=== PATIENT | male | born 1945 | race Caucasian/White ===

== ENCOUNTER → 2016-12-27 | Outpatient (CLI) | payer OTHER ==
[~2016-12-27] MED LIST: ADVIN25/60 INH; ADVIN25050 INH; ALBUAER2 INH; ASPI81TA28 PO; CALC1CAP36 PO; CHOL100010 PO; CLC100 PO; DOCU-94 PO; DOXY100C PO; FINA5TAB PO; FRS/40 PO; ISOS-11 PO; ISOS30TA51 PO; LOSA1TAB PO; LPR25 PO; LSX/40 PO; POTA-335 PO; PRAV40TA2 PO; PRED20TA PO; PRT/40 PO; REPA1TAB42 PO; REPA1TAB8 PO; SITA50TA PO; SITA50TA3 PO; TIMO0.05 OPB; TIMO0.2528 OPB; TRAM-10 PO; TRAZ50TA35 PO; VNTHFA/IN INH
--- NOTE | 2016-12-28 06:34 | PAP/PSG TECHNICIAN REPORT ---
[facility] Vocational Trainer Polysomnogram Report Study name: None Report date: 12/28/2016 Study date: 12/27/2016 Referring Physician: Cassandra Whiteside M.D. Name: PINEDA RAGLAND Interpreting Physician: Leonel Whiteside M.D. Date of : 1945 Vocational Trainer: Tanika Mayberry, PSGT. Sex: Male Age: 71 StudyType: PSG Weight: 242 lbs Height: 71 years, Height 5' 5" Neck Circum: BMI: 40.27 Medications: PROSCAR 5 MG, PROTONIX 40 MG, POTASSIUM ER 20 MEQ, TRAZADONE 50 MG, PRAVACHOL 40 MG, VENTOLIN HFA, ADVAIR, PRANDIN 1 MG, LASIX 40 MG, IMDUR 30 MG, ROCALTROL 0.25 MG, COZAAR 25 MG, LOPRESSOR 25 MG, JANUVIA 50 MG, ULTRAM 50 MG, DOCUSATE 100 MG, TIMOLOL 0.25%, ASPRIN 81 MG. Patient History 71 yr. old male here for a titration sleep study. his ahi was 21.8 on his sleep study here on 07/2016. PT. REQUESTED NASAL PILLOWS, REFUSED ANY OTHER MASK TONIGHT.PT. WASN'T ABLE TO KEEP HIS MOUTH CLOSEDSO A FULL FACE MASKED WAS SUGGESTED AND HE AGREED. Parameters Monitored NPSG: E1-M2, E2-M1, Fp1-M2, Fp2-M1, F3-M2, F4-M2, F4-M1, C3-M2, C4-M2, C4-M1, O1-M2, O2-M2, O2-M1, T3-M2, T4-M1, P3-M2, P4-M1, CHIN1, CHIN2, HR, EKG, Legs, PFLOW, SNOR, FLOW, CFLOW, Tidal Volume, THOR, ABDO, SpO2, PLTH, CPRESS, ETCO2 Wave, ETCO2, pH Sleep Architecture Sleep Stages Time at Lights Off 9:30:53 PM STAGES Time (min.) TST (%) Time at Lights On 5:35:53 AM Wake 86.0 -- Total Recording Time (TRT) 486.00 min. N1 34.0 9 Total Sleep Period (TSP) 459.0 min. N2 312.0 78 Total Sleep Time (TST) 399.0min. N3 0.0 0 Awake Time 86.0 min. REM 53.0 13 Wake after Sleep Onset 60.0 min. Sleep Efficiency (SE) 82 % Sleep Onset Latency (MISAEL) 26.0 min. Number of Stage 1 Shifts None Awakenings 7 Stage Changes 30 Number of REM periods 4 REM 53.0 13 REM Latency 41.0 min. NREM 346.0 87 Body Position Analysis Supine Right Left Side Prone Vertical Total Sleep Time (min.) 261.5 111.0 82.5 193.44 0.0 3.7 Total Sleep Time (%) 52% 28% 21% 48 0% N/A% Total Sleep Time REM (min.) 34.0 11.5 7.5 None 0.0 0.0 Total Sleep Time NREM (min.) 171.6 99.5 75.0 None 0.0 0.0 Intermittent Wake (min.) 55.9 8.8 17.6 None 0.0 3.7 Total Sleep Period (%) 54% None None None None None Arousals Myoclonus (PLM) * Events Count Index Events Count Index Spontaneous 60 9 Events Awake (PLMW) 1 0.7 Respiratory 5 0.8 Events Asleep w/ Arousal (PLMA) 8 1.2 PLM 7 1 Events Asleep w/o Arousal (PLMS) 192 28.9 Snoring 20 3 Total Asleep 200 30.1 Total 92 14 Total 201 25 Respiratory Analysis * CA OA MA CH H RERA Total Count 25 11 5 0 89 2 130 Index 3.8 1.7 0.8 0 13.4 0 19.8 Mean Duration 17.7 16.0 14.4 0.00 17.0 20.7 17.0 Longest Duration 27.7 20.7 24.9 0.00 24.9 25.6 44.2 Respiratory Event Summary Total Supine ~Supine Right Left Prone REM NREM Apneas Count 41 26 15 1 14 N/A 0 41 Index 6.2 8 5 0.5 10.2 N/A 0 7 Hypopneas (4% Desat) Count 89 74 15 5 10 N/A 17 72 Index 13.4 21.6 5 2.7 7.3 N/A 19.2 12.5 Apneas & All Hypopneas Count 130 100 30 6 24 N/A 17 113 Index 19.5 29 9 3 17 N/A 19.2 19.6 Respiratory Events (Fishing Instructor+All Hyp+RERA) Count 130 100 32 8 24 N/A 17 113 Index 19.8 29 10 4.3 17.5 N/A 19.2 19.9 Respiratory Related Arousal Count 5 100 2 0 2 N/A 2 3 Index 0.8 1 1 0 1 N/A 2 1 Snoring Analysis Supine Right Left Prone REM NREM Total Snore duration 18.3 min Snores count 634 140 19 N/A 107 686 793 Snore mean duration 1.4 Sec Snores index 185 76 14 N/A 121.1 119.0 119.2 TST with snoring (%) 4.6% Desaturation Event Summary: Minimum %SpO2 Event Count Mean/Min/Max Duration(sec.) Desaturation Index % Time In Bed > 90 170 29.3 / 10.5 / 57.8 39.6 53.3 86 - 90 27 30.2 / 17.5 / 56.5 7.2 46.5 81 - 85 0 N/A 0.0 0.2 76 - 80 0 N/A 0.0 0.0 71 - 75 0 N/A 0.0 0.0 66 - 70 0 N/A 0.0 0.0 61 - 65 0 N/A 0.0 0.0 56 - 60 0 N/A 0.0 0.0 51 - 55 0 N/A 0.0 0.0 < 50 0 N/A 0.0 0.0 Total REM NREM Awake <50% 0.0 min. 0.0 min. 0.0 min. 0.0 min. 51 - 60% 0.0 min. 0.0 min. 0.0 min. 0.0 min. 61 - 70% 0.0 min. 0.0 min. 0.0 min. 0.0 min. 71 - 80% 0.0 min. 0.0 min. 0.0 min. 0.0 min. 81 - 90% 226.2 min. 29.5 min. 174.1 min. 22.7 min. 91 - 100% 257.8 min. 23.4 min. 171.9 min. 62.5 min. Average 91 90 91 92 Minimum SpO2 82 84 82 85 Desaturation Event Index 21.6 22.6 26.9 0.0 # Desat. Events below 89% 117 15 102 0 Time(%) with Saturation below 89% 10.1 1.4 7.9 0.8 Time(min.) with Saturation below 89% 48.7 6.7 38.1 3.8 Time (mins) REM (mins) NREM (mins) % of TST SpO2 Below 90% 169 19 N150 26.5 SpO2 Below 88% 59 0 0 5 Heart Rate Analysis Min (bpm) Max (bpm) Average (bpm) Awake 50 127 59 NREM 48 68 57 REM 53 67 58 Overall 48 68 57 Supplemental O2 Values Minimum O2 level: None Value Start Time End Time Vocational Trainer Comments Bi-Level Study: Mr. Ragland slept in the right, left, and supine positions. No cardiac arrhythmia or PLM's noted. No bruxism noted. C-pap was started at 5cm and up titrated to 9 cm h20, centrals continued and bi-pap was started at that time. PAP initiated at an IPAP of +8 CMH2O and an EPAP of +4CMH2O up-titrated to an optimal level of: IPAP +16 CMH2O, EPAP + 8 CMH20, which nearly eliminated all respiratory events and snoring. A medium Res [employer] Mirage Quattro, was used during titration Mr. Ragland awoke to use the restroom zero times during the night. Mr. Ragland stated, I did sleep better last night. The final report will be interpreted and signed by a sleep physician. The completed physician report will then be placed in the patient medical record. Pt. slept pretty well he tolerated treatment well. He started out wanting to try nasal pillows but wasn't able to keep his mouth closed, so a full-face mask was introduced and he did well with it.C-pap was started and up titrated to 9 cm h20, but he was having one central after another so Bi-pap was started and worked well for the centrals. He should do well with the Bi-pap he responded well to treatment and slept well with it. Therapy Event: Therapy (cm H20) 5 7 9 8/4 10/6 12/6 Total Time at Pressure (min.) 52.1 35.4 11.9 44.8 42.8 73.7 TST at Pressure (min.) 26.1 25.9 11.9 44.8 37.3 68.2 # Periods 1 1 1 1 1 1 Sleep Onset (min.) 26.0 0.0 0.0 0.0 0.0 0.0 REM Onset (min.) N/A 14.9 N/A N/A N/A 25.4 Sleep Efficiency % 50 73 100 100 87 92 Wakefulness (%) 49.9 26.8 0.0 0.0 12.8 7.5 Wakefulness (min.) 26.0 9.5 0.0 0.0 5.5 5.5 NREM 1 (%) 45.1 8.5 16.8 0.0 2.5 2.0 NREM 1 (min.) 23.5 3.0 2.0 0.0 1.1 1.4 NREM 2 (%) 5.0 43.5 83.2 100.0 84.7 75.0 NREM 2 (min.) 2.6 15.4 9.9 44.8 36.3 55.3 NREM 3 (%) 0.0 0.0 0.0 0.0 0.0 0.0 NREM 3 (min.) 0.0 0.0 0.0 0.0 0.0 0.0 REM (%) 0.0 21.2 0.0 0.0 0.0 15.6 REM (min.) 0.0 7.5 0.0 0.0 0.0 11.5 # Arousals 12 6 3 6 18 9 Arousal Index 27.6 13.9 15.1 8.0 28.9 7.9 # Snore 8 11 3 186 46 32 Snore Index 18.4 25.5 15.1 249.4 73.9 28.1 AHI 20.7 39.3 90.6 46.9 14.5 3.5 AHI Supine N/A 77.4 90.6 46.9 14.9 N/A AHI Non-Supine 20.7 34.2 N/A N/A 0.0 3.5 NREM AHI 20.7 55.3 90.6 46.9 14.5 4.2 REM AHI N/A 0.0 N/A N/A N/A 0.0 RDI 20.7 39.3 90.6 46.9 14.5 3.5 # Obstructive 4 5 1 1 0 0 # Central Ap 1 6 13 4 0 1 # Mixed 0 2 3 0 0 0 # Hypopneas 4 4 1 30 9 3 RERAS 0 0 0 0 0 0 Total Respiratory Events 9 17 18 35 9 4 Time Below SpO2 89.00% (min.) 1.5 5.8 1.3 13.5 2.4 4.0 Mean NREM SpO2 (%) 91 90 92 90 91 90 Mean REM SpO2 (%) N/A 89 N/A N/A N/A 90 Mean Sleep SpO2 (%) 91 90 92 90 91 90 Min NREM SpO2 (%) 87 86 86 82 86 82 Min REM SpO2 (%) N/A 87 N/A N/A N/A 88 Position Supine (min.) 0.0 3.1 11.9 44.8 36.3 0.0 Position Non-supine (min.) 26.1 22.8 0.0 0.0 1.1 68.2 LM Index Sleep 39.0 32.4 55.3 59.0 56.3 21.1 LM Index NREM 39.0 29.3 55.3 59.0 56.3 10.6 LM Index REM N/A 40.0 N/A N/A N/A 73.0 Mean Heart Rate (bpm) 57 57 57 58 58 57 Min Heart Rate (bpm) 52 52 54 53 54 54 Therapy (cm H20) 17/05 147 157 167 16/8 Total Time at Pressure (min.) 41.1 31.7 66.9 7.1 77.3 TST at Pressure (min.) 41.1 28.2 66.9 7.1 41.3 # Periods 1 1 1 1 1 Sleep Onset (min.) 0.0 0.0 0.0 0.0 0.0 REM Onset (min.) N/A 16.6 52.9 0.0 0.0 Sleep Efficiency % 100 89 100 100 53 Wakefulness (%) 0.0 11.0 0.0 0.0 46.6 Wakefulness (min.) 0.0 3.5 0.0 0.0 36.0 NREM 1 (%) 0.0 3.2 0.0 0.0 2.6 NREM 1 (min.) 0.0 1.0 0.0 0.0 2.0 NREM 2 (%) 100.0 70.1 79.0 0.0 40.7 NREM 2 (min.) 41.1 22.2 52.9 0.0 31.5 NREM 3 (%) 0.0 0.0 0.0 0.0 0.0 NREM 3 (min.) 0.0 0.0 0.0 0.0 0.0 REM (%) 0.0 15.8 21.0 100.0 10.1 REM (min.) 0.0 5.0 14.1 7.1 7.8 # Arousals 7 10 15 0 6 Arousal Index 10.2 21.2 13.4 0.0 8.7 # Snore 108 78 275 30 16 Snore Index 157.7 165.7 246.6 252.4 23.2 AHI 2.9 14.9 14.3 50.5 10.2 AHI Supine N/A 15.2 14.3 50.5 38.4 AHI Non-Supine 2.9 0.0 N/A N/A 3.6 NREM AHI 2.9 18.1 11.4 N/A 3.6 REM AHI N/A 0.0 25.6 50.5 38.4 RDI 5.8 14.9 14.3 50.5 10.2 # Obstructive 0 0 0 0 0 # Central Ap 0 0 0 0 0 # Mixed 0 0 0 0 0 # Hypopneas 2 7 16 6 7 RERAS 2 0 0 0 0 Total Respiratory Events 4 7 16 6 7 Time Below SpO2 89.00% (min.) 4.1 3.9 6.2 0.9 1.3 Mean NREM SpO2 (%) 90 90 91 N/A 91 Mean REM SpO2 (%) N/A 90 91 91 91 Mean Sleep SpO2 (%) 90 90 91 91 91 Min NREM SpO2 (%) 86 85 87 N/A 86 Min REM SpO2 (%) N/A 86 84 87 86 Position Supine (min.) 0.0 27.7 66.9 7.1 7.8 Position Non-supine (min.) 41.1 0.6 0.0 0.0 33.5 LM Index Sleep 17.5 19.1 21.5 8.4 13.1 LM Index NREM 17.5 12.9 17.0 N/A 1.8 LM Index REM N/A 48.0 38.4 8.4 61.5 Mean Heart Rate (bpm) 58 57 57 59 53 Min Heart Rate (bpm) 54 54 52 54 48
--- NOTE | 2017-01-01 16:43 | POLYSOMNOGRAPH REPORT ---
REFERRING PERSON: Dr. Ashwini Whiteside. MASTIC WORKER: Promise Mayberry. Mr. Ragland is a 71-year-old male, sent for a CPAP titration study. He had a home sleep study in July of 2016 which gestured an AHI of 21.8. Per the technologist's notes, this patient requested a nasal pillow mask and initially refused to use any other type of mask on this test. However, this patient was noted to be a mouth breather and ultimately did agree to switch to a medium [employer] Mirage Quattro full facemask. Following the technical and digital specifications of the [place] [employer] (AASM) a standard diagnostic polysomnogram was performed monitoring EEG, EOG, EMG (chin and leg deviations), oxygen saturation, body position, digital video, respiratory effort and airflow. The sleep Stage and event scoring was based on the AASM Manual for the Scoring of Sleep and Associated Events 2007 edition. Apneas are defined as a drop in the peak thermal sensor excursion by >90% of baseline for at least 10 seconds. Hypopneas were scored using the 4% oxygen desaturation rule (4A-Medicare) and a decrease in the nasal pressure excursions by >30% of baseline for at least 10 seconds. Respiratory effort-related arousal (RERA's) is defined as a sequence of breaths lasting at least 10 seconds characterized by increasing respiratory effort or flattening of the nasal pressure waveform leading to an arousal from sleep when the sequence of breaths does not meet criteria for an apnea or hypopnea. Apnea Hypopnea index (AHI) is defined as the number of apneas and hypopneas occurring in an hour of sleep. Respiratory disturbance index (RDI) is defined as the number of apneas, hypopneas, and RERA's occurring in an hour of sleep. This patient's total sleep period time was 459 minutes. Total sleep time was 399 minutes. Sleep efficiency was 82%. Latency to sleep onset was 26 minutes with wake after sleep onset of 60 minutes. Total non-REM sleep time was 346 minutes. He spent 9% of that time in N1 sleep, 78% in N2 sleep, and no time in N3 sleep. REM latency was short at 41 minutes. Total REM sleep time was 53 minutes or 13% of total sleep time. There were 92 cortical arousals from sleep. Five of these arousals were due to respiratory events, 7 due to periodic limb movements of sleep, 20 were due to snoring and 60 were spontaneous. There were 200 periodic limb movements noted on this test. Limb movement index was 30.1 and limb movement with arousal index was 1.2. During this titration, there were 11 obstructive apneas, 25 central apneas and 5 mixed apneas. Additionally, there were 89 hypopneas and 2 RERA. Apnea-hypopnea index for the duration of this titration was 19.5. There were 793 snoring events recorded. Total sleep time with snoring was 4.6%. Mean saturation was 91% with desaturations to 82%. Saturations were less than 89% for 48.7 minutes of recorded time. There was no cardiac ectopy noted on this test. Heart rates during sleep ranged from a low of 48 beats per minute to a high of 68 beats per minute. As stated above, this was a CPAP titration study. This study was begun on a CPAP pressure of 5. Over the early part of the night, pressures were increased to a CPAP pressure of 9. This patient had what appeared to be fairly consistent treatment emergent central sleep apneic events. He was then switched to bilevel therapy and over the remainder of the night was titrated from a BIPAP pressure of 8/4 to 16/8. As BiPAP pressures were increased, central events were eliminated. However, by the end of this study, the patient continued to have some obstructive events. He was observed on a pressure of 16/18 for 41.3 minutes of sleep. There were 7.8 minutes of supine REM sleep on this pressure. AHI and RDI on this pressure were both 10.2. Saturations were less than 89% for only 1.3 minutes of testing time on this pressure. IMPRESSION AND PLAN: Improved sleep-disordered breathing on and Pap therapy. The patient appeared to have treatment emergent central apneas that resolved with bilevel therapy. I would recommend that this patient be started on auto-titrating BIPAP with an EPAP min of 10 and a max pressure of 20. Pressure support of 4-8 can also be ordered. A download from his machine should be reviewed in 1 month, both to check compliance as well as apnea-hypopnea index and further pressure adjustments can occur at that time. Using these settings on auto BIPAP will allow optimal pressure to be found in the outpatient setting. He did have some residual mild sleep apnea on 16/8 on this titration.
== END | disposition home or self-care (01) ==
LOC: C.NEUR 20:00
PROVIDERS: ATTEND Family Medicine
DX: G47.33 Obstructive sleep apnea (adult) (pediatric) (principal); G47.34 Idiopathic sleep related nonobstructive alveolar hypoventilation

== ENCOUNTER 2017-05-13 13:56 | Emergency (ER) | payer OTHER ==
[~2017-05-13] VITALS: Ht 165.1 cm; Wt 108.0 kg
[~2017-05-13 13:56] MED LIST changes: -ADVIN25/60 INH; -ALBUAER2 INH; -CHOL100010 PO; -DOCU-94 PO; -DOXY100C PO; -ISOS-11 PO; -LSX/40 PO; -POTA-335 PO; -PRED20TA PO; -REPA1TAB8 PO; -SITA50TA PO; -TIMO0.05 OPB; -TRAM-10 PO
[2017-05-13 14:02] VITALS: TEMP 36.7; Ht 165.1 cm; Wt 108.0 kg
[2017-05-13 14:52] LABS: BASO % 0.4 %; BASO ABS # 0.05 K/uL (0-0.2); COMPLETE YES; HEMATOCRIT 39.5 % (42-52); IG% 0.5 %; LYMPH % 25.3 %; MEAN CELL VOLUME 86.2 fL (80-100); MEAN CORPUSCULAR HEMOGLOBIN 31.4 pg (25-34); MEAN CORPUSCULAR HGB CONC 36.5 g/dl (32-36); MEAN PLATELET VOLUME 9.5 fL (7.4-10.4); MONO % 5.1 %; NEUT % 67.7 %; PLATELET COUNT 104 K/uL (130-400); RED BLOOD COUNT 4.58 M/uL (4.7-6.1); WHITE BLOOD COUNT 12.64 K/uL (4.8-10.8)
--- NOTE | 2017-05-13 15:03 | DIAGNOSTIC IMAGING REPORT ---
CT SCAN OF THE BRAIN WITHOUT IV CONTRAST CLINICAL HISTORY: Facial nerve palsy. COMPARISON STUDY: CT of the brain dated 07/25/2016. TECHNIQUE: Unenhanced axial CT scan of the brain is performed from the vertex to the skull base. CT DOSE: 537.48 mGy.cm FINDINGS: Brain parenchyma: There are age-related involutional changes noting mild subcortical and periventricular microangiopathic change. There is no hemorrhage, mass effect, or evidence of acute territorial ischemia by CT criteria. Salgado-white matter is preserved. No extra-axial fluid collection is seen. Ventricles, sulci, cisterns: Prominent secondary to involutional change. Intracranial vasculature: There is atherosclerotic calcification of the cavernous carotid and vertebral arteries. Calvarium: Unremarkable. Sinuses and mastoids: The visualized paranasal sinuses are clear. The mastoid air cells are well pneumatized. Orbits: The bony orbits are grossly intact. There are bilateral ocular lens implants. IMPRESSION: There is no hemorrhage, mass effect, or evidence of acute territorial ischemia by CT criteria. Electronically signed by: Frank Flynn M.D. 05/13/2017 3:01 PM Dictated Date/Time: 05/13/2017 2:59 PM
[2017-05-13] MEDS ORDERED: FRS/40 PO (15:08)
[2017-05-13] MEDS ORDERED: DOCU-94 PO (15:08)
[2017-05-13 15:09] LABS: BUN/CREATININE RATIO 10.5 (10-20); CALCIUM 8.7 mg/dl (8.5-10.1); CREATININE 1.9 mg/dl (0.60-1.40)
[2017-05-13] MEDS ORDERED: ADVIN25/60 INH (15:09)
[2017-05-13] MEDS ORDERED: TIMO0.05 OPB (15:09)
[2017-05-13 15:11] LABS: ALB/GLOB RATIO 0.8 (0.9-2)
[2017-05-13 15:19] LABS: BETA-HYDROXYBUTYRATE 1.19 mg/dL (0.2-2.81)
--- NOTE | 2017-05-13 15:20 | EMERGENCY ROOM VISIT NOTE ---
History First contact with patient: 14:13 Chief Complaint: EYE ASSESSMENT Stated Complaint: RIGHT EYE WON'T BLINK History of Present Illness The patient is a 71 year old male who presents to the Emergency Room with complaints of trouble closing his right eye. The patient's noticed 3 days ago that he was not closing his right eye when he blinks. She states that he has also had some drooping to the right side of his face. The patient denies any injury. He states his eye feels dry and rates his discomfort a 1/10. He denies any fevers, chills, earache, sore throat and cough. He denies any headache, lightheadedness or dizziness. He denies any pain in his chest or trouble breathing. He denies any abdominal pain, nausea vomiting. He denies any numbness, tingling or weakness of the extremities. He does not recall any tick bite. He denies any rash. Review of Systems A 10 system review of systems was completed with positives and pertinent negatives listed in the HPI. Past Medical/Surgical History Medical Problems: (1) Aortic Valve Disorder (2) Aortocoronary Bypass (3) Atrial Fibrillation (4) Chronic Kidney Disease, Stage Iii (Moderate) (5) Coronary Atherosclerosis Of [place] Coronary Vessel (6) Diab Kalee Wo Compl, Type Ii Or Unspec Type, Not Uncntrld (7) Diverticulosis Colon (W/O Ment Of Hemorrhage) (8) Hx Of Kidney Malignancy (9) Hypertension Nos (10) Myocardial infarction (11) Strain of right gastrocnemius muscle Surgical Problems: (1) History of cholecystectomy (2) History of four vessel coronary artery bypass graft Social History Problems: (1) Cholelithiasis Nos (2) Tobacco Use Disorder Family History FH: diabetes mellitus FH: heart disease Social History Smoking Status: Never Smoker Alcohol Use: none Drug Use: none Marital Status: Housing Status: lives with family Occupation Status: employed Current/Historical Medications Scheduled Aspirin (Aspirin Ec), 81 MG PO QAM Calcitriol (Calcitriol), 0.25 MG PO MWF Docusate Sodium (Colace), 1 CAP PO BID Doxycycline Hyclate (Vibramycin), 100 MG PO BID Finasteride (Proscar), 5 MG PO QAM Fluticasone Prop/Salmeterol (Advair Diskus 250/50 60 Dose), 1 PUFF INH BID Furosemide (Lasix), 40 MG PO 5XWK Furosemide (Lasix), 80 MG PO MWF Isosorbide Dinitrate (Isordil), 30 MG PO QAM Losartan Potassium (Cozaar), 1 TAB PO QAM Metoprolol Tartrate (Lopressor), 25 MG PO BID Pantoprazole (Pantoprazole Sodium), 40 MG PO QAM Pravastatin Sodium (Pravastatin Sodium), 40 MG PO HS Prednisone (Prednisone), 0 PO DAILY Repaglinide (Prandin), 1 MG PO BID Sitagliptin (Januvia), 50 MG PO QAM Timolol Maleate (Ophth) (Timoptic 0.25% Oph), 1 DROP OPB HS Scheduled PRN Albuterol Hfa (Ventolin Hfa), 2-4 PUFFS INH Q6H PRN for Shortness of Breath Allergies Coded Allergies: Clavulanic Acid (Verified Allergy, Intermediate, RASH AND ELEVATED PULSE, 03/08/17) Amoxicillin (Verified Allergy, Unknown, RASH, ELEVATED PULSE, 03/08/17) Lisinopril (Verified Allergy, Unknown, COUGH, 03/08/17) Physical Exam Vital Signs Date Time Temp Pulse Resp B/P (MAP) Pulse Ox O2 Delivery O2 Flow Rate FiO2 05/13/17 16:49 62 16 114/65 93 05/13/17 16:43 62 16 114/65 93 Room Air 05/13/17 15:13 68 18 135/62 95 Room Air 05/13/17 14:02 36.7 70 17 140/74 94 Room Air Right Eye Acuity: 20/50 Left Eye Acuity: 20/40 Physical Exam VITALS: Vitals are noted on the nurse's note and reviewed by myself. Vital signs stable. The patient is afebrile. GENERAL: This is a 71-year-old male, in no acute distress, nondiaphoretic, well- developed well-nourished. SKIN: The skin was without rashes, erythema, edema, or bruising. There is no tenting of the skin. Capillary reflex less than 2 seconds. HEAD: Normocephalic atraumatic. EARS: External auditory canals clear, tympanic membranes pearly salgado without erythema or effusion bilaterally. EYES: Pupils equal round and reactive to light and accommodation. Conjunctivae without injection, sclerae without icterus. Extraocular movements intact. The patient has difficulty with closing the right eye. NOSE: Patent, turbinates without inflammation or discharge. MOUTH: Mucous membranes moist. Tonsils are not enlarged. Pharynx without erythema or exudate. Uvula midline. Airway patent. Tongue does not deviate. NECK: Supple without nuchal rigidity. No lymphadenopathy. No thyromegaly. Cervical spine is nontender. No JVD. HEART: Regular rate and rhythm without murmurs gallops or rubs. LUNGS: Clear to auscultation bilaterally without wheezes, rales or rhonchi. No retractions or accessory muscle use. MUSCULOSKELETAL: No muscle atrophy, erythema, or edema noted. Full range of motion without joint tenderness in all extremities. No tenderness to palpation. Normal gait. Strength 5/5 throughout. NEURO: Patient was alert and oriented to person place and time. Normal sensation to light and sharp touch. The patient cannot move the right side of the forehead without significant effort. The patient is able to close the right eye only with significant effort. The patient does have a very minimal right facial droop with smile. The patient has negative pronator drift. Finger to nose is intact. Heel wayne testing is intact. Medical Decision & Procedures ER Provider Diagnostic Interpretation: CT SCAN OF THE BRAIN WITHOUT IV CONTRAST CLINICAL HISTORY: Facial nerve palsy. COMPARISON STUDY: CT of the brain dated 07/25/2016. TECHNIQUE: Unenhanced axial CT scan of the brain is performed from the vertex to the skull base. CT DOSE: 537.48 mGy.cm FINDINGS: Brain parenchyma: There are age-related involutional changes noting mild subcortical and periventricular microangiopathic change. There is no hemorrhage, mass effect, or evidence of acute territorial ischemia by CT criteria. Salgado-white matter is preserved. No extra-axial fluid collection is seen. Ventricles, sulci, cisterns: Prominent secondary to involutional change. Intracranial vasculature: There is atherosclerotic calcification of the cavernous carotid and vertebral arteries. Calvarium: Unremarkable. Sinuses and mastoids: The visualized paranasal sinuses are clear. The mastoid air cells are well pneumatized. Orbits: The bony orbits are grossly intact. There are bilateral ocular lens implants. IMPRESSION: There is no hemorrhage, mass effect, or evidence of acute territorial ischemia by CT criteria. Laboratory Results 05/13/17 14:30 Red Blood Count 4.58, Mean Corpuscular Volume 86.2, Mean Corpuscular Hemoglobin 31.4, Mean Corpuscular Hemoglobin Concent 36.5, Mean Platelet Volume 9.5, Neutrophils (%) (Auto) 67.7, Lymphocytes (%) (Auto) 25.3, Monocytes (%) (Auto) 5.1, Eosinophils (%) (Auto) 1.0, Basophils (%) (Auto) 0.4, Neutrophils # (Auto) 8.55, Lymphocytes # (Auto) 3.20, Monocytes # (Auto) 0.65, Eosinophils # (Auto) 0.13, Basophils # (Auto) 0.05 05/13/17 14:30 Test 05/13/17 14:30 White Blood Count 12.64 K/uL (4.8-10.8) Red Blood Count 4.58 M/uL (4.7-6.1) Hemoglobin 14.4 g/dL (14.0-18.0) Hematocrit 39.5 % (42-52) Mean Corpuscular Volume 86.2 fL (80-100) Mean Corpuscular Hemoglobin 31.4 pg (25-34) Mean Corpuscular Hemoglobin Concent 36.5 g/dl (32-36) Platelet Count 104 K/uL (130-400) Mean Platelet Volume 9.5 fL (7.4-10.4) Neutrophils (%) (Auto) 67.7 % Lymphocytes (%) (Auto) 25.3 % Monocytes (%) (Auto) 5.1 % Eosinophils (%) (Auto) 1.0 % Basophils (%) (Auto) 0.4 % Neutrophils # (Auto) 8.55 K/uL (1.4-6.5) Lymphocytes # (Auto) 3.20 K/uL (1.2-3.4) Monocytes # (Auto) 0.65 K/uL (0.11-0.59) Eosinophils # (Auto) 0.13 K/uL (0-0.5) Basophils # (Auto) 0.05 K/uL (0-0.2) RDW Standard Deviation 40.5 fL (36.4-46.3) RDW Coefficient of Variation 12.8 % (11.5-14.5) Immature Granulocyte % (Auto) 0.5 % Immature Granulocyte # (Auto) 0.06 K/uL (0.00-0.02) Anion Gap 10.0 mmol/L (3-11) Est Creatinine Clear Calc Drug Dose 41.6 ml/min Estimated GFR () 40.8 Estimated GFR (Non- 35.2 BUN/Creatinine Ratio 10.5 (10-20) Calcium Level 8.7 mg/dl (8.5-10.1) Total Bilirubin 1.2 mg/dl (0.2-1) Aspartate Amino Transf (AST/SGOT) 33 U/L (15-37) Alanine Aminotransferase (ALT/SGPT) 45 U/L (12-78) Alkaline Phosphatase 150 U/L (45-117) Total Protein 7.3 gm/dl (6.4-8.2) Albumin 3.2 gm/dl (3.4-5.0) Globulin 4.1 gm/dl (2.5-4.0) Albumin/Globulin Ratio 0.8 (0.9-2) Beta-Hydroxybutyric Acid 1.19 mg/dL (0.2-2.81) Lyme Disease IgG Antibody NEG (NEG) Medications Administered Medications (Trade) Dose Ordered Sig/Fernando Route Start Time Stop Time Status Last Admin Dose Admin Prednisone (PredniSONE TAB) 60 mg NOW STAT PO 05/13/17 15:49 05/13/17 15:50 DC 05/13/17 16:44 60 MG Doxycycline Hyclate (Vibramycin Cap) 100 mg NOW STAT PO 05/13/17 16:34 05/13/17 16:37 DC 05/13/17 16:44 100 MG Doxycycline Hyclate (Vibramycin Cap) 100 mg NOW STAT PO 05/13/17 16:34 05/13/17 16:37 DC 05/13/17 16:44 100 MG ED Course The patient was seen and examined. Previous visits were reviewed. The patient does not have a fever or leukocytosis. He does have renal insufficiency which seems similar to baseline. He is hyperglycemic and does have a history of diabetes. CT scan of the brain was negative for intracranial bleeding or skull fracture. There was no obvious stroke. 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 The patient is able to close his eye with effort and is able to smile and raise his eyebrow with effort. The patient was advised to try Lacri-Lube artificial tears to help keep the right eye lubricated. He was given 60 mg oral prednisone here and will be given a prescription for 6 more days. The patient was advised to monitor his glucose closely with the prednisone. He states that he has been on prednisone many times in the past and has never had any trouble. The patient's Lyme titer is positive, I GM, he will be started on doxycycline twice daily for 21 days. He was given his first dose here and a dose to take in the morning. He has an appointment with his family doctor on Sunday and is encouraged to keep this appointment. He should return to the ER with any worsening symptoms. The patient was also seen and examined by who agrees with the assessment and treatment plan. Medical Decision The differential diagnosis includes CVA, TIA, intracranial bleeding, Cabrales's palsy, Lyme disease, among others Impression Primary Impression: Cabrales's palsy Additional Impression: Lyme disease Departure Information Dispostion Home / Self-Care Condition GOOD Prescriptions Prednisone (Prednisone) 20 Mg Tab 0 PO DAILY for 6 Days, #18 TAB 3 TABS DAILY FOR DAYS, THEN 2 TABS DAILY FOR DAYS, THEN 1 TAB DAILY FOR DAYS. Prov: Kaylynn Ray PA-C 05/13/17 Doxycycline Hyclate (VIBRAMYCIN) 100 Mg Cap 100 MG PO BID for 21 Days, #42 CAP Prov: Kaylynn Ray PA-C 05/13/17 Referrals Buzz Rainey M.D. (PCP) Patient Instructions ED [place] Palsy, ED Lyme Disease, [facility] Additional Instructions Doxycycline every 12 hours for 21 days Prednisone as prescribed, for the Cabrales's palsy The prednisone may make your sugars go up. Monitor them closely Follow up with your family doctor on Sunday Return with any worsening symptoms Problem Qualifiers
--- NOTE | 2017-05-13 15:50 | EMERGENCY ROOM VISIT NOTE ---
ED Visit Note First contact with patient: 14:13 I have personally seen and evaluated the patient with the physician medicine assistant. I agree with the diagnostic/management decisions and have personally been involved in these decisions and agree with the diagnosis. Clinically the patient's symptoms are suggestive of Cabrales's palsy.
[2017-05-13 16:14] LABS: LYME DISEASE AB IGG NEG (NEG)
[2017-05-13 16:23] LABS: LYME DISEASE AB IGM POS (NEG)
[2017-05-13] MEDS ORDERED: DOXYCYCLINE HYCLATE 100 MG CAP PO STA ×2 (16:34)
[2017-05-13] MEDS ORDERED: DOXY100C PO (16:42)
[2017-05-13] MEDS ORDERED: PRED20TA PO (16:42)
[2017-05-13 16:49] VITALS: BP 114/65; PULSE 62; O2SAT 93
[2017-05-17 15:39] LABS: 18KDIGG BAND REACTIVE (NONREACTIVE); 23KDIGG BAND REACTIVE (NONREACTIVE); 23KDIGM BAND REACTIVE (NONREACTIVE); 28KDIGG BAND NONREACTIVE (NONREACTIVE); 30KDIGG BAND NONREACTIVE (NONREACTIVE); 39KDIGG BAND REACTIVE (NONREACTIVE); 39KDIGM BAND NONREACTIVE (NONREACTIVE); 41KDIGG BAND REACTIVE (NONREACTIVE); 41KDIGM BAND NONREACTIVE (NONREACTIVE); 45KDIGG BAND REACTIVE (NONREACTIVE); 58KDIGG BAND REACTIVE (NONREACTIVE); 66KDIGG BAND NONREACTIVE (NONREACTIVE); 93KDIGG BAND NONREACTIVE (NONREACTIVE)
== END 2017-05-13 16:50 | disposition home or self-care (01) ==
LOC: C.EDB 13:57 → C.EDD 16:50
DX: G51.0 Bell's palsy (principal); A69.20 Lyme disease, unspecified; I35.8 Other nonrheumatic aortic valve disorders; I48.91 Unspecified atrial fibrillation; N18.3 Chronic kidney disease, stage 3 (moderate); I25.10 Atherosclerotic heart disease of native coronary artery without angina pectoris; E11.9 Type 2 diabetes mellitus without complications; K57.90 Diverticulosis of intestine, part unspecified, without perforation or abscess without bleeding; I10 Essential (primary) hypertension; I25.2 Old myocardial infarction; Z83.3 Family history of diabetes mellitus; Z82.49 Family history of ischemic heart disease and other diseases of the circulatory system; Z79.82 Long term (current) use of aspirin

== ENCOUNTER → 2018-02-05 | Outpatient (CLI) | payer OTHER ==
[~2018-02-05] MED LIST changes: +ADVIN25/60 INH; -ADVIN25050 INH; -CLC100 PO; +DOCU-94 PO; -ISOS30TA51 PO; +ISR/30 PO; +PANT40TA2 PO; -PRT/40 PO; +REPA1TAB26 PO; -REPA1TAB42 PO; +TIMO0.05 OPB; -TIMO0.2528 OPB; -TRAZ50TA35 PO
--- NOTE | 2018-02-06 05:24 | PAP/PSG TECHNICIAN REPORT ---
[facility] Saturator Tender Polysomnogram Report Study name: None Report date: 02/06/2018 Study date: 02/05/2018 Referring Physician: Marianela Gutierrez Name: PINEDA GERARD Interpreting Physician: Bradley Melton M.D. Date of : 1945 Saturator Tender: ZACARIAS Villa. Sex: Male Age: 72 StudyType: PSG PAP Weight: 234 lbs Height: 72 years, Height 5' 5" Neck Circum:18.75inches BMI: 38.94 Medications: Pravastatin 40 mg, Jardiance 25 mg, Repaglinide 2 mg, Calitrol 0.26 mcg, Imdur 30 mg, losartan 25 mg, Januvia 100 mg, metoprolol 25 mg, Pantoprazole 40 mg, Finasteride 5 mg, Potassium Chloride 20 meq, Furosemide 40 mg, Timolol 0.25% soln, Ventolin HFA, Advair Diskus 250-50 mcg/dose, Docusate 100 mg, Aspirin 81 mg Patient History Study started on room air with BIPAP +12/8 cwp(per order) in room #6. 72 yr old male here tonight for a bipap titration study for pressure settings. He had a titration study done here on 12/2016 noting pressure emergent central sleep apnea. The study was inconclusive, final BIPAP 20/06.He continues to have pressure emergent central and periodic breathing on home BIPAP. ESS=3/24. Neck circ=18.75inches. Parameters Monitored NPSG: E1-M2, E2-M1, Fp1-M2, Fp2-M1, F3-M2, F4-M2, F4-M1, C3-M2, C4-M2, C4-M1, O1-M2, O2-M2, O2-M1, T3-M2, T4-M1, P3-M2, P4-M1, CHIN1, CHIN2, HR, EKG, Legs, PFLOW, SNOR, FLOW, CFLOW, Tidal Volume, THOR, ABDO, SpO2, PLTH, CPRESS, ETCO2 Wave, ETCO2, pH Sleep Architecture Sleep Stages Time at Lights Off 9:46:59 PM STAGES Time (min.) TST (%) Time at Lights On 5:15:59 AM Wake 127.0 -- Total Recording Time (TRT) 449.00 min. N1 18.5 6 Total Sleep Period (TSP) 421.0 min. N2 222.0 69 Total Sleep Time (TST) 322.0min. N3 38.0 12 Awake Time 127.0 min. REM 43.5 14 Wake after Sleep Onset 99.0 min. Sleep Efficiency (SE) 72 % Sleep Onset Latency (MISAEL) 28.0 min. Number of Stage 1 Shifts None Awakenings 24 Stage Changes 104 Number of REM periods 8 REM 43.5 14 REM Latency 205.5 min. NREM 278.5 86 Body Position Analysis Supine Right Left Side Prone Vertical Total Sleep Time (min.) 295.3 0.0 132.6 132.59 0.0 0.0 Total Sleep Time (%) 59% 0% 41% 41 0% N/A% Total Sleep Time REM (min.) 30.5 0.0 13.0 None 0.0 0.0 Total Sleep Time NREM (min.) 158.9 0.0 119.6 None 0.0 0.0 Intermittent Wake (min.) 105.9 0.0 21.1 None 0.0 0.0 Total Sleep Period (%) 63% None None None None None Arousals Myoclonus (PLM) * Events Count Index Events Count Index Spontaneous 19 4 Events Awake (PLMW) 137 64.7 Respiratory 12 2.8 Events Asleep w/ Arousal (PLMA) 12 2.2 PLM 12 2 Events Asleep w/o Arousal (PLMS) 74 13.8 Snoring 4 1 Total Asleep 86 16.0 Total 47 9 Total 223 30 Respiratory Analysis * CA OA MA CH H RERA Total Count 4 22 1 0 24 0 51 Index 0.7 4.1 0.2 0 4.5 0 9.5 Mean Duration 20.0 20.1 22.4 0.00 26.8 0.0 23.3 Longest Duration 27.5 27.6 22.4 0.00 22.4 0.0 42.6 Respiratory Event Summary Total Supine ~Supine Right Left Prone REM NREM Apneas Count 27 27 0 N/A 0 N/A 0 27 Index 5.0 9 0 N/A 0.0 N/A 0 6 Hypopneas (4% Desat) Count 24 14 10 N/A 10 N/A 1 23 Index 4.5 4.4 5 N/A 4.5 N/A 1.4 5.0 Apneas & All Hypopneas Count 51 41 10 N/A 10 N/A 1 50 Index 9.5 13 5 N/A 5 N/A 1.4 10.8 Respiratory Events (Employee Relations Assistant+All Hyp+RERA) Count 51 41 10 N/A 10 N/A 1 50 Index 9.5 13 5 N/A 4.5 N/A 1.4 10.8 Respiratory Related Arousal Count 12 41 4 N/A 4 N/A 1 14 Index 2.8 3 2 N/A 2 N/A 1 3 Snoring Analysis Supine Right Left Prone REM NREM Total Snore duration 1.3 min Snores count 38 N/A 5 N/A 9 34 43 Snore mean duration 1.9 Sec Snores index 12 N/A 2 N/A 12.4 7.3 8.0 TST with snoring (%) 0.4% Desaturation Event Summary: Minimum %SpO2 Event Count Mean/Min/Max Duration(sec.) Desaturation Index % Time In Bed > 90 80 28.4 / 8.3 / 57.8 18.3 59.9 86 - 90 25 24.0 / 9.8 / 53.8 8.8 38.8 81 - 85 0 N/A 0.0 1.2 76 - 80 0 N/A 0.0 0.1 71 - 75 0 N/A 0.0 0.0 66 - 70 0 N/A 0.0 0.0 61 - 65 0 N/A 0.0 0.0 56 - 60 0 N/A 0.0 0.0 51 - 55 0 N/A 0.0 0.0 < 50 0 N/A 0.0 0.0 Total REM NREM Awake <50% 0.0 min. 0.0 min. 0.0 min. 0.0 min. 51 - 60% 0.0 min. 0.0 min. 0.0 min. 0.0 min. 61 - 70% 0.0 min. 0.0 min. 0.0 min. 0.0 min. 71 - 80% 0.3 min. 0.0 min. 0.1 min. 0.2 min. 81 - 90% 175.4 min. 17.9 min. 147.8 min. 9.7 min. 91 - 100% 262.9 min. 24.7 min. 129.7 min. 108.6 min. Average 91 91 90 93 Minimum SpO2 66 87 79 66 Desaturation Event Index 11.6 2.8 15.7 6.1 # Desat. Events below 89% 64 1 58 5 Time(%) with Saturation below 89% 9.6 0.1 8.8 0.6 Time(min.) with Saturation below 89% 42.0 0.5 38.6 2.8 Time (mins) REM (mins) NREM (mins) % of TST SpO2 Below 90% 71 1 N70 28.5 SpO2 Below 88% 28 0 0 6 Heart Rate Analysis Min (bpm) Max (bpm) Average (bpm) Awake 30 145 57 NREM 31 127 55 REM 30 225 58 Overall 30 225 55 Supplemental O2 Values Minimum O2 level: None Value Start Time End Time Saturator Tender Comments Mr. Gerard slept in the right, left and supine positions. No cardiac arrhythmia noted. Some leg movements were noted. No bruxism noted. PAP initiated at an IPAP of +12 CMH2O and an EPAP of +8 CMH2O and up-titrated to a level of: IPAP +18 CMH2O, EPAP + 14 CMH20. A large Simplus full face mask by Luisito was used during titration. He awoke to use the restroom 1 time during the night. He stated that he slept better than usual. The final report will be interpreted and signed by a sleep physician. The completed physician report will then be placed in the patient medical record. Therapy Event: Therapy (cm H20) 10/12 18/07 19/07 20/07 20/08 20/09 Total Time at Pressure (min.) 35.8 75.6 5.0 45.3 36.6 7.9 40.1 202.6 TST at Pressure (min.) 2.3 6.2 4.4 44.8 36.3 7.7 38.3 182.0 # Periods 1 1 1 1 1 1 1 1 Sleep Onset (min.) 28.0 0.0 0.1 0.0 0.0 0.2 0.0 0.6 REM Onset (min.) N/A N/A N/A N/A N/A N/A 27.3 0.6 Sleep Efficiency % 6 8 87 98 99 97 95 89 Wakefulness (%) 93.5 91.8 12.1 1.1 0.9 2.4 4.7 10.2 Wakefulness (min.) 33.5 69.4 0.6 0.5 0.3 0.2 1.9 20.6 NREM 1 (%) 3.7 3.5 10.1 2.2 5.5 0.0 5.0 4.4 NREM 1 (min.) 1.3 2.7 0.5 1.0 2.0 0.0 2.0 9.0 NREM 2 (%) 2.8 4.6 77.8 63.6 78.7 97.6 24.3 68.4 NREM 2 (min.) 1.0 3.5 3.9 28.8 28.8 7.7 9.8 138.5 NREM 3 (%) 0.0 0.0 0.0 33.1 15.0 0.0 43.6 0.0 NREM 3 (min.) 0.0 0.0 0.0 15.0 5.5 0.0 17.5 0.0 REM (%) 0.0 0.0 0.0 0.0 0.0 0.0 22.4 17.0 REM (min.) 0.0 0.0 0.0 0.0 0.0 0.0 9.0 34.5 # Arousals 2 3 1 7 6 3 6 19 Arousal Index 51.3 29.2 13.8 9.4 9.9 23.3 9.4 6.3 # Snore 0 1 0 0 8 10 9 15 Snore Index 0.0 9.7 0.0 0.0 13.2 77.6 14.1 4.9 AHI 76.9 77.9 55.1 12.1 13.2 69.8 4.7 2.3 AHI Supine 76.9 65.6 N/A 78.0 13.2 69.8 4.7 4.4 AHI Non-Supine N/A 96.0 55.1 3.0 N/A N/A N/A 0.0 NREM AHI 76.9 77.9 55.1 12.1 13.2 69.8 6.2 2.4 REM AHI N/A N/A N/A N/A N/A N/A 0.0 1.7 RDI 76.9 77.9 55.1 12.1 13.2 69.8 4.7 2.3 # Obstructive 1 0 0 3 7 8 3 0 # Central Ap 1 2 0 1 0 0 0 0 # Mixed 1 0 0 0 0 0 0 0 # Hypopneas 0 6 4 5 1 1 0 7 RERAS 0 0 0 0 0 0 0 0 Total Respiratory Events 3 8 4 9 8 9 3 7 Time Below SpO2 89.00% (min.) 0.0 0.9 1.7 17.8 5.9 3.6 5.2 4.1 Mean NREM SpO2 (%) 93 92 90 89 90 88 89 91 Mean REM SpO2 (%) N/A N/A N/A N/A N/A N/A 90 91 Mean Sleep SpO2 (%) 93 92 90 89 90 88 89 91 Min NREM SpO2 (%) 91 82 83 81 83 79 83 83 Min REM SpO2 (%) N/A N/A N/A N/A N/A N/A 87 87 Position Supine (min.) 2.3 3.7 0.0 5.4 36.3 7.7 38.3 95.7 Position Non-supine (min.) 0.0 2.5 4.4 39.4 0.0 0.0 0.0 86.3 LM Index Sleep 51.3 58.5 13.8 17.4 6.6 23.3 12.5 16.2 LM Index NREM 51.3 58.5 13.8 17.4 6.6 23.3 6.2 12.6 LM Index REM N/A N/A N/A N/A N/A N/A 33.3 31.3 Mean Heart Rate (bpm) 56 56 55 55 55 56 56 55 Min Heart Rate (bpm) 54 54 54 31 52 53 30 51
--- NOTE | 2018-02-08 07:57 | POLYSOMNOGRAPH REPORT ---
CLINICAL DATA: A 72-year-old male with BMI of 38.9, referred by MARY Izaguirre, for a BiPAP titration study. He had a titration study in 12/2016 which showed treatment onset central sleep apnea. Study was inconclusive with a final BiPAP setting of 16/8. He continues to have central apneas and periodic breathing recorded on his home BiPAP machine. SLEEP ARCHITECTURE: Total sleep period was 421 minutes. Total sleep time was 322 minutes divided between 278.5 minutes of non-REM sleep and 43.5 minutes of REM sleep. Sleep onset latency was 28 minutes. REM latency was 205.5 minutes. Sleep efficiency was 72%. Wake after sleep onset was 99 minutes. Sleep consisted of stage N1 6%, stage N2 69%, stage N3 12% and REM 14%. AROUSAL DATA: 47 arousals recorded for an index of 9 per hour. PERIODIC LIMB MOVEMENT DATA: 86 limb movements during sleep were noted for an index of 16 per hour with arousal index of 2.2 per hour. RESPIRATORY DATA: AHI was 9.5. There were 4 central, 22 obstructive and 1 mixed apneic episodes. The longest apneic episode was 27.6 seconds. There were 24 hypopneic episodes. The mean duration of hypopnea was 26.8 seconds. OXIMETRY DATA: Nocturnal hypoxemia was seen. Oxygen vania was 79% during non-REM sleep. Mean saturation was 91%. Time below 88% was 28 minutes. EKG: Heart rates ranged from 31-127 beats per minute. No arrhythmias were noted. ELECTRONIC SCALE TESTER'S COMMENTS AND TREATMENT SUMMARY: The patient slept in the right, left and supine position. CPAP was started at 12/8 and was titrated up to a final pressure setting of 18/14. He used the large Simplus full face mask by Amanda. At his final pressure setting of BIPAP 18/14, he slept for 182 minutes with an AHI of 2.3 and with adequate oxygenation. IMPRESSION: Complex sleep apnea corrected with BiPAP 18/14 large Simplus full face mask by [employer]. RECOMMENDATIONS: The patient's BiPAP should be increased to 18/14 with followup in 90 days to document efficacy and compliance. [facility]
== END | disposition home or self-care (01) ==
LOC: C.NEUR 20:00
PROVIDERS: ATTEND Nurse Practitioner Family
DX: G47.33 Obstructive sleep apnea (adult) (pediatric) (principal)

== ENCOUNTER 2021-06-24 16:51 | Observation (INO) ==
--- NOTE | 2021-06-24 17:04 | Emergency Department Note ---
Impression & Plan Chest pain on exertion ED Provider Note NAME: PINEDA GERARD AGE: 76 SEX: M : 1945 ARRIVES VIA: Ambulance INFORMANT: Patient, EMS ED PROVIDER(S): Qunicy Richard DO CHIEF COMPLAINT: Chest pain HPI: The patient is a 76-year-old male who presented to the emergency department for an evaluation of chest pain. The patient noticed chest pain which was anterior while he was exerting himself by mowing the grass. The patient states he was almost done mowing the grass when he started noticing anterior chest pain. The pain did not radiate. The patient called 911 because he has a history of coronary artery bypass grafting and thought he was having a coronary event. He was given aspirin as well as multiple sprays of nitroglycerin prior to arrival. Upon arrival the patient's symptoms are significantly improved. He denies having any nausea or vomiting. He denies having any shortness of breath. He denies having any lower extremity swelling or pain. He states otherwise he has been compliant with his outpatient medications. He states he had his bypass he thinks about 12 years ago and has never had a cardiac catheterization since. He has had stress test in the past. The patient's prehospital tracings were re viewed by myself. ROS: See above HPI for pertinent positives & negatives. A total of 10 systems reviewed and were otherwise negative. PAST MEDICAL HISTORY: See Below PAST SURGICAL HISTORY: See Below FAMILY HISTORY: See Below SOCIAL HISTORY: See Below HOME MEDICATIONS: See Below ALLERGIES: See Below VITALS: See Below PHYSICAL EXAMINATION: GENERAL: Patient is awake alert in no acute distress patient is resting comfortably and showing no signs of anxiety EYES: The conjunctivae are clear. The pupils are round and reactive. EARS, NOSE, MOUTH AND THROAT: The nose is without any evidence of any deformity. NECK: The neck is nontender and supple. RESPIRATORY: Normal respiratory effort is noted there is no evidence of wheezing rhonchi or rales CARDIOVASCULAR: Regular rate and rhythm noted there no murmurs rubs or gallops normal S1 normal S2. GASTROINTESTINAL: The abdomen is soft. Abdomen is nontender. MUSCULOSKELETAL/EXTREMITIES: There is no evidence of gross deformity full range of motion is noted in the hips and shoulders. SKIN: Skin was warm and dry. Trace pedal edema was noted bilaterally. NEUROLOGIC: Patient is awake alert and oriented x3. MEDICAL DECISION MAKING: The patient is a 76-year-old male who presented to the emergency department for an evaluation of chest pain. The patient has a history of coronary artery disease as well as coronary artery bypass grafting. He was having exertional chest pain. He called 911 because of pain he was having and was given nitroglycerin and aspirin prior to arrival. Upon arrival the patient's pain significantly improved. I discussed the patient's laboratory and radiographic studies with him. I also discussed the limitations of the emergency department work-up for chest pain with him. Ultimately the patient was felt to be a good candidate for inpatient management. [facility] have agreed to evaluate the patient in the emergency department for further management and disposition. Triage Nursing notes reviewed. Prior medical records reviewed Vital Signs: reviewed and remarkable for elevated blood pressure. Differential diagnosis: Cardiac ischemia, aortic dissection, pulmonary embolism, pneumothorax, pneumonia, pericarditis, myocarditis, esophageal rupture, GERD, cholecystitis, pancreatitis, musculoskeletal, as well as other pathologies. ER treatment provided: See below Diagnostics interpreted by me: ECG: EKG was obtained in the emergency department. My interpretation is normal sinus rhythm at 69 bpm. There was no ectopy. There was no acute ST segment abnormalities noted. This was compared to a tracing from July 28, 2016. On the previous tracing there was anterior T wave inversions which is since resolved. Otherwise no significant changes were noted. Cardiac Monitoring: An order was placed for continuous cardiac monitoring. The monitor shows a rate of 70 bpm with sinus rhythm. Laboratory studies: As stated above and show below. Imaging studies: See below Consultation(s): I discussed this case with Riddhi who [facility] They have agreed to evaluate the patient in the emergency department for further management and disposition. Past Med/Surg History Medical History Acquired hallux valgus of right foot Aortic valve disorder Atrial fibrillation Cancer of left kidney 2009--sx Cholelithiasis NOS Chronic kidney disease, stage III (moderate) Chronic obstructive pulmonary disease inhaler daily/prn Coronary atherosclerosis of bois forte coronary vessel Diabetes mellitus, type 2 GERD (gastroesophageal reflux disease) Glaucoma bilt eyes Hallux valgus (acquired), left foot Hyperlipidemia Hypertension Myocardial Infarction 2009 Sleep apnea CPAP Tobacco use disorder Surgical History Abnormal biopsy of kidney malignant cancer L kidney History of bilateral cataract extraction History of cardiac cath 2009 @ [facility], no stent---follows with Dr. 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 Required: No Beliefs That Will Affect Care: None Current Living Situation: Spouse Current Living Situation Comment: home with Other Information That Helps Us Care for You: No Feels Safe at Home: Yes Safety Concerns: Feels Safe At This Time Assistive Devices: CPAP, Glasses and Hearing Aid - Bilateral Allergies Allergies Allergy/AdvReac Type Severity Reaction Status Date / Time clavulanic acid Allergy Intermediate RASH AND Verified 06/24/21 17:18 ELEVATED PULSE amoxicillin Allergy Unknown RASH, Verified 06/24/21 17:18 ELEVATED PULSE lisinopril Allergy Unknown COUGH Verified 06/24/21 17:18 Home Meds Home Medications Medication Instructions Recorded Confirmed albuterol sulfate 90 mcg/actuation 2 puff INHALATION QID PRN 09/02/18 06/24/21 aerosol inhaler (Ventolin HFA) aspirin 81 mg tablet,delayed 81 mg PO QAM 09/02/18 06/24/21 release (Aspirin Low Dose) docusate sodium 100 mg tablet 100 mg PO BID 09/02/18 06/24/21 finasteride 5 mg tablet 5 mg PO QAM 09/02/18 06/24/21 pantoprazole 40 mg tablet,delayed 40 mg PO DAILYBB 09/02/18 06/24/21 release timolol maleate 0.25 % eye drops 1 drp OPB HS 09/02/18 06/24/21 atorvastatin 40 mg tablet 40 mg PO DAILY 06/24/21 06/24/21 famotidine 20 mg tablet (Pepcid) 20 mg PO BID 06/24/21 06/24/21 fluticasone 250 mcg-salmeterol 50 1 inh INHALATION BID 06/24/21 06/24/21 mcg/dose blistr powdr for inhalation (Wixela Inhub) gabapentin 300 mg capsule 300 mg PO TID 06/24/21 06/24/21 insulin glargine 100 unit/mL (3 16 unit SUBCUT DAILY 06/24/21 06/24/21 mL) subcutaneous pen (Lantus Solostar U-100 Insulin) melatonin 5 mg tablet 10 mg PO HS 06/24/21 06/24/21 metoprolol tartrate 25 mg tablet 25 mg PO UD 06/24/21 06/24/21 nitroglycerin 0.4 mg sublingual 0.4 mg SUBLINGUAL UD PRN 06/24/21 06/24/21 tablet semaglutide 1 mg/dose (2 mg/1.5 1 mg SUBCUT WK 06/24/21 06/24/21 mL) subcutaneous pen injector (Ozempic) torsemide 20 mg tablet 30 mg PO DAILY 06/24/21 06/24/21 Previous Rx's Medication Instructions Recorded isosorbide mononitrate 60 mg 60 mg PO DAILY #0 tab 06/25/21 tablet,extended release 24 hr isosorbide mononitrate 60 mg 60 mg PO DAILY #30 tab 06/25/21 tablet,extended release 24 hr Results & Data (ED) Vital Signs Vital Signs - 24 hr 06/24/21 17:23 06/24/21 17:30 06/24/21 18:00 Pulse Rate 73 74 59 L Respiratory Rate Blood Pressure 135/85 124/76 94/60 L Blood Pressure Mean 101 92 71 Pulse Oximetry 96 99 96 06/24/21 18:42 Pulse Rate 68 Respiratory Rate 27 H Blood Pressure 118/63 Blood Pressure Mean 81 Pulse Oximetry Home Medications Current Medication List: was personally reviewed by me Laboratory Data Attestation: I reviewed the patient's lab results. Result diagrams: 06/25/21 08:38 06/25/21 08:38 Lab Results 06/24/21 06/24/21 06/24/21 Range/Units 17:02 17:02 17:02 WBC 11.43 H (4.8-10.8) K/uL RBC 4.08 L (4.7-6.1) M/uL Hgb 12.8 L (14.0-18.0) g/dL Hct 34.8 L (42-52) % MCV 85.3 (80-100) fL MCH 31.4 (25-34) pg MCHC 36.8 H (32-36) g/dL RDW Std Deviation 40.9 (36.4-46.3) fL RDW Coeff of Jewels 13.2 (11.5-14.5) % Plt Count 99 L (130-400) K/uL MPV 9.3 (7.4-10.4) fL Immature Gran % (Auto) 0.6 % Neut % (Auto) 62.4 % Lymph % (Auto) 29.4 % [place] % (Auto) 6.4 % Eos % (Auto) 0.9 % Baso % (Auto) 0.3 % Neut # (Auto) 7.14 H (1.4-6.5) K/uL Lymph # (Auto) 3.36 (1.2-3.4) K/uL [place] # (Auto) 0.73 H (0.11-0.59) K/uL Eos # (Auto) 0.10 (0-0.5) K/uL Baso # (Auto) 0.03 (0-0.2) K/uL Immature Gran # (Auto) 0.07 H (0.00-0.02) K/uL Platelet Estimate Decreased L (Normal) PT 11.2 (9.0-12.0) Seconds INR 1.1 (0.9-1.1) APTT 26.5 (21.0-31.0) Seconds PTT Ratio 1.0 Sodium 138 (136-145) mmol/L Potassium 3.5 (3.5-5.1) mmol/L Chloride 104 (98-107) mmol/L Carbon Dioxide 27 (21-32) mmol/L Anion Gap 7.0 (3-11) BUN 25 H (7-18) mg/dl Creatinine 1.75 H (0.6-1.4) mg/dl Est Cr Clr Drug Dosing 39.4 ml/min Est GFR ( Amer) 43.5 ml/min Est GFR (Non-Af Amer) 37.5 ml/min BUN/Creatinine Ratio 14.2 (10-20) Glucose 230 H (70-99) mg/dl Calcium 8.3 L (8.5-10.1) mg/dl Total Bilirubin 1.0 (0.2-1) mg/dl AST 16 (15-37) U/L ALT 23 (12-78) U/L Alkaline Phosphatase 134 H (45-117) U/L Troponin I < 0.015 (0-0.045) ng/ml Total Protein 6.9 (6.4-8.2) gm/dl Albumin 3.2 L (3.4-5.0) gm/dl Globulin 3.7 (2.5-4.0) gm/dl Albumin/Globulin Ratio 0.9 (0.9-2) Lipase 230 (73-393) U/L COVID-19 Eval Order SARS-CoV-2 (PCR) (Negative) 06/24/21 06/24/21 Range/Units 17:18 17:18 WBC (4.8-10.8) K/uL RBC (4.7-6.1) M/uL Hgb (14.0-18.0) g/dL Hct (42-52) % MCV (80-100) fL MCH (25-34) pg MCHC (32-36) g/dL RDW Std Deviation (36.4-46.3) fL RDW Coeff of Jewels (11.5-14.5) % Plt Count (130-400) K/uL MPV (7.4-10.4) fL Immature Gran % (Auto) % Neut % (Auto) % Lymph % (Auto) % [place] % (Auto) % Eos % (Auto) % Baso % (Auto) % Neut # (Auto) (1.4-6.5) K/uL Lymph # (Auto) (1.2-3.4) K/uL [place] # (Auto) (0.11-0.59) K/uL Eos # (Auto) (0-0.5) K/uL Baso # (Auto) (0-0.2) K/uL Immature Gran # (Auto) (0.00-0.02) K/uL Platelet Estimate (Normal) PT (9.0-12.0) Seconds INR (0.9-1.1) APTT (21.0-31.0) Seconds PTT Ratio Sodium (136-145) mmol/L Potassium (3.5-5.1) mmol/L Chloride (98-107) mmol/L Carbon Dioxide (21-32) mmol/L Anion Gap (3-11) BUN (7-18) mg/dl Creatinine (0.6-1.4) mg/dl Est Cr Clr Drug Dosing ml/min Est GFR ( Amer) ml/min Est GFR (Non-Af Amer) ml/min BUN/Creatinine Ratio (10-20) Glucose (70-99) mg/dl Calcium (8.5-10.1) mg/dl Total Bilirubin (0.2-1) mg/dl AST (15-37) U/L ALT (12-78) U/L Alkaline Phosphatase (45-117) U/L Troponin I (0-0.045) ng/ml Total Protein (6.4-8.2) gm/dl Albumin (3.4-5.0) gm/dl Globulin (2.5-4.0) gm/dl Albumin/Globulin Ratio (0.9-2) Lipase (73-393) U/L COVID-19 Eval Order Covid19 at [facility] SARS-CoV-2 (PCR) NEGATIVE (Negative) Administered Medications Discontinued Medications Aspirin (Aspirin 81 Mg Ectab) 81 mg PO QA RICKI Stop: 07/25/21 08:59 Last Admin: 06/25/21 08:27 Dose: 81 mg Documented by: [id number] Atorvastatin Calcium (Atorvastatin 40 Mg Tab) 40 mg PO DAILY RICKI Stop: 07/25/21 08:59 Last Admin: 06/25/21 08:27 Dose: 40 mg Documented by: [id number] Docusate Sodium (Docusate Sodium 100 Mg Cap) 100 mg PO BID RICKI Stop: 07/25/21 08:59 Last Admin: 06/25/21 08:27 Dose: 100 mg Documented by: [id number] Famotidine (Famotidine 20 Mg Tab) 20 mg PO BID RICKI Stop: 07/24/21 21:29 Last Admin: 06/25/21 08:26 Dose: 20 mg Documented by: [id number] Admin: 06/24/21 22:06 Dose: 20 mg Documented by: [id number] Finasteride (Finasteride 5 Mg Tab) 5 mg PO QAM [facility] Stop: 07/25/21 08:59 Last Admin: 06/25/21 08:27 Dose: 5 mg Documented by: [id number] Fluticasone/Vilanterol (Fluticasone/Vilanterol 100/25mcg 14 Puffs/Inhaler) 1 puffs INH DAILY RICKI Stop: 07/25/21 08:59 Last Admin: 06/25/21 08:32 Dose: 1 puffs Documented by: [id number] Gabapentin (Gabapentin 300 Mg Cap) 300 mg PO TID RICKI Stop: 07/24/21 21:29 Last Admin: 06/25/21 14:22 Dose: 300 mg Documented by: [id number] Admin: 06/25/21 08:27 Dose: 300 mg Documented by: [id number] Admin: 06/24/21 22:05 Dose: 300 mg Documented by: [id number] Heparin Sodium (Porcine) (Heparin Sod 5,000 Unit/0.5 Ml Vial) 5,000 units SQ Q8 RICKI Stop: 07/24/21 21:59 Last Admin: 06/25/21 14:21 Dose: 5,000 units Documented by: [id number] Admin: 06/25/21 06:17 Dose: 5,000 units Documented by: [id number] Admin: 06/24/21 22:06 Dose: 5,000 units Documented by: [id number] Sodium Chloride (Nss 1000ml) 500 mls @ 999 mls/hr IV .[id number] ONE Stop: 06/24/21 19:09 Last Infusion: 06/24/21 19:24 Dose: 0 mls/hr Documented by: [id number] Admin: 06/24/21 18:44 Dose: 999 mls/hr Documented by: [id number] Sodium Chloride (Nss 1000ml) 1,000 mls @ 60 mls/hr IV .[id number] ONE Stop: 06/25/21 13:45 Last Infusion: 06/25/21 10:49 Dose: 0 mls/hr Documented by: [id number] Admin: 06/24/21 22:05 Dose: 60 mls/hr Documented by: [id number] Insulin Aspart (Insulin Aspart 100 Units/Ml 3 Ml Pen) 0 units SC ACHS [facility] Stop: 07/24/21 21:05 Last Admin: 06/25/21 12:15 Dose: 3 units Documented by: [id number] Cosigned by: [id number] Admin: 06/25/21 08:29 Dose: 2 units Documented by: [id number] Cosigned by: [id number] Admin: 06/24/21 22:07 Dose: Not Given Documented by: [id number] Insulin Glargine (Insulin Glargine Solostar 100 Units/Ml 3 Ml Pen) 10 units SQ DAILY RICKI Stop: 07/25/21 08:59 Last Admin: 06/25/21 08:56 Dose: 10 units Documented by: [id number] Cosigned by: [id number] Isosorbide Mononitrate (Isosorbide [place] Extended Rel 60 Mg Tabcr) 60 mg PO DAILY RICKI Stop: 07/25/21 08:59 Last Admin: 06/25/21 08:28 Dose: 60 mg Documented by: [id number] Losartan Potassium (Losartan Potassium 25 Mg Tab) 12.5 mg PO DAILY RICKI Stop: 07/25/21 10:44 Last Admin: 06/25/21 12:14 Dose: 12.5 mg Documented by: [id number] Metoprolol Tartrate (Metoprolol Tartrate 25 Mg Tab) 25 mg PO QAM RICKI Stop: 07/25/21 08:59 Last Admin: 06/25/21 08:27 Dose: 25 mg Documented by: [id number] Metoprolol Tartrate (Metoprolol Tartrate 25 Mg Tab) 12.5 mg PO QPM RICKI Stop: 07/24/21 21:34 Last Admin: 06/24/21 22:06 Dose: 12.5 mg Documented by: [id number] Pantoprazole Sodium (Pantoprazole 40 Mg Tab) 40 mg PO DAILYBB RICKI Stop: 07/25/21 06:29 Last Admin: 06/25/21 06:17 Dose: 40 mg Documented by: [id number] Potassium Chloride (Potassium Chloride Crtab 20 Meq Tabcr) 40 meq PO NOW STA Stop: 06/24/21 19:34 Last Admin: 06/24/21 20:20 Dose: 40 meq Documented by: [id number] Timolol Maleate (Timolol Gfs 0.5% Oph Soln 74 Drops/5 Ml Btl) 1 drops OPB HS RICKI Stop: 07/24/21 21:29 Last Admin: 06/24/21 22:07 Dose: 1 drops Documented by: [id number] Imaging Data Radiologist's Impression: Chest X-Ray 06/24/21 16:58 SINGLE VIEW CHEST CLINICAL HISTORY: Atypical chest pain. FINDINGS: 2 AP, portable, upright chest radiographs are compared to study dated 07/25/2016. The patient is status post midline sternotomy. The heart is enlarged noting atherosclerotic calcification of the thoracic aorta. The pulmonary vasculature is noncongested. Chronic interstitial thickening and mild elevation of the right hemidiaphragm is similar to previous. There is no airspace consolidation or large pleural effusion. Scarring/atelectasis is noted at the lung bases. No pneumothorax is seen. The skeletal structures are osteopenic. The bony thorax is grossly intact. Cholecystectomy clips are seen in the right upper quadrant. IMPRESSION: Cardiomegaly with no acute cardiopulmonary abnormality. ACT 112: Negative or not required by law. Electronically signed by: Frank Flynn M.D. 06/24/2021 5:50 PM Discharge Plan Visit Data Chief Complaint: Chest Pain Stated Complaint: Chest Pain on exertion ED Provider: Quincy Richard Discharge Problem: Chest pain on exertion Patient Disposition: Admitted As Inpatient Condition: Good Discharge Instructions Interventions: ED Discharge Assessment Last Done: 06/24/21 20:59
[2021-06-24 17:26] LABS: INR 1.1 (0.9-1.1); Partial Thromboplastin Time 26.5 Seconds (21.0-31.0); Prothrombin Time 11.2 Seconds (9.0-12.0)
[2021-06-24 17:32] LABS: Alanine Aminotransferase 23 U/L (12-78); Albumin Level 3.2 gm/dl (3.4-5.0); Aspartate Aminotransferase 16 U/L (15-37); BUN Creatinine Ratio 14.2 (10-20); Blood Urea Nitrogen 25 mg/dl (7-18); Calcium 8.3 mg/dl (8.5-10.1); Carbon Dioxide 27 mmol/L (21-32); Chloride 104 mmol/L (98-107); Creatinine Clr Calc Pharmacy 39.4 ml/min; Est GFR (African American) 43.5 ml/min; Est GFR (Non-African American) 37.5 ml/min; Glucose 230 mg/dl (70-99); Lipase 230 U/L (73-393); Potassium 3.5 mmol/L (3.5-5.1); Sodium 138 mmol/L (136-145)
[2021-06-24 17:36] LABS: Albumin Globulin Ratio 0.9 (0.9-2); Alkaline Phosphatase 134 U/L (45-117); Globulin 3.7 gm/dl (2.5-4.0); Total Protein 6.9 gm/dl (6.4-8.2); Troponin I < 0.015 ng/ml (0-0.045)
[2021-06-24 17:47] LABS: Hematocrit (blood only) 34.8 % (42-52); Hemoglobin 12.8 g/dL (14.0-18.0); Mean Corpuscular Hemoglobin 31.4 pg (25-34); Mean Corpuscular Hgb Conc 36.8 g/dL (32-36); Mean Corpuscular Volume 85.3 fL (80-100); Mean Platelet Volume 9.3 fL (7.4-10.4); Platelet Count 99 K/uL (130-400); RDW Coefficient of Variation 13.2 % (11.5-14.5); RDW Standard Deviation 40.9 fL (36.4-46.3); Red Blood Count 4.08 M/uL (4.7-6.1); White Blood Count 11.43 K/uL (4.8-10.8)
[2021-06-24 17:48] LABS: Basophils # (auto) 0.03 K/uL (0-0.2); Basophils % (auto) 0.3 %; Eosinophils % (auto) 0.9 %; Immature Granulocytes # (auto) 0.07 K/uL (0.00-0.02); Immature Granulocytes % (auto) 0.6 %; Lymphocytes # (auto) 3.36 K/uL (1.2-3.4); Lymphocytes % (auto) 29.4 %; Monocytes # (auto) 0.73 K/uL (0.11-0.59); Monocytes % (auto) 6.4 %; Neutrophils # (auto) 7.14 K/uL (1.4-6.5); Neutrophils % (auto) 62.4 %; Platelet Estimate Decreased (Normal)
--- NOTE | 2021-06-24 17:51 | XRay Report ---
SINGLE VIEW CHEST CLINICAL HISTORY: Atypical chest pain. FINDINGS: 2 AP, portable, upright chest radiographs are compared to study dated 07/25/2016. The patien t is status post midline sternotomy. The heart is enlarged noting atherosclerotic calcification of th e thoracic aorta. The pulmonary vasculature is noncongested. Chronic interstitial thickening and mild elevation of the right hemidiaphragm is similar to previous. There is no airspace consolidation or l arge pleural effusion. Scarring/atelectasis is noted at the lung bases. No pneumothorax is seen. The skeletal structures are osteopenic. The bony thorax is grossly intact. Cholecystectomy clips are seen in the right upper quadrant. IMPRESSION: Cardiomegaly with no acute cardiopulmonary abnormality. ACT 112: Negative or not required by law. Electronically signed by: Frank Flynn M.D. 06/24/2021 5:50 PM
[2021-06-24] MEDS ORDERED: SODIUM CHLORIDE 0.9% 1000ML 500 ML IV ONE (18:39)
--- NOTE | 2021-06-24 18:57 | History & Physical Report ---
Date of Service June 24, 2021 Assessment & Plan (1) Chest pain: Plan: - Admit to tele for observation for r/o - Trend cardiac biomarkers, initial set was negative, next set at 2100 - EKG reviewed-does not show any signs of ST wave inversion or ischemia, no QTC prolongation - Check 2 D echo- last is from April 2020 showing EF of 55-59%, LV wall thickness is mildly increased (concentric), no WMA, no pulmonary htn - Consider cardiology consultation pending next troponin. - PT/OT consulted (2) Atrial fibrillation: Plan: - Rate controlled on BB, not on formal anticoagulation (3) Coronary atherosclerosis of tejon coronary vessel: Plan: - Cont asa 81 mg daily, metoprolol 25 mg QAM and 12.5 mg QPM, Imdur 30 mg daily - hold losartan 12.5 mg daily, torsemide 30 mg daily with slightly elevated Cr compared to baseline. (4) S/P CABG x 4: Plan: -ASCVD with March 2009 NSTEMI. Diagnostic cardiac catheterization by Dr. Maty Grace on March 26, 2009 demonstrated multivessel CAD including a 90% mid LAD stenosis, 70% first diagonal branch stenosis, 70% proximal LCX stenosis, 60% distal RCA stenosis, and a 100% occlusion of the second OM felt to be the culprit vessel. - underwent CABG x 3 on 04/01/2009 with a BROWER to the LAD, SVG to the LCX, and a SVG to the PDA. (5) Hypertension: Plan: - Cont prn antihypertensives as above and holding toresemide and losartan (6) Hyperlipidemia: Plan: - Cont statin therapy, recheck lipid panel in am (7) Chronic obstructive pulmonary disease: Plan: - Cont Ventolin prn, wixela inh, noncompliant with cpap HS. Does not require supplemental o2 at baseline. (8) Diabetes mellitus, type 2: Plan: - ISS with accuchecks achs - Last a1C= 7.4 05/27/21 - Hold ozempic inj, ( takes Wednesdays) - continue Lantus 16 U daily - Allow HH/Dm diet (9) Chronic kidney disease, stage III (moderate): Plan: - Baseline around 1.4-1.6, 1.75 on admission - Follow with am labs DVT PPx: - teds, scds, heparin subcu CODE: DNR/DNI Dispo: From home, likely to remain in the hospital x 1-2 days History of Present Illness Chief Complaint: Chest Pain Primary Care Provider: Buzz Rainey MD This is a 76 yo M with PMhx ASCVD with March 2009 NSTEMI, multivessel stenosis and underwent CABG x 3 on 04/01/2009 with a BROWER to the LAD, SVG to the LCX, and a SVG to the PDA., HTN, HLD, chronic diastolic heart failure, DM II, CKD stage III s/p renal cell carcinoma with radical left nephrectomy in January 2011, chronic bronchitis with COPD, EMILE but noncompliant with CPAP, GERD, hx of alcoholism, osteoporosis who presents with chest pain. Patient notes that he was mowing the grass earlier today whenever he had a left- sided chest pain developed around noon. He went inside to sit down and the pain, sharp and stabbing in nature, rated a 9/10 lasted for approximately 1 hour. He felt that it improved whenever he was sitting, then however the pain returned while he was still at rest. He denies any radiation of the pain up into the jaw, back or arms. He was diaphoretic whenever the chest pain occurred, but denies any shortness of breath, lightheadedness or dizziness. He called the ambulance around 2 pm and EMS administered nitroglycerin sprays en route. Currently rates his chest pain as a 5/10 at rest. This pain is nearly exactly like his chest pain whenever he needed bypass surgery 12 years ago. Patient weighs himself on a daily basis, typically 209 pounds, and that his scale reports readings back to [facility]. He follows with Buzz Brock PA-C with cardiology, as an outpatient. Patient took all his scheduled medications today. He did not eat any dinner and is concerned with his diabetes that he should eat something. Patient also notes that he has been drinking diet soda, up to 3 cans daily, versus water. Patient notes that his [id number] about 1 year ago and since then he has been drinking be leftover soda which was previously his brothers. We recommended that he donates this so that he does not feel he needs to drink it. Patient notes that he has a bowel movement once weekly even with stool softeners, and states this has been like this his whole life. Last BM was yesterday morning. Allergies Allergy/AdvReac Type Severity Reaction Status Date / Time clavulanic acid Allergy Intermediate RASH AND Verified 06/24/21 17:18 ELEVATED PULSE amoxicillin Allergy Unknown RASH, Verified 06/24/21 17:18 ELEVATED PULSE lisinopril Allergy Unknown COUGH Verified 06/24/21 17:18 Home Medications Medication Instructions Recorded Confirmed Type albuterol sulfate 90 mcg/actuation 2 puff INHALATION QID PRN 09/02/18 06/24/21 History aerosol inhaler (Ventolin HFA) aspirin 81 mg tablet,delayed 81 mg PO QAM 09/02/18 06/24/21 History release (Aspirin Low Dose) docusate sodium 100 mg tablet 100 mg PO BID 09/02/18 06/24/21 History finasteride 5 mg tablet 5 mg PO QAM 09/02/18 06/24/21 History pantoprazole 40 mg tablet,delayed 40 mg PO DAILYBB 09/02/18 06/24/21 History release timolol maleate 0.25 % eye drops 1 drp OPB HS 09/02/18 06/24/21 History atorvastatin 40 mg tablet 40 mg PO DAILY 06/24/21 06/24/21 History famotidine 20 mg tablet (Pepcid) 20 mg PO BID 06/24/21 06/24/21 History fluticasone 250 mcg-salmeterol 50 1 inh INHALATION BID 06/24/21 06/24/21 History mcg/dose blistr powdr for inhalation (Wixela Inhub) gabapentin 300 mg capsule 300 mg PO TID 06/24/21 06/24/21 History insulin glargine 100 unit/mL (3 16 unit SUBCUT DAILY 06/24/21 06/24/21 History mL) subcutaneous pen (Lantus Solostar U-100 Insulin) isosorbide mononitrate 60 mg 30 mg PO DAILY 06/24/21 06/24/21 History tablet,extended release 24 hr losartan 25 mg tablet 12.5 mg PO DAILY 06/24/21 06/24/21 History melatonin 5 mg tablet 10 mg PO HS 06/24/21 06/24/21 History metoprolol tartrate 25 mg tablet 25 mg PO UD 06/24/21 06/24/21 History nitroglycerin 0.4 mg sublingual 0.4 mg SUBLINGUAL UD PRN 06/24/21 06/24/21 History tablet semaglutide 1 mg/dose (2 mg/1.5 1 mg SUBCUT WK 06/24/21 06/24/21 History mL) subcutaneous pen injector (Ozempic) torsemide 20 mg tablet 30 mg PO DAILY 06/24/21 06/24/21 History Past Med/Surg History Medical History (Updated 06/24/21 @ 18:46 by Sumaya Mueller PA-C) Acquired hallux valgus of right foot Aortic valve disorder Atrial fibrillation Cancer of left kidney 2009--sx Cholelithiasis NOS Chronic kidney disease, stage III (moderate) Chronic obstructive pulmonary disease inhaler daily/prn Coronary atherosclerosis of tejon coronary vessel Diabetes mellitus, type 2 GERD (gastroesophageal reflux disease) Glaucoma bilt eyes Hallux valgus (acquired), left foot Hyperlipidemia Hypertension Myocardial Infarction 2009 Sleep apnea CPAP Tobacco use disorder Surgical History Abnormal biopsy of kidney malignant cancer L kidney History of bilateral cataract extraction History of cardiac cath 2009 @ [facility], no stent---follows with Dr. 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: No Beliefs That Will Affect Care: None Current Living Situation: Spouse and Family Current Living Situation Comment: lives with and [id number] Feels Safe at Home: Yes Assistive Devices: CPAP Review of Systems Review of Systems: Constitutional: No fever, sweats or chills Eyes: No diplopia, no worsening or blurred vision ENT: normal hearing, no trouble swallowing Respiratory: No cough, sputum, dyspnea at rest or on exertion Cardiovascular: As per HPI, currently chest pain 5/10 at rest, tightness or palpitations Abdomen: No pain, nausea, vomiting, diarrhea or constipation Musculoskeletal: No joint pain, calf pain, swelling Neurologic: No weakness, numbness/tingling, or balance problems Psychiatric: No anxiety or depression Skin: No rash or itch Physical Exam Physical Exam: General: awake, alert, no apparent distress Head: Normocephalic, atraumatic ENT: PERRL, EOMI, no pharyngeal exudate, mucous membranes moist Chest: Clear to auscultation, on room air, no adventitious breath sounds Cardiac: Regular rate and rhythm, no murmur, no JVD, normal peripheral pulses, good capillary refill, + chest tenderness with palpation over the left chest wall. Abdominal: NABS x 4 quadrants, soft, nondistended, nontender to palpation, no rebound or guarding Extremities: Normal inspection, no peripheral edema or erythema, calfs nontender to palpation Back: +actinic keratosis over entire back Psych: Normal mood and affect Neuro: AAO x 3, strength intact bilaterally and rated 5/5, no motor deficits, speech is clear, no peripheral sensory deficits Results & Data Results & Data ([facility]) Vital Signs (Past 12 Hours) Vital Signs Temp Pulse Resp BP Pulse Ox 06/24/21 18:00 59 L 21 94/60 L 96 06/24/21 17:30 74 20 124/76 99 06/24/21 17:23 73 19 135/85 96 06/24/21 17:06 37.0 C 81 20 143/75 H 98 06/24/21 16:57 76 20 143/75 H 98 Diagnostic Findings Chest X-Ray 06/24/21 16:58 SINGLE VIEW CHEST CLINICAL HISTORY: Atypical chest pain. FINDINGS: 2 AP, portable, upright chest radiographs are compared to study dated 07/25/2016. The patient is status post midline sternotomy. The heart is enlarged noting atherosclerotic calcification of the thoracic aorta. The pulmonary vasculature is noncongested. Chronic interstitial thickening and mild elevation of the right hemidiaphragm is similar to previous. There is no airspace consolidation or large pleural effusion. Scarring/atelectasis is noted at the lung bases. No pneumothorax is seen. The skeletal structures are osteopenic. The bony thorax is grossly intact. Cholecystectomy clips are seen in the right upper quadrant. IMPRESSION: Cardiomegaly with no acute cardiopulmonary abnormality. ACT 112: Negative or not required by law. Electronically signed by: Frank Flynn M.D. 06/24/2021 5:50 PM Code Status & VTE Plan Code Status DNR/DNI-discussed with the patient at bedside Supervising Physician Co-Signing Physician Notes Patient is a 76-year-old male with multiple comorbidities including CAD S/P CABG, diastolic heart failure, hypertension, diabetes mellitus, CKD stage III and other medical problems presents with history of left-sided chest pain, sharp in quality, nonradiating, 9/10 intensity, lasting for about 1 hour without any associated symptoms. Chest pain started at rest and resolved spontaneously. Patient had recurrence of chest pain this afternoon which improved with nitroglycerin in route to the hospital. Please review HPI for complete details of presentation. Initial troponin negative. Relatively hypotensive while in ED. EKG showed no signs of acute ST changes. Blood work also suggestive of mild leukocytosis 11.43, thrombocytopenia 99K, creatinine 1.75 near baseline, hypoglycemia 230. Chest x-ray showed no acute findings. On exam patient is obese, no apparent distress, normocephalic atraumatic, normal breath sounds, clear to auscultation, S1-S2, trace pedal edema,+ murmur, reproducible left- sided chest pain, abdomen is soft, nontender, normal bowel sounds, alert, awake, oriented, grossly no focal deficits. Patient is admitted for management of chest pain rule out ACS. Will trend cardiac enzymes, check resting echo and repeat EKG in the morning. Low threshold to start IV heparin if recurrence of chest pain, elevation of troponins. Will consult cardiology and keep him n.p.o. after midnight. Agree with checking lipid panel, A1c. Continue home medications including aspirin, metoprolol, Lipitor, isosorbide. Will hold losartan and torsemide for now given relatively low blood pressure while in ED. We will give him gentle IV fluids and monitor volume status closely given diastolic heart failure. Agree with insulin sliding care, Lantus per diabetes management. Monitor platelets for thrombocytopenia. Will check magnesium levels. Patient prefers to be DNI DNR. I personally reviewed the record. Patient is interviewed and examined at bedside. Patient's care is coordinated with Sumaya Mueller PA-C. Please refer to the documentation above for details of patient's presentation and for discussion of other issues.
[2021-06-24] MEDS ORDERED: POTASSIUM CHLORIDE CRTAB 20 MEQ TABCR PO STA (19:33)
[2021-06-24] MEDS ORDERED: DEXTROSE 50% 50 ML SYRINGE IV PRN (21:06)
[2021-06-24] MEDS ORDERED: SODIUM CHLORIDE 0.9% 1000ML 1,000 ML IV ONE (21:06)
[2021-06-24] MEDS ORDERED: GLUCOSE 40% GEL 15 GM TUBE PO PRN (21:06)
[2021-06-24] MEDS ORDERED: ALBUTEROL HFA 8 GM INHALER INH PRN (21:06)
[2021-06-24] MEDS ORDERED: CARBOHYDRATES FOR HYPOGLYCEMIA PO PRN (21:06)
[2021-06-24] MEDS ORDERED: GLUCAGON FOR INJ 1 MG VIAL SQ PRN (21:06)
[2021-06-24] MEDS ORDERED: ONDANSETRON INJ 2 MG/ML 2 ML VIAL IV PRN (21:06)
[2021-06-24] MEDS ORDERED: ACETAMINOPHEN 325 MG TAB PO PRN (21:06)
[2021-06-24] MEDS ORDERED: NITROGLYCERIN SL 0.4 MG/TAB TAB SL PRN (21:06)
[2021-06-24] MEDS ORDERED: GLUCOSE 10 TABS/TUBE PO PRN (21:06)
[2021-06-24] MEDS ORDERED: MoRPHine SULFATE 2 MG/ML CARP IV PRN (21:06)
[2021-06-24] MEDS ORDERED: TIMOLOL GFS 0.5% OPH SOLN 74 DROPS/5 ML BTL OPB SCH (21:30)
[2021-06-24] MEDS ORDERED: METOPROLOL TARTRATE 25 MG TAB PO SCH (21:35)
[2021-06-24] MEDS: GABAPENTIN 300 MG CAP PO SCH (22:05)
[2021-06-24] MEDS: HEPARIN SOD 5,000 UNIT/0.5 ML VIAL SQ SCH (22:06)
[2021-06-24] MEDS: FAMOTIDINE 20 MG TAB PO SCH (22:06)
[2021-06-24] MEDS: INSULIN ASPART 100 UNITS/ML 3 ML PEN SC SCH (22:07)
[2021-06-25] MEDS: HEPARIN SOD 5,000 UNIT/0.5 ML VIAL SQ SCH ×2 (06:17→14:21)
[2021-06-25] MEDS ORDERED: PANTOprazole 40 MG TAB PO SCH (06:30)
--- NOTE | 2021-06-25 07:31 | Hospitalist Progress Note ---
Date of Service June 25, 2021 Assessment & Plan (1) Chest pain: Plan: - Admitted to tele for observation for r/o - Trended cardiac biomarkers, Troponin x3 - negative - EKG reviewed-does not show any signs of ST wave inversion or ischemia, no QTC prolongation - Check 2 D echo- last is from April 2020 showing EF of 55-59%, LV wall thickness is mildly increased (concentric), no WMA, no pulmonary htn Current echo -there is normal LV wall thickness. LV wall motion is normal. No regional wall motion abnormalities noted. LV systolic function is normal. EF 55 to 60%. Aortic valve sclerosis mild, without significant aortic valvular stenosis. Diastolic dysfunction, grade 2. 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 Diagnostic cardiac catheterization by Dr. Maty Grace on March 26, 2009 demonstrated multivessel CAD including a 90% mid LAD stenosis, 70% first diagonal branch stenosis, 70% proximal LCX stenosis, 60% distal RCA stenosis, and a 100% occlusion of the second OM felt to be the culprit vessel. - underwent CABG x 3 on 04/01/2009 with a BROWER to the LAD, SVG to the LCX, and a SVG to the PDA. (5) Hypertension: Plan: - Cont prn antihypertensives as above and holding toresemide and losartan (6) Hyperlipidemia: Plan: - Cont statin therapy, recheck lipid panel in am (7) Chronic obstructive pulmonary disease: Plan: - Cont Ventolin prn, wixela inh, noncompliant with cpap HS. Does not require supplemental O2 at baseline. (8) Diabetes mellitus, type 2: Plan: - ISS with accuchecks achs - Last a1C= 7.4 05/27/21 - Hold ozempic inj, (takes Wednesdays) - continue Lantus (at home uses 16 U daily) - Allow HH/Dm diet (9) Chronic kidney disease, stage III (moderate): Plan: - Baseline around 1.4-1.6, 1.75 on admission - Follow with am labs DVT PPx: - teds, scds, heparin subcu CODE: DNR/DNI Dispo: Plan to DC home Admission and Anticipated Discharge Date Admission Date: June 24, 2021 Subjective Patient seen in follow-up of chest pain Currently laying in bed, in no acute distress, denies any chest pain Says he has been feeling good since this morning Seen by cardiology this AM, and since then also been walking around in hallways, had lunch Reports he never had any shortness of breath or dizziness associated w/ CP however his chest pain was concerning yesterday and that is why he came to the hospital Now patient is comfortable, and inquiring about going home Review of Systems Review of Systems: All systems reviewed & are unremarkable except as noted in Subjective Physical Exam Physical Exam: General: awake, alert, no apparent distress Head: Normocephalic, atraumatic ENT: PERRL, EOMI, no pharyngeal exudate, mucous membranes moist Chest: Clear to auscultation, on room air, no adventitious breath sounds Cardiac: Regular rate and rhythm, no murmur, no JVD, normal peripheral pulses, good capillary refill Abdominal: NABS x 4 quadrants, soft, nondistended, nontender to palpation, no rebound or guarding Extremities: Normal inspection, no peripheral edema or erythema, calfs nontender to palpation Back: +actinic keratosis over entire back Psych: Normal mood and affect Neuro: AAO x 3, strength intact bilaterally and rated 5/5, no motor deficits, speech is clear, no peripheral sensory deficits Results & Data Results & Data ([facility]) Vital Signs (Past 12 Hours) Vital Signs Temp Pulse Pulse Resp BP BP Pulse Ox 06/25/21 03:32 36.8 C 75 20 150/81 H 98 06/24/21 23:33 36.6 C 72 16 150/72 H 96 06/24/21 23:07 78 06/24/21 21:38 70 06/24/21 20:41 36.4 C L 72 18 160/77 H 91 06/24/21 20:00 73 2 L 144/83 H 06/24/21 19:31 64 22 162/104 H Laboratory Results 06/25/21 06/25/21 06/25/21 Range/Units 11:25 08:38 08:38 WBC (4.8-10.8) K/uL RBC (4.7-6.1) M/uL Hgb (14.0-18.0) g/dL Hct (42-52) % MCV (80-100) fL MCH (25-34) pg MCHC (32-36) g/dL RDW Std Deviation (36.4-46.3) fL RDW Coeff of Jewels (11.5-14.5) % Plt Count (130-400) K/uL MPV (7.4-10.4) fL Immature Gran % (Auto) % Neut % (Auto) % Lymph % (Auto) % [place] % (Auto) % Eos % (Auto) % Baso % (Auto) % Neut # (Auto) (1.4-6.5) K/uL Lymph # (Auto) (1.2-3.4) K/uL [place] # (Auto) (0.11-0.59) K/uL Eos # (Auto) (0-0.5) K/uL Baso # (Auto) (0-0.2) K/uL Immature Gran # (Auto) (0.00-0.02) K/uL Platelet Estimate (Normal) PT (9.0-12.0) Seconds INR (0.9-1.1) APTT (21.0-31.0) Seconds PTT Ratio Sodium 140 (136-145) mmol/L Potassium 4.1 D (3.5-5.1) mmol/L Chloride 107 (98-107) mmol/L Carbon Dioxide 27 (21-32) mmol/L Anion Gap 5.0 (3-11) BUN 22 H (7-18) mg/dl Creatinine 1.58 H (0.6-1.4) mg/dl Est Cr Clr Drug Dosing 44.0 ml/min Est GFR ( Amer) 49.2 ml/min Est GFR (Non-Af Amer) 42.5 ml/min BUN/Creatinine Ratio 14.1 (10-20) Glucose 190 H (70-99) mg/dl POC Glucose 171 H (70-99) mg/dl Estimat Average Glucose 163 mg/dl Hemoglobin A1c 7.3 H (4.5-5.6) % Calcium 8.9 (8.5-10.1) mg/dl Phosphorus 2.8 (2.5-4.9) mg/dl Magnesium 1.7 L (1.8-2.4) mg/dl Total Bilirubin 1.2 H (0.2-1) mg/dl AST 19 (15-37) U/L ALT 23 (12-78) U/L Alkaline Phosphatase 134 H (45-117) U/L Troponin I < 0.015 (0-0.045) ng/ml Total Protein 7.3 (6.4-8.2) gm/dl Albumin 3.4 (3.4-5.0) gm/dl Globulin 3.9 (2.5-4.0) gm/dl Albumin/Globulin Ratio 0.9 (0.9-2) Triglycerides 174 H (0-150) mg/dl Cholesterol 110 (0-200) mg/dl LDL Cholesterol, Calc 37 mg/dl VLDL Cholesterol, Calc 35 mg/dl HDL Cholesterol 38 mg/dl Cholesterol/HDL Ratio 3 Lipase (73-393) U/L COVID-19 Eval Order SARS-CoV-2 (PCR) (Negative) 06/25/21 06/25/21 06/24/21 Range/Units 08:38 08:09 21:21 WBC 11.30 H (4.8-10.8) K/uL RBC 4.46 L (4.7-6.1) M/uL Hgb 13.9 L (14.0-18.0) g/dL Hct 38.0 L (42-52) % MCV 85.2 (80-100) fL MCH 31.2 (25-34) pg MCHC 36.6 H (32-36) g/dL RDW Std Deviation 41.0 (36.4-46.3) fL RDW Coeff of Jewels 13.2 (11.5-14.5) % Plt Count 94 L (130-400) K/uL MPV 9.2 (7.4-10.4) fL Immature Gran % (Auto) % Neut % (Auto) % Lymph % (Auto) % [place] % (Auto) % Eos % (Auto) % Baso % (Auto) % Neut # (Auto) (1.4-6.5) K/uL Lymph # (Auto) (1.2-3.4) K/uL [place] # (Auto) (0.11-0.59) K/uL Eos # (Auto) (0-0.5) K/uL Baso # (Auto) (0-0.2) K/uL Immature Gran # (Auto) (0.00-0.02) K/uL Platelet Estimate (Normal) PT (9.0-12.0) Seconds INR (0.9-1.1) APTT (21.0-31.0) Seconds PTT Ratio Sodium (136-145) mmol/L Potassium (3.5-5.1) mmol/L Chloride (98-107) mmol/L Carbon Dioxide (21-32) mmol/L Anion Gap (3-11) BUN (7-18) mg/dl Creatinine (0.6-1.4) mg/dl Est Cr Clr Drug Dosing ml/min Est GFR ( Amer) ml/min Est GFR (Non-Af Amer) ml/min BUN/Creatinine Ratio (10-20) Glucose (70-99) mg/dl POC Glucose 198 H (70-99) mg/dl Estimat Average Glucose mg/dl Hemoglobin A1c (4.5-5.6) % Calcium (8.5-10.1) mg/dl Phosphorus (2.5-4.9) mg/dl Magnesium (1.8-2.4) mg/dl Total Bilirubin (0.2-1) mg/dl AST (15-37) U/L ALT (12-78) U/L Alkaline Phosphatase (45-117) U/L Troponin I < 0.015 (0-0.045) ng/ml Total Protein (6.4-8.2) gm/dl Albumin (3.4-5.0) gm/dl Globulin (2.5-4.0) gm/dl Albumin/Globulin Ratio (0.9-2) Triglycerides (0-150) mg/dl Cholesterol (0-200) mg/dl LDL Cholesterol, Calc mg/dl VLDL Cholesterol, Calc mg/dl HDL Cholesterol mg/dl Cholesterol/HDL Ratio Lipase (73-393) U/L COVID-19 Eval Order SARS-CoV-2 (PCR) (Negative) 06/24/21 06/24/21 06/24/21 Range/Units 21:16 17:18 17:18 WBC (4.8-10.8) K/uL RBC (4.7-6.1) M/uL Hgb (14.0-18.0) g/dL Hct (42-52) % MCV (80-100) fL MCH (25-34) pg MCHC (32-36) g/dL RDW Std Deviation (36.4-46.3) fL RDW Coeff of Jewels (11.5-14.5) % Plt Count (130-400) K/uL MPV (7.4-10.4) fL Immature Gran % (Auto) % Neut % (Auto) % Lymph % (Auto) % [place] % (Auto) % Eos % (Auto) % Baso % (Auto) % Neut # (Auto) (1.4-6.5) K/uL Lymph # (Auto) (1.2-3.4) K/uL [place] # (Auto) (0.11-0.59) K/uL Eos # (Auto) (0-0.5) K/uL Baso # (Auto) (0-0.2) K/uL Immature Gran # (Auto) (0.00-0.02) K/uL Platelet Estimate (Normal) PT (9.0-12.0) Seconds INR (0.9-1.1) APTT (21.0-31.0) Seconds PTT Ratio Sodium (136-145) mmol/L Potassium (3.5-5.1) mmol/L Chloride (98-107) mmol/L Carbon Dioxide (21-32) mmol/L Anion Gap (3-11) BUN (7-18) mg/dl Creatinine (0.6-1.4) mg/dl Est Cr Clr Drug Dosing ml/min Est GFR ( Amer) ml/min Est GFR (Non-Af Amer) ml/min BUN/Creatinine Ratio (10-20) Glucose (70-99) mg/dl POC Glucose 133 H (70-99) mg/dl Estimat Average Glucose mg/dl Hemoglobin A1c (4.5-5.6) % Calcium (8.5-10.1) mg/dl Phosphorus (2.5-4.9) mg/dl Magnesium (1.8-2.4) mg/dl Total Bilirubin (0.2-1) mg/dl AST (15-37) U/L ALT (12-78) U/L Alkaline Phosphatase (45-117) U/L Troponin I (0-0.045) ng/ml Total Protein (6.4-8.2) gm/dl Albumin (3.4-5.0) gm/dl Globulin (2.5-4.0) gm/dl Albumin/Globulin Ratio (0.9-2) Triglycerides (0-150) mg/dl Cholesterol (0-200) mg/dl LDL Cholesterol, Calc mg/dl VLDL Cholesterol, Calc mg/dl HDL Cholesterol mg/dl Cholesterol/HDL Ratio Lipase (73-393) U/L COVID-19 Eval Order Covid19 at [facility] SARS-CoV-2 (PCR) NEGATIVE (Negative) 06/24/21 06/24/21 06/24/21 Range/Units 17:02 17:02 17:02 WBC 11.43 H (4.8-10.8) K/uL RBC 4.08 L (4.7-6.1) M/uL Hgb 12.8 L (14.0-18.0) g/dL Hct 34.8 L (42-52) % MCV 85.3 (80-100) fL MCH 31.4 (25-34) pg MCHC 36.8 H (32-36) g/dL RDW Std Deviation 40.9 (36.4-46.3) fL RDW Coeff of Jewels 13.2 (11.5-14.5) % Plt Count 99 L (130-400) K/uL MPV 9.3 (7.4-10.4) fL Immature Gran % (Auto) 0.6 % Neut % (Auto) 62.4 % Lymph % (Auto) 29.4 % [place] % (Auto) 6.4 % Eos % (Auto) 0.9 % Baso % (Auto) 0.3 % Neut # (Auto) 7.14 H (1.4-6.5) K/uL Lymph # (Auto) 3.36 (1.2-3.4) K/uL [place] # (Auto) 0.73 H (0.11-0.59) K/uL Eos # (Auto) 0.10 (0-0.5) K/uL Baso # (Auto) 0.03 (0-0.2) K/uL Immature Gran # (Auto) 0.07 H (0.00-0.02) K/uL Platelet Estimate Decreased L (Normal) PT 11.2 (9.0-12.0) Seconds INR 1.1 (0.9-1.1) APTT 26.5 (21.0-31.0) Seconds PTT Ratio 1.0 Sodium 138 (136-145) mmol/L Potassium 3.5 (3.5-5.1) mmol/L Chloride 104 (98-107) mmol/L Carbon Dioxide 27 (21-32) mmol/L Anion Gap 7.0 (3-11) BUN 25 H (7-18) mg/dl Creatinine 1.75 H (0.6-1.4) mg/dl Est Cr Clr Drug Dosing 39.4 ml/min Est GFR ( Amer) 43.5 ml/min Est GFR (Non-Af Amer) 37.5 ml/min BUN/Creatinine Ratio 14.2 (10-20) Glucose 230 H (70-99) mg/dl POC Glucose (70-99) mg/dl Estimat Average Glucose mg/dl Hemoglobin A1c (4.5-5.6) % Calcium 8.3 L (8.5-10.1) mg/dl Phosphorus (2.5-4.9) mg/dl Magnesium (1.8-2.4) mg/dl Total Bilirubin 1.0 (0.2-1) mg/dl AST 16 (15-37) U/L ALT 23 (12-78) U/L Alkaline Phosphatase 134 H (45-117) U/L Troponin I < 0.015 (0-0.045) ng/ml Total Protein 6.9 (6.4-8.2) gm/dl Albumin 3.2 L (3.4-5.0) gm/dl Globulin 3.7 (2.5-4.0) gm/dl Albumin/Globulin Ratio 0.9 (0.9-2) Triglycerides (0-150) mg/dl Cholesterol (0-200) mg/dl LDL Cholesterol, Calc mg/dl VLDL Cholesterol, Calc mg/dl HDL Cholesterol mg/dl Cholesterol/HDL Ratio Lipase 230 (73-393) U/L COVID-19 Eval Order SARS-CoV-2 (PCR) (Negative) Medications Administered Current Inpatient Medications Acetaminophen (Acetaminophen 325 Mg Tab) 650 mg PO Q4H PRN PRN Reason: Moderate Pain Stop: 07/24/21 21:05 Albuterol (Albuterol Hfa 8 Gm Inhaler) 2 puffs INH QID PRN PRN Reason: Shortness Of Breath Stop: 07/24/21 21:05 Aspirin (Aspirin 81 Mg Ectab) 81 mg PO QAM RICKI Stop: 07/25/21 08:59 Atorvastatin Calcium (Atorvastatin 40 Mg Tab) 40 mg PO DAILY RICKI Stop: 07/25/21 08:59 Dextrose (Dextrose 50% 50 Ml Syringe) 25 - 50 ml IV UD PRN; Protocol PRN Reason: Hypoglycemia Protocol Stop: 07/24/21 21:05 Docusate Sodium (Docusate Sodium 100 Mg Cap) 100 mg PO BID RICKI Stop: 07/25/21 08:59 Famotidine (Famotidine 20 Mg Tab) 20 mg PO BID RICKI Stop: 07/24/21 21:29 Last Admin: 06/24/21 22:06 Dose: 20 mg Documented by: Finasteride (Finasteride 5 Mg Tab) 5 mg PO QAM [facility] Stop: 07/25/21 08:59 Fluticasone/Vilanterol (Fluticasone/Vilanterol 100/25mcg 14 Puffs/Inhaler) 1 puffs INH DAILY RICKI Stop: 07/25/21 08:59 Gabapentin (Gabapentin 300 Mg Cap) 300 mg PO TID RICKI Stop: 07/24/21 21:29 Last Admin: 06/24/21 22:05 Dose: 300 mg Documented by: Glucagon (Glucagon For Inj 1 Mg Vial) 1 mg SQ UD PRN; Protocol PRN Reason: Hypoglycemia Protocol Stop: 07/24/21 21:05 Glucose (Glucose 10 Tabs/Tube) 4 - 8 tabs PO UD PRN; Protocol PRN Reason: Hypoglycemia Protocol Stop: 07/24/21 21:05 Glucose (Glucose 40% Gel 15 Gm Tube) 15 - 30 gm PO UD PRN; Protocol PRN Reason: Hypoglycemia Protocol Stop: 07/24/21 21:05 Heparin Sodium (Porcine) (Heparin Sod 5,000 Unit/0.5 Ml Vial) 5,000 units SQ Q8 RICKI Stop: 07/24/21 21:59 Last Admin: 06/25/21 06:17 Dose: 5,000 units Documented by: Sodium Chloride (Nss 1000ml) 1,000 mls @ 60 mls/hr IV .[id number] Stop: 06/25/21 13:45 Last Admin: 06/24/21 22:05 Dose: 60 mls/hr Documented by: Insulin Aspart (Insulin Aspart 100 Units/Ml 3 Ml Pen) 0 units SC ACHS RICKI Stop: 07/24/21 21:05 Last Admin: 06/24/21 22:07 Dose: Not Given Documented by: Insulin Glargine (Insulin Glargine Solostar 100 Units/Ml 3 Ml Pen) 16 units SQ DAILY [facility] Stop: 07/25/21 08:59 Isosorbide Mononitrate (Isosorbide [place] Extended Rel 60 Mg Tabcr) 60 mg PO DAILY RICKI Stop: 07/25/21 08:59 Melatonin (Melatonin 3 Mg Tab) 9 mg PO HS [facility] Stop: 07/25/21 20:59 Metoprolol Tartrate (Metoprolol Tartrate 25 Mg Tab) 25 mg PO QAM RICKI Stop: 07/25/21 08:59 Metoprolol Tartrate (Metoprolol Tartrate 25 Mg Tab) 12.5 mg PO QPM [facility] Stop: 07/24/21 21:34 Last Admin: 06/24/21 22:06 Dose: 12.5 mg Documented by: Miscellaneous (Carbohydrates For Hypoglycemia ) 15 - 30 gm PO UD PRN PRN Reason: Hypoglycemia Protocol Stop: 07/24/21 21:05 Morphine Sulfate (Morphine Sulfate 2 Mg/Ml Carp) 2 mg IV Q2H PRN PRN Reason: Pain Stop: 07/08/21 21:05 Nitroglycerin (Nitroglycerin Sl 0.4 Mg/Tab Tab) 0.4 mg SL UD PRN PRN Reason: Chest Pain Stop: 07/24/21 21:05 Ondansetron HCl (Ondansetron Inj 2 Mg/Ml 2 Ml Vial) 4 mg IV Q4H PRN PRN Reason: Nausea And Vomiting Stop: 07/24/21 21:05 Pantoprazole Sodium (Pantoprazole 40 Mg Tab) 40 mg PO DAILYBB [facility] Stop: 07/25/21 06:29 Last Admin: 06/25/21 06:17 Dose: 40 mg Documented by: Timolol Maleate (Timolol Gfs 0.5% Oph Soln 74 Drops/5 Ml Btl) 1 drops OPB HS [facility] Stop: 07/24/21 21:29 Last Admin: 06/24/21 22:07 Dose: 1 drops Documented by:
[2021-06-25] MEDS: FAMOTIDINE 20 MG TAB PO SCH (08:26)
[2021-06-25] MEDS: GABAPENTIN 300 MG CAP PO SCH ×2 (08:27→14:22)
[2021-06-25] MEDS: INSULIN ASPART 100 UNITS/ML 3 ML PEN SC SCH ×2 (08:29→12:15)
[2021-06-25 08:52] LABS: Hemoglobin 13.9 g/dL (14.0-18.0); Mean Corpuscular Hemoglobin 31.2 pg (25-34); Mean Corpuscular Hgb Conc 36.6 g/dL (32-36); Mean Corpuscular Volume 85.2 fL (80-100); RDW Coefficient of Variation 13.2 % (11.5-14.5); Red Blood Count 4.46 M/uL (4.7-6.1)
[2021-06-25] MEDS ORDERED: ATORVASTATIN 40 MG TAB PO SCH (09:00)
[2021-06-25] MEDS ORDERED: FINASTERIDE 5 MG TAB PO SCH (09:00)
[2021-06-25] MEDS ORDERED: DOCUSATE SODIUM 100 MG CAP PO SCH (09:00)
[2021-06-25] MEDS ORDERED: METOPROLOL TARTRATE 25 MG TAB PO SCH ×2 (09:00→21:30)
[2021-06-25] MEDS ORDERED: ISOSORBIDE MONO EXTENDED REL 60 MG TABCR PO SCH (09:00)
[2021-06-25] MEDS ORDERED: ASPIRIN 81 MG ECTAB PO SCH (09:00)
[2021-06-25] MEDS ORDERED: INSULIN GLARGINE SOLOSTAR 100 UNITS/ML 3 ML PEN SQ SCH ×2 (09:00)
[2021-06-25] MEDS ORDERED: FLUTICASONE/VILANTEROL 100/25MCG 14 PUFFS/INHALER INH SCH (09:00)
[2021-06-25 09:17] LABS: Alanine Aminotransferase 23 U/L (12-78); Albumin Globulin Ratio 0.9 (0.9-2); Albumin Level 3.4 gm/dl (3.4-5.0); Alkaline Phosphatase 134 U/L (45-117); Aspartate Aminotransferase 19 U/L (15-37); BUN Creatinine Ratio 14.1 (10-20); Bilirubin,Total 1.2 mg/dl (0.2-1); Blood Urea Nitrogen 22 mg/dl (7-18); Calcium 8.9 mg/dl (8.5-10.1); Carbon Dioxide 27 mmol/L (21-32); Chloride 107 mmol/L (98-107); Chol HDL Ratio 3; Cholesterol 110 mg/dl (0-200); Est GFR (African American) 49.2 ml/min; Est GFR (Non-African American) 42.5 ml/min; Globulin 3.9 gm/dl (2.5-4.0); Glucose 190 mg/dl (70-99); HDL Cholesterol 38 mg/dl; LDL Cholesterol Calculated 37 mg/dl; Magnesium 1.7 mg/dl (1.8-2.4); Phosphorus 2.8 mg/dl (2.5-4.9); Potassium 4.1 mmol/L (3.5-5.1); Sodium 140 mmol/L (136-145); Total Protein 7.3 gm/dl (6.4-8.2); Triglycerides 174 mg/dl (0-150); Troponin I < 0.015 ng/ml (0-0.045); VLDL Cholesterol 35 mg/dl
[2021-06-25 09:18] LABS: Mean Platelet Volume 9.2 fL (7.4-10.4); Platelet Count 94 K/uL (130-400)
--- NOTE | 2021-06-25 09:22 | Cardiology Consultation ---
Date of Consultation June 25, 2021 Assessment & Plan (1) Chest pain: 76-year-old male with a longstanding history of class II exertional angina presents with chest discomfort that he initially felt was reminiscent of his prior angina that prompted his bypass surgery. It however did occur at rest yesterday initially while watching television, not when he was performing lawnmower activity. EKG is negative for ischemia x2 and troponin I has been undetectable x3. Resting echocardiogram reassuring with normal LV wall motion. Of note, at his office visit in February, there was concern certain for relative hypotension and his longstanding dose of isosorbide mononitrate 60 mg was reduced to 30 mg. Thus far, his isosorbide mononitrate dose has been increased back to 60 mg. He did have an elevation in his blood pressure this morning up to 182/94, but after receiving his morning medications including losartan which was initially held, this is improved to 106/68. He has a history of stage III chronic kidney disease and is losartan was held this morning for a creatinine of 1.78, this is since improved to 1.58. Plan: Discontinue IV fluids, restart losartan as noted above, agree with recent increase in isosorbide dose as performed by the admitting team. I plan to advance the patient's diet, and if he is able to walk in the hallway without further symptoms, I believe discharge can be considered. He already has an outpatient appointment planned in August. History of Present Illness Attending Physician: Andres Coker MD History of Present Illness Tomás Ragland is a 76 year old male seen in cardiology consultation per the request of Sumaya Mueller PA-C of the [facility] service for the evaluation of chest discomfort. The patient had most recently been seen in outpatient cardiology follow up by Buzz Brock PA-C of our practice on 02/09/21.At that time recent COVID-19 illness that occurred in 10/2020 was noted as well as an interval 22 lb weight loss since August,. Patient states that yesterday he was in his normal state of health and utilized a push lawnmower to mow his grass in the morning. He took a break to watch [employer] and at rest, noted onset of chest discomfort for continued from 1:00 until 3:00 until he ultimately summoned EMS. He felt that the chest discomfort was very reminiscent of the symptoms that prompted his previous bypass surgery. He received 3 sprays of sublingual nitroglycerin administered by EMS and he believes that this partially palliated his discomfort, but he noted that the discomfort was still a 6/10 intensity when he was in the emergency room and up until his transfer to the telemetry floor. At the time my assessment, he had been walking to and from the restroom and his hospital room, and was feeling comfortable with no complaints. Troponin is negative x3 thus far, and EKG x2 reveals no ischemic changes. An echocardiogram was performed with normal wall motion, normal LVEF. Cardiac / Past Medical / Surgical History as obtained from outpatient chart: History includes ASCVD with March 2009 NSTEMI. Diagnostic cardiac catheterization by Dr. Maty Grace on March 26, 2009 demonstrated multivessel CAD including a 90% mid LAD stenosis, 70% first diagonal branch stenosis, 70% proximal LCX stenosis, 60% distal RCA stenosis, and a 100% occlusion of the second OM felt to be the culprit vessel. He was then referred to [facility] where he underwent CABG x 3 on 04/01/2009 with a BROWER to the LAD, SVG to the LCX, and a SVG to the PDA. Postoperative course complicated by anemia, paroxysmal atrial fibrillation, right arm phlebitis, and urinary retention. Patient with renal cell carcinoma status post January 2011 radical left nephrectomy, Stage III chronic kidney disease followed by [facility], sleep apnea treated with BiPAP therapy, diastolic dysfunction, hypertension, hyperlipidemia, type II diabetes mellitus with neuropathy, COPD, restrictive lung disease, smokeless tobacco abuse, alcohol use, glaucoma, obesity, and BPH. Allergies Allergy/AdvReac Type Severity Reaction Status Date / Time clavulanic acid Allergy Intermediate RASH AND Verified 06/24/21 17:18 ELEVATED PULSE amoxicillin Allergy Unknown RASH, Verified 06/24/21 17:18 ELEVATED PULSE lisinopril Allergy Unknown COUGH Verified 06/24/21 17:18 Home Medications Medication Instructions Recorded Confirmed Type albuterol sulfate 90 mcg/actuation 2 puff INHALATION QID PRN 09/02/18 06/24/21 History aerosol inhaler (Ventolin HFA) aspirin 81 mg tablet,delayed 81 mg PO QAM 09/02/18 06/24/21 History release (Aspirin Low Dose) docusate sodium 100 mg tablet 100 mg PO BID 09/02/18 06/24/21 History finasteride 5 mg tablet 5 mg PO QAM 09/02/18 06/24/21 History pantoprazole 40 mg tablet,delayed 40 mg PO DAILYBB 09/02/18 06/24/21 History release timolol maleate 0.25 % eye drops 1 drp OPB HS 09/02/18 06/24/21 History atorvastatin 40 mg tablet 40 mg PO DAILY 06/24/21 06/24/21 History famotidine 20 mg tablet (Pepcid) 20 mg PO BID 06/24/21 06/24/21 History fluticasone 250 mcg-salmeterol 50 1 inh INHALATION BID 06/24/21 06/24/21 History mcg/dose blistr powdr for inhalation (Wixela Inhub) gabapentin 300 mg capsule 300 mg PO TID 06/24/21 06/24/21 History insulin glargine 100 unit/mL (3 16 unit SUBCUT DAILY 06/24/21 06/24/21 History mL) subcutaneous pen (Lantus Solostar U-100 Insulin) isosorbide mononitrate 60 mg 30 mg PO DAILY 06/24/21 06/24/21 History tablet,extended release 24 hr losartan 25 mg tablet 12.5 mg PO DAILY 06/24/21 06/24/21 History melatonin 5 mg tablet 10 mg PO HS 06/24/21 06/24/21 History metoprolol tartrate 25 mg tablet 25 mg PO UD 06/24/21 06/24/21 History nitroglycerin 0.4 mg sublingual 0.4 mg SUBLINGUAL UD PRN 06/24/21 06/24/21 History tablet semaglutide 1 mg/dose (2 mg/1.5 1 mg SUBCUT WK 06/24/21 06/24/21 History mL) subcutaneous pen injector (Ozempic) torsemide 20 mg tablet 30 mg PO DAILY 06/24/21 06/24/21 History Patient History Medical History Acquired hallux valgus of right foot Aortic valve disorder Atrial fibrillation Cancer of left kidney 2009--sx Cholelithiasis NOS Chronic kidney disease, stage III (moderate) Chronic obstructive pulmonary disease inhaler daily/prn Coronary atherosclerosis of [place] coronary vessel Diabetes mellitus, type 2 GERD (gastroesophageal reflux disease) Glaucoma bilt eyes Hallux valgus (acquired), left foot Hyperlipidemia Hypertension Myocardial Infarction 2009 Sleep apnea CPAP Tobacco use disorder Surgical History Abnormal biopsy of kidney malignant cancer L kidney History of bilateral cataract extraction History of cardiac cath 2009 @ [facility], no stent---follows with Dr. Brock History of carpal tunnel release bilt History of cholecystectomy History of colonoscopy History of nephrectomy 2009--L kidney @ [facility] S/P CABG x 4 2008 @ [facility] Family History Mother Family history of diabetes mellitus Social History Smoking Status: Never smoker Tobacco Type: Smokeless Tobacco (Dip or Chew) Second Hand Exposure: No; Do You Dip or Chew Tobacco: No; Hx Alcohol Use: No Hx Substance Use: No Preferred Language: Malaysian Communication Ability: Effective Defence Intelligence Analyst Required: No Beliefs That Will Affect Care: None Current Living Situation: Spouse Current Living Situation Comment: home with Other Information That Helps Us Care for You: No Feels Safe at Home: Yes Safety Concerns: Feels Safe At This Time Assistive Devices: CPAP, Glasses and Hearing Aid - Bilateral Review of Systems 2 Review of Systems: All systems reviewed & are unremarkable except as noted in HPI & below Physical Exam Physical Exam: Temp Pulse Resp BP Pulse Ox 36.4 C L 84 18 106/68 96 06/25/21 07:58 06/25/21 11:55 06/25/21 11:55 06/25/21 11:55 06/25/21 11:55 Constitutional: WD/WN, vitals as above ENMT: Mouth: + poor dentition Respiratory: normal respiratory effort, lungs clear to auscultation Cardiovascular: RRR, no murmur, no edema Gastrointestinal (Abdomen): normal bowel sounds, soft, nontender, no hepatosplenomegaly Neurologic: PERRL, EOMI, accommodation nl, no face palsy, no dysarthria Results & Data ([facility]) Vital Signs (Past 12 Hours) Vital Signs Temp Pulse Pulse Resp BP BP Pulse Ox 06/25/21 07:58 36.4 C L 74 18 182/94 H 96 06/25/21 07:50 77 06/25/21 03:32 36.8 C 75 20 150/81 H 98 06/24/21 23:33 36.6 C 72 16 150/72 H 96 06/24/21 23:07 78 06/24/21 21:38 70
[2021-06-25 10:01] LABS: Estimated Average Glucose 163 mg/dl; Hemoglobin A1C 7.3 % (4.5-5.6)
[2021-06-25] MEDS ORDERED: LOSARTAN POTASSIUM 25 MG TAB PO SCH (10:45)
--- NOTE | 2021-06-25 15:02 | Discharge Summary ---
Date of Service June 25, 2021 Admission HPI Per Admitting Provider This is a 76 yo M with PMhx ASCVD with March 2009 NSTEMI, multivessel stenosis and underwent CABG x 3 on 04/01/2009 with a BROWER to the LAD, SVG to the LCX, and a SVG to the PDA., HTN, HLD, chronic diastolic heart failure, DM II, CKD stage III s/p renal cell carcinoma with radical left nephrectomy in January 2011, chronic bronchitis with COPD, EMILE but noncompliant with CPAP, GERD, hx of alcoholism, osteoporosis who presents with chest pain. Patient notes that he was mowing the grass earlier today whenever he had a left- sided chest pain developed around noon. He went inside to sit down and the pain, sharp and stabbing in nature, rated a 9/10 lasted for approximately 1 hour. He felt that it improved whenever he was sitting, then however the pain returned while he was still at rest. He denies any radiation of the pain up into the jaw, back or arms. He was diaphoretic whenever the chest pain occurred, but denies any shortness of breath, lightheadedness or dizziness. He called the ambulance around 2 pm and EMS administered nitroglycerin sprays en route. Currently rates his chest pain as a 5/10 at rest. This pain is nearly exactly like his chest pain whenever he needed bypass surgery 12 years ago. Ashok hardin weighs himself on a daily basis, typically 209 pounds, and that his scale reports readings back to [facility]. He follows with Buzz Brock PA-C with cardiology, as an outpatient. Patient took all his scheduled medications today. He did not eat any dinner and is concerned with his diabetes that he should eat something. Patient also notes that he has been drinking diet soda, up to 3 cans daily, versus water. Patient notes that his [id number] about 1 year ago and since then he has been drinking be leftover soda which was previously his brothers. We recommended that he donates this so that he does not feel he needs to drink it. Patient notes that he has a bowel movement once weekly even with stool softeners, and states this has been like this his whole life. Last BM was yesterday morning. Admission Exam Per Admitting Provider General: awake, alert, no apparent distress Head: Normocephalic, atraumatic ENT: PERRL, EOMI, no pharyngeal exudate, mucous membranes moist Chest: Clear to auscultation, on room air, no adventitious breath sounds Cardiac: Regular rate and rhythm, no murmur, no JVD, normal peripheral pulses, good capillary refill, + chest tenderness with palpation over the left chest wall. Abdominal: NABS x 4 quadrants, soft, nondistended, nontender to palpation, no rebound or guarding Extremities: Normal inspection, no peripheral edema or erythema, calfs nontender to palpation Back: +actinic keratosis over entire back Psych: Normal mood and affect Neuro: AAO x 3, strength intact bilaterally and rated 5/5, no motor deficits, speech is clear, no peripheral sensory deficits Principal Diagnosis Chest pain Discharge Exam General: awake, alert, no apparent distress Head: Normocephalic, atraumatic ENT: PERRL, EOMI, no pharyngeal exudate, mucous membranes moist Chest: Clear to auscultation, on room air, no adventitious breath sounds Cardiac: Regular rate and rhythm, no murmur, no JVD, normal peripheral pulses, good capillary refill Abdominal: NABS x 4 quadrants, soft, nondistended, nontender to palpation, no rebound or guarding Extremities: Normal inspection, no peripheral edema or erythema, calfs nontender to palpation Back: +actinic keratosis over entire back Psych: Normal mood and affect Neuro: AAO x 3, strength intact bilaterally and rated 5/5, no motor deficits, speech is clear, no peripheral sensory deficits Discharge Data Allergies Allergy/AdvReac Type Severity Reaction Status Date / Time clavulanic acid Allergy Intermediate RASH AND Verified 06/24/21 17:18 ELEVATED PULSE amoxicillin Allergy Unknown RASH, Verified 06/24/21 17:18 ELEVATED PULSE lisinopril Allergy Unknown COUGH Verified 06/24/21 17:18 Consultations 06/24/21 18:39 ED Decision to Admit Stat 06/25/21 08:00 Consult Cardiology Routine Hospital Course (1) Chest pain: - Admitted to tele for observation - Trended cardiac biomarkers, Troponin x3 - negative - EKG reviewed-does not show any signs of ST wave inversion or ischemia, no QTC prolongation - Check 2 D echo- last is from April 2020 showing EF of 55-59%, LV wall thickness is mildly increased (concentric), no WMA, no pulmonary htn Current echo -there is normal LV wall thickness. LV wall motion is normal. No regional wall motion abnormalities noted. LV systolic function is normal. EF 55 to 60%. Aortic valve sclerosis mild, without significant aortic valvular stenosis. Diastolic dysfunction, grade 2. - Cardiology consulted - plan to discharge on increased dose of isosorbide mononitrate back to 60 mg daily, seems that patient's losartan was discontinued as outpatient, and at this point will keep it that way Patient will follow up as outpatient with his PCP and contracts paralegal (2) Atrial fibrillation: - Rate controlled on BB, not on formal anticoagulation (3) Coronary atherosclerosis of [place] coronary vessel: - Cont ASA 81 mg daily, metoprolol 25 mg QAM and 12.5 mg QPM, Imdur 30 mg daily - losartan 12.5 mg daily (discontinued as outpt?) (4) S/P CABG x 4: -ASCVD with March 2009 NSTEMI. Diagnostic cardiac catheterization by Dr. Maty Grace on March 26, 2009 demonstrated multivessel CAD including a 90% mid LAD stenosis, 70% first diagonal branch stenosis, 70% proximal LCX stenosis, 60% distal RCA stenosis, and a 100% occlusion of the second OM felt to be the culprit vessel. - underwent CABG x 3 on 04/01/2009 with a BROWER to the LAD, SVG to the LCX, and a SVG to the PDA. (5) Hypertension: - Cont prn antihypertensives as above and holding toresemide and losartan (6) Hyperlipidemia: - Cont statin therapy, recheck lipid panel in am (7) Chronic obstructive pulmonary disease: - Cont Ventolin prn, wixela inh, noncompliant with cpap HS. Does not require supplemental O2 at baseline. (8) Diabetes mellitus, type 2: - ISS with accuchecks achs - Last a1C= 7.4 05/27/21 - Hold ozempic inj, (takes Wednesdays) - continue Lantus (at home uses 16 U daily) - Allow HH/Dm diet (9) Chronic kidney disease, stage III (moderate): - Baseline around 1.4-1.6, 1.75 on admission - Follow with am labs CODE: DNR/DNI Dispo: Plan to DC home Total Time Total Time Spent Total Time Spent (In Minutes): 35 Discharge Plan Discharge Items Patient Disposition: Home - Self-Care Reason For Visit: CHEST PAIN Discharge Diagnosis: Chest pain Condition on Discharge: Good Activity: Per Instructions section Non-emergency contact: Primary Care Provider and Spikem[employer] Supervisor Call non-emergency contact if: you have any medication questions and your symptoms worsen Follow-up/Referrals: Buzz Rainey MD [Primary Care Provider] - Diet: Carb Consistent or DM2 and Heart Healthy Addtl Attending Provider Instructions: Follow-up with your family physician in 1 week. Take isosorbide mononitrate 60 mg daily. Do not take losartan and discuss with your family physician if you should take this medication. Your blood pressure medications may be further adjusted. Follow-up with your contracts paralegal as already scheduled. Pending Studies at Discharge: No Stand-Alone Forms: [employer], Smoking Cessation Medications and DC Order Prescriptions: New isosorbide mononitrate 60 mg Tablet Extended Release 24 Hr 60 mg PO DAILY Qty: 30 RF: 0 Continued timolol maleate 0.25 % Drops 1 drp OPB HS RF: 0 aspirin [Aspirin Low Dose] 81 mg Tablet,Delayed Release (Dr/Ec) 81 mg PO QAM RF: 0 pantoprazole 40 mg Tablet,Delayed Release (Dr/Ec) 40 mg PO DAILYBB RF: 0 albuterol sulfate [Ventolin HFA] 90 mcg/actuation Hfa Aerosol Inhaler 2 puff INHALATION QID PRN (Reason: Shortness Of Breath) RF: 0 docusate sodium 100 mg Tablet 100 mg PO BID RF: 0 finasteride 5 mg Tablet 5 mg PO QAM RF: 0 famotidine [Pepcid] 20 mg Tablet 20 mg PO BID RF: 0 nitroglycerin 0.4 mg tablet, sublingual 0.4 mg sublingual UD PRN (Reason: Chest Pain) RF: 0 torsemide 20 mg Tablet 30 mg PO DAILY RF: 0 Ozempic 1 mg/dose (2 mg/1.5 mL) Pen Injector 1 mg SUBCUT WK RF: 0 melatonin 5 mg Tablet 10 mg PO HS RF: 0 atorvastatin 40 mg Tablet 40 mg PO DAILY RF: 0 gabapentin 300 mg Capsule 300 mg PO TID RF: 0 metoprolol tartrate 25 mg Tablet 25 mg PO UD RF: 0 Lantus Solostar U-100 Insulin 100 unit/mL (3 mL) Insulin Pen 16 unit SUBCUT DAILY RF: 0 fluticasone propion-salmeterol [Wixela Inhub] 250-50 mcg/dose Blister With Device 1 inh INHALATION BID RF: 0 Changed isosorbide mononitrate 60 mg Tablet Extended Release 24 Hr 60 mg PO DAILY Qty: 0 RF: 0 Discontinued losartan 25 mg tablet 12.5 mg PO DAILY RF: 0 Discharge Orders: Discharge Order (Routine); Ordered 06/25/21 Ordered By: Andres Mcpherson/Other Patient Handouts: Managing Type 2 Diabetes, Special [facility] for Diabetes Admission Data Admit Date/Time: 06/24/21 19:00 Attending Provider: Andres Coker Admit Provider: López Dickinson Primary Care Provider: Buzz Rainey Other Providers: Handy Richardson ; López Dickinson
[2021-06-25] MEDS ORDERED: MELATONIN 3 MG TAB PO SCH (21:00)
--- NOTE | 2021-06-27 08:58 | Electrocardiogram Report ---
Test Reason : Blood Pressure : / mmHG Vent. Rate : 077 BPM Atrial Rate : 077 BPM P-R Int : 280 ms QRS Dur : 092 ms QT Int : 396 ms P-R-T Axes : 034 -15 054 degrees QTc Int : 448 ms Sinus rhythm with 1st degree A-V block with Premature atrial complexes Abnormal ECG When compared with ECG of 24-JUN-2021 16:52, (unconfirmed) No significant change was found Confirmed by Tomás Del Rio ([id number]) on 06/27/2021 8:57:55 AM Referred By: REFERRED SELF Confirmed By:Tomás Del Rio
--- NOTE | 2021-06-27 10:14 | Electrocardiogram Report ---
Test Reason : Blood Pressure : / mmHG Vent. Rate : 069 BPM Atrial Rate : 069 BPM P-R Int : 262 ms QRS Dur : 094 ms QT Int : 406 ms P-R-T Axes : 051 -08 055 degrees QTc Int : 435 ms Sinus rhythm with 1st degree A-V block with Blocked Premature atrial complexes Otherwise normal ECG When compared with ECG of 25-JUL-2016 19:49, Premature atrial complexes are now Present T wave inversion no longer evident in Anterior leads Confirmed by Tomás Del Rio ([id number]) on 06/27/2021 10:14:15 AM Referred By: REFERRED SELF Confirmed By:Tomás Del Rio
== END 2021-06-25 16:07 | disposition home or self-care (01) ==
LOC: ED 16:51 → 2S 16:51 → SUATTDRO 19:00 → 2S 20:59

== ENCOUNTER 2021-09-06 12:07 | Inpatient (IN) ==
--- NOTE | 2021-09-06 12:20 | Emergency Department Note ---
Impression & Plan LAMBERT (acute kidney injury), Hypokalemia, Fall, Contusion of head ED Provider Note NAME: PINEDA GERARD AGE: 76 SEX: M : 1945 ARRIVES VIA: Ambulance INFORMANT: Patient ED PROVIDER(S): Alvaro Vela DO CHIEF COMPLAINT: Syncopal event HPI: Patient is a 76-year-old male with a past medical history of CAD, CKD, diabetes, hypertension, hyperlipidemia, A. fib with a CABG x4 who presents to the ER following waking up on the floor at 2 AM. He went to bed on the couch with his . He woke up at 2 AM with his screaming. He does not remember anything in between. He does note that he hit his head. He has a headache at 5 out of 10. No neck pain. Denies any chest pain or shortness of breath preceding or following the event. No belly pain nausea or vomiting but does admit to diarrhea since this past Sunday. He is going about 5-6 times a day. Denies any belly pain. No other exacerbating or remitting factors. Believes his tetanus is up-to-date. ROS: See above HPI for pertinent positives & negatives. A total of 10 systems reviewed and were otherwise negative. PAST MEDICAL HISTORY:See Below PAST SURGICAL HISTORY:See Below FAMILY HISTORY:See Below SOCIAL HISTORY:See Below HOME MEDICATIONS:See Below ALLERGIES:See Below VITALS:See Below PHYSICAL EXAMINATION: GENERAL: Sitting up in bed, alert, well appearing, well nourished, no distress, non-toxic HEAD: Abrasion over the forehead EYE EXAM: normal conjunctiva. PERRL and EOM's grossly intact. OROPHARYNX: no exudate, no erythema, lips, buccal mucosa, and tongue normal and mucous membranes are moist NECK: supple, no nuchal rigidity, no adenopathy, non-tender LUNGS: Clear to auscultation. Normal chest wall mechanics HEART: no murmurs, S1 normal and S2 normal ABDOMEN: abdomen soft, non-tender, normo-active bowel sounds, no masses, no rebound or guarding. BACK: Back is symmetrical on inspection and there is no deformity, no midline tenderness, no CVA tenderness. SKIN: Abrasion and bruising over bilateral upper extremities UPPER EXTREMITIES: upper extremities are grossly normal. LOWER EXTREMITIES: No pitting edema. NEURO EXAM: Normal sensorium, cranial nerves II-XII grossly intact, normal speech, no gross weakness of arms, no gross weakness of legs. MEDICAL DECISION MAKING: Patient is a 76-year-old male who presents the ER for fall likely syncopal episode. IV was established blood work was obtained. Labs show no significant leukocytosis or anemia. BMP with a hypokalemia 2.6 and a creatinine of 3.96 up from a baseline of 1.8. LFTs bilirubin was unremarkable. Troponin was negative. Lipase unremarkable. Covid negative. Patient did hit his head and CT head and neck were negative. He has absolutely no abdominal pain. He was given 2 L of IV fluids and updated bedside. Discussed with hospitalist admitted for further work-up. Do favor the LAMBERT and hyperkalemia secondary to his extensive diarrhea. Triage Nursing notes reviewed. Limited review of prior medical records performed Vital Signs: reviewed and were unremarkable Differential diagnosis: Differential diagnosis includes etiologies such as vasovagal event, infection, hypoglycemia, electrolyte abnormalities, cardiac sources, intracerebral event, toxicologic, neurologic, as well as others were entertained. ER treatment provided: See below Diagnostics interpreted by me: ECG: Sinus rhythm rate of 70 Left axis No PVCs QTC 315 Cardiac Monitoring: An order was placed for continuous cardiac monitoring. The monitor shows a rate of 72 with sinus rhythm. Laboratory studies: As stated above and show below. Imaging studies: CT head and cervical spine were negative Portable AP upright 1 view of the chest was unremarkable Consultation(s): Discussed with hospitalist for further evaluation Procedures: none Critical Care: None Past Med/Surg History Medical History (Updated 09/06/21 @ 17:52 by Alvaro Vela DO) Aortic valve disorder Atrial fibrillation Cancer of left kidney 2009--sx Cholelithiasis NOS Chronic kidney disease, stage III (moderate) Chronic obstructive pulmonary disease inhaler daily/prn Coronary atherosclerosis of [place] coronary vessel Diabetes mellitus, type 2 Diabetic peripheral neuropathy associated with type 2 diabetes mellitus GERD (gastroesophageal reflux disease) Glaucoma bilt eyes Hyperlipidemia Hypertension Loss of protective sensation of skin of foot Myocardial Infarction 2009 Sleep apnea CPAP Tobacco use disorder Surgical History Abnormal biopsy of kidney malignant cancer L kidney History of bilateral cataract extraction History of cardiac cath 2008 @ [facility], no stent---follows with Dr. Delmy History of carpal tunnel release bilt History of cholecystectomy History of colonoscopy History of nephrectomy 2010--L kidney @ [facility] [place] S/P CABG x 4 2009 @ [facility] [place] Family History Mother Family history of diabetes mellitus Social History Smoking Status: Never smoker Tobacco Type: Smokeless Tobacco (Dip or Chew) Second Hand Exposure: No; Hx Alcohol Use: No Hx Substance Use: No Preferred Language: [place] Communication Ability: Effective Conflict Resolution Professional Required: No Beliefs That Will Affect Care: None Current Living Situation: Spouse Current Living Situation Comment: home with Feels Safe at Home: Yes Assistive Devices: CPAP, Glasses and Hearing Aid - Bilateral Allergies Allergies Allergy/AdvReac Type Severity Reaction Status Date / Time amoxicillin Allergy Intermediate RASH, Verified 09/06/21 14:46 ELEVATED PULSE clavulanic acid Allergy Intermediate RASH AND Verified 09/06/21 14:46 ELEVATED PULSE lisinopril Allergy Intermediate COUGH Verified 09/06/21 14:46 Home Meds Home Medications Medication Instructions Recorded Confirmed aspirin 81 mg tablet,delayed 81 mg PO QAM 09/02/18 09/06/21 release (Aspirin Low Dose) docusate sodium 100 mg tablet 100 mg PO BID 09/02/18 09/06/21 finasteride 5 mg tablet 5 mg PO QAM 09/02/18 09/06/21 pantoprazole 40 mg tablet,delayed 40 mg PO DAILYBB 09/02/18 09/06/21 release timolol maleate 0.25 % eye drops 1 drp OPB HS 09/02/18 09/06/21 atorvastatin 40 mg tablet 40 mg PO QAM 06/24/21 09/06/21 famotidine 20 mg tablet (Pepcid) 20 mg PO BID PRN 06/24/21 09/06/21 fluticasone 250 mcg-salmeterol 50 1 inh INHALATION BID 06/24/21 09/06/21 mcg/dose blistr powdr for inhalation (Wixela Inhub) gabapentin 300 mg capsule 300 mg PO TID 06/24/21 09/06/21 insulin glargine 100 unit/mL (3 16 unit SUBCUT QAM 06/24/21 09/06/21 mL) subcutaneous pen (Lantus Solostar U-100 Insulin) melatonin 5 mg tablet 10 mg PO HS 06/24/21 09/06/21 metoprolol tartrate 25 mg tablet See Rx Instructions .ROUTE .COMPLEX 06/24/21 09/06/21 nitroglycerin 0.4 mg sublingual 0.4 mg SUBLINGUAL UD PRN 06/24/21 09/06/21 tablet semaglutide 1 mg/dose (2 mg/1.5 1 mg SUBCUT WK 06/24/21 09/06/21 mL) subcutaneous pen injector (Ozempic) torsemide 20 mg tablet 30 mg PO QAM 06/24/21 09/06/21 isosorbide mononitrate 60 mg 60 mg PO QAM 08/14/21 09/06/21 tablet,extended release 24 hr Results & Data (ED) Vital Signs Vital Signs - 24 hr 09/06/21 12:16 09/06/21 12:26 09/06/21 12:30 Pulse Rate 81 78 81 Pulse Rate from SpO2 Sensor 81 83 Pulse Rhythm Respiratory Rate 26 H 20 24 Respiratory Effort / Characteristics Non-Labored Respiratory Depth Normal Blood Pressure 154/71 H 136/68 Blood Pressure Mean 98 90 Pulse Oximetry 99 97 92 Oxygen Delivery Method Room Air Sepsis Recent Fever Within 48 Hours No Sepsis New/Unexplained Change in Mental Status N/A Sepsis Action Taken by Nursing No Action Required 09/06/21 12:36 09/06/21 13:08 09/06/21 13:30 Pulse Rate 79 81 77 Pulse Rate from SpO2 Sensor 80 Pulse Rhythm Regular Respiratory Rate 22 18 Respiratory Effort / Characteristics Respiratory Depth Blood Pressure 136/61 Blood Pressure Mean 86 Pulse Oximetry 96 100 Oxygen Delivery Method Room Air Sepsis Recent Fever Within 48 Hours Sepsis New/Unexplained Change in Mental Status Sepsis Action Taken by Nursing 09/06/21 14:00 09/06/21 14:30 Pulse Rate 80 83 Pulse Rate from SpO2 Sensor 81 82 Pulse Rhythm Respiratory Rate 18 15 Respiratory Effort / Characteristics Respiratory Depth Blood Pressure 136/71 Blood Pressure Mean 92 Pulse Oximetry 95 96 Oxygen Delivery Method Sepsis Recent Fever Within 48 Hours Sepsis New/Unexplained Change in Mental Status Sepsis Action Taken by Nursing Laboratory Data Result diagrams: 09/06/21 12:24 09/06/21 12:24 Lab Results 09/06/21 09/06/21 09/06/21 Range/Units 12:24 12:24 Unknown WBC 9.30 (4.8-10.8) K/uL RBC 3.58 L (4.7-6.1) M/uL Hgb 11.1 L (14.0-18.0) g/dL Hct 29.6 L (42-52) % MCV 82.7 (80-100) fL MCH 31.0 (25-34) pg MCHC 37.5 H (32-36) g/dL RDW Std Deviation 40.5 (36.4-46.3) fL RDW Coeff of Jewels 13.3 (11.5-14.5) % Plt Count 83 L (130-400) K/uL MPV 9.1 (7.4-10.4) fL Immature Gran % (Auto) 0.3 % Neut % (Auto) 68.5 % Lymph % (Auto) 19.2 % Mesa % (Auto) 11.1 % Eos % (Auto) 0.8 % Baso % (Auto) 0.1 % Neut # (Auto) 6.37 (1.4-6.5) K/uL Lymph # (Auto) 1.79 (1.2-3.4) K/uL Mesa # (Auto) 1.03 H (0.11-0.59) K/uL Eos # (Auto) 0.07 (0-0.5) K/uL Baso # (Auto) 0.01 (0-0.2) K/uL Immature Gran # (Auto) 0.03 H (0.00-0.02) K/uL Platelet Estimate Decreased L (Normal) Sodium 134 L (136-145) mmol/L Potassium 2.6 L (3.5-5.1) mmol/L Chloride 99 (98-107) mmol/L Carbon Dioxide 22 (21-32) mmol/L Anion Gap 13.0 H (3-11) BUN 48 H (7-18) mg/dl Creatinine 3.96 H (0.6-1.4) mg/dl Est Cr Clr Drug Dosing 17.7 ml/min Est GFR ( Amer) 16.2 ml/min Est GFR (Non-Af Amer) 14.0 ml/min BUN/Creatinine Ratio 12.0 (10-20) Glucose 177 H (70-99) mg/dl Calcium 8.2 L (8.5-10.1) mg/dl Magnesium 1.8 (1.8-2.4) mg/dl Total Bilirubin 1.1 H (0.2-1) mg/dl AST 27 (15-37) U/L ALT 20 (12-78) U/L Alkaline Phosphatase 92 (45-117) U/L Troponin I < 0.015 (0-0.045) ng/ml Total Protein 6.6 (6.4-8.2) gm/dl Albumin 2.6 L (3.4-5.0) gm/dl Globulin 4.0 (2.5-4.0) gm/dl Albumin/Globulin Ratio 0.7 L (0.9-2) Lipase 188 (73-393) U/L COVID-19 Eval Order SARS-CoV-2 (PCR) (Negative) 09/06/21 09/06/21 Range/Units Unknown Unknown WBC (4.8-10.8) K/uL RBC (4.7-6.1) M/uL Hgb (14.0-18.0) g/dL Hct (42-52) % MCV (80-100) fL MCH (25-34) pg MCHC (32-36) g/dL RDW Std Deviation (36.4-46.3) fL RDW Coeff of Jewels (11.5-14.5) % Plt Count (130-400) K/uL MPV (7.4-10.4) fL Immature Gran % (Auto) % Neut % (Auto) % Lymph % (Auto) % Mes[place] % (Auto) % Eos % (Auto) % Baso % (Auto) % Neut # (Auto) (1.4-6.5) K/uL Lymph # (Auto) (1.2-3.4) K/uL Mesa # (Auto) (0.11-0.59) K/uL Eos # (Auto) (0-0.5) K/uL Baso # (Auto) (0-0.2) K/uL Immature Gran # (Auto) (0.00-0.02) K/uL Platelet Estimate (Normal) Sodium (136-145) mmol/L Potassium (3.5-5.1) mmol/L Chloride (98-107) mmol/L Carbon Dioxide (21-32) mmol/L Anion Gap (3-11) BUN (7-18) mg/dl Creatinine (0.6-1.4) mg/dl Est Cr Clr Drug Dosing ml/min Est GFR ( Amer) ml/min Est GFR (Non-Af Amer) ml/min BUN/Creatinine Ratio (10-20) Glucose (70-99) mg/dl Calcium (8.5-10.1) mg/dl Magnesium (1.8-2.4) mg/dl Total Bilirubin (0.2-1) mg/dl AST (15-37) U/L ALT (12-78) U/L Alkaline Phosphatase (45-117) U/L Troponin I (0-0.045) ng/ml Total Protein (6.4-8.2) gm/dl Albumin (3.4-5.0) gm/dl Globulin (2.5-4.0) gm/dl Albumin/Globulin Ratio (0.9-2) Lipase (73-393) U/L COVID-19 Eval Order Covid19 at [facility] SARS-CoV-2 (PCR) NEGATIVE (Negative) Administered Medications Discontinued Medications Potassium Chloride (K Adam / Wtr) 10 meq in 100 mls @ 100 mls/hr IV Q1H RICKI Stop: 09/06/21 16:29 Last Admin: 09/06/21 16:12 Dose: 100 mls/hr Documented by: [id number] Infusion: 09/06/21 16:01 Dose: 100 mls/hr Documented by: [id number] Admin: 09/06/21 15:01 Dose: 100 mls/hr Documented by: [id number] Sodium Chloride (Nss 1000ml) 1,000 mls @ 999 mls/hr IV .Q1H1M ONE Stop: 09/06/21 15:26 Last Infusion: 09/06/21 16:50 Dose: 0 mls/hr Documented by: [id number] Admin: 09/06/21 15:01 Dose: 999 mls/hr Documented by: [id number] Potassium Chloride (Potassium Chloride Crtab 20 Meq Tabcr) 60 meq PO NOW STA Stop: 09/06/21 15:37 Last Admin: 09/06/21 16:35 Dose: Not Given Documented by: [id number] Imaging Data Radiologist's Impression: Cervical Spine CT 09/06/21 12:17 CT SCAN OF THE CERVICAL SPINE CLINICAL HISTORY: Syncope. Fall. COMPARISON STUDY: No priors. TECHNIQUE: CT scan of the cervical spine is performed from the skull base to the upper thoracic spine. Images are reviewed in the axial, sagittal, and coronal planes. IV contrast was not administered for this examination. A dose lowering technique was utilized adhering to the principles of ALARA. FINDINGS: Skeletal structures: The skeletal structures are osteopenic. There is no evidence of fracture or subluxation involving the cervical spine. Vertebral body height is maintained. There is minimal anterolisthesis at C4-C5. Alignment is otherwise preserved. There is straightening of the cervical lordosis. Anterior osteophytes are seen throughout. There is fusion of the facet joints seen bilate rally at C2-C3 and C3-C4. The odontoid process and lateral masses are intact. The atlantoaxial articulation is preserved noting productive degenerative change. The spinous processes appear intact. There is moderate to advanced multilevel cervical spondylosis. Uncovertebral and facet arthropathy contribute to neural foraminal narrowing at most levels. Intervertebral discs: Moderate disc space narrowing is seen at C6-C7. Mild disc space narrowing is seen at the remaining cervical levels. Central canal: Posterior disc osteophyte complexes at C4-C5, C5-C6, and C6-C7 may contribute to acquired compromise of the central canal. Soft tissues: The prevertebral and paraspinous soft tissues are within normal limits. Calvarium: The visualized calvarium at the skull base appears intact. Brain parenchyma: Partially visualized brain parenchyma at the skull base is within normal limits. Sinuses and mastoids: The visualized paranasal sinuses are clear. The mastoid air cells are well pneumatized. Cerumen fills the right external auditory canal. Lung apices: Clear as visualized. IMPRESSION: 1. There is no evidence of fracture or subluxation involving the cervical spine. 2. Osteopenia and spondylotic change as above. ACT 112: Negative or not required by law. Electronically signed by: Frank Flynn M.D. 09/06/2021 1:08 PM Chest X-Ray 09/06/21 12:17 XR chest 1V portable HISTORY: 76 years-old Male Chest Pain acute atypical chest pain COMPARISON: Chest radiograph 08/14/2021 TECHNIQUE: Portable AP view of the chest FINDINGS: Cardiac silhouette is enlarged. Prior median sternotomy with CABG. Atherosclerotic plaque of the thoracic aorta. No pneumothorax, pleural effusion, airspace consolidation or overt pulmonary edema. Mild chronic interstitial coarsening. Degenerative changes of the shoulders and spine. IMPRESSION: Cardiomegaly without acute process. ACT 112: Negative or not required by law. The above report was generated using voice recognition software. It may contain grammatical, syntax or spelling errors. Electronically signed by: Fredi Mai M.D. 09/06/2021 12:[address] 09/06/21 12:17 CT head/brain wo con CLINICAL HISTORY: 76 years-old Male with syncope. Acute head injury status post fall TECHNIQUE: Multiple axial CT images of the head were obtained without contrast. A dose lowering technique was utilized adhering to the principles of ALARA. CT DOSE: 1636.69 mGy.cm COMPARISON: Head CT 08/14/2021. FINDINGS: No acute intracranial hemorrhage, midline shift, intracranial mass, hydrocephalus, territorial ischemia or abnormal extra-axial collection. Age- related involutional changes. White matter hypodensities suggestive of chronic microvascular ischemic disease. The calvarium is intact. Prior bilateral lens repair. The paranasal sinuses, mastoid air cells, and middle ear cavities are clear. IMPRESSION: No acute intracranial abnormality or calvarial fracture. ACT 112: Negative or not required by law. The above report was generated using voice recognition software. It may contain grammatical, syntax or spelling errors. Electronically signed by: Fredi Mai M.D. 09/06/2021 1:03 PM Discharge Plan Visit Data Chief Complaint: Fall Stated Complaint: GLF, struck head, headache, blood thinners ED Provider: Alvaro Vela Discharge Problem: LAMBERT (acute kidney injury), Hypokalemia, Fall, Contusion of head Forms Stand Alone Forms: [facility] [employer] Prescriptions Prescriptions: No Action timolol maleate 0.25 % Drops 1 drp OPB HS RF: 0 aspirin [Aspirin Low Dose] 81 mg Tablet,Delayed Release (Dr/Ec) 81 mg PO QAM RF: 0 pantoprazole 40 mg Tablet,Delayed Release (Dr/Ec) 40 mg PO DAILYBB RF: 0 docusate sodium 100 mg Tablet 100 mg PO BID RF: 0 finasteride 5 mg Tablet 5 mg PO QAM RF: 0 famotidine [Pepcid] 20 mg Tablet 20 mg PO BID PRN (Reason: Indigestion) RF: 0 nitroglycerin 0.4 mg tablet, sublingual 0.4 mg sublingual UD PRN (Reason: Chest Pain) RF: 0 torsemide 20 mg Tablet 30 mg PO QAM RF: 0 Ozempic 1 mg/dose (2 mg/1.5 mL) Pen Injector 1 mg SUBCUT WK RF: 0 melatonin 5 mg Tablet 10 mg PO HS RF: 0 atorvastatin 40 mg Tablet 40 mg PO QAM RF: 0 gabapentin 300 mg Capsule 300 mg PO TID RF: 0 metoprolol tartrate 25 mg Tablet See Rx Instructions .ROUTE .COMPLEX RF: 0 Lantus Solostar U-100 Insulin 100 unit/mL (3 mL) Insulin Pen 16 unit SUBCUT QAM RF: 0 fluticasone propion-salmeterol [Wixela Inhub] 250-50 mcg/dose Blister With Device 1 inh INHALATION BID RF: 0 isosorbide mononitrate 60 mg tablet extended release 24 hr 60 mg PO QAM RF: 0 Referrals Referrals: Buzz Rainey MD [Primary Care Provider] - Discharge Problem: Fall Qualifiers: Encounter type: initial encounter Qualified Code(s): W19.XXXA - Unspecified fall, initial encounter Contusion of head Qualifiers: Encounter type: initial encounter Contusion of head detail: unspecified part of head Qualified Code(s): S00.93XA - Contusion of unspecified part of head, initial encounter
[2021-09-06 12:32] LABS: Hematocrit (blood only) 29.6 % (42-52); Hemoglobin 11.1 g/dL (14.0-18.0); Mean Corpuscular Hgb Conc 37.5 g/dL (32-36); Mean Corpuscular Volume 82.7 fL (80-100); RDW Coefficient of Variation 13.3 % (11.5-14.5); RDW Standard Deviation 40.5 fL (36.4-46.3); Red Blood Count 3.58 M/uL (4.7-6.1)
--- NOTE | 2021-09-06 12:39 | XRay Report ---
XR chest 1V portable HISTORY: 76 years-old Male Chest Pain acute atypical chest pain COMPARISON: Chest radiograph 08/14/2021 TECHNIQUE: Portable AP view of the chest FINDINGS: Cardiac silhouette is enlarged. Prior median sternotomy with CABG. Atherosclerotic plaque of the thor acic aorta. No pneumothorax, pleural effusion, airspace consolidation or overt pulmonary edema. Mild chronic interstitial coarsening. Degenerative changes of the shoulders and spine. IMPRESSION: Cardiomegaly without acute process. ACT 112: Negative or not required by law. The above report was generated using voice recognition software. It may contain grammatical, syntax o r spelling errors. Electronically signed by: Fredi Mai M.D. 09/06/2021 12:38 PM
--- NOTE | 2021-09-06 13:04 | CT Scan Report ---
CT head/brain wo con CLINICAL HISTORY: 76 years-old Male with syncope. Acute head injury status post fall TECHNIQUE: Multiple axial CT images of the head were obtained without contrast. A dose lowering tech nique was utilized adhering to the principles of ALARA. CT DOSE: 1636.69 mGy.cm COMPARISON: Head CT 08/14/2021. FINDINGS: No acute intracranial hemorrhage, midline shift, intracranial mass, hydrocephalus, territorial ischem ia or abnormal extra-axial collection. Age-related involutional changes. White matter hypodensities s uggestive of chronic microvascular ischemic disease. The calvarium is intact. Prior bilateral lens repair. The paranasal sinuses, mastoid air cells, and m iddle ear cavities are clear. IMPRESSION: No acute intracranial abnormality or calvarial fracture. ACT 112: Negative or not required by law. The above report was generated using voice recognition software. It may contain grammatical, syntax o r spelling errors. Electronically signed by: Fredi Mai M.D. 09/06/2021 1:03 PM
--- NOTE | 2021-09-06 13:09 | CT Scan Report ---
CT SCAN OF THE CERVICAL SPINE CLINICAL HISTORY: Syncope. Fall. COMPARISON STUDY: No priors. TECHNIQUE: CT scan of the cervical spine is performed from the skull base to the upper thoracic spine . Images are reviewed in the axial, sagittal, and coronal planes. IV contrast was not administered fo r this examination. A dose lowering technique was utilized adhering to the principles of ALARA. FINDINGS: Skeletal structures: The skeletal structures are osteopenic. There is no evidence of fracture or subl uxation involving the cervical spine. Vertebral body height is maintained. There is minimal anterolis thesis at C4-C5. Alignment is otherwise preserved. There is straightening of the cervical lordosis. A nterior osteophytes are seen throughout. There is fusion of the facet joints seen bilaterally at C2-C 3 and C3-C4. The odontoid process and lateral masses are intact. The atlantoaxial articulation is pre served noting productive degenerative change. The spinous processes appear intact. There is moderate to advanced multilevel cervical spondylosis. Uncovertebral and facet arthropathy contribute to neural foraminal narrowing at most levels. Intervertebral discs: Moderate disc space narrowing is seen at C6-C7. Mild disc space narrowing is se en at the remaining cervical levels. Central canal: Posterior disc osteophyte complexes at C4-C5, C5-C6, and C6-C7 may contribute to acqui red compromise of the central canal. Soft tissues: The prevertebral and paraspinous soft tissues are within normal limits. Calvarium: The visualized calvarium at the skull base appears intact. Brain parenchyma: Partially visualized brain parenchyma at the skull base is within normal limits. Sinuses and mastoids: The visualized paranasal sinuses are clear. The mastoid air cells are well pneu matized. Cerumen fills the right external auditory canal. Lung apices: Clear as visualized. IMPRESSION: 1. There is no evidence of fracture or subluxation involving the cervical spine. 2. Osteopenia and spondylotic change as above. ACT 112: Negative or not required by law. Electronically signed by: Frank Flynn M.D. 09/06/2021 1:08 PM
[2021-09-06 13:26] LABS: Basophils # (auto) 0.01 K/uL (0-0.2); Basophils % (auto) 0.1 %; Eosinophils # (auto) 0.07 K/uL (0-0.5); Eosinophils % (auto) 0.8 %; Immature Granulocytes # (auto) 0.03 K/uL (0.00-0.02); Immature Granulocytes % (auto) 0.3 %; Lymphocytes # (auto) 1.79 K/uL (1.2-3.4); Lymphocytes % (auto) 19.2 %; Mean Platelet Volume 9.1 fL (7.4-10.4); Monocytes # (auto) 1.03 K/uL (0.11-0.59); Monocytes % (auto) 11.1 %; Neutrophils # (auto) 6.37 K/uL (1.4-6.5); Neutrophils % (auto) 68.5 %; Platelet Count 83 K/uL (130-400); Platelet Estimate Decreased (Normal)
[2021-09-06 14:08] LABS: Alanine Aminotransferase 20 U/L (12-78); Albumin Level 2.6 gm/dl (3.4-5.0); Aspartate Aminotransferase 27 U/L (15-37); Blood Urea Nitrogen 48 mg/dl (7-18); Calcium 8.2 mg/dl (8.5-10.1); Carbon Dioxide 22 mmol/L (21-32); Chloride 99 mmol/L (98-107); Creatinine Clr Calc Pharmacy 17.7 ml/min; Est GFR (African American) 16.2 ml/min; Glucose 177 mg/dl (70-99); Lipase 188 U/L (73-393); Potassium 2.6 mmol/L (3.5-5.1); Sodium 134 mmol/L (136-145)
[2021-09-06 14:13] LABS: Albumin Globulin Ratio 0.7 (0.9-2); Alkaline Phosphatase 92 U/L (45-117); Bilirubin,Total 1.1 mg/dl (0.2-1); Total Protein 6.6 gm/dl (6.4-8.2); Troponin I < 0.015 ng/ml (0-0.045)
[2021-09-06] MEDS ORDERED: SODIUM CHLORIDE 0.9% 1000ML 1,000 ML IV ONE (14:26)
[2021-09-06] MEDS: POTASSIUM CHLORIDE / WTR 10 MEQ/100 ML PLCT IV SCH ×4 (15:01→19:10)
[2021-09-06] MEDS ORDERED: POTASSIUM CHLORIDE CRTAB 20 MEQ TABCR PO STA ×2 (15:36→18:01)
--- NOTE | 2021-09-06 15:37 | History & Physical Report ---
Date of Service September 06, 2021 Assessment & Plan (1) Diarrhea: Plan: This is a 76-year-old male with PMH of CKD stage III s/p renal cell carcinoma with radical left nephrectomy in January 2011, DM II, CAD (CABG x 3 in 2008), HTN, HLD, chronic diastolic heart failure, chronic bronchitis with COPD, EMILE but noncompliant with CPAP, history of alcohol use and other medical problems listed below who presents with lightheadedness and weakness in setting of ongoing diar vaibhav. Diarrhea x 5 days, poor appetite, nausea and chills Afebrile, no leukocytosis C diff and stool culture pending - plan to start renally dose cipro if c diff culture negative IV fluid resuscitation, correct potassium, consider imaging of abdomen if LLQ tenderness continues (2) Hypokalemia: Plan: Initial potassium 2.6 in setting of GI losses Replacing -repeat BMP at 2100 (3) Acute kidney injury superimposed on chronic kidney disease: Plan: Creatinine 3.96 (baseline ~ 1.5) Likely pre-renal in setting of ongoing diarrhea Receiving fluids, repeat BMP this evening Holding torsemide Consider nephro consult (4) Fall: (5) Contusion of head: Plan: Fall in setting of hypovolemia CT head, cervical spine CT without evidence of acute intracranial abnormality or calvarial fracture. Nofracture or subluxation involving the cervical spine Fall precautions, PT/OT evaluation (6) Diabetes mellitus, type 2: Plan: A1c 7.3 in Jun Hold home agents Basal/bolus insulin per protocol while in-patient BSG AC HS (7) Hypertension: Plan: Continue Lopressor Holding torsemide for now (8) Atrial fibrillation: Plan: Continue Lopressor. Not on anticoagulation (9) CAD (coronary artery disease): Plan: History of CABG in 2008, recent admission for chest pain Continue aspirin, statin, imdur (10) Chronic obstructive pulmonary disease: Plan: Continue home inhaler DVT Ppx: SCDs for now given thrombocytopenia (baseline plt ~ 100, currently 80), re-evaluate Code status: FULL PCP: [facility] Dispo: Admitted to PCU Patient seen in collaboration with Dr. Gresham. Please see addendum. History of Present Illness Chief Complaint: Diarrhea, generalized weakness, fall Primary Care Provider: Buzz Rainey MD This is a 76-year-old male with PMH of CKD stage III s/p renal cell carcinoma with radical left nephrectomy in January 2011, DM II, CAD (CABG x 3 in 2008), HTN, HLD, chronic diastolic heart failure, chronic bronchitis with COPD, EMILE but noncompliant with CPAP, history of alcohol use and other medical problems listed below who presents with lightheadedness and weakness in setting of ongoing diarrhea. Has had diarrhea for 5 days with associated chills, nausea, and dry heaves. Some discomfort in left lower abdomen. Denies any blood in diarrhea. Denies any history of C. difficile, no recent antibiotic use. Denies any unusual food consumption or others around him also having GI symptoms. Has been trying to drink water and stay hydrated but reduced appetite. Fell asleep on the couch last night and attempted to get up at 0200 and fell to the ground. encouraged patient to come in for further evaluation today. Denies any fever, chest pain, shortness of breath, dysuria or constipation. Allergies Allergy/AdvReac Type Severity Reaction Status Date / Time amoxicillin Allergy Intermediate RASH, Verified 09/06/21 14:46 ELEVATED PULSE clavulanic acid Allergy Intermediate RASH AND Verified 09/06/21 14:46 ELEVATED PULSE lisinopril Allergy Intermediate COUGH Verified 09/06/21 14:46 Home Medications Medication Instructions Recorded Confirmed Type aspirin 81 mg tablet,delayed 81 mg PO QAM 09/02/18 09/06/21 History release (Aspirin Low Dose) docusate sodium 100 mg tablet 100 mg PO BID 09/02/18 09/06/21 History finasteride 5 mg tablet 5 mg PO QAM 09/02/18 09/06/21 History pantoprazole 40 mg tablet,delayed 40 mg PO DAILYBB 09/02/18 09/06/21 History release timolol maleate 0.25 % eye drops 1 drp OPB HS 09/02/18 09/06/21 History atorvastatin 40 mg tablet 40 mg PO QAM 06/24/21 09/06/21 History famotidine 20 mg tablet (Pepcid) 20 mg PO BID PRN 06/24/21 09/06/21 History fluticasone 250 mcg-salmeterol 50 1 inh INHALATION BID 06/24/21 09/06/21 History mcg/dose blistr powdr for inhalation (Wixela Inhub) gabapentin 300 mg capsule 300 mg PO TID 06/24/21 09/06/21 History insulin glargine 100 unit/mL (3 16 unit SUBCUT QAM 06/24/21 09/06/21 History mL) subcutaneous pen (Lantus Solostar U-100 Insulin) melatonin 5 mg tablet 10 mg PO HS 06/24/21 09/06/21 History metoprolol tartrate 25 mg tablet See Rx Instructions .ROUTE .COMPLEX 06/24/21 09/06/21 History nitroglycerin 0.4 mg sublingual 0.4 mg SUBLINGUAL UD PRN 06/24/21 09/06/21 History tablet semaglutide 1 mg/dose (2 mg/1.5 1 mg SUBCUT WK 06/24/21 09/06/21 History mL) subcutaneous pen injector (Ozempic) torsemide 20 mg tablet 30 mg PO QAM 06/24/21 09/06/21 History isosorbide mononitrate 60 mg 60 mg PO QAM 08/14/21 09/06/21 History tablet,extended release 24 hr Past Med/Surg History Medical History (Updated 09/06/21 @ 19:51 by Nadia Degroot PA-C) Aortic valve disorder Atrial fibrillation CAD (coronary artery disease) Cancer of left kidney 2009--sx Cholelithiasis NOS Chronic kidney disease, stage III (moderate) Chronic obstructive pulmonary disease inhaler daily/prn Coronary atherosclerosis of [place] coronary vessel Diabetes mellitus, type 2 Diabetic peripheral neuropathy associated with type 2 diabetes mellitus GERD (gastroesophageal reflux disease) Glaucoma bilt eyes Hyperlipidemia Hypertension Loss of protective sensation of skin of foot Myocardial Infarction 2009 Sleep apnea CPAP Tobacco use disorder Surgical History Abnormal biopsy of kidney malignant cancer L kidney History of bilateral cataract extraction History of cardiac cath 2009 @ [facility], no stent---follows with Dr. Brock History of carpal tunnel release bilt History of cholecystectomy History of colonoscopy History of nephrectomy 2009--L kidney @ [facility] [place] S/P CABG x 4 2008 @ [facility] [place] Family History Mother Family history of diabetes mellitus Social History (Updated 09/06/21 @ 20:14 by Nadia Degroot PA-C) Smoking Status: Never smoker Tobacco Type: Smokeless Tobacco (Dip or Chew) Second Hand Exposure: No; Do You Dip or Chew Tobacco: No; Hx Alcohol Use: No (no alcohol in past 6 months) Hx Substance Use: No Preferred Language: Bolivian Communication Ability: Effective Charge Attendant Required: No Beliefs That Will Affect Care: None Current Living Situation: Spouse Current Living Situation Comment: home with Other Information That Helps Us Care for You: No Feels Safe at Home: Yes Safety Concerns: Feels Safe At This Time Assistive Devices: Glasses and Hearing Aid - Bilateral Review of Systems Review of Systems: At least ten systems reviewed and negative except as noted in the HPI. Physical Exam Physical Exam: General Appearance: WD/WN, vitals as above, NAD, sitting up in bed, pleasant, conversing easily Head: normocephalic, contusion on forehead Eyes: normal inspection, PERRL, conjunctivae normal, anicteric sclerae ENT: external ear and nose normal, oropharynx normal Neck: normal visual inspection, trachea midline, no thyromegaly Respiratory: normal respiratory effort, lungs clear to auscultation, no wheeze, rales, rhonchi. No accessory muscle use Cardiovascular: regular rate, rhythm, no murmur, normal peripheral pulses, no BLE edema. Vessels: no JVD Chest: normal inspection of chest Abdomen/GI: normal bowel sounds, soft, TTP in LLQ, no hepatosplenomegaly Extremities/Musculoskeletal: no cyanosis or clubbing, extremities motor strength 5/5 Neurologic: PERRL, EOMI, accommodation nl, no face palsy, no dysarthria, CN's II-XI intact bilaterally and moves all extremities Psychiatric: A+Ox3, euthymic affect Skin: no rashes, normal color, warm/dry Results & Data Results & Data ([facility]) Vital Signs (Past 12 Hours) Vital Signs Pulse Resp BP Pulse Ox 09/06/21 14:30 83 15 136/71 96 09/06/21 14:00 80 18 95 09/06/21 13:30 77 18 136/61 100 09/06/21 13:08 81 22 09/06/21 12:36 79 96 09/06/21 12:30 81 24 92 09/06/21 12:26 78 20 136/68 97 09/06/21 12:16 81 26 H 154/71 H 99 Laboratory Results Short CBC 09/06/21 Range/Units 12:24 WBC 9.30 (4.8-10.8) K/uL Hgb 11.1 L (14.0-18.0) g/dL Hct 29.6 L (42-52) % Plt Count 83 L (130-400) K/uL BMP 09/06/21 12:24 Sodium 134 L Potassium 2.6 L Chloride 99 Carbon Dioxide 22 BUN 48 H Creatinine 3.96 H Glucose 177 H Calcium 8.2 L Cardiac Enzymes 09/06/21 Range/Units 12:24 Troponin I < 0.015 (0-0.045) ng/ml Liver Function 09/06/21 Range/Units 12:24 Total Bilirubin 1.1 H (0.2-1) mg/dl AST 27 (15-37) U/L ALT 20 (12-78) U/L Alkaline Phosphatase 92 (45-117) U/L Albumin 2.6 L (3.4-5.0) gm/dl Diagnostic Findings Cervical Spine CT 09/06/21 12:17 CT SCAN OF THE CERVICAL SPINE CLINICAL HISTORY: Syncope. Fall. COMPARISON STUDY: No priors. TECHNIQUE: CT scan of the cervical spine is performed from the skull base to the upper thoracic spine. Images are reviewed in the axial, sagittal, and coronal planes. IV contrast was not administered for this examination. A dose lowering technique was utilized adhering to the principles of ALARA. FINDINGS: Skeletal structures: The skeletal structures are osteopenic. There is no evidence of fracture or subluxation involving the cervical spine. Vertebral body height is maintained. There is minimal anterolisthesis at C4-C5. Alignment is otherwise preserved. There is straightening of the cervical lordosis. Anterior osteophytes are seen throughout. There is fusion of the facet joints seen bilaterally at C2-C3 and C3-C4. The odontoid process and lateral masses are intact. The atlantoaxial articulation is preserved noting productive degenerative change. The spinous processes appear intact. There is moderate to advanced multilevel cervical spondylosis. Uncovertebral and facet arthropathy contribute to neural foraminal narrowing at most levels. Intervertebral discs: Moderate disc space narrowing is seen at C6-C7. Mild disc space narrowing is seen at the remaining cervical levels. Central canal: Posterior disc osteophyte complexes at C4-C5, C5-C6, and C6-C7 may contribute to acquired compromise of the central canal. Soft tissues: The prevertebral and paraspinous soft tissues are within normal limits. Calvarium: The visualized calvarium at the skull base appears intact. Brain parenchyma: Partially visualized brain parenchyma at the skull base is within normal limits. Sinuses and mastoids: The visualized paranasal sinuses are clear. The mastoid air cells are well pneumatized. Cerumen fills the right external auditory canal. Lung apices: Clear as visualized. IMPRESSION: 1. There is no evidence of fracture or subluxation involving the cervical spine. 2. Osteopenia and spondylotic change as above. ACT 112: Negative or not required by law. Electronically signed by: Frank Flynn M.D. 09/06/2021 1:08 PM Chest X-Ray 09/06/21 12:17 XR chest 1V portable HISTORY: 76 years-old Male Chest Pain acute atypical chest pain COMPARISON: Chest radiograph 08/14/2021 TECHNIQUE: Portable AP view of the chest FINDINGS: Cardiac silhouette is enlarged. Prior median sternotomy with CABG. Atherosclerotic plaque of the thoracic aorta. No pneumothorax, pleural effusion, airspace consolidation or overt pulmonary edema. Mild chronic interstitial coarsening. Degenerative changes of the shoulders and spine. IMPRESSION: Cardiomegaly without acute process. ACT 112: Negative or not required by law. The above report was generated using voice recognition software. It may contain grammatical, syntax or spelling errors. Electronically signed by: Fredi Mai M.D. 09/06/2021 12:[address] 09/06/21 12:17 CT head/brain wo con CLINICAL HISTORY: 76 years-old Male with syncope. Acute head injury status post fall TECHNIQUE: Multiple axial CT images of the head were obtained without contrast. A dose lowering technique was utilized adhering to the principles of ALARA. CT DOSE: 1636.69 mGy.cm COMPARISON: Head CT 08/14/2021. FINDINGS: No acute intracranial hemorrhage, midline shift, intracranial mass, hydrocephalus, territorial ischemia or abnormal extra-axial collection. Age- related involutional changes. White matter hypodensities suggestive of chronic microvascular ischemic disease. The calvarium is intact. Prior bilateral lens repair. The paranasal sinuses, mastoid air cells, and middle ear cavities are clear. IMPRESSION: No acute intracranial abnormality or calvarial fracture. ACT 112: Negative or not required by law. The above report was generated using voice recognition software. It may contain grammatical, syntax or spelling errors. Electronically signed by: Fredi Mai M.D. 09/06/2021 1:03 PM ECG Additional Comments: Sinus rhythm with first-degree block, incomplete right bundle branch block, nonspecific T wave abnormalities Supervising Physician Co-Signing Physician Notes Attending Addendum: care coordinated with HARJIT Degroot please refer to her notes for full details, I agree with her notes patient seen and examined, records reviewed by myself as well on exam, patient seen resting in bed, comfortable states he feels improved since admission no chest pain, dyspnea, palpitations, dizziness no headache, dizziness no other symptoms VS noted and reviewed oriented x3, not in distress, speaks in sentences with no effort nor accessory muscle use normal rate, regular rhythm, no murmurs clear breath sounds bilaterally non distended, soft, (+) mild tenderness on the LLQ no bipedal edema, erythema, warmth no neuro deficits WBC 9.3 Hg [address] head: IMPRESSION: No acute intracranial abnormality or calvarial fracture. ASSESSMENT AND PLAN ACUTE RENAL FAILURE LIKELY PRERENAL FROM DIARRHEA IV NSS DIARRHEA stool for c diff if negative, start Cipro IV CT abdomen for LLQ pain HYPO-K PO and IV K other diagnoses and plan of care as per HARJIT Degroot's notes Ryan Gresham MD (1) Fall Encounter type: initial encounter Qualified Code(s): W19.XXXA - Unspecified fall, initial encounter (2) Contusion of head Contusion of head detail: unspecified part of head Encounter type: initial encounter Qualified Code(s): S00.93XA - Contusion of unspecified part of head, initial encounter
[2021-09-06] MEDS ORDERED: NITROGLYCERIN SL 0.4 MG/TAB TAB SL PRN (18:11)
[2021-09-06] MEDS ORDERED: ACETAMINOPHEN 325 MG TAB PO PRN (18:11)
[2021-09-06] MEDS ORDERED: FAMOTIDINE 20 MG TAB PO PRN (18:11)
[2021-09-06] MEDS ORDERED: METOPROLOL TARTRATE 25 MG TAB PO SCH ×2 (18:15→21:00)
[2021-09-06] MEDS ORDERED: GLUCAGON FOR INJ 1 MG VIAL SQ PRN (20:06)
[2021-09-06] MEDS ORDERED: GLUCOSE 40% GEL 15 GM TUBE PO PRN (20:06)
[2021-09-06] MEDS ORDERED: CARBOHYDRATES FOR HYPOGLYCEMIA PO PRN (20:06)
[2021-09-06] MEDS ORDERED: DEXTROSE 50% 50 ML SYRINGE IV PRN (20:06)
[2021-09-06] MEDS ORDERED: GLUCOSE 10 TABS/TUBE PO PRN (20:06)
[2021-09-06] MEDS ORDERED: METOPROLOL TARTRATE 25 MG TAB PO STA (20:14)
[2021-09-06] MEDS ORDERED: SODIUM CHLORIDE 0.9% 500 ML IV SCH (20:30)
[2021-09-06] MEDS ORDERED: FLUTICASONE/SALMETEROL 250/50 (ADVAIR) 14 PUFF/1 INHALER INH SCH (21:00)
[2021-09-06 21:20] LABS: BUN Creatinine Ratio 12.8 (10-20); Calcium 8.3 mg/dl (8.5-10.1); Creatinine Clr Calc Pharmacy 19.7 ml/min; Est GFR (African American) 18.4 ml/min; Est GFR (Non-African American) 15.9 ml/min; Potassium 3.3 mmol/L (3.5-5.1)
[2021-09-06] MEDS: MELATONIN 3 MG TAB PO SCH (21:53)
[2021-09-06] MEDS: TIMOLOL GFS 0.5% OPH SOLN 74 DROPS/5 ML BTL OPB SCH (21:55)
[2021-09-06] MEDS: SODIUM CHLORIDE 0.9% 1000ML 1,000 ML IV SCH (21:55)
[2021-09-06] MEDS: INSULIN GLARGINE SOLOSTAR 100 UNITS/ML 3 ML PEN SC SCH (21:58)
[2021-09-06] MEDS: INSULIN ASPART 100 UNITS/ML 3 ML PEN SC SCH (21:59)
[2021-09-06] MEDS: GABAPENTIN 300 MG CAP PO SCH (22:10)
[2021-09-07 05:51] LABS: Hemoglobin 10.1 g/dL (14.0-18.0); Mean Corpuscular Hemoglobin 30.3 pg (25-34); Mean Corpuscular Hgb Conc 36.1 g/dL (32-36); Mean Corpuscular Volume 84.1 fL (80-100); RDW Coefficient of Variation 13.2 % (11.5-14.5); RDW Standard Deviation 40.7 fL (36.4-46.3); Red Blood Count 3.33 M/uL (4.7-6.1); White Blood Count 8.66 K/uL (4.8-10.8)
[2021-09-07 05:52] LABS: Mean Platelet Volume 8.8 fL (7.4-10.4); Platelet Count 91 K/uL (130-400)
[2021-09-07 06:21] LABS: Calcium 7.9 mg/dl (8.5-10.1); Creatinine Clr Calc Pharmacy 21.3 ml/min; Est GFR (African American) 20.3 ml/min; Est GFR (Non-African American) 17.5 ml/min; Magnesium 1.9 mg/dl (1.8-2.4); Potassium 3.2 mmol/L (3.5-5.1)
[2021-09-07] MEDS: PANTOprazole 40 MG TAB PO SCH (06:46)
[2021-09-07] MEDS ORDERED: POTASSIUM CHLORIDE CRTAB 20 MEQ TABCR PO STA (07:32)
[2021-09-07] MEDS: INSULIN ASPART 100 UNITS/ML 3 ML PEN SC SCH ×4 (07:45→22:11)
[2021-09-07] MEDS: FINASTERIDE 5 MG TAB PO SCH (08:16)
[2021-09-07] MEDS: ATORVASTATIN 40 MG TAB PO SCH (08:16)
[2021-09-07] MEDS: ASPIRIN 81 MG ECTAB PO SCH (08:16)
[2021-09-07] MEDS: SODIUM CHLORIDE 0.9% 1000ML 1,000 ML IV SCH ×2 (08:16→18:16)
[2021-09-07] MEDS: ISOSORBIDE MONO EXTENDED REL 60 MG TABCR PO SCH (08:17)
[2021-09-07] MEDS: METOPROLOL TARTRATE 25 MG TAB PO SCH ×2 (08:17→22:20)
[2021-09-07] MEDS: FLUTICASONE/VILANTEROL 200/25MCG 14 PUFFS/INHALER INH SCH (08:17)
[2021-09-07] MEDS: GABAPENTIN 300 MG CAP PO SCH ×2 (08:17→22:20)
[2021-09-07] MEDS: INSULIN GLARGINE SOLOSTAR 100 UNITS/ML 3 ML PEN SC SCH ×2 (08:17→22:11)
--- NOTE | 2021-09-07 10:31 | Electrocardiogram Report ---
Test Reason : Blood Pressure : / mmHG Vent. Rate : 070 BPM Atrial Rate : 070 BPM P-R Int : 224 ms QRS Dur : 102 ms QT Int : 292 ms P-R-T Axes : 048 -13 084 degrees QTc Int : 315 ms Poor data quality, interpretation may be adversely affected Sinus rhythm with 1st degree A-V block with Premature atrial complexes possible Inferior infarct , age undetermined Abnormal ECG When compared with ECG of 14-AUG-2021 11:40, Nonspecific T wave abnormality now evident in Inferior leads Nonspecific T wave abnormality, worse in Anterolateral leads QT has shortened Confirmed by Carlos Buck ([id number]) on 09/07/2021 10:31:23 AM Referred By: Confirmed By:Flo Buck
--- NOTE | 2021-09-07 11:06 | CT Scan Report ---
CT SCAN OF THE ABDOMEN AND PELVIS WITHOUT IV CONTRAST CLINICAL HISTORY: Left lower quadrant abdominal pain. Diarrhea. COMPARISON STUDY: Abdominal CT dated 03/10/2013. TECHNIQUE: CT scan of the abdomen and pelvis is performed from the lung bases to the proximal femora. Images are reviewed in the axial, sagittal, and coronal planes. IV contrast was not administered for this examination. Note that the examination is suboptimal without oral and IV contrast. A dose lower ing technique was utilized adhering to the principles of ALARA. CT DOSE: 906.76 mGy.cm FINDINGS: Lung bases: The patient is status post midline sternotomy. The heart is enlarged and without pericard ial effusion. The coronary arteries are densely calcified. There are scattered calcified granulomas. There is trace left pleural effusion. Scarring/atelectasis is seen at both lung bases. A small hiatal hernia is noted. Liver: The unenhanced liver is normal in size, contour, and attenuation. There is no intrahepatic irving iary ductal dilatation. Gallbladder: Surgically absent noting clips in the gallbladder fossa. Spleen: Normal in size and attenuation. Pancreas: Unremarkable. Adrenal glands: Unremarkable. Kidneys: The left kidney is surgically absent. The unenhanced right kidney is normal in size and with out hydronephrosis. No right renal calculi are identified. There is no evidence of contour deforming renal mass lesion. Abdominal vasculature: The abdominal aorta is normal in course and caliber noting moderate atheroscle rotic calcification. Bowel: There is no bowel obstruction. There is mild wall thickening throughout the left colon with fa int pericolonic infiltration. The appearance fever a nonspecific colitis. There are scattered colonic diverticula without CT evidence of acute diverticulitis. The appendix is well-visualized and normal . Peritoneum: There is no intraperitoneal free air or abdominal ascites. A fat-containing umbilical her jonathan is noted. Lymphadenopathy: None. Pelvic viscera: The prostate gland is diminutive and heterogeneous. The bladder is distended. Skeletal structures: The skeletal structures are heterogeneously osteopenic. There is moderate lumbos acral spondylosis. No destructive bony lesion is seen. A 1.9 cm sclerotic focus in the body of T12 se en on image #128 has been present dating back to 2012. IMPRESSION: 1. Findings suggest a mild nonspecific colitis of the left colon. Clinical correlation will be requir ed. 2. Status post left nephrectomy. 3. Trace left pleural effusion. 4. Additional findings as above. ACT 112: Negative or not required by law. Electronically signed by: Frank Flynn M.D. 09/07/2021 11:04 AM
[2021-09-07] MEDS ORDERED: LOPERAMIDE HCL 2 MG CAP PO PRN (19:05)
[2021-09-07] MEDS: CIPROFLOXACIN 500 MG TAB PO SCH (22:19)
[2021-09-07] MEDS: metroNIDAZOLE 500 MG TAB PO SCH (22:21)
[2021-09-07] MEDS: TIMOLOL GFS 0.5% OPH SOLN 74 DROPS/5 ML BTL OPB SCH (22:21)
[2021-09-07] MEDS: MELATONIN 3 MG TAB PO SCH (22:22)
--- NOTE | 2021-09-07 23:48 | Hospitalist Progress Note ---
Date of Service September 07, 2021 Assessment & Plan (1) Diarrhea: Plan: This is a 76-year-old male with PMH of CKD stage III s/p renal cell carcinoma with radical left nephrectomy in January 2011, DM II, CAD (CABG x 3 in 2008), HTN, HLD, chronic diastolic heart failure, chronic bronchitis with COPD, EMILE but noncompliant with CPAP, history of alcohol use and other medical problems listed below who presents with lightheadedness and weakness in setting of ongoing diar vaibhav. Diarrhea x 5 days, poor appetite, nausea and chills Afebrile, no leukocytosis stool for C-diff and culture negative CT abdomen/pelvis showed findings suggested a mild nonspecific colitis of the left colon. Will start on cipro and flagyl Will advance diet to full liquid Will add loperamide prn Continue IVF Continue monitor closely (2) Hypokalemia: Plan: Initial potassium 2.6 in setting of GI losses Potassium 3.2 today K replaced Continue monitor BMP (3) Acute kidney injury superimposed on chronic kidney disease: Plan: Creatinine 3.96 (baseline ~ 1.5) Likely pre-renal in setting of ongoing diarrhea Continue IVF Continue to hold torsemide for now Avoid nephrotoxic agents Continue monitor BMP (4) Fall: (5) Contusion of head: Plan: Fall in setting of hypovolemia CT head, cervical spine CT without evidence of acute intracranial abnormality or calvarial fracture. Nofracture or subluxation involving the cervical spine Fall precautions Continue PT/OT evaluation (6) Diabetes mellitus, type 2: Plan: Last HgA1c 7.3 in Jun Hold home agents Basal/bolus insulin per protocol while in-patient Will check A1c (7) Hypertension: Plan: Continue Lopressor Holding torsemide for now (8) Atrial fibrillation: Plan: Continue Lopressor. Not on anticoagulation (9) CAD (coronary artery disease): Plan: History of CABG in 2008, recent admission for chest pain Continue aspirin, statin, imdur (10) Chronic obstructive pulmonary disease: Plan: Continue home inhaler DVT Ppx: SCDs for now given thrombocytopenia (baseline plt ~ 100, currently 80), re-evaluate Code status: FULL PCP: [facility] Dispo: Will discharge once medically stable Admission and Anticipated Discharge Date Admission Date: September 06, 2021 Subjective Pt was seen and examined for follow up of diarrhea Lying in bed with no acute distress Pt said that he feels ok He said that he continues to have diarrhea about 7 times He said that he has a mild abdominal discomfort Denies any chest pain, palpitation, dizziness and SOB Review of Systems Review of Systems: All systems reviewed & are unremarkable except as noted in Subjective Physical Exam Physical Exam: General- No acute distress Head- atraumatic Eyes- PERRL, EOMI, ENT- oropharynx clear Neck- supple, no JVD Lungs- clear to auscultation Heart- regular rhythm; no murmur Abdomen- normal bowel sounds, soft, +mild abdominal tender Extremities- no calf tenderness Neuro- alert, oriented x 3; PERRL, EOMI; no facial palsy; no dysarthria Skin- warm & dry Results & Data Results & Data ([facility]) Vital Signs (Past 12 Hours) Vital Signs Pulse Resp BP Pulse Ox 09/07/21 17:24 95 09/07/21 12:42 80 23 121/60 97 (1) Fall Encounter type: initial encounter Qualified Code(s): W19.XXXA - Unspecified fall, initial encounter (2) Contusion of head Contusion of head detail: unspecified part of head Encounter type: initial encounter Qualified Code(s): S00.93XA - Contusion of unspecified part of head, initial encounter
[2021-09-08 04:50] LABS: Hematocrit (blood only) 27.2 % (42-52); Hemoglobin 9.8 g/dL (14.0-18.0); Mean Corpuscular Hemoglobin 30.8 pg (25-34); Mean Corpuscular Volume 85.5 fL (80-100); RDW Coefficient of Variation 13.1 % (11.5-14.5); RDW Standard Deviation 41.3 fL (36.4-46.3); Red Blood Count 3.18 M/uL (4.7-6.1); White Blood Count 8.15 K/uL (4.8-10.8)
[2021-09-08 05:05] LABS: Mean Platelet Volume 8.4 fL (7.4-10.4); Platelet Count 97 K/uL (130-400)
[2021-09-08 05:08] LABS: BUN Creatinine Ratio 11.5 (10-20); Calcium 7.6 mg/dl (8.5-10.1); Creatinine Clr Calc Pharmacy 26.1 ml/min; Est GFR (African American) 26.1 ml/min; Est GFR (Non-African American) 22.5 ml/min
[2021-09-08] MEDS: SODIUM CHLORIDE 0.9% 1000ML 1,000 ML IV SCH ×2 (05:33→12:34)
[2021-09-08] MEDS: PANTOprazole 40 MG TAB PO SCH (05:33)
[2021-09-08] MEDS: ATORVASTATIN 40 MG TAB PO SCH (08:05)
[2021-09-08] MEDS: ASPIRIN 81 MG ECTAB PO SCH (08:05)
[2021-09-08] MEDS: ISOSORBIDE MONO EXTENDED REL 60 MG TABCR PO SCH (08:06)
[2021-09-08] MEDS: GABAPENTIN 300 MG CAP PO SCH ×2 (08:06→20:39)
[2021-09-08] MEDS: metroNIDAZOLE 500 MG TAB PO SCH ×3 (08:06→20:40)
[2021-09-08] MEDS: FLUTICASONE/VILANTEROL 200/25MCG 14 PUFFS/INHALER INH SCH (08:06)
[2021-09-08] MEDS: FINASTERIDE 5 MG TAB PO SCH (08:06)
[2021-09-08] MEDS: METOPROLOL TARTRATE 25 MG TAB PO SCH ×2 (08:12→20:42)
[2021-09-08] MEDS ORDERED: POTASSIUM CHLORIDE CRTAB 20 MEQ TABCR PO STA (08:28)
[2021-09-08] MEDS: INSULIN ASPART 100 UNITS/ML 3 ML PEN SC SCH ×4 (09:01→21:26)
[2021-09-08] MEDS: INSULIN GLARGINE SOLOSTAR 100 UNITS/ML 3 ML PEN SC SCH ×2 (09:01→21:26)
[2021-09-08] MEDS: POTASSIUM CHLORIDE / WTR 10 MEQ/100 ML PLCT IV SCH ×2 (10:11→11:08)
--- NOTE | 2021-09-08 11:43 | Hospitalist Progress Note ---
Date of Service September 08, 2021 Assessment & Plan (1) Diarrhea: Plan: This is a 76-year-old male with PMH of CKD stage III s/p renal cell carcinoma with radical left nephrectomy in January 2011, DM II, CAD (CABG x 3 in 2008), HTN, HLD, chronic diastolic heart failure, chronic bronchitis with COPD, EMILE but noncompliant with CPAP, history of alcohol use and other medical problems listed below who presents with lightheadedness and weakness in setting of ongoing diar vaibhav. Diarrhea x 5 days, poor appetite, nausea and chills Afebrile, no leukocytosis Stool for C-diff and culture negative CT abdomen/pelvis showed findings suggested a mild nonspecific colitis of the left colon Started on cipro and flagyl Advanced to ull liquid PRN loperamide added Continue IVF Continue monitor closely (2) Hypokalemia: Plan: Initial potassium 2.6 in setting of GI losses Potassium 3.0 today K replaced Continue monitor BMP (3) Acute kidney injury superimposed on chronic kidney disease: Plan: Creatinine 3.96 (baseline ~ 1.5) -> 3.56 -->3.29 --> 2.67 Likely pre-renal in setting of ongoing diarrhea Continue IVF Continue to hold torsemide for now Avoid nephrotoxic agents Continue monitor BMP (4) Fall: (5) Contusion of head: Plan: Fall in setting of hypovolemia CT head, cervical spine CT without evidence of acute intracranial abnormality or calvarial fracture. Nofracture or subluxation involving the cervical spine Fall precautions Continue PT/OT evaluation (6) Diabetes mellitus, type 2: Plan: Last HgA1c 7.3 in Jun Hold home agents Basal/bolus insulin per protocol while in-patient Will check A1c (7) Hypertension: Plan: Continue Lopressor Holding torsemide for now (8) Atrial fibrillation: Plan: Continue Lopressor Not on anticoagulation (9) CAD (coronary artery disease): Plan: History of CABG in 2008. Continue aspirin, statin, imdur (10) Chronic obstructive pulmonary disease: Plan: Continue home inhaler DVT Ppx: SCDs for now given thrombocytopenia, encourage ambulation Code status: FULL PCP: Redd Dispo: Will discharge once medically stable Patient seen in collaboration with Dr. Dalton. Please see addendum. Admission and Anticipated Discharge Date Admission Date: September 06, 2021 Supervising Physician Co-Signing Physician Notes Pt was seen and examined. Agreed with Nadia SLOAN exam assessment and plan. Pt said that he continues to have multiple episodes of diarrhea. Creatinine slightly decreased today and K 3 today, being replaced. Continue IVF and diet advanced as tolerated. Continue abx with flagyl and cipro. Continue monitor electrolytes. Stool culture pending. Continue monitor closely. MD Sha Subjective Pt was seen and examined for follow up of diarrhea. Feeling better today. Continues to have diarrhea but no abdominal pain. Feeling stronger, ambulating to the restroom without issue. Denies any fever, chills, chest pain, shortness of breath, lightheadedness, nausea or vomiting. Advancing diet today. Review of Systems Review of Systems: At least ten systems reviewed and negative except as noted in the HPI. Physical Exam Physical Exam: Gen: WD/WN, NAD, lying in bed, A&Ox3 HEENT: Normocephalic, atraumatic, conjunctivae moist, sclerae anicteric, mucous membranes moist Lung: Clear to Auscultation bilaterally, no wheezes/rales/rhonchi Heart: Regular rate, regular rhythm, no murmurs, rubs, or gallops Abdomen: Soft, mild LLQ discomfort, ND +BS x 4 Extremities: no edema Skin: Warm, no rash Results & Data Results & Data ([facility]) Vital Signs (Past 12 Hours) Vital Signs Temp Pulse Resp BP Pulse Ox 09/08/21 11:20 36.9 C 82 18 102/61 99 Laboratory Results Short CBC 09/08/21 Range/Units 04:35 WBC 8.15 (4.8-10.8) K/uL Hgb 9.8 L (14.0-18.0) g/dL Hct 27.2 L (42-52) % Plt Count 97 L (130-400) K/uL BMP 09/08/21 04:35 Sodium 139 Potassium 3.0 L Chloride 111 H Carbon Dioxide 23 BUN 31 H Creatinine 2.67 H D Glucose 108 H Calcium 7.6 L Diagnostic Findings Cervical Spine CT 09/06/21 12:17 CT SCAN OF THE CERVICAL SPINE CLINICAL HISTORY: Syncope. Fall. COMPARISON STUDY: No priors. TECHNIQUE: CT scan of the cervical spine is performed from the skull base to the upper thoracic spine. Images are reviewed in the axial, sagittal, and coronal planes. IV contrast was not administered for this examination. A dose lowering technique was utilized adhering to the principles of ALARA. FINDINGS: Skeletal structures: The skeletal structures are osteopenic. There is no evidence of fracture or subluxation involving the cervical spine. Vertebral body height is maintained. There is minimal anterolisthesis at C4-C5. Alignment is otherwise preserved. There is straightening of the cervical lordosis. Anterior osteophytes are seen throughout. There is fusion of the facet joints seen bilaterally at C2-C3 and C3-C4. The odontoid process and lateral masses are intact. The atlantoaxial articulation is preserved noting productive degenerative change. The spinous processes appear intact. There is moderate to advanced multilevel cervical spondylosis. Uncovertebral and facet arthropathy contribute to neural foraminal narrowing at most levels. Intervertebral discs: Moderate disc space narrowing is seen at C6-C7. Mild disc space narrowing is seen at the remaining cervical levels. Central canal: Posterior disc osteophyte complexes at C4-C5, C5-C6, and C6-C7 may contribute to acquired compromise of the central canal. Soft tissues: The prevertebral and paraspinous soft tissues are within normal limits. Calvarium: The visualized calvarium at the skull base appears intact. Brain parenchyma: Partially visualized brain parenchyma at the skull base is within normal limits. Sinuses and mastoids: The visualized paranasal sinuses are clear. The mastoid air cells are well pneumatized. Cerumen fills the right external auditory canal. Lung apices: Clear as visualized. IMPRESSION: 1. There is no evidence of fracture or subluxation involving the cervical spine. 2. Osteopenia and spondylotic change as above. ACT 112: Negative or not required by law. Electronically signed by: Frank Flynn M.D. 09/06/2021 1:08 PM Chest X-Ray 09/06/21 12:17 XR chest 1V portable HISTORY: 76 years-old Male Chest Pain acute atypical chest pain COMPARISON: Chest radiograph 08/14/2021 TECHNIQUE: Portable AP view of the chest FINDINGS: Cardiac silhouette is enlarged. Prior median sternotomy with CABG. Atherosclerotic plaque of the thoracic aorta. No pneumothorax, pleural effusion, airspace consolidation or overt pulmonary edema. Mild chronic interstitial coarsening. Degenerative changes of the shoulders and spine. IMPRESSION: Cardiomegaly without acute process. ACT 112: Negative or not required by law. The above report was generated using voice recognition software. It may contain grammatical, syntax or spelling errors. Electronically signed by: Fredi Mai M.D. 09/06/2021 12:[address] 09/06/21 12:17 CT head/brain wo con CLINICAL HISTORY: 76 years-old Male with syncope. Acute head injury status post fall TECHNIQUE: Multiple axial CT images of the head were obtained without contrast. A dose lowering technique was utilized adhering to the principles of ALARA. CT DOSE: 1636.69 mGy.cm COMPARISON: Head CT 08/14/2021. FINDINGS: No acute intracranial hemorrhage, midline shift, intracranial mass, hydrocephalus, territorial ischemia or abnormal extra-axial collection. Age- related involutional changes. White matter hypodensities suggestive of chronic microvascular ischemic disease. The calvarium is intact. Prior bilateral lens repair. The paranasal sinuses, mastoid air cells, and middle ear cavities are clear. IMPRESSION: No acute intracranial abnormality or calvarial fracture. ACT 112: Negative or not required by law. The above report was generated using voice recognition software. It may contain grammatical, syntax or spelling errors. Electronically signed by: Fredi Mai M.D. 09/06/2021 1:03 PM Abdomen/Pelvis CT 09/06/21 21:37 CT SCAN OF THE ABDOMEN AND PELVIS WITHOUT IV CONTRAST CLINICAL HISTORY: Left lower quadrant abdominal pain. Diarrhea. COMPARISON STUDY: Abdominal CT dated 03/10/2013. TECHNIQUE: CT scan of the abdomen and pelvis is performed from the lung bases to the proximal femora. Images are reviewed in the axial, sagittal, and coronal planes. IV contrast was not administered for this examination. Note that the examination is suboptimal without oral and IV contrast. A dose lowering technique was utilized adhering to the principles of ALARA. CT DOSE: 906.76 mGy.cm FINDINGS: Lung bases: The patient is status post midline sternotomy. The heart is enlarged and without pericardial effusion. The coronary arteries are densely calcified. There are scattered calcified granulomas. There is trace left pleural effusion. Scarring/atelectasis is seen at both lung bases. A small hiatal hernia is noted. Liver: The unenhanced liver is normal in size, contour, and attenuation. There is no intrahepatic biliary ductal dilatation. Gallbladder: Surgically absent noting clips in the gallbladder fossa. Spleen: Normal in size and attenuation. Pancreas: Unremarkable. Adrenal glands: Unremarkable. Kidneys: The left kidney is surgically absent. The unenhanced right kidney is normal in size and without hydronephrosis. No right renal calculi are identified. There is no evidence of contour deforming renal mass lesion. Abdominal vasculature: The abdominal aorta is normal in course and caliber noting moderate atherosclerotic calcification. Bowel: There is no bowel obstruction. There is mild wall thickening throughout the left colon with faint pericolonic infiltration. The appearance fever a nonspecific colitis. There are scattered colonic diverticula without CT evidence of acute diverticulitis. The appendix is well-visualized and normal. Peritoneum: There is no intraperitoneal free air or abdominal ascites. A fat- containing umbilical hernia is noted. Lymphadenopathy: None. Pelvic viscera: The prostate gland is diminutive and heterogeneous. The bladder is distended. Skeletal structures: The skeletal structures are heterogeneously osteopenic. There is moderate lumbosacral spondylosis. No destructive bony lesion is seen. A 1.9 cm sclerotic focus in the body of T12 seen on image #128 has been present dating back to 2012. IMPRESSION: 1. Findings suggest a mild nonspecific colitis of the left colon. Clinical correlation will be required. 2. Status post left nephrectomy. 3. Trace left pleural effusion. 4. Additional findings as above. ACT 112: Negative or not required by law. Electronically signed by: Frank Flynn M.D. 09/07/2021 11:04 AM . (1) Fall Encounter type: initial encounter Qualified Code(s): W19.XXXA - Unspecified fall, initial encounter (2) Contusion of head Contusion of head detail: unspecified part of head Encounter type: initial encounter Qualified Code(s): S00.93XA - Contusion of unspecified part of head, initial encounter
[2021-09-08] MEDS: CIPROFLOXACIN 500 MG TAB PO SCH (20:38)
[2021-09-08] MEDS: TIMOLOL GFS 0.5% OPH SOLN 74 DROPS/5 ML BTL OPB SCH (21:55)
[2021-09-08] MEDS: MELATONIN 3 MG TAB PO SCH (21:55)
[2021-09-09] MEDS: SODIUM CHLORIDE 0.9% 1000ML 1,000 ML IV SCH ×3 (01:01→17:29)
[2021-09-09] MEDS: PANTOprazole 40 MG TAB PO SCH (05:50)
[2021-09-09 06:23] LABS: Hematocrit (blood only) 27.7 % (42-52); Hemoglobin 9.8 g/dL (14.0-18.0); Mean Corpuscular Hemoglobin 30.5 pg (25-34); Mean Corpuscular Hgb Conc 35.4 g/dL (32-36); Mean Corpuscular Volume 86.3 fL (80-100); Mean Platelet Volume 8.6 fL (7.4-10.4); Platelet Count 109 K/uL (130-400); RDW Standard Deviation 41.3 fL (36.4-46.3); Red Blood Count 3.21 M/uL (4.7-6.1); White Blood Count 7.92 K/uL (4.8-10.8)
[2021-09-09 06:55] LABS: BUN Creatinine Ratio 9.7 (10-20); Calcium 7.8 mg/dl (8.5-10.1); Creatinine Clr Calc Pharmacy 24.3 ml/min; Est GFR (African American) 23.9 ml/min; Est GFR (Non-African American) 20.6 ml/min; Potassium 3.3 mmol/L (3.5-5.1)
[2021-09-09] MEDS ORDERED: POTASSIUM CHLORIDE CRTAB 20 MEQ TABCR PO STA (07:50)
--- NOTE | 2021-09-09 08:30 | Hospitalist Progress Note ---
Date of Service September 09, 2021 Assessment & Plan (1) Salmonella enteritis: (2) Diarrhea: Plan: This is a 76-year-old male with PMH of CKD stage III s/p renal cell carcinoma with radical left nephrectomy in January 2011, DM II, CAD (CABG x 3 in 2008), HTN, HLD, chronic diastolic heart failure, chronic bronchitis with COPD, EMILE but noncompliant with CPAP, history of alcohol use and other medical problems listed below who presents with lightheadedness and weakness in setting of ongoing diarrhea. Diarrhea x 5 days, poor appetite, nausea and chills Afebrile, no leukocytosis C diff negative Stool culture grew salmonella species- group D CT abdomen/pelvis showed findings suggested a mild nonspecific colitis of the left colon Already receiving correct treatment of Cipro, will need a total of 7 day treatment Discontinued Flagyl Tolerating advanced diet PRN loperamide added Continue IVF (3) Hypokalemia: Plan: Initial potassium 2.6 in setting of GI losses Potassium 3.0 today K replaced Continue monitor BMP (4) Acute kidney injury superimposed on chronic kidney disease: Plan: Creatinine 3.96 (baseline ~ 1.5) -> 3.56 -->3.29 --> 2.67 --> 2.87 Likely pre-renal in setting of ongoing diarrhea Continue IVF Continue to hold torsemide for now Avoid nephrotoxic agents Continue monitor BMP (5) Fall: (6) Contusion of head: Plan: Fall in setting of hypovolemia CT head, cervical spine CT without evidence of acute intracranial abnormality or calvarial fracture. Nofracture or subluxation involving the cervical spine Fall precautions Evaluated by PT/OT, has since been ambulating independently without issue (7) Diabetes mellitus, type 2: Plan: Last HgA1c 7.3 in Jun Hold home agents Basal/bolus insulin per protocol while in-patient Will check A1c (8) Hypertension: Plan: Continue Lopressor Holding torsemide for now (9) Atrial fibrillation: Plan: Continue Lopressor Not on anticoagulation (10) CAD (coronary artery disease): Plan: History of CABG in 2008. Continue aspirin, statin, imdur (11) Chronic obstructive pulmonary disease: Plan: Continue home inhaler DVT Ppx: SCDs for now given thrombocytopenia, encourage ambulation Code status: FULL PCP: Redd Dispo: Will discharge once renal function improves Patient seen in collaboration with Dr. Dalton. Please see addendum. Admission and Anticipated Discharge Date Admission Date: September 06, 2021 Supervising Physician Co-Signing Physician Notes Pt was seen and examined. Agreed with Nadia SLOAN exam assessment and plan. Pt said that he continues to have multiple episodes of diarrhea. Continue IVF and diet advanced as tolerated. Continue abx with flagyl and cipro. Continue monitor electrolytes and creatinine. Stool culture positive for salmonella. Continue monitor closely. MD Sha Subjective Pt was seen and examined for follow up of diarrhea. Feeling better today. Continues to have diarrhea fewer episodes. No abdominal pain. Feeling stronger, ambulating to the restroom without issue. Denies any fever, chills, chest pain, shortness of breath, lightheadedness, nausea or vomiting. Tolerating regular diet without issue. Review of Systems Review of Systems: At least ten systems reviewed and negative except as noted in the HPI. Physical Exam Physical Exam: Gen: WD/WN, NAD, sitting in bedside chair, A&Ox3 HEENT: Normocephalic, atraumatic, conjunctivae moist, sclerae anicteric, mucous membranes moist Lung: Clear to Auscultation bilaterally, no wheezes/rales/rhonchi Heart: Regular rate, regular rhythm, no murmurs, rubs, or gallops Abdomen: Soft, mild LLQ discomfort, ND +BS x 4 Extremities: no edema Skin: Warm, no rash Results & Data Results & Data ([facility]) Vital Signs (Past 12 Hours) Vital Signs Temp Pulse Resp BP Pulse Ox 09/09/21 06:00 36.6 C 85 18 127/72 96 09/08/21 23:25 36.8 C 80 16 124/70 98 Laboratory Results Short CBC 09/09/21 Range/Units 05:46 WBC 7.92 (4.8-10.8) K/uL Hgb 9.8 L (14.0-18.0) g/dL Hct 27.7 L (42-52) % Plt Count 109 L (130-400) K/uL BMP 09/09/21 05:46 Sodium 141 Potassium 3.3 L Chloride 115 H Carbon Dioxide 19 L BUN 28 H Creatinine 2.87 H Glucose 177 H Calcium 7.8 L Diagnostic Findings Cervical Spine CT 09/06/21 12:17 CT SCAN OF THE CERVICAL SPINE CLINICAL HISTORY: Syncope. Fall. COMPARISON STUDY: No priors. TECHNIQUE: CT scan of the cervical spine is performed from the skull base to the upper thoracic spine. Images are reviewed in the axial, sagittal, and coronal planes. IV contrast was not administered for this examination. A dose lowering technique was utilized adhering to the principles of ALARA. FINDINGS: Skeletal structures: The skeletal structures are osteopenic. There is no evidence of fracture or subluxation involving the cervical spine. Vertebral body height is maintained. There is minimal anterolisthesis at C4-C5. Alignment is otherwise preserved. There is straightening of the cervical lordosis. Anterior osteophytes are seen throughout. There is fusion of the facet joints seen bilaterally at C2-C3 and C3-C4. The odontoid process and lateral masses are intact. The atlantoaxial articulation is preserved noting productive degenerative change. The spinous processes appear intact. There is moderate to advanced multilevel cervical spondylosis. Uncovertebral and facet arthropathy contribute to neural foraminal narrowing at most levels. Intervertebral discs: Moderate disc space narrowing is seen at C6-C7. Mild disc space narrowing is seen at the remaining cervical levels. Central canal: Posterior disc osteophyte complexes at C4-C5, C5-C6, and C6-C7 may contribute to acquired compromise of the central canal. Soft tissues: The prevertebral and paraspinous soft tissues are within normal limits. Calvarium: The visualized calvarium at the skull base appears intact. Brain parenchyma: Partially visualized brain parenchyma at the skull base is within normal limits. Sinuses and mastoids: The visualized paranasal sinuses are clear. The mastoid air cells are well pneumatized. Cerumen fills the right external auditory canal. Lung apices: Clear as visualized. IMPRESSION: 1. There is no evidence of fracture or subluxation involving the cervical spine. 2. Osteopenia and spondylotic change as above. ACT 112: Negative or not required by law. Electronically signed by: Frank Flynn M.D. 09/06/2021 1:08 PM Chest X-Ray 09/06/21 12:17 XR chest 1V portable HISTORY: 76 years-old Male Chest Pain acute atypical chest pain COMPARISON: Chest radiograph 08/14/2021 TECHNIQUE: Portable AP view of the chest FINDINGS: Cardiac silhouette is enlarged. Prior median sternotomy with CABG. Atherosclerotic plaque of the thoracic aorta. No pneumothorax, pleural effusion, airspace consolidation or overt pulmonary edema. Mild chronic interstitial coarsening. Degenerative changes of the shoulders and spine. IMPRESSION: Cardiomegaly without acute process. ACT 112: Negative or not required by law. The above report was generated using voice recognition software. It may contain grammatical, syntax or spelling errors. Electronically signed by: Fredi Mai M.D. 09/06/2021 12:[address] 09/06/21 12:17 CT head/brain wo con CLINICAL HISTORY: 76 years-old Male with syncope. Acute head injury status post fall TECHNIQUE: Multiple axial CT images of the head were obtained without contrast. A dose lowering technique was utilized adhering to the principles of ALARA. CT DOSE: 1636.69 mGy.cm COMPARISON: Head CT 08/14/2021. FINDINGS: No acute intracranial hemorrhage, midline shift, intracranial mass, hydrocephalus, territorial ischemia or abnormal extra-axial collection. Age- related involutional changes. White matter hypodensities suggestive of chronic microvascular ischemic disease. The calvarium is intact. Prior bilateral lens repair. The paranasal sinuses, mastoid air cells, and middle ear cavities are clear. IMPRESSION: No acute intracranial abnormality or calvarial fracture. ACT 112: Negative or not required by law. The above report was generated using voice recognition software. It may contain grammatical, syntax or spelling errors. Electronically signed by: Fredi Mai M.D. 09/06/2021 1:03 PM Abdomen/Pelvis CT 09/06/21 21:37 CT SCAN OF THE ABDOMEN AND PELVIS WITHOUT IV CONTRAST CLINICAL HISTORY: Left lower quadrant abdominal pain. Diarrhea. COMPARISON STUDY: Abdominal CT dated 03/10/2013. TECHNIQUE: CT scan of the abdomen and pelvis is performed from the lung bases to the proximal femora. Images are reviewed in the axial, sagittal, and coronal planes. IV contrast was not administered for this examination. Note that the examination is suboptimal without oral and IV contrast. A dose lowering technique was utilized adhering to the principles of ALARA. CT DOSE: 906.76 mGy.cm FINDINGS: Lung bases: The patient is status post midline sternotomy. The heart is enlarged and without pericardial effusion. The coronary arteries are densely calcified. There are scattered calcified granulomas. There is trace left pleural effusion. Scarring/atelectasis is seen at both lung bases. A small hiatal hernia is noted. Liver: The unenhanced liver is normal in size, contour, and attenuation. There is no intrahepatic biliary ductal dilatation. Gallbladder: Surgically absent noting clips in the gallbladder fossa. Spleen: Normal in size and attenuation. Pancreas: Unremarkable. Adrenal glands: Unremarkable. Kidneys: The left kidney is surgically absent. The unenhanced right kidney is normal in size and without hydronephrosis. No right renal calculi are identified. There is no evidence of contour deforming renal mass lesion. Abdominal vasculature: The abdominal aorta is normal in course and caliber noting moderate atherosclerotic calcification. Bowel: There is no bowel obstruction. There is mild wall thickening throughout the left colon with faint pericolonic infiltration. The appearance fever a nonspecific colitis. There are scattered colonic diverticula without CT evidence of acute diverticulitis. The appendix is well-visualized and normal. Peritoneum: There is no intraperitoneal free air or abdominal ascites. A fat- containing umbilical hernia is noted. Lymphadenopathy: None. Pelvic viscera: The prostate gland is diminutive and heterogeneous. The bladder is distended. Skeletal structures: The skeletal structures are heterogeneously osteopenic. There is moderate lumbosacral spondylosis. No destructive bony lesion is seen. A 1.9 cm sclerotic focus in the body of T12 seen on image #128 has been present dating back to 2013. IMPRESSION: 1. Findings suggest a mild nonspecific colitis of the left colon. Clinical correlation will be required. 2. Status post left nephrectomy. 3. Trace left pleural effusion. 4. Additional findings as above. ACT 112: Negative or not required by law. Electronically signed by: Frank Flynn M.D. 09/07/2021 11:04 AM (1) Fall Encounter type: initial encounter Qualified Code(s): W19.XXXA - Unspecified fall, initial encounter (2) Contusion of head Contusion of head detail: unspecified part of head Encounter type: initial encounter Qualified Code(s): S00.93XA - Contusion of unspecified part of head, initial encounter
[2021-09-09] MEDS: INSULIN ASPART 100 UNITS/ML 3 ML PEN SC SCH ×4 (09:33→20:41)
[2021-09-09] MEDS: INSULIN GLARGINE SOLOSTAR 100 UNITS/ML 3 ML PEN SC SCH ×2 (09:35→20:40)
[2021-09-09] MEDS: ISOSORBIDE MONO EXTENDED REL 60 MG TABCR PO SCH (09:36)
[2021-09-09] MEDS: FINASTERIDE 5 MG TAB PO SCH (09:36)
[2021-09-09] MEDS: ATORVASTATIN 40 MG TAB PO SCH (09:36)
[2021-09-09] MEDS: metroNIDAZOLE 500 MG TAB PO SCH ×2 (09:36→15:06)
[2021-09-09] MEDS: METOPROLOL TARTRATE 25 MG TAB PO SCH ×2 (09:36→20:37)
[2021-09-09] MEDS: ASPIRIN 81 MG ECTAB PO SCH (09:36)
[2021-09-09] MEDS: FLUTICASONE/VILANTEROL 200/25MCG 14 PUFFS/INHALER INH SCH (09:37)
[2021-09-09] MEDS: GABAPENTIN 300 MG CAP PO SCH (09:37)
[2021-09-09] MEDS: CIPROFLOXACIN 500 MG TAB PO SCH (20:38)
[2021-09-09] MEDS: TIMOLOL GFS 0.5% OPH SOLN 74 DROPS/5 ML BTL OPB SCH (22:08)
[2021-09-09] MEDS: MELATONIN 3 MG TAB PO SCH (22:08)
[2021-09-10] MEDS: SODIUM CHLORIDE 0.9% 1000ML 1,000 ML IV SCH ×2 (02:11→12:19)
[2021-09-10] MEDS: PANTOprazole 40 MG TAB PO SCH (05:59)
[2021-09-10 06:33] LABS: Hematocrit (blood only) 26.1 % (42-52); Hemoglobin 9.4 g/dL (14.0-18.0); Mean Corpuscular Hemoglobin 30.8 pg (25-34); Mean Corpuscular Volume 85.6 fL (80-100); Mean Platelet Volume 8.6 fL (7.4-10.4); Platelet Count 114 K/uL (130-400); RDW Coefficient of Variation 13.2 % (11.5-14.5); RDW Standard Deviation 41.2 fL (36.4-46.3); Red Blood Count 3.05 M/uL (4.7-6.1); White Blood Count 7.94 K/uL (4.8-10.8)
[2021-09-10 07:04] LABS: Creatinine Clr Calc Pharmacy 27.1 ml/min; Est GFR (African American) 27.3 ml/min; Est GFR (Non-African American) 23.6 ml/min; Potassium 3.4 mmol/L (3.5-5.1)
[2021-09-10] MEDS: ATORVASTATIN 40 MG TAB PO SCH (08:59)
[2021-09-10] MEDS: ISOSORBIDE MONO EXTENDED REL 60 MG TABCR PO SCH (08:59)
[2021-09-10] MEDS: METOPROLOL TARTRATE 25 MG TAB PO SCH (08:59)
[2021-09-10] MEDS: INSULIN GLARGINE SOLOSTAR 100 UNITS/ML 3 ML PEN SC SCH (09:00)
[2021-09-10] MEDS ORDERED: GABAPENTIN 300 MG CAP PO SCH (09:00)
[2021-09-10] MEDS: FINASTERIDE 5 MG TAB PO SCH (09:00)
[2021-09-10] MEDS: ASPIRIN 81 MG ECTAB PO SCH (09:00)
[2021-09-10] MEDS: INSULIN ASPART 100 UNITS/ML 3 ML PEN SC SCH ×2 (09:01→12:59)
[2021-09-10] MEDS: FLUTICASONE/VILANTEROL 200/25MCG 14 PUFFS/INHALER INH SCH (09:04)
[2021-09-10] MEDS ORDERED: POTASSIUM CHLORIDE CRTAB 20 MEQ TABCR PO STA (09:39)
--- NOTE | 2021-09-10 17:49 | Discharge Summary ---
Date of Service September 10, 2021 Admission HPI Per Admitting Provider This is a 76-year-old male with PMH of CKD stage III s/p renal cell carcinoma with radical left nephrectomy in January 2011, DM II, CAD (CABG x 3 in 2008), HTN, HLD, chronic diastolic heart failure, chronic bronchitis with COPD, EMILE but noncompliant with CPAP, history of alcohol use and other medical problems listed below who presents with lightheadedness and weakness in setting of ongoing diarrhea. Has had diarrhea for 5 days with associated chills, nausea, and dry heaves. Some discomfort in left lower abdomen. Denies any blood in diarrhea. Denies any history of C. difficile, no recent antibiotic use. Denies any unusual food consumption or others around him also having GI symptoms. Has been trying to drink water and stay hydrated but reduced appetite. Fell asleep on the couch last night and attempted to get up at 0200 and fell to the ground. encouraged patient to come in for further evaluation today. Denies any fever, chest pain, shortness of breath, dysuria or constipation. Admission Exam Per Admitting Provider General Appearance:WD/WN, vitals as above, NAD, sitting up in bed, pleasant, conversing easily Head: normocephalic, contusion on forehead Eyes:normal inspection, PERRL, conjunctivae normal, anicteric sclerae ENT: external ear and nose normal, oropharynx normal Neck: normal visual inspection, trachea midline, no thyromegaly Respiratory:normal respiratory effort, lungs clear to auscultation, no wheeze, rales, rhonchi. No accessory muscle use Cardiovascular: regular rate, rhythm, no murmur, normal peripheral pulses, no BLE edema. Vessels: no JVD Chest: normal inspection of chest Abdomen/GI: normal bowel sounds, soft, TTP in LLQ, no hepatosplenomegaly Extremities/Musculoskeletal: no cyanosis or clubbing, extremities motor strength 5/5 Neurologic: PERRL, EOMI, accommodation nl, no face palsy, no dysarthria, CN's II-XI intact bilaterally and moves all extremities Psychiatric:A+Ox3, euthymic affect Skin: no rashes, normal color, warm/dry Principal Diagnosis salmonella enteritis, hypokalemia Discharge Exam Gen: WD/WN, NAD, A&Ox3 HEENT: Normocephalic, atraumatic, conjunctivae moist, mucous membranes moist Lung: Clear to Auscultation bilaterally, no wheezes/rales/rhonchi Heart: Regular rate, regular rhythm, no murmurs, rubs, or gallops Abdomen: Soft, mild LLQ discomfort, ND +BS x 4 Extremities: no edema Skin: Warm, no rash Discharge Data Allergies Allergy/AdvReac Type Severity Reaction Status Date / Time amoxicillin Allergy Intermediate RASH, Verified 09/06/21 14:46 ELEVATED PULSE clavulanic acid Allergy Intermediate RASH AND Verified 09/06/21 14:46 ELEVATED PULSE lisinopril Allergy Intermediate COUGH Verified 09/06/21 14:46 Consultations 09/06/21 14:26 ED Decision to Admit Stat 09/06/21 15:05 ED Decision to Admit Stat Ordered Studies 09/06/21 12:17 CT cervical spine wo con Stat CT head/brain wo con Stat 09/06/21 21:37 CT abd pelvis wo con Routine Hospital Course (1) Salmonella enteritis: (2) Diarrhea: (3) Hypokalemia: (4) Acute kidney injury superimposed on chronic kidney disease: (5) Fall: (6) Contusion of head: (7) Diabetes mellitus, type 2: (8) Hypertension: (9) Atrial fibrillation: (10) CAD (coronary artery disease): (11) Chronic obstructive pulmonary disease: This is a 76-year-old male with PMH of CKD stage III s/p renal cell carcinoma with radical left nephrectomy in January 2011, DM II, CAD (CABG x 3 in 2008), HTN, HLD, chronic diastolic heart failure, chronic bronchitis with COPD who presented with lightheadedness and weakness in setting of ongoing diarrhea. CT abdomen/pelvis showed findings suggested a mild nonspecific colitis of the left colon. Stool culture grew salmonella species- group D. C diff negative. Continuing Cipro for complete treatment course on discharge. Had ongoing hypoka lemia during admission due to GI losses requiring replacement. Discharged with potassium supplement. Elevated kidney function during admission in setting of diarrhea. Renal function steadily improving. Instructed to have repeat BMP next week with home health as well as holding torsemide until follow up with PCP. Hemodynamically stable at time of discharge home. Care coordinated with Dr. Dalton Total Time Total Time Spent Total Time Spent (In Minutes): 35 Discharge Plan Discharge Items Patient Disposition: Home - Home Health Services Reason For Visit: HYPOKALEMIA,DIARRHEA,LAMBERT ON CKD Discharge Diagnosis: (1) Salmonella enteritis: (2) Diarrhea: (3) Hypokalemia: (4) Acute kidney injury superimposed on chronic kidney disease: (5) Fall: (6) Contusion of head: (7) Diabetes mellitus, type 2: (8) Hypertension: (9) Atrial fibrillation: (10) CAD (coronary artery disease): (11) Chronic obstructive pulmonary disease: Activity: Resume your previous activity Non-emergency contact: Primary Care Provider Call non-emergency contact if: you have any medication questions and your temperature is above 101 Follow-up/Referrals: Buzz Rainey MD [Primary Care Provider] - 09/15/21 12:00 pm (Date & Time 09/15/2021 12:00 PM Provider Tomás Sánchez MD [facility] ) Diet: Carb Consistent or DM2, Heart Healthy and Low Fiber Addtl Attending Provider Instructions: Follow up with your primary care provider 09/15/2021 @ 12:00 PM Tomás Sánchez MD [facility] Continue physical and occupational therapy Fall precaution Check BMP on Sunday (with home health ) to monitor your electrolytes and renal function Continue to hold Torsemide (Water pill) due to elevate creatinine ( your provider will instruct you when to resume it) Complete the course of the antibiotic with cipro Advance your diet slowly as tolerated Pending Studies at Discharge: No Stand-Alone Forms: [facility], Smoking Cessation Medications and DC Order Prescriptions: New potassium chloride 10 mEq capsule, extended release 10 meq PO DAILY Qty: 30 RF: 0 Continued timolol maleate 0.25 % Drops 1 drp OPB HS RF: 0 aspirin [Aspirin Low Dose] 81 mg Tablet,Delayed Release (Dr/Ec) 81 mg PO QAM RF: 0 pantoprazole 40 mg Tablet,Delayed Release (Dr/Ec) 40 mg PO DAILYBB RF: 0 docusate sodium 100 mg Tablet 100 mg PO BID RF: 0 finasteride 5 mg Tablet 5 mg PO QAM RF: 0 famotidine [Pepcid] 20 mg Tablet 20 mg PO BID PRN (Reason: Indigestion) RF: 0 nitroglycerin 0.4 mg tablet, sublingual 0.4 mg sublingual UD PRN (Reason: Chest Pain) RF: 0 torsemide 20 mg Tablet 30 mg PO QAM RF: 0 Ozempic 1 mg/dose (2 mg/1.5 mL) Pen Injector 1 mg SUBCUT WK RF: 0 melatonin 5 mg Tablet 10 mg PO HS RF: 0 atorvastatin 40 mg Tablet 40 mg PO QAM RF: 0 gabapentin 300 mg Capsule 300 mg PO TID RF: 0 metoprolol tartrate 25 mg Tablet See Rx Instructions .ROUTE .COMPLEX RF: 0 Lantus Solostar U-100 Insulin 100 unit/mL (3 mL) Insulin Pen 16 unit SUBCUT QAM RF: 0 fluticasone propion-salmeterol [Wixela Inhub] 250-50 mcg/dose Blister With Device 1 inh INHALATION BID RF: 0 isosorbide mononitrate 60 mg tablet extended release 24 hr 60 mg PO QAM RF: 0 Discharge Orders: Discharge Order (Routine); Ordered 09/10/21 Ordered By: Agusto Mcpherson/Other Patient Handouts: 5 Steps for Eating Healthier Admission Data Admit Date/Time: 09/06/21 15:40 Attending Provider: Agusto Dalton Admit Provider: Ryan Gresham Primary Care Provider: Buzz Rainey Other Providers: Ryan Gresham ; Nadia Degroot Other Interventions: Discharge Summary Assessment (RN) Last Done: 09/10/21 16:41
== END 2021-09-10 17:29 | disposition home health service (06) | DRG 372 ==
LOC: ED 12:07 → EDINP 15:40 → SUATTDRO 15:40 → EDINP 18:02 → 3E 09-08 10:57
DX: E87.6 Hypokalemia; E11.42 Type 2 diabetes mellitus with diabetic polyneuropathy; A02.0 Salmonella enteritis; Z85.528 Personal history of other malignant neoplasm of kidney; E78.5 Hyperlipidemia, unspecified; E86.1 Hypovolemia; Z79.82 Long term (current) use of aspirin; I50.32 Chronic diastolic (congestive) heart failure; F17.290 Nicotine dependence, other tobacco product, uncomplicated; Z90.5 Acquired absence of kidney; Y92.009 Unspecified place in unspecified non-institutional (private) residence as the place of occurrence of the external cause; Z95.1 Presence of aortocoronary bypass graft; J44.9 Chronic obstructive pulmonary disease, unspecified; N18.30 Chronic kidney disease, stage 3 unspecified; E11.22 Type 2 diabetes mellitus with diabetic chronic kidney disease; N17.9 Acute kidney failure, unspecified; I48.91 Unspecified atrial fibrillation; I25.10 Atherosclerotic heart disease of native coronary artery without angina pectoris; Z88.1 Allergy status to other antibiotic agents; W06.XXXA Fall from bed, initial encounter; Z79.4 Long term (current) use of insulin; R55 Syncope and collapse; I13.0 Hypertensive heart and chronic kidney disease with heart failure and stage 1 through stage 4 chronic kidney disease, or unspecified chronic kidney disease; I25.2 Old myocardial infarction; S00.93XA Contusion of unspecified part of head, initial encounter; Z88.8 Allergy status to other drugs, medicaments and biological substances; Z72.89 Other problems related to lifestyle

== ENCOUNTER 2023-06-19 22:28 | Observation (INO) ==
[2023-06-19] MEDS ORDERED: ONDANSETRON INJ 2 MG/ML 2 ML VIAL ONE (22:39)
[2023-06-19] MEDS ORDERED: FAMOTIDINE 20MG IV PUSH 20 MG/5 ML SYR IV STA (23:14)
[2023-06-19] MEDS ORDERED: ONDANSETRON INJ 2 MG/ML 2 ML VIAL IV STA (23:14)
[2023-06-19] MEDS ORDERED: ACETAMINOPHEN 1,000 MG/100 ML VIAL IV STA (23:14)
[2023-06-19] MEDS ORDERED: SODIUM CHLORIDE 0.9% 1000ML 1,000 ML IV SCH (23:15)
[2023-06-19 23:39] LABS: Albumin Globulin Ratio 0.9 (0.9-2); Albumin Level 3.6 gm/dl (3.4-5.0); BUN Creatinine Ratio 12.9 (10-20); Calcium 8.8 mg/dl (8.6-10.3); Creatinine Clr Calc Pharmacy 27.9 ml/min; Est GFR (African American) 29.3 ml/min; Est GFR (Non-African American) 25.3 ml/min; Globulin 4.2 gm/dl (2.5-4.0); Magnesium 1.5 mg/dl (1.7-2.4); Potassium 3.6 mmol/L (3.5-5.1); Total Protein 7.8 gm/dl (6.0-8.3)
[2023-06-19 23:45] LABS: Troponin I High Sensitivity 7.6 pg/ml (0-20)
--- NOTE | 2023-06-19 23:51 | Emergency Department Note ---
Impression & Plan Nausea & vomiting, Lesion of liver, Alkaline phosphatase elevation, Abdominal pain ED Provider Note ED Provider Note NAME: PINEDA GERARD AGE:78 SEX: Male : 1945 ARRIVES VIA: EMS INFORMANT: Patient ED PROVIDER(s): Camilla Bee DO CHIEF COMPLAINT: Nausea, vomiting, abdominal pain HPI: This is a 78-year-old male presents emergency department via EMS after 3 episodes of vomiting and accompanying abdominal pain at home that began approximately 30 minutes after he ate a peach. Patient states he felt well and in his usual state of health the day and at 9 PM decided to eat a peach. He states shortly after that he began feeling nauseated and vomiting began approximately 30 minutes later. He denies any blood in the emesis. He states the emesis appeared similar to what he had just ingested. He states he was initially rather bloated although that feels improved. He states pain initially was in the upper abdomen/lower chest but now feels more to the right upper/mid abdomen. No radiation into the back or lower abdomen. He denies fevers or chills. He denies any recent change in medications. Patient has had prior kidney surgery, cholecystectomy, and CABG. Patient states nephrectomy performed 14 years ago for renal cell carcinoma. PAST MEDICAL HISTORY:See Below PAST SURGICAL HISTORY:See Below FAMILY HISTORY:See Below SOCIAL HISTORY:See Below HOME MEDICATIONS:See Below ALLERGIES:See Below VITALS:See Below PHYSICAL EXAMINATION: GENERAL: alert, well appearing, well nourished, no distress, non-toxic EYE EXAM: normal conjunctiva, PERRL and EOM's grossly intact OROPHARYNX: no exudate, no erythema, lips, buccal mucosa, and tongue normal and mucous membranes are moist, poor dentition, missing teeth and dental caries noted NECK: supple, no nuchal rigidity, no adenopathy, non-tender LUNGS: Clear to auscultation. Normal chest wall mechanics, no w/r/r HEART: no murmurs, S1 normal and S2 normal, well-healed midline sternotomy scar ABDOMEN: abdomen soft, RUQ tenderness with palpation, normo-active bowel sounds, no masses, no rebound or guarding. Well-healed vertical midline incision. BACK: Back is symmetrical on inspection and there is no deformity, no midline te nderness, no CVA tenderness. SKIN: no rashes, petechiae, orbruising UPPER EXTREMITIES: upper extremities are grossly normal. FROM, nml pulses b/l. LOWER EXTREMITIES: No pitting edema. FROM, nml pulses b/l. NEURO EXAM: Normal sensorium, cranial nerves II-XII grossly intact, normal speech, no facial droop,nogross weakness of arms, no gross weakness of legs. Gross sensation intact. No ataxia. Vital Signs: reviewed and remarkable Differential Diagnosis: Colitis, bowel obstruction, foodborne illness, GI bleed, mesenteric ischemia, perforation, duodenitis, pancreatitis, choledocholithiasis, renal colic, as well as others were considered MEDICAL DECISION MAKING: This is a 78-year-old male presents emergency department after abrupt onset of nausea, vomiting, abdominal pain after eating a peach. Patient concern for foodborne illness. He was afebrile and vital signs stable and reported he was feeling improved by arrival here as the vomiting had subsided although he still had abdominal pain. Labs are drawn and sent, IV established, EKG performed at bedside and interpreted by me and patient monitored on telemetry. He was sent for CT imaging due to advanced age, past medical history, and concern for di fferential diagnoses. Patient found to have multiple liver lesions, likely recurrent metastatic renal cell carcinoma given prior RCC and nephrectomy. This likely also explains the elevated alk phos additionally with no other LFT abnormalities. Patient was given IV fluids, IV morphine, IV famotidine, with improvement in his symptoms. We discussed all results at bedside with both the patient as well as his . Given patient does have persistent pain and his concern for new findings, he is uncomfortable going home. Case discussed with the hospitalist for additional evaluation and management. Elevated creatinine noted additionally however patient does have a history of CKD and this appears stable compared to prior. Patient had no recurrent vomiting and no diarrhea while present in the emergency room. Consultation(s): 0232: Discussed with Dr. Hedrick for admission. ER Treatment Provided: See below 0225: Patient updated on results at bedside. Patient states he is still periodically checked by somebody at [facility] given his prior history of renal cell carcinoma. He states he is still having pain although it is improved after IV Tylenol and IV morphine. He states he no longer feels nauseated though did not feel well after trying ice chips. Diagnostics Interpreted By Me: -ECG: Normal sinus at 89, first-degree AV block, normal QRS, prolonged QTc, normal axis, nonspecific ST/T wave changes -Cardiac Monitoring: An order was placed for continuous cardiac monitoring. The monitor shows a rate of 88 with normal sinus rhythm. -Laboratory studies: As stated above and show below. -Imaging studies: [] Triage Nursing Note Reviewed Prior/Outside Records Reviewed -prior discharge summary reviewed. Past Med/Surg History Medical History Acute kidney injury superimposed on chronic kidney disease Aortic valve disorder Atrial fibrillation CAD (coronary artery disease) Cancer of left kidney 2009--sx Cholelithiasis NOS Chronic kidney disease, stage III (moderate) Chronic obstructive pulmonary disease inhaler daily/prn Contusion of head Coronary atherosclerosis of [place] coronary vessel Diabetes mellitus, type 2 Diabetic peripheral neuropathy associated with type 2 diabetes mellitus Diarrhea Fall GERD (gastroesophageal reflux disease) Glaucoma bilt eyes Hyperlipidemia Hypertension Hypokalemia Loss of protective sensation of skin of foot Myocardial Infarction 2008 Salmonella enteritis Sleep apnea CPAP Tobacco use disorder Surgical History Abnormal biopsy of kidney malignant cancer L kidney History of bilateral cataract extraction History of cardiac cath 2009 @ [facility], no stent---follows with Dr. Brock History of carpal tunnel release bilt History of cholecystectomy History of colonoscopy History of nephrectomy 2009--L kidney [place] [facility] [place] CABG x 4 2008 [place] [facility] [place] Family History Mother Family history of diabetes mellitus Social History Smoking Status: Never smoker Tobacco Type: Smokeless Tobacco (Dip or Chew) Second Hand Exposure: No; Do You Dip or Chew Tobacco: No; Hx Alcohol Use: No (no alcohol in past 6 months) Hx Substance Use: No Preferred Language: Icelandic Communication Ability: Effective [employer] Required: No Beliefs That Will Affect Care: None marital status: Current Living Situation: Spouse Current Living Situation Comment: home with Feels Safe at Home: Yes Assistive Devices: Glasses Allergies Allergies Allergy/AdvReac Type Severity Reaction Status Date / Time amoxicillin Allergy Intermediate RASH, Verified 06/20/23 02:26 ELEVATED PULSE clavulanic acid Allergy Intermediate RASH AND Verified 06/20/23 02:26 ELEVATED PULSE lisinopril Allergy Intermediate COUGH Verified 06/20/23 02:26 Home Meds Home Medications Medication Instructions Recorded Confirmed aspirin 81 mg tablet,delayed 81 mg PO QAM 09/02/18 06/20/23 release (Edwardo Low Dose Aspirin) docusate sodium 100 mg tablet 100 mg PO AMHS 09/02/18 06/20/23 finasteride 5 mg tablet 5 mg PO QAM 09/02/18 06/20/23 pantoprazole 40 mg tablet,delayed 40 mg PO DAILYBB 09/02/18 06/20/23 release timolol maleate 0.25 % eye drops 1 drp OPB HS 09/02/18 06/20/23 atorvastatin 40 mg tablet 40 mg PO QAM 06/24/21 06/20/23 fluticasone 250 mcg-salmeterol 50 1 inh inhalation BID 06/24/21 06/20/23 mcg/dose blistr powdr for inhalation (Sanjeevela Inhub) gabapentin 300 mg capsule 300 mg PO HS 06/24/21 06/20/23 insulin glargine 100 unit/mL (3 16 unit subcut QAM 06/24/21 06/20/23 mL) subcutaneous pen (Lantus Solostar U-100 Insulin) melatonin 5 mg tablet 10 mg PO HS 06/24/21 06/20/23 metoprolol tartrate 25 mg tablet See Rx Instructions .Route .COMPLEX 06/24/21 06/20/23 nitroglycerin 0.4 mg sublingual 0.4 mg sublingual UD PRN Chest Pain 06/24/21 06/20/23 tablet isosorbide mononitrate 60 mg 60 mg PO QAM 08/14/21 06/20/23 tablet,extended release 24 hr cetirizine 1 mg/mL oral solution 5 mg PO HS 06/20/23 06/20/23 semaglutide 1 mg/dose (4 mg/3 mL) 1 mg subcut WK 06/20/23 06/20/23 subcutaneous pen injector torsemide 100 mg tablet 100 mg PO QAM 06/20/23 06/20/23 Results & Data (ED) Vital Signs Vital Signs - 24 hr 06/19/23 22:38 06/19/23 22:44 06/19/23 22:44 Temperature 36.8 C 36.8 C Temperature Source Oral Oral Pulse Rate 89 91 H Pulse Rate [Right Finger] 91 H Pulse Rhythm Regular Pulse Rhythm [Right Finger] Regular Pulse Strength Normal Pulse Strength [Right Finger] Normal Respiratory Rate 20 20 Respiratory Effort / Characteristics Non-Labored Spontaneous Non-Labored Spontaneous Respiratory Depth Normal Normal Respiratory Pattern Regular Regular Blood Pressure 186/110 H Blood Pressure [Left Arm] 186/110 H Blood Pressure Mean 135 Blood Pressure Mean [Left Arm] 135 Blood Pressure Position Lying Blood Pressure Position [Left Arm] Semi-fowlers Pulse Oximetry 98 98 Oxygen Delivery Method Room Air Room Air Sepsis Recent Fever Within 48 Hours No Sepsis New/Unexplained Change in Mental Status No Sepsis Action Taken by Nursing No Action Required 06/20/23 01:20 06/20/23 03:06 06/20/23 03:00 Temperature Temperature Source Pulse Rate 91 H Pulse Rate [Right Finger] 90 92 H Pulse Rhythm Pulse Rhythm [Right Finger] Pulse Strength Pulse Strength [Right Finger] Respiratory Rate 18 20 Respiratory Effort / Characteristics Respiratory Depth Normal Normal Respiratory Pattern Blood Pressure Blood Pressure [Left Arm] 176/108 H 166/101 H Blood Pressure Mean Blood Pressure Mean [Left Arm] 130 122 Blood Pressure Position Blood Pressure Position [Left Arm] Pulse Oximetry 95 93 Oxygen Delivery Method Room Air Room Air Sepsis Recent Fever Within 48 Hours Sepsis New/Unexplained Change in Mental Status Sepsis Action Taken by Nursing Laboratory Data 06/19/23 22:40 06/19/23 22:40 Lab Results 06/19/23 06/19/23 06/20/23 Range/Units 22:40 22:40 01:00 WBC 6.80 (4.8-10.8) K/ul RBC 3.98 L (4.70-6.10) M/uL Hgb 11.4 L (14.0-18.0) g/dl Hct 33.9 L (42.0-52.0) % MCV 85.2 (80.0-100.0) fL MCH 28.6 (25.0-34.0) pg MCHC 33.6 (32.0-36.0) g/dL RDW Std Deviation 42.4 (36.4-46.3) fL RDW Coeff of Jewels 13.6 (11.5-14.5) % Plt Count 94 L (130-400) K/uL MPV 11.0 (9.4-12.4) fL Immature Gran % (Auto) 0.3 % Neut % (Auto) 61.5 % Lymph % (Auto) 27.6 % Wilkin % (Auto) 7.6 % Eos % (Auto) 2.4 % Baso % (Auto) 0.6 % Neut # (Auto) 4.18 (1.40-6.50) K/uL Lymph # (Auto) 1.88 (1.2-3.4) K/uL Wilkin # (Auto) 0.52 (0.11-0.59) K/uL Eos # (Auto) 0.16 (0-0.50) K/uL Baso # (Auto) 0.04 (0-0.2) K/uL Immature Gran # (Auto) 0.02 (0.01-0.20) K/uL Platelet Estimate Decreased L (Normal) Ovalocytes 1+ Sodium 141 (136-145) mmol/L Potassium 3.6 (3.5-5.1) mmol/L Chloride 102 (98-107) mmol/L Carbon Dioxide 27 (21-32) mmol/L Anion Gap 12 H (3-11) BUN 31 H (6-23) mg/dl Creatinine 2.40 H (0.6-1.4) mg/dl Est Cr Clr Drug Dosing 27.9 ml/min Est GFR ( Amer) 29.3 ml/min Est GFR (Non-Af Amer) 25.3 ml/min BUN/Creatinine Ratio 12.9 (10-20) Glucose 153 H (70-99(Fasting)) mg/dl Calcium 8.8 (8.6-10.3) mg/dl Magnesium 1.5 L (1.7-2.4) mg/dl Total Bilirubin 1.0 (0.2-1.0) mg/dl AST 75 H (13-39) U/L ALT 37 (7-52) U/L Alkaline Phosphatase 358 H (34-104) U/L Troponin I High Sens 7.6 (0-20) pg/ml Total Protein 7.8 (6.0-8.3) gm/dl Albumin 3.6 (3.4-5.0) gm/dl Globulin 4.2 H (2.5-4.0) gm/dl Albumin/Globulin Ratio 0.9 (0.9-2) Lipase 78 (11-82) U/L Urine Color Yellow Urine Appearance Clear (Clear) Urine pH 7.5 (4.5-7.5) Ur Specific [place] 1.009 (1.000-1.030) Urine Protein Negative (Negative) Urine Glucose (UA) Negative (Negative) Urine Ketones Negative (Negative) Urine Blood Negative (Negative) Urine Nitrite Negative (Negative) Urine Bilirubin Negative (Negative) Urine Urobilinogen Negative (Negative) Ur Leukocyte Esterase Negative (Negative) Administered Medications Aspirin (Aspirin 81 Mg Ectab) 81 mg PO [facility] Stop: 07/20/23 08:59 Last Admin: 06/20/23 08:29 Dose: 81 mg Documented By: Atorvastatin Calcium (Atorvastatin 40 Mg Tab) 40 mg PO [facility] Stop: 07/20/23 08:59 Last Admin: 06/20/23 08:29 Dose: 40 mg Documented By: Finasteride (Finasteride 5 Mg Tab) 5 mg PO [facility] Stop: 07/20/23 08:59 Last Admin: 06/20/23 08:30 Dose: 5 mg Documented By: Hydromorphone HCl (Hydromorphone Inj 0.5 Mg/0.5 Ml Syr) 0.5 mg IV Q3H PRN PRN Reason: Pain Stop: 07/04/23 03:52 Last Admin: 06/20/23 04:49 Dose: 0.5 mg Documented By: JAMIA Sodium Chloride (Nss 1000ml) 1,000 mls @ 60 mls/hr IV .[id number] ONE Stop: 06/20/23 19:29 Last Admin: 06/20/23 05:41 Dose: 60 mls/hr Documented By: Promethazine HCl 12.5 mg/ (Sodium Chloride) 50.5 mls @ 202 mls/hr IV Q6H PRN PRN Reason: Nausea And Vomiting Stop: 07/20/23 03:52 Last Infusion: 06/20/23 05:58 Dose: 0 mls/hr Documented By: Admin: 06/20/23 05:34 Dose: 202 mls/hr Documented By: Insulin Aspart (Insulin Aspart Per Unit Charge) 0 units SC [facility] Stop: 07/20/23 04:37 Last Admin: 06/20/23 05:50 Dose: 2 units Documented By: JAMIA Co-signed By: ARNEL Isosorbide Mononitrate (Isosorbide [place] Extended Rel 60 Mg Tabcr) 60 mg PO QAM [facility] Stop: 07/20/23 08:59 Last Admin: 06/20/23 08:30 Dose: 60 mg Documented By: MALCOM Metoprolol Tartrate (Metoprolol Tartrate 25 Mg Tab) 25 mg PO QAM [facility] Stop: 07/20/23 04:37 Last Admin: 06/20/23 05:41 Dose: 25 mg Documented By: JAMIA Oxycodone HCl (Oxycodone Hcl Ir 5 Mg Tab (Immediate Release)) 5 mg PO Q4H PRN PRN Reason: Pain Stop: 07/04/23 03:53 Last Admin: 06/20/23 05:41 Dose: 5 mg Documented By: JAMIA Pantoprazole Sodium (Pantoprazole 40 Mg Tab) 40 mg PO DAILYBB [facility] Stop: 07/20/23 06:29 Last Admin: 06/20/23 08:28 Dose: 40 mg Documented By: MALCOM Senna/Docusate Sodium (Docusate Sodium/Senna 50/8.6mg Tab) 1 tab PO BID [facility] Stop: 07/20/23 08:59 Last Admin: 06/20/23 08:29 Dose: 1 tab Documented By: MALCOM Discontinued Medications Sodium Chloride (Nss 1000ml) 1,000 mls @ 125 mls/hr IV .Q8H [facility] Stop: 07/19/23 23:14 Last Infusion: 06/20/23 05:58 Dose: 0 mls/hr Documented By: Admin: 06/19/23 23:28 Dose: 125 mls/hr Documented By: JAMIA Famotidine (Pepcid 20mg Iv Push) 20 mg in 5 mls @ 2.5 mls/min IV NOW STA Stop: 06/19/23 23:15 Last Admin: 06/19/23 23:28 Dose: 2.5 mls/min Documented By: JAMIA Acetaminophen (Ofirmev) 1,000 mg in 100 mls @ 400 mls/hr IV NOW STA Stop: 06/19/23 23:28 Last Infusion: 06/20/23 01:23 Dose: 0 mls/hr Documented By: Admin: 06/19/23 23:28 Dose: 400 mls/hr Documented By: JAMIA Magnesium Sulfate/Dextrose (Magnesium Sulfate / D5w) 1 gm in 100 mls @ 100 mls/hr IV NOW STA Stop: 06/20/23 01:10 Last Infusion: 06/20/23 02:29 Dose: 0 mls/hr Documented By: Admin: 06/20/23 00:55 Dose: 100 mls/hr Documented By: JAMIA Magnesium Sulfate/Dextrose (Magnesium Sulfate / D5w) 1 gm in 100 mls @ 50 mls/hr IV ONE ONE Stop: 06/20/23 04:48 Last Infusion: 06/20/23 05:58 Dose: 0 mls/hr Documented By: Admin: 06/20/23 03:53 Dose: 50 mls/hr Documented By: JAMIA Metoprolol Tartrate (Metoprolol Tartrate 1 Mg/Ml Vial) 2.5 mg IV NOW STA Stop: 06/20/23 02:49 Last Admin: 06/20/23 03:53 Dose: 2.5 mg Documented By: JAMIA Morphine Sulfate (Morphine Sulfate 4 Mg/Ml 1 Ml Carp\Vial) 4 mg IV NOW STA Stop: 06/20/23 01:35 Last Admin: 06/20/23 01:41 Dose: 4 mg Documented By: JAMIA Ondansetron HCl (Ondansetron Inj 2 Mg/Ml 2 Ml Vial) Confirm Administered Dose 4 mg .ROUTE .STK-MED ONE Stop: 06/19/23 22:40 Last Admin: 06/19/23 22:57 Dose: Not Given Documented By: MELE Ondansetron HCl (Ondansetron Inj 2 Mg/Ml 2 Ml Vial) 4 mg IV NOW STA Stop: 06/19/23 23:15 Last Admin: 06/19/23 23:33 Dose: Not Given Documented By: JAMIA Promethazine HCl (Promethazine 12.5 Mg/50.5 Ml Nss) Confirm Administered Dose 12.5 mg IV .STK-MED ONE Stop: 06/20/23 05:31 Last Admin: 06/20/23 05:37 Dose: Not Given Documented By: JAMIA Imaging Data Radiologist's Impression: Abdomen/Pelvis CT 06/19/23 23:14 Exam(s): CT ABDOMEN + PELVIS Without Contrast EXAM: CT Abdomen and Pelvis Without Intravenous Contrast CLINICAL HISTORY: RUQ abd pain, n/v. TECHNIQUE: Axial computed tomography images of the abdomen and pelvis without intravenous contrast. CTDI is 27.38 mGy and DLP is 1288.9 mGy-cm. Automated exposure control was utilized for the study. A dose lowering technique was utilized adhering to the principles of ALARA. COMPARISON: Noncontrast CT abdomen and pelvis dated 09/07/2021 FINDINGS: Lung bases: Unremarkable. No mass. No consolidation. ABDOMEN: Liver: There are multiple abnormal ovoid hypodense lesions scattered throughout both the left and right lobes of the liver. Detailed evaluation limited without contrast. However, the largest solitary lesion in segment 7 measures 4.1 x 4.7 x 3.5 cm. Gallbladder and bile ducts: Unremarkable. No calcified stones. No ductal dilation. Pancreas: The unenhanced pancreas is grossly unremarkable. No ductal dilation. Spleen: Unremarkable. No splenomegaly. Adrenals: Unremarkable. No mass. Kidneys and ureters: Status post left nephrectomy. The unenhanced right kidney is unremarkable. Stomach and bowel: Mild retained oral contents in the stomach. No definite gastric mucosal thickening. No evidence for bowel obstruction. Evaluation of the bowel mucosa is somewhat limited without contrast. No definite asymmetry. PELVIS: Appendix: A normal caliber appendix is noted posterior to the cecum. Bladder: Unremarkable. No stones. Reproductive: Unremarkable as visualized. ABDOMEN and PELVIS: Intraperitoneal space: Unremarkable. No free air. No significant fluid collection. Bones/joints: No definite osseous metastatic disease. No acute osseous abnormality. No dislocation. Soft tissues: Unremarkable. Vasculature: Unremarkable. No abdominal aortic aneurysm. Lymph nodes: Abnormal lymphadenopathy noted, most prominent adjacent to the celiac axis and in the portacaval region. The lymph node in the portacaval region measures 3.3 cm in short axis diameter. The single largest presumed lymph node in the celiac region measures 3.2 cm. IMPRESSION: 1. There are multiple abnormal ovoid hypodense lesions scattered throughout both the left and right lobes of the liver. Detailed evaluation limited without contrast. However, the largest solitary lesion in segment 7 measures 4.1 x 4.7 x 3.5 cm. Favor hepatic metastatic disease. Suspect recurrent renal carcinoma given the left nephrectomy. Please correlate with clinical history. Recommend nonemergent dedicated contrast evaluation. 2. Abnormal lymphadenopathy noted, most prominent adjacent to the celiac axis and in the portacaval region. The lymph node in the portacaval region measures 3.3 cm in short axis diameter. The single largest presumed lymph node in the celiac region measures 3.2 cm. Findings are consistent with metastatic lymphadenopathy. Electronically signed by: Clay Rockwell MD 06/20/23 01:59 AM Chest X-Ray 06/20/23 02:48 XR chest 1V portable HISTORY: 78 years-old Male renal failure acute renal failure COMPARISON: 09/06/2021 TECHNIQUE: AP view of the chest FINDINGS: Cardiac silhouette is enlarged. Prior median sternotomy with CABG. Atherosclerotic plaque of the thoracic aorta. No pneumothorax, pleural effusion, airspace consolidation or overt pulmonary edema. Mild chronic interstitial coarsening. Degenerative changes of the shoulders and spine. IMPRESSION: Cardiomegaly without acute process. ACT 112: Negative or not required by law. The above report was generated using voice recognition software. It may contain grammatical, syntax or spelling errors. Electronically signed by: Fredi Mai M.D. 06/20/2023 7:10 AM Discharge Plan Visit Data Chief Complaint: GI Assessment Stated Complaint: EPIGASTRIC PAIN ED Provider: Camilla Bee Discharge Problem: Nausea & vomiting, Lesion of liver, Alkaline phosphatase elevation, Abdominal pain Discharge Instructions Interventions: ED Discharge Assessment Last Done: 06/20/23 04:38
[2023-06-20] MEDS ORDERED: MAGNESIUM SULFATE / D5W 1 GM/100 ML BAG IV STA (00:11)
[2023-06-20 00:20] LABS: Hematocrit (blood only) 33.9 % (42.0-52.0); Hemoglobin 11.4 g/dl (14.0-18.0); Mean Corpuscular Hemoglobin 28.6 pg (25.0-34.0); Mean Corpuscular Hgb Conc 33.6 g/dL (32.0-36.0); Mean Corpuscular Volume 85.2 fL (80.0-100.0); Platelet Count 94 K/uL (130-400); RDW Coefficient of Variation 13.6 % (11.5-14.5); RDW Standard Deviation 42.4 fL (36.4-46.3); Red Blood Count 3.98 M/uL (4.70-6.10)
[2023-06-20 00:21] LABS: Basophils # (auto) 0.04 K/uL (0-0.2); Basophils % (auto) 0.6 %; Eosinophils # (auto) 0.16 K/uL (0-0.50); Eosinophils % (auto) 2.4 %; Immature Granulocytes # (auto) 0.02 K/uL (0.01-0.20); Immature Granulocytes % (auto) 0.3 %; Lymphocytes # (auto) 1.88 K/uL (1.2-3.4); Lymphocytes % (auto) 27.6 %; Monocytes # (auto) 0.52 K/uL (0.11-0.59); Monocytes % (auto) 7.6 %; Neutrophils # (auto) 4.18 K/uL (1.40-6.50); Neutrophils % (auto) 61.5 %; Ovalocytes 1+; Platelet Estimate Decreased (Normal)
[2023-06-20 01:24] LABS: Appearance Urine Clear (Clear); Bilirubin Urine Negative (Negative); Blood Urine Negative (Negative); Color Urine Yellow; Glucose Urine UA Negative (Negative); Ketones Urine Negative (Negative); Leukocyte Esterase Urine Negative (Negative); Nitrite Urine Negative (Negative); Protein Urine Negative (Negative); Specific Gravity Urine 1.009 (1.000-1.030); Urobilinogen Urine Negative (Negative); pH Urine 7.5 (4.5-7.5)
[2023-06-20] MEDS ORDERED: MoRPHine SULFATE 4 MG/ML 1 ML CARP\\VIAL IV STA (01:34)
--- NOTE | 2023-06-20 02:00 | CT Scan Report ---
Exam(s): CT ABDOMEN + PELVIS Without Contrast EXAM: CT Abdomen and Pelvis Without Intravenous Contrast CLINICAL HISTORY: RUQ abd pain, n/v. TECHNIQUE: Axial computed tomography images of the abdomen and pelvis without intravenous contrast. CTDI is 27.38 mGy and DLP is 1288.9 mGy-cm. Automated exposure control was utilized for the study. A dose lowering technique was utilized adhering to the principles of ALARA. COMPARISON: Noncontrast CT abdomen and pelvis dated 09/07/2021 FINDINGS: Lung bases: Unremarkable. No mass. No consolidation. ABDOMEN: Liver: There are multiple abnormal ovoid hypodense lesions scattered throughout both the left and right lobes of the liver. Detailed evaluation limited without contrast. However, the largest solitary lesion in segment 7 measures 4.1 x 4.7 x 3.5 cm. Gallbladder and bile ducts: Unremarkable. No calcified stones. No ductal dilation. Pancreas: The unenhanced pancreas is grossly unremarkable. No ductal dilation. Spleen: Unremarkable. No splenomegaly. Adrenals: Unremarkable. No mass. Kidneys and ureters: Status post left nephrectomy. The unenhanced right kidney is unremarkable. Stomach and bowel: Mild retained oral contents in the stomach. No definite gastric mucosal thickening. No evidence for bowel obstruction. Evaluation of the bowel mucosa is somewhat limited without contrast. No definite asymmetry. PELVIS: Appendix: A normal caliber appendix is noted posterior to the cecum. Bladder: Unremarkable. No stones. Reproductive: Unremarkable as visualized. ABDOMEN and PELVIS: Intraperitoneal space: Unremarkable. No free air. No significant fluid collection. Bones/joints: No definite osseous metastatic disease. No acute osseous abnormality. No dislocation. Soft tissues: Unremarkable. Vasculature: Unremarkable. No abdominal aortic aneurysm. Lymph nodes: Abnormal lymphadenopathy noted, most prominent adjacent to the celiac axis and in the portacaval region. The lymph node in the portacaval region measures 3.3 cm in short axis diameter. The single largest presumed lymph node in the celiac region measures 3.2 cm. IMPRESSION: 1. There are multiple abnormal ovoid hypodense lesions scattered throughout both the left and right lobes of the liver. Detailed evaluation limited without contrast. However, the largest solitary lesion in segment 7 measures 4.1 x 4.7 x 3.5 cm. Favor hepatic metastatic disease. Suspect recurrent renal carcinoma given the left nephrectomy. Please correlate with clinical history. Recommend nonemergent dedicated contrast evaluation. 2. Abnormal lymphadenopathy noted, most prominent adjacent to the celiac axis and in the portacaval region. The lymph node in the portacaval region measures 3.3 cm in short axis diameter. The single largest presumed lymph node in the celiac region measures 3.2 cm. Findings are consistent with metastatic lymphadenopathy. Electronically signed by: Clay Rockwell MD 06/20/23 01:59 AM
[2023-06-20] MEDS ORDERED: METOPROLOL TARTRATE 1 MG/ML VIAL IV STA (02:48)
[2023-06-20] MEDS ORDERED: MAGNESIUM SULFATE / D5W 1 GM/100 ML BAG IV ONE (02:49)
[2023-06-20] MEDS ORDERED: SODIUM CHLORIDE 0.9% 1000ML 1,000 ML IV ONE (02:50)
--- NOTE | 2023-06-20 03:48 | History & Physical Report ---
Date of Service June 20, 2023 Assessment & Plan (1) Asymptomatic hypertensive urgency: Plan: Secondary to GI upset Abnormal CT abdomen pelvis findings Hepatic lesions along with portacaval adenopathy Concern for recurrent RCCA, hx left nephrectomy chronic diastolic heart failure (EF 55-60%, TTE 2020 ), patient on the dry side hx CAD status post CABG PAF, patient NSR hyperlipidemia, on statin Rx hx COPD/restrictive lung disease as per records, not in acute exacerbation EMILE currently not on BiPAP DM2 insulin requiring, reasonable control as of recent hemoglobin A1c of 7.3 last January 2023 CRI, at baseline chronic anemia, hemoglobin at baseline chronic thrombocytopenia OBS Medical telemetry Titrate home BP meds Clear liquid diet for now Analgesia, antiemetics Inpatient Oncology consultation as per patient request RE recommendations for work-up for metastatic malignancy findings on CT Basal bolus insulin, ISS BG goal 1 10-1 40, carb count coverage DVT prophylaxis. SCDs Re: Thrombocytopenia DNR as per patient previous wishes. Patient requests for to be updated of plan and recommendations. Ms. Aura Ragland, contact #[phone]. Text document was generated using The App[employer] voice recognition software. It may contain grammatical or spelling errors. Kindly contact undersigned for clarification of any documentation item in question. History of Present Illness Chief Complaint: Right-sided abdominal pain Primary Care Provider: Buzz Rainey MD History obtained from patient and records. Medical history significant for chronic diastolic heart failure (EF 55-60%, TTE 2020 ), CAD status post CABG, PAF, hypertension, hyperlipidemia, COPD, EMILE currently not on BiPAP, DM2 insulin requiring, CRI (baseline creatinine 2.4), chronic anemia (baseline hemoglobin of 11), RCCA left status post nephrectomy, GERD, chronic thrombocytopenia. Last confinement September 2021 for diarrhea secondary to Salmonella enteritis. Yesterday, patient noted achy right-sided abdominal pain associated with bilious emesis which patient attributes to consuming a bad peach. Usual constipation symptoms. No fever, no chills, no chest pain, no SOB. No headache symptoms. SBP 180s upon arrival at the ER. Medical History as above 2013 colonoscopy showed sigmoid diverticulosis and internal hemorrhoids. 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, no EtOH intake Allergies Allergy/AdvReac Type Severity Reaction Status Date / Time amoxicillin Allergy Intermediate RASH, Verified 06/20/23 02:26 ELEVATED PULSE clavulanic acid Allergy Intermediate RASH AND Verified 06/20/23 02:26 ELEVATED PULSE lisinopril Allergy Intermediate COUGH Verified 06/20/23 02:26 Home Medications Medication Instructions Recorded Confirmed Type aspirin 81 mg tablet,delayed 81 mg PO QAM 09/02/18 06/20/23 History release (Edwardo Low Dose Aspirin) docusate sodium 100 mg tablet 100 mg PO AMHS 09/02/18 06/20/23 History finasteride 5 mg tablet 5 mg PO QAM 09/02/18 06/20/23 History pantoprazole 40 mg tablet,delayed 40 mg PO DAILYBB 09/02/18 06/20/23 History release timolol maleate 0.25 % eye drops 1 drp OPB HS 09/02/18 06/20/23 History atorvastatin 40 mg tablet 40 mg PO QAM 06/24/21 06/20/23 History fluticasone 250 mcg-salmeterol 50 1 inh inhalation BID 06/24/21 06/20/23 History mcg/dose blistr powdr for inhalation (Wixela Inhub) gabapentin 300 mg capsule 300 mg PO HS 06/24/21 06/20/23 History insulin glargine 100 unit/mL (3 16 unit subcut QAM 06/24/21 06/20/23 History mL) subcutaneous pen (Lantus Solostar U-100 Insulin) melatonin 5 mg tablet 10 mg PO HS 06/24/21 06/20/23 History metoprolol tartrate 25 mg tablet See Rx Instructions .Route .COMPLEX 06/24/21 06/20/23 History nitroglycerin 0.4 mg sublingual 0.4 mg sublingual UD PRN Chest Pain 06/24/21 06/20/23 History tablet isosorbide mononitrate 60 mg 60 mg PO QAM 08/14/21 06/20/23 History tablet,extended release 24 hr cetirizine 1 mg/mL oral solution 5 mg PO HS 06/20/23 06/20/23 History semaglutide 1 mg/dose (4 mg/3 mL) 1 mg subcut WK 06/20/23 06/20/23 History subcutaneous pen injector torsemide 100 mg tablet 100 mg PO QAM 06/20/23 06/20/23 History Past Med/Surg History Medical History Acute kidney injury superimposed on chronic kidney disease Aortic valve disorder Atrial fibrillation CAD (coronary artery disease) Cancer of left kidney 2009--sx Cholelithiasis NOS Chronic kidney disease, stage III (moderate) Chronic obstructive pulmonary disease inhaler daily/prn Contusion of head Coronary atherosclerosis of morongo coronary vessel Diabetes mellitus, type 2 Diabetic peripheral neuropathy associated with type 2 diabetes mellitus Diarrhea Fall GERD (gastroesophageal reflux disease) Glaucoma bilt eyes Hyperlipidemia Hypertension Hypokalemia Loss of protective sensation of skin of foot Myocardial Infarction 2008 Salmonella enteritis Sleep apnea CPAP Tobacco use disorder Surgical History Abnormal biopsy of kidney malignant cancer L kidney History of bilateral cataract extraction History of cardiac cath [address] [facility], no stent---follows with Dr. Brock History of carpal tunnel release bilt History of cholecystectomy History of colonoscopy History of nephrectomy 2009--L kidney [place] [facility] [place] CABG x 4 2008 @ [facility] [place] Family History Mother Family history of diabetes mellitus Social History Smoking Status: Never smoker Tobacco Type: Smokeless Tobacco (Dip or Chew) Second Hand Exposure: No; Do You Dip or Chew Tobacco: No; Hx Alcohol Use: No (no alcohol in past 6 months) Hx Substance Use: No Preferred Language: Spanish Communication Ability: Effective Community Resource Officer Required: No Beliefs That Will Affect Care: None marital status: Current Living Situation: Spouse Current Living Situation Comment: home with Feels Safe at Home: Yes Assistive Devices: Glasses Review of Systems Review of Systems: As per HPI, all other systems reviewed and negative Physical Exam Physical Exam: GENERAL: Slight uncomfortable, obese, no respiratory distress SKIN: Pallor, warm HEENT: alopecia, pale palpebral conjunctivae, no ptosis, dry buccal mucosa NECK : Supple, short neck, no tenderness CHEST : Decreased breath sounds, no tenderness HEART : RRR, no obvious murmurs ABDOMEN: Some distention, right-sided abdominal tenderness EXTREMITIES : Minimal LE swelling, no LE tenderness, no other conspicuous deformities noted NEUROLOGIC : Coherent, no facial asymmetry, no other gross focality Results & Data Results & Data Vital Signs (Past 12 Hours) Vital Signs Temp Pulse Pulse Resp BP BP Pulse Ox 06/20/23 03:00 92 H 20 166/101 H 93 06/20/23 03:06 91 H 06/20/23 01:20 90 18 176/108 H 95 06/19/23 22:44 36.8 C 91 H 20 186/110 H 98 06/19/23 22:44 36.8 C 91 H 20 186/110 H 98 06/19/23 22:38 89 O2 Del Method 06/20/23 03:00 Room Air 06/20/23 03:06 06/20/23 01:20 Room Air 06/19/23 22:44 Room Air 06/19/23 22:44 Room Air 06/19/23 22:38 Laboratory Results Laboratory Results WBC 6.80 K/ul (4.8-10.8) 06/19/23 22:40 RBC 3.98 M/uL (4.70-6.10) L 06/19/23 22:40 Hgb 11.4 g/dl (14.0-18.0) L 06/19/23 22:40 Hct 33.9 % (42.0-52.0) L 06/19/23 22:40 MCV 85.2 fL (80.0-100.0) 06/19/23 22:40 MCH 28.6 pg (25.0-34.0) 06/19/23 22:40 MCHC 33.6 g/dL (32.0-36.0) 06/19/23 22:40 RDW Std Deviation 42.4 fL (36.4-46.3) 06/19/23 22:40 RDW Coeff of Jewels 13.6 % (11.5-14.5) 06/19/23 22:40 Plt Count 94 K/uL (130-400) L 06/19/23 22:40 MPV 11.0 fL (9.4-12.4) 06/19/23 22:40 Immature Gran % (Auto) 0.3 % 06/19/23 22:40 Neut % (Auto) 61.5 % 06/19/23 22:40 Lymph % (Auto) 27.6 % 06/19/23 22:40 [place] % (Auto) 7.6 % 06/19/23 22:40 Eos % (Auto) 2.4 % 06/19/23 22:40 Baso % (Auto) 0.6 % 06/19/23 22:40 Neut # (Auto) 4.18 K/uL (1.40-6.50) 06/19/23 22:40 Lymph # (Auto) 1.88 K/uL (1.2-3.4) 06/19/23 22:40 [place] # (Auto) 0.52 K/uL (0.11-0.59) 06/19/23 22:40 Eos # (Auto) 0.16 K/uL (0-0.50) 06/19/23 22:40 Baso # (Auto) 0.04 K/uL (0-0.2) 06/19/23 22:40 Immature Gran # (Auto) 0.02 K/uL (0.01-0.20) 06/19/23 22:40 Platelet Estimate Decreased (Normal) L 06/19/23 22:40 Ovalocytes 1+ 06/19/23 22:40 Sodium 141 mmol/L (136-145) 06/19/23 22:40 Potassium 3.6 mmol/L (3.5-5.1) 06/19/23 22:40 Chloride 102 mmol/L (98-107) 06/19/23 22:40 Carbon Dioxide 27 mmol/L (21-32) 06/19/23 22:40 Anion Gap 12 (3-11) H 06/19/23 22:40 BUN 31 mg/dl (6-23) H 06/19/23 22:40 Creatinine 2.40 mg/dl (0.6-1.4) H 06/19/23 22:40 Est Cr Clr Drug Dosing 27.9 ml/min 06/19/23 22:40 Est GFR ( Amer) 29.3 ml/min 06/19/23 22:40 Est GFR (Non-Af Amer) 25.3 ml/min 06/19/23 22:40 BUN/Creatinine Ratio 12.9 (10-20) 06/19/23 22:40 Glucose 153 mg/dl (70-99(Fasting)) H 06/19/23 22:40 Calcium 8.8 mg/dl (8.6-10.3) 06/19/23 22:40 Magnesium 1.5 mg/dl (1.7-2.4) L 06/19/23 22:40 Total Bilirubin 1.0 mg/dl (0.2-1.0) 06/19/23 22:40 AST 75 U/L (13-39) H 06/19/23 22:40 ALT 37 U/L (7-52) 06/19/23 22:40 Alkaline Phosphatase 358 U/L (34-104) H 06/19/23 22:40 Troponin I High Sens 7.6 pg/ml (0-20) 06/19/23 22:40 Total Protein 7.8 gm/dl (6.0-8.3) 06/19/23 22:40 Albumin 3.6 gm/dl (3.4-5.0) 06/19/23 22:40 Globulin 4.2 gm/dl (2.5-4.0) H 06/19/23 22:40 Albumin/Globulin Ratio 0.9 (0.9-2) 06/19/23 22:40 Lipase 78 U/L (11-82) 06/19/23 22:40 Urine Color Yellow 06/20/23 01:00 Urine Appearance Clear (Clear) 06/20/23 01:00 Urine pH 7.5 (4.5-7.5) 06/20/23 01:00 Ur Specific [place] 1.009 (1.000-1.030) 06/20/23 01:00 Urine Protein Negative (Negative) 06/20/23 01:00 Urine Glucose (UA) Negative (Negative) 06/20/23 01:00 Urine Ketones Negative (Negative) 06/20/23 01:00 Urine Blood Negative (Negative) 06/20/23 01:00 Urine Nitrite Negative (Negative) 06/20/23 01:00 Urine Bilirubin Negative (Negative) 06/20/23 01:00 Urine Urobilinogen Negative (Negative) 06/20/23 01:00 Ur Leukocyte Esterase Negative (Negative) 06/20/23 01:00 Impressions Abdomen/Pelvis CT 06/19/23 23:14 Exam(s): CT ABDOMEN + PELVIS Without Contrast EXAM: CT Abdomen and Pelvis Without Intravenous Contrast CLINICAL HISTORY: RUQ abd pain, n/v. TECHNIQUE: Axial computed tomography images of the abdomen and pelvis without intravenous contrast. CTDI is 27.38 mGy and DLP is 1288.9 mGy-cm. Automated exposure control was utilized for the study. A dose lowering technique was utilized adhering to the principles of ALARA. COMPARISON: Noncontrast CT abdomen and pelvis dated 09/07/2021 FINDINGS: Lung bases: Unremarkable. No mass. No consolidation. ABDOMEN: Liver: There are multiple abnormal ovoid hypodense lesions scattered throughout both the left and right lobes of the liver. Detailed evaluation limited without contrast. However, the largest solitary lesion in segment 7 measures 4.1 x 4.7 x 3.5 cm. Gallbladder and bile ducts: Unremarkable. No calcified stones. No ductal dilation. Pancreas: The unenhanced pancreas is grossly unremarkable. No ductal dilation. Spleen: Unremarkable. No splenomegaly. Adrenals: Unremarkable. No mass. Kidneys and ureters: Status post left nephrectomy. The unenhanced right kidney is unremarkable. Stomach and bowel: Mild retained oral contents in the stomach. No definite gastric mucosal thickening. No evidence for bowel obstruction. Evaluation of the bowel mucosa is somewhat limited without contrast. No definite asymmetry. PELVIS: Appendix: A normal caliber appendix is noted posterior to the cecum. Bladder: Unremarkable. No stones. Reproductive: Unremarkable as visualized. ABDOMEN and PELVIS: Intraperitoneal space: Unremarkable. No free air. No significant fluid collection. Bones/joints: No definite osseous metastatic disease. No acute osseous abnormality. No dislocation. Soft tissues: Unremarkable. Vasculature: Unremarkable. No abdominal aortic aneurysm. Lymph nodes: Abnormal lymphadenopathy noted, most prominent adjacent to the celiac axis and in the portacaval region. The lymph node in the portacaval region measures 3.3 cm in short axis diameter. The single largest presumed lymph node in the celiac region measures 3.2 cm. IMPRESSION: 1. There are multiple abnormal ovoid hypodense lesions scattered throughout both the left and right lobes of the liver. Detailed evaluation limited without contrast. However, the largest solitary lesion in segment 7 measures 4.1 x 4.7 x 3.5 cm. Favor hepatic metastatic disease. Suspect recurrent renal carcinoma given the left nephrectomy. Please correlate with clinical history. Recommend nonemergent dedicated contrast evaluation. 2. Abnormal lymphadenopathy noted, most prominent adjacent to the celiac axis and in the portacaval region. The lymph node in the portacaval region measures 3.3 cm in short axis diameter. The single largest presumed lymph node in the celiac region measures 3.2 cm. Findings are consistent with metastatic lymphadenopathy. Electronically signed by: Clay Rockwell MD 06/20/23 01:59 AM Diagnostic Findings Chest x-ray as per my interpretation cardiomegaly EKG as per my interpretation : Rate 90, NSR, LAD, LAFB, 1 AVB, inferior infarct, T wave flattening lateral leads and septal leads
[2023-06-20] MEDS ORDERED: PROMETHAZINE HCL 12.5 MG in SODIUM CHLORIDE 0.9% 50 ML IV PRN (03:53)
[2023-06-20] MEDS ORDERED: POLYETHYLENE (MIRALAX) 17 GM PACK PO PRN (03:53)
[2023-06-20] MEDS ORDERED: HYDROmorphone INJ 0.5 MG/0.5 ML SYR IV PRN (03:53)
[2023-06-20] MEDS ORDERED: ACETAMINOPHEN 325 MG TAB PO PRN (03:53)
[2023-06-20] MEDS ORDERED: oxyCODONE HCL IR 5 MG TAB (IMMEDIATE RELEASE) PO PRN (03:54)
[2023-06-20] MEDS ORDERED: GLUCOSE 10 TAB/TUBE PO PRN (04:38)
[2023-06-20] MEDS ORDERED: METOPROLOL TARTRATE 25 MG TAB PO SCH ×2 (04:38→21:00)
[2023-06-20] MEDS ORDERED: GLUCOSE 40% GEL 15 GM TUBE PO PRN (04:38)
[2023-06-20] MEDS ORDERED: GLUCAGON FOR INJ 1 MG VIAL SQ PRN (04:38)
[2023-06-20] MEDS ORDERED: DEXTROSE 50% 50 ML SYRINGE IV PRN (04:38)
[2023-06-20] MEDS ORDERED: CARBOHYDRATES FOR HYPOGLYCEMIA PO PRN (04:38)
[2023-06-20] MEDS ORDERED: PROMETHAZINE 12.5 MG/50.5 ML NSS IV ONE (05:30)
[2023-06-20] MEDS: INSULIN ASPART PER UNIT CHARGE SC SCH ×3 (05:50→17:36)
[2023-06-20] MEDS ORDERED: HEPARIN SOD 5,000 UNIT/0.5 ML VIAL SQ SCH (06:00)
[2023-06-20] MEDS ORDERED: PANTOprazole 40 MG TAB PO SCH (06:30)
[2023-06-20 07:10] LABS: Basophils # (auto) 0.02 K/uL (0-0.2); Basophils % (auto) 0.2 %; Eosinophils # (auto) 0.01 K/uL (0-0.50); Eosinophils % (auto) 0.1 %; Hematocrit (blood only) 33.5 % (42.0-52.0); Hemoglobin 11.4 g/dl (14.0-18.0); Immature Granulocytes # (auto) 0.04 K/uL (0.01-0.20); Immature Granulocytes % (auto) 0.4 %; Lymphocytes # (auto) 1.11 K/uL (1.2-3.4); Lymphocytes % (auto) 11.3 %; Mean Corpuscular Hemoglobin 29.1 pg (25.0-34.0); Mean Corpuscular Volume 85.5 fL (80.0-100.0); Monocytes # (auto) 0.61 K/uL (0.11-0.59); Monocytes % (auto) 6.2 %; Neutrophils # (auto) 8.01 K/uL (1.40-6.50); Neutrophils % (auto) 81.8 %; Platelet Count 72 K/uL (130-400); RDW Coefficient of Variation 13.6 % (11.5-14.5); RDW Standard Deviation 42.2 fL (36.4-46.3); Red Blood Count 3.92 M/uL (4.70-6.10)
--- NOTE | 2023-06-20 07:11 | XRay Report ---
XR chest 1V portable HISTORY: 78 years-old Male renal failure acute renal failure COMPARISON: 09/06/2021 TECHNIQUE: AP view of the chest FINDINGS: Cardiac silhouette is enlarged. Prior median sternotomy with CABG. Atherosclerotic plaque of the thor acic aorta. No pneumothorax, pleural effusion, airspace consolidation or overt pulmonary edema. Mild chronic interstitial coarsening. Degenerative changes of the shoulders and spine. IMPRESSION: Cardiomegaly without acute process. ACT 112: Negative or not required by law. The above report was generated using voice recognition software. It may contain grammatical, syntax o r spelling errors. Electronically signed by: Fredi Mai M.D. 06/20/2023 7:10 AM
[2023-06-20 07:22] LABS: BUN Creatinine Ratio 12.7 (10-20); Calcium 8.7 mg/dl (8.6-10.3); Creatinine Clr Calc Pharmacy 29.2 ml/min; Est GFR (Non-African American) 26.7 ml/min; Potassium 3.7 mmol/L (3.5-5.1)
[2023-06-20] MEDS ORDERED: LANTUS PER UNIT CHARGE SC SCH (09:00)
[2023-06-20] MEDS ORDERED: ISOSORBIDE MONO EXTENDED REL 60 MG TABCR PO SCH (09:00)
[2023-06-20] MEDS ORDERED: FLUTICASONE/VILANTEROL 100/25MCG 14 PUFFS/INHALER INH SCH (09:00)
[2023-06-20] MEDS ORDERED: DOCUSATE SODIUM/SENNA 50/8.6MG TAB PO SCH (09:00)
[2023-06-20] MEDS ORDERED: FINASTERIDE 5 MG TAB PO SCH (09:00)
[2023-06-20] MEDS ORDERED: ATORVASTATIN 40 MG TAB PO SCH (09:00)
[2023-06-20] MEDS ORDERED: ASPIRIN 81 MG ECTAB PO SCH (09:00)
--- NOTE | 2023-06-20 15:40 | Electrocardiogram Report ---
Test Reason : Blood Pressure : / mmHG Vent. Rate : 089 BPM Atrial Rate : 089 BPM P-R Int : 274 ms QRS Dur : 094 ms QT Int : 402 ms P-R-T Axes : 079 -11 053 degrees QTc Int : 489 ms Sinus rhythm with 1st degree A-V block with Premature atrial complexes Inferior infarct (cited on or before 06-SEP-2021) Abnormal ECG When compared with ECG of 06-SEP-2021 12:19, Nonspecific T wave abnormality no longer evident in Inferior leads QT has lengthened Confirmed by Quincy Romero ([id number]) on 06/20/2023 3:39:28 PM Referred By: REFERRED SELF Confirmed By:Quincy Romero
--- NOTE | 2023-06-20 17:27 | Discharge Summary ---
Date of Service June 20, 2023 Admission HPI Per Admitting Provider History obtained from patient and records. Medical history significant for chronic diastolic heart failure (EF 55-60%, TTE 2020 ), CAD status post CABG, PAF, hypertension, hyperlipidemia, COPD, EMILE currently not on BiPAP, DM2 insulin requiring, CRI (baseline creatinine 2.4), chronic anemia (baseline hemoglobin of 11), RCCA left status post nephrectomy, GERD, chronic thrombocytopenia. Last confinement September 2021 for diarrhea secondary to Salmonella enteritis. Yesterday, patient noted achy right-sided abdominal pain associated with bilious emesis which patient attributes to consuming a bad peach. Usual constipation symptoms. No fever, no chills, no chest pain, no SOB. No headache symptoms. SBP 180s upon arrival at the ER. Medical History as above 2013 colonoscopy showed sigmoid diverticulosis and internal hemorrhoids. 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, no EtOH intake Admission Exam Per Admitting Provider GENERAL: Slight uncomfortable, obese, no respiratory distress SKIN: Pallor, warm HEENT: alopecia, pale palpebral conjunctivae, no ptosis, dry buccal mucosa NECK : Supple, short neck, no tenderness CHEST : Decreased breath sounds, no tenderness HEART : RRR, no obvious murmurs ABDOMEN: Some distention, right-sided abdominal tenderness EXTREMITIES : Minimal LE swelling, no LE tenderness, no other conspicuous deformities noted NEUROLOGIC : Coherent, no facial asymmetry, no other gross focality Principal Diagnosis Liver lesions, abdominal pain Discharge Exam GENERAL: obese M in NAD HEENT: NC/AT, EOMI NECK : Supple, short neck CHEST : Decreased breath sounds, no tenderness HEART : RRR, no obvious murmurs ABDOMEN: Some distention, minimal right-sided abdominal tenderness (improved) EXTREMITIES : Minimal LE swelling, no LE tenderness, moves extremities NEUROLOGIC : Coherent, no facial asymmetry, speech fluent, moves extremities SKIN: warm, dry Discharge Data Allergies Allergy/AdvReac Type Severity Reaction Status Date / Time amoxicillin Allergy Intermediate RASH, Verified 06/20/23 02:26 ELEVATED PULSE clavulanic acid Allergy Intermediate RASH AND Verified 06/20/23 02:26 ELEVATED PULSE lisinopril Allergy Intermediate COUGH Verified 06/20/23 02:26 Consultations 06/20/23 02:36 ED Decision to Admit Stat 06/20/23 03:58 Consult Oncology Routine Ordered Studies 06/19/23 23:14 CT abd pelvis wo con Stat FINDINGS: Lung bases: Unremarkable. No mass. No consolidation. ABDOMEN: Liver: There are multiple abnormal ovoid hypodense lesions scattered throughout both the left and right lobes of the liver. Detailed evaluation limited without contrast. However, the largest solitary lesion in segment 7 measures 4.1 x 4.7 x 3.5 cm. Gallbladder and bile ducts: Unremarkable. No calcified stones. No ductal dilation. Pancreas: The unenhanced pancreas is grossly unremarkable. No ductal dilation. Spleen: Unremarkable. No splenomegaly. Adrenals: Unremarkable. No mass. Kidneys and ureters: Status post left nephrectomy. The unenhanced right kidney is unremarkable. Stomach and bowel: Mild retained oral contents in the stomach. No definite gastric mucosal thickening. No evidence for bowel obstruction. Evaluation of the bowel mucosa is somewhat limited without contrast. No definite asymmetry. PELVIS: Appendix: A normal caliber appendix is noted posterior to the cecum. Bladder: Unremarkable. No stones. Reproductive: Unremarkable as visualized. ABDOMEN and PELVIS: Intraperitoneal space: Unremarkable. No free air. No significant fluid collection. Bones/joints: No definite osseous metastatic disease. No acute osseous abnormality. No dislocation. Soft tissues: Unremarkable. Vasculature: Unremarkable. No abdominal aortic aneurysm. Lymph nodes: Abnormal lymphadenopathy noted, most prominent adjacent to the celiac axis and in the portacaval region. The lymph node in the portacaval region measures 3.3 cm in short axis diameter. The single largest presumed lymph node in the celiac region measures 3.2 cm. IMPRESSION: 1. There are multiple abnormal ovoid hypodense lesions scattered throughout both the left and right lobes of the liver. Detailed evaluation limited without contrast. However, the largest solitary lesion in segment 7 measures 4.1 x 4.7 x 3.5 cm. Favor hepatic metastatic disease. Suspect recurrent renal carcinoma given the left nephrectomy. Please correlate with clinical history. Recommend nonemergent dedicated contrast evaluation. 2. Abnormal lymphadenopathy noted, most prominent adjacent to the celiac axis and in the portacaval region. The lymph node in the portacaval region measures 3.3 cm in short axis diameter. The single largest presumed lymph node in the celiac region measures 3.2 cm. Findings are consistent with metastatic lymphadenopathy. Hospital Course (1) Asymptomatic hypertensive urgency: Secondary to GI upset , now BP normal Abnormal CT abdomen pelvis findings Hepatic lesions along with portacaval adenopathy Concern for recurrent RCCA, hx left nephrectomy Clear liquid diet initially Analgesia, antiemetics Inpatient Oncology consultation as per patient request RE recommendations for work-up for metastatic malignancy findings on CT Discussed at the bedside w/ Dr. Ritter - oncology Pt is currently feeling well and denies any pain Plan to discharge the pt home w/ close follow up w/ Dr. Ritter Plan to obtain liver lesion biopsy as outpt Chronic conditions chronic diastolic heart failure (EF 55-60%, TTE 2020 ), patient on the dry side hx CAD status post CABG PAF, patient NSR hyperlipidemia, on statin Rx hx COPD/restrictive lung disease as per records, not in acute exacerbation EMILE currently not on BiPAP DM2 insulin requiring, reasonable control as of recent hemoglobin A1c of 7.3 last January 2023, Basal bolus insulin, ISS BG goal 110-140, carb count coverage CRI, at baseline chronic anemia, hemoglobin at baseline chronic thrombocytopenia Total Time Total Time Spent Total Time Spent (In Minutes): 40 Discharge Plan Discharge Items Patient Disposition: Home - Self-Care Reason For Visit: HTN URGENCY Discharge Diagnosis: Liver lesions, abdominal pain Activity: Per Instructions section Non-emergency contact: Primary Care Provider and Oncologist Call non-emergency contact if: you have any medication questions and your symptoms worsen Follow-up/Referrals: Buzz Rainey MD [Primary Care Provider] - Diet: Regular Addtl Attending Provider Instructions: Follow up with your primary care doctor and oncologist (Dr. Ritter). You will be contacted by Dr. Ritter's office. You should see your primary care physician within 1-2 weeks. For recurrent abdominal pain, you can take oxycodone as needed as prescribed. Pending Studies at Discharge: No Stand-Alone Forms: My [employer], Smoking Cessation Medications and DC Order Prescriptions: New oxycodone 5 mg Tablet 5 mg PO Q4H PRN (Reason: pain) Qty: 7 0RF Continued timolol maleate 0.25 % Drops 1 drp OPB HS aspirin [Edwardo Low Dose Aspirin] 81 mg Tablet,Delayed Release (Dr/Ec) 81 mg PO QAM pantoprazole 40 mg Tablet,Delayed Release (Dr/Ec) 40 mg PO DAILYBB docusate sodium 100 mg Tablet 100 mg PO AMHS finasteride 5 mg Tablet 5 mg PO QAM nitroglycerin 0.4 mg tablet, sublingual 0.4 mg sublingual UD PRN (Reason: Chest Pain) Rx Instructions: place 1 tab under tongue every 5 minutes as needed for chest pain up to 3 doses in 15 minutes melatonin 5 mg Tablet 10 mg PO HS atorvastatin 40 mg Tablet 40 mg PO QAM gabapentin 300 mg Capsule 300 mg PO HS metoprolol tartrate 25 mg Tablet See Rx Instructions .ROUTE .COMPLEX Rx Instructions: 25 mg orally ;take 1 tablet by mouth in the morning and 1/2 tablet in the evening insulin glargine [Lantus Solostar U-100 Insulin] 100 unit/mL (3 mL) Insulin Pen 16 unit SUBCUT QAM fluticasone propion-salmeterol [Wixela Inhub] 250-50 mcg/dose Blister With Device 1 inh INHALATION BID isosorbide mononitrate 60 mg tablet extended release 24 hr 60 mg PO QAM torsemide 100 mg Tablet 100 mg PO QAM semaglutide 1 mg/dose (4 mg/3 mL) Pen Injector 1 mg SUBCUT WK Rx Instructions: tuesdays cetirizine 1 mg/mL solution 5 mg PO HS Discharge Orders: Discharge Order (Routine); Ordered 06/20/23 Ordered By: Andres Coker Admission Data Admit Date/Time: 06/20/23 03:51 Attending Provider: Andres Coker Admit Provider: Shane Leonard Primary Care Provider: Buzz Rainey Other Providers: Shane Leonard ; Jonatan Ritter
[2023-06-20 18:28] LABS: INR 1.2 (0.9-1.1); Prothrombin Time 12.7 Seconds (9.0-12.0)
[2023-06-20] MEDS ORDERED: MELATONIN 3 MG TAB PO SCH (21:00)
[2023-06-20] MEDS ORDERED: GABAPENTIN 300 MG CAP PO SCH (21:00)
[2023-06-20] MEDS ORDERED: TIMOLOL GFS 0.5% OPH SOLN 74 DROPS/5 ML BTL OPB SCH (21:00)
[2023-06-20] MEDS ORDERED: CETIRIZINE HCL 10 MG TABLET PO SCH (21:00)
--- NOTE | 2023-06-20 22:27 | Consultation ---
Date of Consultation June 20, 2023 Assessment & Plan (1) Lesion of liver: Difficult to interpret his radiology picture as anything other than a metastatic malignancy with a combination of pathologic abdominal adenopathy and fairly classic liver lesions for metastases. His only previous identified malignancy is a renal cancer 17 years ago but there are certainly times when relapsed malignant disease may not be evident for even decades after initial presentation. This would also be a common picture to see with an occult colorectal malignancy. He does report that he moves his bowels only once a week but this is a fairly longstanding pattern, unassociated with major symptoms prior to just the days before this admission, and without twin melena or hematochezia. Most direct next step will be to biopsy one of the liver lesions which should both give us a likely source of origin and unequivocally the liver lesions as metastases. We reviewed that keeping him inpatient longer to try to coordinate that here versus as follow-up as an outpatient next week. With symptoms easily controlled, no immediately threatening organ dysfunction, and a disease that will be likely treatable but certainly not curable there is probably not a dramatic difference in long-term outcome between keeping him in to do a biopsy this week versus arranging as an outpatient next. He would very much like to go home so we will coordinate follow-up through my office for the biopsy and additional discussion Plan Plan image guided biopsy of one of the liver lesions next week as an outpatient which in turn should give us some answers as to histology and likely source of origin History of Present Illness Reason for Consultation: Patient with remote history of apparent left renal carcinoma presents with abdominal pain and hepatic lesions consistent with Attending Physician: Andres Coker MD History of Present Illness Please see admission history and physical for additional details. Patient is status post left nephrectomy 17 years ago apparently for renal cell carcinoma. He did not receive any adjuvant radiation, chemotherapy, or targeted therapy and has done well in the interim. He is unaware of any other diagnosis of malignancy. He is never a smoker but is a long-term tobacco chewer. He presented with acute right upper quadrant discomfort and hypertension but those symptoms of rapidly stabilized and actually feels quite well currently anxious to go home. He is not aware of any unusual pattern of cancer in his family Allergies Allergy/AdvReac Type Severity Reaction Status Date / Time amoxicillin Allergy Intermediate RASH, Verified 06/20/23 02:26 ELEVATED PULSE clavulanic acid Allergy Intermediate RASH AND Verified 06/20/23 02:26 ELEVATED PULSE lisinopril Allergy Intermediate COUGH Verified 06/20/23 02:26 Home Medications Medication Instructions Recorded Confirmed Type aspirin 81 mg tablet,delayed 81 mg PO QAM 09/02/18 06/20/23 History release (Edwardo Low Dose Aspirin) docusate sodium 100 mg tablet 100 mg PO AMHS 09/02/18 06/20/23 History finasteride 5 mg tablet 5 mg PO QAM 09/02/18 06/20/23 History pantoprazole 40 mg tablet,delayed 40 mg PO DAILYBB 09/02/18 06/20/23 History release timolol maleate 0.25 % eye drops 1 drp OPB HS 09/02/18 06/20/23 History atorvastatin 40 mg tablet 40 mg PO QAM 06/24/21 06/20/23 History fluticasone 250 mcg-salmeterol 50 1 inh inhalation BID 06/24/21 06/20/23 History mcg/dose blistr powdr for inhalation (Wixela Inhub) gabapentin 300 mg capsule 300 mg PO HS 06/24/21 06/20/23 History insulin glargine 100 unit/mL (3 16 unit subcut QAM 06/24/21 06/20/23 History mL) subcutaneous pen (Lantus Solostar U-100 Insulin) melatonin 5 mg tablet 10 mg PO HS 06/24/21 06/20/23 History metoprolol tartrate 25 mg tablet See Rx Instructions .Route .COMPLEX 06/24/21 06/20/23 History nitroglycerin 0.4 mg sublingual 0.4 mg sublingual UD PRN Chest Pain 06/24/21 06/20/23 History tablet isosorbide mononitrate 60 mg 60 mg PO QAM 08/14/21 06/20/23 History tablet,extended release 24 hr cetirizine 1 mg/mL oral solution 5 mg PO HS 06/20/23 06/20/23 History oxycodone 5 mg tablet 5 mg PO Q4H PRN pain #7 tabs 06/20/23 Rx semaglutide 1 mg/dose (4 mg/3 mL) 1 mg subcut WK 06/20/23 06/20/23 History subcutaneous pen injector torsemide 100 mg tablet 100 mg PO QAM 06/20/23 06/20/23 History Patient History Medical History Acute kidney injury superimposed on chronic kidney disease Aortic valve disorder Atrial fibrillation CAD (coronary artery disease) Cancer of left kidney 2009--sx Cholelithiasis NOS Chronic kidney disease, stage III (moderate) Chronic obstructive pulmonary disease inhaler daily/prn Contusion of head Coronary atherosclerosis of [place] coronary vessel Diabetes mellitus, type 2 Diabetic peripheral neuropathy associated with type 2 diabetes mellitus Diarrhea Fall GERD (gastroesophageal reflux disease) Glaucoma bilt eyes Hyperlipidemia Hypertension Hypokalemia Loss of protective sensation of skin of foot Myocardial Infarction 2008 Salmonella enteritis Sleep apnea CPAP Tobacco use disorder Surgical History Abnormal biopsy of kidney malignant cancer L kidney History of bilateral cataract extraction History of cardiac cath 2009 @ [facility], no stent---follows with Dr. Brock History of carpal tunnel release bilt History of cholecystectomy History of colonoscopy History of nephrectomy 2009--L kidney [place] [facility] [place] CABG x 4 2008 @ [facility] [place] Family History Mother Family history of diabetes mellitus Social History Smoking Status: Never smoker Tobacco Type: Smokeless Tobacco (Dip or Chew) Second Hand Exposure: No; Do You Dip or Chew Tobacco: No; Hx Alcohol Use: No (no alcohol in past 6 months) Hx Substance Use: No Preferred Language: Nauruan Communication Ability: Effective Consulting Sales Manager Required: No Beliefs That Will Affect Care: None marital status: Current Living Situation: Spouse Current Living Situation Comment: home with Feels Safe at Home: Yes Assistive Devices: None Physical Exam Physical Exam: Alert, cooperative, no acute distress Poor dentition but otherwise HEENT exam is unremarkable No pathologic adenopathy in cervical supraclavicular or axillary regions Lung and cardiac exams are stable Tender right upper quadrant but no guarding rigidity or signs of flank ascites. Neurologic exam is completely nonfocal and he certainly seems to have intact cognitive function and medical decision making Results & Data Vital Signs (Past 12 Hours) Vital Signs Temp Pulse Pulse Resp BP BP Pulse Ox 06/20/23 17:18 36.3 C L 89 18 91/62 L 127/72 98 06/20/23 16:30 94 H 06/20/23 16:00 36.3 C L 89 18 127/72 98 06/20/23 14:45 36.5 C 88 16 91/62 L 95 O2 Del Method 06/20/23 17:18 06/20/23 16:30 06/20/23 16:00 Room Air 06/20/23 14:45 Room Air Laboratory Results Laboratory Results - last 24 hr 06/19/23 06/19/23 06/20/23 22:40 22:40 01:00 WBC 6.80 RBC 3.98 L Hgb 11.4 L Hct 33.9 L MCV 85.2 MCH 28.6 MCHC 33.6 RDW Std Deviation 42.4 RDW Coeff of Jewels 13.6 Plt Count 94 L MPV 11.0 Immature Gran % (Auto) 0.3 Neut % (Auto) 61.5 Lymph % (Auto) 27.6 [place] % (Auto) 7.6 Eos % (Auto) 2.4 Baso % (Auto) 0.6 Neut # (Auto) 4.18 Lymph # (Auto) 1.88 [place] # (Auto) 0.52 Eos # (Auto) 0.16 Baso # (Auto) 0.04 Immature Gran # (Auto) 0.02 Platelet Estimate Decreased L Ovalocytes 1+ PT INR Sodium 141 Potassium 3.6 Chloride 102 Carbon Dioxide 27 Anion Gap 12 H BUN 31 H Creatinine 2.40 H Est Cr Clr Drug Dosing 27.9 Est GFR ( Amer) 29.3 Est GFR (Non-Af Amer) 25.3 BUN/Creatinine Ratio 12.9 Glucose 153 H POC Glucose Calcium 8.8 Magnesium 1.5 L Total Bilirubin 1.0 AST 75 H ALT 37 Alkaline Phosphatase 358 H Troponin I High Sens 7.6 Total Protein 7.8 Albumin 3.6 Globulin 4.2 H Albumin/Globulin Ratio 0.9 Lipase 78 Urine Color Yellow Urine Appearance Clear Urine pH 7.5 Ur Specific Wray 1.009 Urine Protein Negative Urine Glucose (UA) Negative Urine Ketones Negative Urine Blood Negative Urine Nitrite Negative Urine Bilirubin Negative Urine Urobilinogen Negative Ur Leukocyte Esterase Negative 06/20/23 06/20/23 06/20/23 05:44 06:46 06:46 WBC 9.80 RBC 3.92 L Hgb 11.4 L Hct 33.5 L MCV 85.5 MCH 29.1 MCHC 34.0 RDW Std Deviation 42.2 RDW Coeff of Jewels 13.6 Plt Count 72 L MPV 11.0 Immature Gran % (Auto) 0.4 Neut % (Auto) 81.8 Lymph % (Auto) 11.3 [place] % (Auto) 6.2 Eos % (Auto) 0.1 Baso % (Auto) 0.2 Neut # (Auto) 8.01 H Lymph # (Auto) 1.11 L [place] # (Auto) 0.61 H Eos # (Auto) 0.01 Baso # (Auto) 0.02 Immature Gran # (Auto) 0.04 Platelet Estimate Ovalocytes PT INR Sodium 139 Potassium 3.7 Chloride 102 Carbon Dioxide 29 Anion Gap 8 BUN 29 H Creatinine 2.29 H Est Cr Clr Drug Dosing 29.2 Est GFR ( Amer) 31.0 Est GFR (Non-Af Amer) 26.7 BUN/Creatinine Ratio 12.7 Glucose 217 H POC Glucose 186 H Calcium 8.7 Magnesium 2.0 Total Bilirubin AST ALT Alkaline Phosphatase Troponin I High Sens Total Protein Albumin Globulin Albumin/Globulin Ratio Lipase Urine Color Urine Appearance Urine pH Ur Specific Wray Urine Protein Urine Glucose (UA) Urine Ketones Urine Blood Urine Nitrite Urine Bilirubin Urine Urobilinogen Ur Leukocyte Esterase 06/20/23 06/20/23 06/20/23 08:33 12:28 17:08 WBC RBC Hgb Hct MCV MCH MCHC RDW Std Deviation RDW Coeff of Jewels Plt Count MPV Immature Gran % (Auto) Neut % (Auto) Lymph % (Auto) [place] % (Auto) Eos % (Auto) Baso % (Auto) Neut # (Auto) Lymph # (Auto) [place] # (Auto) Eos # (Auto) Baso # (Auto) Immature Gran # (Auto) Platelet Estimate Ovalocytes PT INR Sodium Potassium Chloride Carbon Dioxide Anion Gap BUN Creatinine Est Cr Clr Drug Dosing Est GFR ( Amer) Est GFR (Non-Af Amer) BUN/Creatinine Ratio Glucose POC Glucose 198 H 166 H 124 H Calcium Magnesium Total Bilirubin AST ALT Alkaline Phosphatase Troponin I High Sens Total Protein Albumin Globulin Albumin/Globulin Ratio Lipase Urine Color Urine Appearance Urine pH Ur Specific [place] Urine Protein Urine Glucose (UA) Urine Ketones Urine Blood Urine Nitrite Urine Bilirubin Urine Urobilinogen Ur Leukocyte Esterase 06/20/23 17:41 WBC RBC Hgb Hct MCV MCH MCHC RDW Std Deviation RDW Coeff of Jewels Plt Count MPV Immature Gran % (Auto) Neut % (Auto) Lymph % (Auto) [place] % (Auto) Eos % (Auto) Baso % (Auto) Neut # (Auto) Lymph # (Auto) [place] # (Auto) Eos # (Auto) Baso # (Auto) Immature Gran # (Auto) Platelet Estimate Ovalocytes PT 12.7 H INR 1.2 H Sodium Potassium Chloride Carbon Dioxide Anion Gap BUN Creatinine Est Cr Clr Drug Dosing Est GFR ( Amer) Est GFR (Non-Af Amer) BUN/Creatinine Ratio Glucose POC Glucose Calcium Magnesium Total Bilirubin AST ALT Alkaline Phosphatase Troponin I High Sens Total Protein Albumin Globulin Albumin/Globulin Ratio Lipase Urine Color Urine Appearance Urine pH Ur Specific Wray Urine Protein Urine Glucose (UA) Urine Ketones Urine Blood Urine Nitrite Urine Bilirubin Urine Urobilinogen Ur Leukocyte Esterase Diagnostic Findings Abdomen/Pelvis CT 06/19/23 23:14 Exam(s): CT ABDOMEN + PELVIS Without Contrast EXAM: CT Abdomen and Pelvis Without Intravenous Contrast CLINICAL HISTORY: RUQ abd pain, n/v. TECHNIQUE: Axial computed tomography images of the abdomen and pelvis without intravenous contrast. CTDI is 27.38 mGy and DLP is 1288.9 mGy-cm. Automated exposure control was utilized for the study. A dose lowering technique was utilized adhering to the principles of ALARA. COMPARISON: Noncontrast CT abdomen and pelvis dated 09/07/2021 FINDINGS: Lung bases: Unremarkable. No mass. No consolidation. ABDOMEN: Liver: There are multiple abnormal ovoid hypodense lesions scattered throughout both the left and right lobes of the liver. Detailed evaluation limited without contrast. However, the largest solitary lesion in segment 7 measures 4.1 x 4.7 x 3.5 cm. Gallbladder and bile ducts: Unremarkable. No calcified stones. No ductal dilation. Pancreas: The unenhanced pancreas is grossly unremarkable. No ductal dilation. Spleen: Unremarkable. No splenomegaly. Adrenals: Unremarkable. No mass. Kidneys and ureters: Status post left nephrectomy. The unenhanced right kidney is unremarkable. Stomach and bowel: Mild retained oral contents in the stomach. No definite gastric mucosal thickening. No evidence for bowel obstruction. Evaluation of the bowel mucosa is somewhat limited without contrast. No definite asymmetry. PELVIS: Appendix: A normal caliber appendix is noted posterior to the cecum. Bladder: Unremarkable. No stones. Reproductive: Unremarkable as visualized. ABDOMEN and PELVIS: Intraperitoneal space: Unremarkable. No free air. No significant fluid collection. Bones/joints: No definite osseous metastatic disease. No acute osseous abnormality. No dislocation. Soft tissues: Unremarkable. Vasculature: Unremarkable. No abdominal aortic aneurysm. Lymph nodes: Abnormal lymphadenopathy noted, most prominent adjacent to the celiac axis and in the portacaval region. The lymph node in the portacaval region measures 3.3 cm in short axis diameter. The single largest presumed lymph node in the celiac region measures 3.2 cm. IMPRESSION: 1. There are multiple abnormal ovoid hypodense lesions scattered throughout both the left and right lobes of the liver. Detailed evaluation limited without contrast. However, the largest solitary lesion in segment 7 measures 4.1 x 4.7 x 3.5 cm. Favor hepatic metastatic disease. Suspect recurrent renal carcinoma given the left nephrectomy. Please correlate with clinical history. Recommend nonemergent dedicated contrast evaluation. 2. Abnormal lymphadenopathy noted, most prominent adjacent to the celiac axis and in the portacaval region. The lymph node in the portacaval region measures 3.3 cm in short axis diameter. The single largest presumed lymph node in the celiac region measures 3.2 cm. Findings are consistent with metastatic lymphadenopathy. Electronically signed by: Clay Rockwell MD 06/20/23 01:59 AM Chest X-Ray 06/20/23 02:48 XR chest 1V portable HISTORY: 78 years-old Male renal failure acute renal failure COMPARISON: 09/06/2021 TECHNIQUE: AP view of the chest FINDINGS: Cardiac silhouette is enlarged. Prior median sternotomy with CABG. Atherosclerotic plaque of the thoracic aorta. No pneumothorax, pleural effusion, airspace consolidation or overt pulmonary edema. Mild chronic interstitial coarsening. Degenerative changes of the shoulders and spine. IMPRESSION: Cardiomegaly without acute process. ACT 112: Negative or not required by law. The above report was generated using voice recognition software. It may contain grammatical, syntax or spelling errors. Electronically signed by: Fredi Mai M.D. 06/20/2023 7:10 AM PG Care Time/CCT Total # of Minutes Spent Total Time Spent with Patient: Total time spent is greater than 50% in coordination of care (as documented) at patient's floor/unit and/or counseling patient: Coding Level of Care Code 28082 IN/OBS CONSULT LVL 2,35M Diagnoses Lesion of liver K76.9
== END 2023-06-20 18:19 | disposition home or self-care (01) ==
LOC: ED 22:28 → EDINP 22:28 → 2N 06-20 04:38

== ENCOUNTER 2025-08-23 10:25 | Inpatient (IN) ==
--- NOTE | 2025-08-23 10:44 | Emergency Department Note ---
Impression & Plan Cellulitis of left leg, Acute confusion, Electrolyte abnormality, Elevated troponin ED Provider Note NAME: PINEDA GERARD AGE: 80 SEX: M : 1945 ARRIVES VIA: Ambulance INFORMANT: Patient, ED PROVIDER(S): Elijah Fallon MD CHIEF COMPLAINT: Confusion MEDICAL DECISION MAKING: Patient reportedly found at home with not being at his baseline. Reported history of liver cancer. Patient denies all complaints at this time. Patient did have a temp of 99 1. Sugar was checked in the bedside was 117. IV and blood work were obtained. Antibiotics ordered initially started with [address] head and chest x-ray obtained along with a BioFire. The patient's blood work shows a normal white count with a hemoglobin of 12.3. Thrombocytopenia noted 27 no spontaneous bleeding but the patient does have a known history of thrombocytopenia. Kidney function close to baseline with a creatinine of 2.4. Patient's initial lactate of 3.4. Patient did receive a total of 1 L of IV fluids. Mild hypomagnesemia 1.6. Known history of liver cancer bilirubin today 2.7. No significant upper abdominal pain. Initial troponin of 51 but denies any chest pain or shortness of breath and EKG does not show evidence of obvious signs of ischemia. Procalcitonin is not elevated. Urinalysis shows some blood but no signs of obvious infection. BioFire negative. The patient's CT of the head and chest x-ray without any acute findings but does show pulmonary metastasis. Patient's repeat lactate was 3.1 which is improving. The patient did not receive a 30 cc/kg bolus in light of the patient's known history of CHF. I did speak the on-call hospitalist service Dr. Kelly and the patient was admitted to the medicine service. Discussion w/ other healthcare providers: Dr. Kelly inpatient medicine service Prior /Outside records reviewed: I reviewed part of a PCP note from Dr. Dalton from July 13. 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 Patient's oncologist was a started him on an cabozantinib. Patient reportedly had a recent CT scan and blood work which showed that his cancer had recurred leading to discontinuation of prior treatment and initiation of new treatment. Per this note patient is fairly independent mowing the grass grocery shopping laundry and cooking. He drives himself around except whenever he is receiving treatment. Patient on torsemide 100 in the morning and 40 in the afternoon. Differential diagnosis: Infection, dehydration, metabolic abnormality, hypo/hyperglycemia, electrolyte imbalance, anemia, UTI, pneumonia, thyroid dysfunction among others were considered. Diagnostics, as interpreted by me: ECG: Sinus, rate of 97, normal [place] and QRS, prolonged QTc, normal axis T wave inversions anteriorly. No obvious ST elevations. Cardiac monitoring: An order was placed for continuous cardiac monitoring. The monitor shows a rate of 95 with sinus rhythm. Patient was placed on pulse oximetry Medical decision rules: None Imaging studies: I informally interpreted the patient's Chest x-ray does not show obvious pneumonia with formal report to follow. HPI:Patient presents from home. Patient reportedly was found by a relative and was concerned that he was unable to be contacted and so EMS arrived the patient was reportedly sitting on the couch confused and not able to answer questions appropriately. Reported history of liver cancer. Temp 99.1. No sugar checked prior to arrival. The patient denies any head neck chest back or abdominal pain no nausea vomiting or diarrhea. He is able to state his name and that he is in the emergency department. Prior records reviewed as noted above. PAST MEDICAL HISTORY: See Below PAST SURGICAL HISTORY: See Below SOCIAL HISTORY: See Below HOME MEDICATIONS: See Below ALLERGIES: See Below VITALS: See Below PHYSICAL EXAMINATION: GENERAL: NAD, non-toxic. EYE EXAM: Normal conjunctiva. PERRL, no anisocoria and EOM's grossly intact w/o pain. OROPHARYNX: Dry mucus membranes, missing several teeth. NECK: Trachea midline, no stridor. Chest: Port noted to the left chest. LUNGS: Clear to auscultation. Normal chest wall mechanics. HEART: NSR, no MRG. ABDOMEN: Abdomen soft, non-tender, no masses, no rebound or guarding. BACK: No CVA TTP. SKIN: No rashes and no bruising. UPPER EXTREMITIES: Upper extremities are grossly normal. LOWER EXTREMITIES: Bilateral lower extremity nonpitting edema. Right erythematous skin changes to the left lower extremity without crepitus or evidence of abscess. Compartments are soft throughout. NEURO EXAM: Awake and alert, follows commands, no obvious facial asymmetry, normal speech, moves all 4 extremities. Past Med/Surg History Problem List NYHA class 2 congestive heart failure with preserved left ventricular function Failure to thrive in adult Left leg cellulitis COVID-19 (Acute) Sleep apnea CPAP Hypertension Diabetes mellitus, type 2 Chronic obstructive pulmonary disease inhaler daily/prn Atrial fibrillation Aortic valve disorder Jeremi Nova Lower extremity edema Hepatocellular carcinoma Diabetic peripheral neuropathy associated with type 2 diabetes mellitus Loss of protective sensation of skin of foot Coronary atherosclerosis of [place] coronary vessel Chronic kidney disease, stage III (moderate) Hyperlipidemia S/P CABG x 4 (Acute) 2008 @ [facility] [place] Medical History GERD (gastroesophageal reflux disease) Cancer of left kidney 2009--sx Glaucoma bilt eyes Surgical History Port-A-Cath in place (08/21/23) Access Port Placement with Fluoroscopy Left Subclavian(Left) - Mio Younger, History of carpal tunnel release bilt History of colonoscopy History of cholecystectomy History of nephrectomy 2009--L kidney @ [facility] [place] History of bilateral cataract extraction History of cardiac cath 2008 @ [facility], no stent---follows with Dr. Brock Family History Mother Family history of diabetes mellitus Other Heart disease Social History Smoking Status: Never smoker Tobacco Type: Smokeless Tobacco (Dip or Chew) Second Hand Exposure: No; Do You Dip or Chew Tobacco: No; Hx Alcohol Use: No Hx Substance Use: No Preferred Language: Andorran Communication Ability: Effective Electronic Publisher Required: No Beliefs That Will Affect Care: None marital status: Current Living Situation: Spouse Current Living Situation Comment: home with current occupational status: retired How many Children do You have: 0 Feels Safe at Home: Yes Diet: diabetic during the past year weight has: decreased > 10 lbs Assistive Devices: Cane and CPAP Allergies Allergies Allergy/AdvReac Type Severity Reaction Status Date / Time amoxicillin Allergy Intermediate RASH, Verified 11/04/24 10:44 ELEVATED PULSE clavulanic acid Allergy Intermediate RASH AND Verified 11/04/24 10:44 ELEVATED PULSE lisinopril Allergy Intermediate COUGH Verified 11/04/24 10:44 Home Meds Home Medications Medication Instructions Recorded Confirmed aspirin 81 mg tablet,delayed 81 mg PO QAM 09/02/18 08/23/25 release (Edwardo Low Dose Aspirin) docusate sodium 100 mg tablet 100 mg PO AMHS 09/02/18 08/23/25 finasteride 5 mg tablet 5 mg PO QAM 09/02/18 08/23/25 pantoprazole 40 mg tablet,delayed 40 mg PO DAILYBB 09/02/18 08/23/25 release timolol maleate 0.25 % eye drops 1 drp OPB HS 09/02/18 08/23/25 atorvastatin 40 mg tablet 40 mg PO QAM 06/24/21 08/23/25 fluticasone 250 mcg-salmeterol 50 1 inh inhalation BID 06/24/21 08/23/25 mcg/dose blistr powdr for inhalation (Wixela Inhub) gabapentin 300 mg capsule 300 mg PO HS 06/24/21 08/23/25 melatonin 5 mg tablet 10 mg PO HS 06/24/21 08/23/25 nitroglycerin 0.4 mg sublingual 0.4 mg sublingual UD PRN Chest Pain 06/24/21 08/23/25 tablet isosorbide mononitrate 60 mg 60 mg PO QAM 08/14/21 08/23/25 tablet,extended release 24 hr cetirizine 1 mg/mL oral solution 5 mg PO HS 06/20/23 08/23/25 torsemide 100 mg tablet 100 mg PO DAILY 06/20/23 08/23/25 insulin glargine 100 unit/mL (3 12 unit subcut QAM 05/29/24 08/23/25 mL) subcutaneous pen (Lantus Solostar U-100 Insulin) metoprolol succinate 25 mg 25 mg PO DAILY 11/04/24 08/23/25 tablet,extended release 24 hr torsemide 20 mg tablet 20 mg PO DAILY 11/04/24 08/23/25 cabozantinib 60 mg tablet 60 mg PO DAILY 08/23/25 08/23/25 (Cabometyx) linagliptin 5 mg tablet (Tradjenta) 5 mg PO DAILY 08/23/25 08/23/25 meclizine 25 mg tablet 25 mg PO BID 08/23/25 08/23/25 sertraline 50 mg tablet 50 mg PO DAILY 08/23/25 08/23/25 Previous Rx's Medication Instructions Recorded oxycodone 5 mg tablet 5 mg PO Q4H PRN pain #7 tabs 06/20/23 albuterol sulfate 90 mcg/actuation 2 inha inhalation QID PRN 11/04/24 aerosol inhaler shortness of breath or wheezing #1 inhaler benzonatate 100 mg capsule 100 mg PO TID PRN cough #20 caps 11/04/24 Results & Data (ED) Vital Signs Vital Signs - 24 hr 08/23/25 10:30 08/23/25 10:59 08/23/25 11:00 Temperature 36.3 C L Temperature Source Oral Axillary Pulse Rate 100 H Pulse Rate [Apical] 101 H Pulse Rhythm Regular Pulse Rhythm [Apical] Regular Pulse Strength Normal Pulse Strength [Apical] Normal Respiratory Rate 18 18 Respiratory Effort / Characteristics Non-Labored Spontaneous Non-Labored Spontaneous Respiratory Depth Normal Normal Respiratory Pattern Regular Regular Blood Pressure 162/93 H Blood Pressure [Left Arm] 162/93 H Blood Pressure Mean 116 Blood Pressure Mean [Left Arm] 116 Pulse Oximetry 100 99 99 Oxygen Delivery Method Room Air Room Air Room Air Sepsis Recent Fever Within 48 Hours No Sepsis New/Unexplained Change in Mental Status Yes Sepsis Action Taken by Nursing No Action Required 08/23/25 11:11 08/23/25 11:49 08/23/25 12:45 Temperature Temperature Source Pulse Rate 91 H Pulse Rate [Apical] 75 93 H Pulse Rhythm Pulse Rhythm [Apical] Pulse Strength Pulse Strength [Apical] Normal Normal Respiratory Rate 18 18 Respiratory Effort / Characteristics Non-Labored Spontaneous Non-Labored Respiratory Depth Normal Normal Respiratory Pattern Regular Regular Blood Pressure Blood Pressure [Left Arm] 159/95 H 176/96 H Blood Pressure Mean Blood Pressure Mean [Left Arm] 116 122 Pulse Oximetry 94 99 Oxygen Delivery Method Room Air Room Air Sepsis Recent Fever Within 48 Hours Sepsis New/Unexplained Change in Mental Status Sepsis Action Taken by Nursing Laboratory Data 08/23/25 10:40 08/23/25 10:40 Lab Results 08/23/25 08/23/25 08/23/25 Range/Units 10:32 10:40 11:15 WBC 7.51 (4.8-10.8) K/ul RBC 4.27 L (4.70-6.10) M/uL Hgb 12.3 L (14.0-18.0) g/dl Hct 37.5 L (42.0-52.0) % MCV 87.8 (80.0-100.0) fL MCH 28.8 (25.0-34.0) pg MCHC 32.8 (32.0-36.0) g/dL RDW Std Deviation 52.7 H (36.4-46.3) fL RDW Coeff of Jewels 17.1 H (11.5-14.5) % Plt Count 27 L* (130-400) K/uL MPV 10.6 (9.4-12.4) fL Immature Gran % (Auto) 0.4 % Neut % (Auto) 77.4 % Lymph % (Auto) 15.8 % [place] % (Auto) 5.3 % Eos % (Auto) 0.8 % Baso % (Auto) 0.3 % Neut # (Auto) 5.81 (1.40-6.50) K/uL Lymph # (Auto) 1.19 L (1.20-3.40) K/uL [place] # (Auto) 0.40 (0.11-0.59) K/uL Eos # (Auto) 0.06 (0.00-0.50) K/uL Baso # (Auto) 0.02 (0.00-0.20) K/uL Immature Gran # (Auto) 0.03 (0.01-0.20) K/uL Sodium 144 (136-145) mmol/L Potassium 3.4 L (3.5-5.1) mmol/L Chloride 107 (98-107) mmol/L Carbon Dioxide 24 (21-32) mmol/L Anion Gap 13 H (3-11) BUN 68 H (6-23) mg/dl Creatinine 2.43 H (0.6-1.4) mg/dl Est Cr Clr Drug Dosing 27.7 ml/min eGFR 26.54 BUN/Creatinine Ratio 28.0 H (10-20) Glucose 131 H (70-99(Fasting)) mg/dl POC Glucose 119 H (70-99) mg/dl Lactate 3.4 H* (0.4-2.0) mmol/L Calcium 8.7 (8.6-10.3) mg/dl Magnesium 1.6 L (1.7-2.4) mg/dl Total Bilirubin 2.7 H (0.2-1.0) mg/dl AST 185 H (13-39) U/L ALT 53 H (7-52) U/L Alkaline Phosphatase 395 H (34-104) U/L Ammonia 50.0 (18-72) umol/L Troponin I High Sens 51.0 H* (0-20) pg/ml Total Protein 6.9 (6.0-8.3) gm/dl Albumin 2.4 L (3.4-5.0) gm/dl Globulin 4.5 H (2.5-4.0) gm/dl Albumin/Globulin Ratio 0.5 L (0.9-2) Procalcitonin 0.49 (0-0.5) ng/ml TSH 1.793 (0.300-4.500) uIu/ml Urine Color Dark Yellow Urine Appearance Clear (Clear) Urine pH 6.0 (4.5-7.5) Ur Specific [place] 1.015 (1.000-1.030) Urine Protein 1+ H (Negative) Urine Glucose (UA) Negative (Negative) Urine Ketones Trace H (Negative) Urine Blood 3+ H (Negative) Urine Nitrite Negative (Negative) Urine Bilirubin 1+ H (Negative) Urine Urobilinogen Positive H (Negative) Ur Leukocyte Esterase Trace H (Negative) Urine WBC (Auto) 0-5 (0-5) /hpf Urine RBC (Auto) 3-5 H (0-2) /hpf U Hyaline Cast (Auto) 6-10 H (0-2) /lpf U Epithel Cells (Auto) 0-2 (0-2) /hpf Urine Bacteria (Auto) None Seen (None Seen) Urine Comment Adenovirus (PCR) (NotDetected) B. pertussis DNA (PCR) (NotDetected) B.parapertussis DNA PCR (NotDetected) C. pneumoniae DNA (PCR) (NotDetected) Coronavirus OC43 (PCR) (NotDetected) Coronavirus HKU1 (PCR) (NotDetected) Coronavirus 229E (PCR) (NotDetected) SARS-CoV-2 (PCR) (NotDetected) Coronavirus NL63 (PCR) (NotDetected) Human Metapneumovir PCR (NotDetected) Influenza Type A (PCR) (NotDetected) Influenza Type B (PCR) (NotDetected) M. pneumoniae (PCR) (NotDetected) Parainfluenza 1 (PCR) (NotDetected) Parainfluenza 2 (PCR) (NotDetected) Parainfluenza 3 (PCR) (NotDetected) Parainfluenza 4 (PCR) (NotDetected) RSV (PCR) (NotDetected) Entero/Rhino (PCR) (NotDetected) 08/23/25 08/23/25 Range/Units 11:28 12:40 WBC (4.8-10.8) K/ul RBC (4.70-6.10) M/uL Hgb (14.0-18.0) g/dl Hct (42.0-52.0) % MCV (80.0-100.0) fL MCH (25.0-34.0) pg MCHC (32.0-36.0) g/dL RDW Std Deviation (36.4-46.3) fL RDW Coeff of Jewels (11.5-14.5) % Plt Count (130-400) K/uL MPV (9.4-12.4) fL Immature Gran % (Auto) % Neut % (Auto) % Lymph % (Auto) % [place] % (Auto) % Eos % (Auto) % Baso % (Auto) % Neut # (Auto) (1.40-6.50) K/uL Lymph # (Auto) (1.20-3.40) K/uL [place] # (Auto) (0.11-0.59) K/uL Eos # (Auto) (0.00-0.50) K/uL Baso # (Auto) (0.00-0.20) K/uL Immature Gran # (Auto) (0.01-0.20) K/uL Sodium (136-145) mmol/L Potassium (3.5-5.1) mmol/L Chloride (98-107) mmol/L Carbon Dioxide (21-32) mmol/L Anion Gap (3-11) BUN (6-23) mg/dl Creatinine (0.6-1.4) mg/dl Est Cr Clr Drug Dosing ml/min eGFR BUN/Creatinine Ratio (10-20) Glucose (70-99(Fasting)) mg/dl POC Glucose (70-99) mg/dl Lactate 3.1 H* (0.4-2.0) mmol/L Calcium (8.6-10.3) mg/dl Magnesium (1.7-2.4) mg/dl Total Bilirubin (0.2-1.0) mg/dl AST (13-39) U/L ALT (7-52) U/L Alkaline Phosphatase (34-104) U/L Ammonia (18-72) umol/L Troponin I High Sens 51.1 H* (0-20) pg/ml Total Protein (6.0-8.3) gm/dl Albumin (3.4-5.0) gm/dl Globulin (2.5-4.0) gm/dl Albumin/Globulin Ratio (0.9-2) Procalcitonin (0-0.5) ng/ml TSH (0.300-4.500) uIu/ml Urine Color Urine Appearance (Clear) Urine pH (4.5-7.5) Ur Specific [place] (1.000-1.030) Urine Protein (Negative) Urine Glucose (UA) (Negative) Urine Ketones (Negative) Urine Blood (Negative) Urine Nitrite (Negative) Urine Bilirubin (Negative) Urine Urobilinogen (Negative) Ur Leukocyte Esterase (Negative) Urine WBC (Auto) (0-5) /hpf Urine RBC (Auto) (0-2) /hpf U Hyaline Cast (Auto) (0-2) /lpf U Epithel Cells (Auto) (0-2) /hpf Urine Bacteria (Auto) (None Seen) Urine Comment Adenovirus (PCR) Not Detected (NotDetected) B. pertussis DNA (PCR) Not Detected (NotDetected) B.parapertussis DNA PCR Not Detected (NotDetected) C. pneumoniae DNA (PCR) Not Detected (NotDetected) Coronavirus OC43 (PCR) Not Detected (NotDetected) Coronavirus HKU1 (PCR) Not Detected (NotDetected) Coronavirus 229E (PCR) Not Detected (NotDetected) SARS-CoV-2 (PCR) Not Detected (NotDetected) Coronavirus NL63 (PCR) Not Detected (NotDetected) Human Metapneumovir PCR Not Detected (NotDetected) Influenza Type A (PCR) Not Detected (NotDetected) Influenza Type B (PCR) Not Detected (NotDetected) M. pneumoniae (PCR) Not Detected (NotDetected) Parainfluenza 1 (PCR) Not Detected (NotDetected) Parainfluenza 2 (PCR) Not Detected (NotDetected) Parainfluenza 3 (PCR) Not Detected (NotDetected) Parainfluenza 4 (PCR) Not Detected (NotDetected) RSV (PCR) Not Detected (NotDetected) Entero/Rhino (PCR) Not Detected (NotDetected) Administered Medications Magnesium Sulfate/Dextrose (Magnesium Sulfate / D5w) 1 gm in 100 mls @ 50 mls/hr IV Q2H RICKI Stop: 08/23/25 17:44 Last Admin: 08/23/25 13:47 Dose: 50 mls/hr Documented By: DEON Discontinued Medications Furosemide (Furosemide 40 Mg/4 Ml Vial) 40 mg IV ONE ONE Stop: 08/23/25 13:29 Last Admin: 08/23/25 13:42 Dose: 40 mg Documented By: DEON Sodium Chloride (Nss) 500 mls @ 999 mls/hr IV .Q31M RICKI Stop: 08/23/25 11:15 Last Infusion: 08/23/25 11:38 Dose: Infused Documented By: Admin: 08/23/25 11:02 Dose: 999 mls/hr Documented By: DEON Cefepime HCl (Maxipime 2000mg) 2,000 mg in 20 mls @ 5 mls/min IV NOW STA; Protocol Stop: 08/23/25 10:40 Last Admin: 08/23/25 12:05 Dose: 5 mls/min Documented By: DEON Sodium Chloride (Nss) 500 mls @ 999 mls/hr IV .Q31M ONE Stop: 08/23/25 11:35 Last Infusion: 08/23/25 11:38 Dose: Infused Documented By: Admin: 08/23/25 11:07 Dose: 999 mls/hr Documented By: DEON Potassium Chloride (Potassium Chloride Crtab 20 Meq Tabcr) 40 meq PO NOW STA Stop: 08/23/25 13:42 Last Admin: 08/23/25 13:47 Dose: 40 meq Documented By: GGG Imaging Data Radiologist's Impression: Chest X-Ray 08/23/25 10:37 SINGLE VIEW CHEST CLINICAL HISTORY: Weakness FINDINGS: An AP, portable, upright chest radiograph is compared to study dated 11/04/2024 and correlated with chest CT dated 06/30/2025. The patient is status post midline sternotomy. A left subclavian central venous infusion port is in place. The heart is enlarged noting atherosclerotic calcification of the thoracic aorta. The pulmonary vasculature is noncongested. Chronic interstitial thickening is similar to previous. Mild scarring/atelectasis is noted at the lung bases. No airspace consolidation or large pleural effusion is identified. Bilateral pulmonary metastases are again noted and measure up to 1.7 cm. These were better assessed on the recent chest CT. No pneumothorax is seen. The skeletal structures are osteopenic. The bony thorax is grossly intact. Degenerative change is noted in the shoulders and spine. IMPRESSION: 1. Cardiomegaly with no acute pulmonary abnormality identified. 2. Pulmonary metastases are again noted, and were better assessed on the recent chest CT. ACT 112: Negative or not required by law. Electronically signed by: Frank Flynn M.D. 08/23/2025 11:[address] 08/23/25 10:38 CT SCAN OF THE BRAIN WITHOUT IV CONTRAST CLINICAL HISTORY: Change in mental status COMPARISON STUDY: CT of the brain dated 09/06/2021. TECHNIQUE: Unenhanced CT scan of the brain is performed from the vertex to the skull base. Images are reviewed in the axial, sagittal, coronal planes. A dose lowering technique was utilized adhering to the principles of ALARA. CT DOSE: 625.8 mGy.cm FINDINGS: Brain parenchyma: There is age-related involutional change noting mild subcortical and periventricular microangiopathic disease. There is no hemorrhage, mass effect, or evidence of acute territorial ischemia by CT criteria. Salgado-white matter differentiation is preserved. No extra-axial fluid collection is seen. Ventricles, sulci, cisterns: Prominent secondary to involutional change. Intracranial vasculature: There is atherosclerotic calcification of the cavernous carotid and vertebral arteries. Calvarium: Unremarkable. Sinuses and mastoids: There is opacification of right anterior ethmoid sinuses. Trace mucosal thickening is seen in the right frontal sinus. The mastoid air cells are well pneumatized. Cerumen is noted in the external auditory canals. Orbits: The bony orbits are grossly intact. There are bilateral ocular lens implants. IMPRESSION: There is no hemorrhage, mass effect, or evidence of acute territorial ischemia by CT criteria. ACT 112: Negative or not required by law. Electronically signed by: Frank Flynn M.D. 08/23/2025 12:22 PM Discharge Plan Visit Data Chief Complaint: Confusion ED Provider: Elijah Fallon Discharge Problem: Cellulitis of left leg, Acute confusion, Electrolyte abnormality, Elevated troponin Patient Disposition: Admitted As Inpatient Condition: Good Forms Stand Alone Forms: My [facility] Prescriptions Prescriptions: No Action timolol maleate 0.25 % Drops 1 drp OPB HS aspirin [Edwardo Low Dose Aspirin] 81 mg Tablet,Delayed Release (Dr/Ec) 81 mg PO QAM pantoprazole 40 mg Tablet,Delayed Release (Dr/Ec) 40 mg PO DAILYBB docusate sodium 100 mg Tablet 100 mg PO AMHS finasteride 5 mg Tablet 5 mg PO QAM nitroglycerin 0.4 mg tablet, sublingual 0.4 mg sublingual UD PRN (Reason: Chest Pain) Rx Instructions: place 1 tab under tongue every 5 minutes as needed for chest pain up to 3 doses in 15 minutes melatonin 5 mg Tablet 10 mg PO HS atorvastatin 40 mg Tablet 40 mg PO QAM gabapentin 300 mg Capsule 300 mg PO HS fluticasone propion-salmeterol [Wixela Inhub] 250-50 mcg/dose Blister With Device 1 inh INHALATION BID insulin glargine [Lantus Solostar U-100 Insulin] 100 unit/mL (3 mL) insulin pen 12 unit SUBCUT QAM isosorbide mononitrate 60 mg tablet extended release 24 hr 60 mg PO QAM torsemide 100 mg Tablet 100 mg PO DAILY Rx Instructions: Take 100mg w/ 20mg to equal 120mg by mouth every morning. cetirizine 1 mg/mL solution 5 mg PO HS oxycodone 5 mg Tablet 5 mg PO Q4H PRN (Reason: pain) Qty: 7 0RF meclizine 25 mg tablet 25 mg PO BID sertraline 50 mg tablet 50 mg PO DAILY Tradjenta 5 mg tablet 5 mg PO DAILY Cabometyx 60 mg tablet 60 mg PO DAILY torsemide 20 mg tablet 20 mg PO DAILY Rx Instructions: Take 20mg w/ 100mg to equal 120mg by mouth every morning. metoprolol succinate 25 mg tablet extended release 24 hr 25 mg PO DAILY benzonatate 100 mg capsule 100 mg PO TID PRN (Reason: cough) Qty: 20 0RF albuterol sulfate 90 mcg/actuation HFA aerosol inhaler 2 inha INH QID PRN (Reason: shortness of breath or wheezing) Qty: 1 0RF Referrals Referrals: Buzz Rainey MD [Primary Care Provider] -
[2025-08-23] MEDS: SODIUM CHLORIDE 0.9% 500 ML IV SCH (11:02)
[2025-08-23] MEDS: SODIUM CHLORIDE 0.9% 500 ML IV ONE (11:07)
--- NOTE | 2025-08-23 11:22 | XRay Report ---
SINGLE VIEW CHEST CLINICAL HISTORY: Weakness FINDINGS: An AP, portable, upright chest radiograph is compared to study dated 11/04/2024 and correla aurelio with chest CT dated 06/30/2025. The patient is status post midline sternotomy. A left subclavian c entral venous infusion port is in place. The heart is enlarged noting atherosclerotic calcification o f the thoracic aorta. The pulmonary vasculature is noncongested. Chronic interstitial thickening is s imilar to previous. Mild scarring/atelectasis is noted at the lung bases. No airspace consolidation o r large pleural effusion is identified. Bilateral pulmonary metastases are again noted and measure up to 1.7 cm. These were better assessed on the recent chest CT. No pneumothorax is seen. The skeletal structures are osteopenic. The bony thorax is grossly intact. Degenerative change is noted in the minerva ulders and spine. IMPRESSION: 1. Cardiomegaly with no acute pulmonary abnormality identified. 2. Pulmonary metastases are again noted, and were better assessed on the recent chest CT. ACT 112: Negative or not required by law. Electronically signed by: Frank Flynn M.D. 08/23/2025 11:21 AM
[2025-08-23 11:25] LABS: Alanine Aminotransferase 53.0 U/L (7-52); Albumin Globulin Ratio 0.5 (0.9-2); Albumin Level 2.4 gm/dl (3.4-5.0); Alkaline Phosphatase 395.0 U/L (34-104); Anion Gap 13.0 (3-11); Bilirubin,Total 2.7 mg/dl (0.2-1.0); Blood Urea Nitrogen 68.0 mg/dl (6-23); Calcium 8.7 mg/dl (8.6-10.3); Carbon Dioxide 24.0 mmol/L (21-32); Chloride 107.0 mmol/L (98-107); Creatinine Clr Calc Pharmacy 27.7 ml/min; Globulin 4.5 gm/dl (2.5-4.0); Glucose 131.0 mg/dl (70-99(Fasting)); Magnesium 1.6 mg/dl (1.7-2.4); Potassium 3.4 mmol/L (3.5-5.1); Sodium 144.0 mmol/L (136-145); Total Protein 6.9 gm/dl (6.0-8.3)
[2025-08-23 11:29] LABS: Hematocrit (blood only) 37.5 % (42.0-52.0); Hemoglobin 12.3 g/dl (14.0-18.0); Mean Corpuscular Hemoglobin 28.8 pg (25.0-34.0); Mean Corpuscular Volume 87.8 fL (80.0-100.0); Platelet Count 27 K/uL (130-400); RDW Standard Deviation 52.7 fL (36.4-46.3); Red Blood Count 4.27 M/uL (4.70-6.10); White Blood Count 7.51 K/ul (4.8-10.8)
[2025-08-23 11:30] LABS: Immature Granulocytes # (auto) 0.03 K/uL (0.01-0.20); Immature Granulocytes % (auto) 0.4 %
[2025-08-23 11:41] LABS: Thyroid Stimulating Hormone 1.793 uIu/ml (0.300-4.500)
[2025-08-23] MEDS: CEFEPIME 2000MG 2,000 MG/20 ML SYR IV STA (12:05)
[2025-08-23 12:15] LABS: Appearance Urine Clear (Clear); Bacteria Urine Automated None Seen (None Seen); Epithelial Cell Urine Auto 0-2 /hpf (0-2); Glucose Urine UA Negative (Negative); WBC Urine Automated 0-5 /hpf (0-5)
--- NOTE | 2025-08-23 12:24 | CT Scan Report ---
CT SCAN OF THE BRAIN WITHOUT IV CONTRAST CLINICAL HISTORY: Change in mental status COMPARISON STUDY: CT of the brain dated 09/06/2021. TECHNIQUE: Unenhanced CT scan of the brain is performed from the vertex to the skull base. Images are reviewed in the axial, sagittal, coronal planes. A dose lowering technique was utilized adhering to the principles of ALARA. CT DOSE: 625.8 mGy.cm FINDINGS: Brain parenchyma: There is age-related involutional change noting mild subcortical and periventricula r microangiopathic disease. There is no hemorrhage, mass effect, or evidence of acute territorial isc hemia by CT criteria. Salgado-white matter differentiation is preserved. No extra-axial fluid collection is seen. Ventricles, sulci, cisterns: Prominent secondary to involutional change. Intracranial vasculature: There is atherosclerotic calcification of the cavernous carotid and vertebr al arteries. Calvarium: Unremarkable. Sinuses and mastoids: There is opacification of right anterior ethmoid sinuses. Trace mucosal thicken ing is seen in the right frontal sinus. The mastoid air cells are well pneumatized. Cerumen is noted in the external auditory canals. Orbits: The bony orbits are grossly intact. There are bilateral ocular lens implants. IMPRESSION: There is no hemorrhage, mass effect, or evidence of acute territorial ischemia by CT arleen enely. ACT 112: Negative or not required by law. Electronically signed by: Frank Flynn M.D. 08/23/2025 12:22 PM
[2025-08-23 12:49] LABS: Chlamydia pneumoniae PCR Not Detected (NotDetected); Coronavirus 229E PCR Not Detected (NotDetected); Coronavirus CoV-2 (COVID19)PCR Not Detected (NotDetected); Coronavirus HKU1 PCR Not Detected (NotDetected); Coronavirus NL63 PCR Not Detected (NotDetected); Coronavirus OC43PCR Not Detected (NotDetected); Human Metapneumovirus PCR Not Detected (NotDetected); Parainfluenza Virus 1 PCR Not Detected (NotDetected); Parainfluenza Virus 2 PCR Not Detected (NotDetected); Parainfluenza Virus 3 PCR Not Detected (NotDetected); Parainfluenza Virus 4 PCR Not Detected (NotDetected); Respiratory Syncytial VirusPCR Not Detected (NotDetected); Rhinovirus/Enterovirus PCR Not Detected (NotDetected)
--- NOTE | 2025-08-23 13:40 | History & Physical Report ---
Date of Service August 23, 2025 Assessment & Plan (1) Left leg cellulitis: Plan: Significant past medical history of hepatocellular carcinoma with mets and history of renal cell carcinoma on the left side Presented with deconditioning and noted to have left leg cellulitis with bilateral leg swelling No sepsis .Lactate is minimally high but will not give any more Fluid Blood cultures were taken and he was started with intravenous cefepime which will be continued (2) Failure to thrive in adult: Plan: Has not been eating or drinking normally for the last 3 days Has not been taking any medications for the same Time He was noted to be at the same place on 3 consecutive days by the family members Possible change in mental status and was brought in today to the emergency room No significant change in mental status noted Will get PT and OT evaluation and will likely need placement (3) Hepatocellular carcinoma: Plan: Hepatocellular carcinoma diagnosed in July 2023 and has been getting chemotherapy through [facility] oncologist Recent CT of the chest and CT of the abdomen and pelvis showed spreading of the disease He has been on a new chemo medication for the last few days or so Will get oncology involved during this admission Increased LFTs Likely secondary to metastatic disease (4) NYHA class 2 congestive heart failure with preserved left ventricular function: Plan: Has chronic heart failure with preserved EF Presented with increasing edema but no shortness of breath at rest Will give Lasix and monitor PRP (5) S/P CABG x 4: Plan: Denies any cardiac symptoms and will continue current medications Troponin mildly high likely secondary to CKD (6) Chronic kidney disease, stage III (moderate): Plan: Has been under care of [facility] show operations supervisor Creatinine remains stable but shows significant edema involving the legs as he has not been taking his Demadex for the last 3 or 4 days Will start Lasix 40 mg twice daily Nephrology consult Electrolyte abnormality Has hypokalemia and hypomagnesemia Will replace and recheck (7) Chronic obstructive pulmonary disease: Plan: Remains stable and will continue current medications (8) Cancer of left kidney: Plan: Status post left nephrectomy DVT prophylaxis SCDs No pharmacologic prophylaxis due to low platelet CODE STATUS DNR/DNI Discussed with the family members History of Present Illness Chief Complaint: Inability to move around and has not been drinking or eating for the last 3 days Primary Care Provider: Buzz Rainey MD he is a 80-year-old male with significant past medical history of hepatocellular carcinoma with ongoing chemo, type 2 diabetes, CAD status post CABG x 4, hypertensive heart disease, history of unilateral nephrectomy, chronic heart failure with preserved EF, hyperlipidemia, chronic kidney disease stage IV, COPD and GERD apparently has been noted to be weak and lethargic and remaining in chair for the last 3 days without any movement which was noted by the family members on 3 separate visits. He was also noted to be pleasantly confused today and was brought into the emergency room for further evaluation. He has multiple medical problems as mentioned above and so far has been taking care of himself and lives alone at home. For the last 3 or 4 days he has been weak and lethargic and has not been doing his usual activities, like come out of chair and eat and drink the way he used to do. He denies any fever and or chills, has been making out urine and occasionally incontinent of bowel. He has a leg ulcer on the left side which seems to be spreading with redness and tenderness and associated with increasing swelling of the legs but denies any shortness of breath or chest pain at rest. He was noted to have low platelet 27, significant leg swelling on both sides with left leg cellulitis and significant electrolyte imbalance with profound weakness. He was admitted to [facility] telemetry unit for continuation of care. Allergies Allergy/AdvReac Type Severity Reaction Status Date / Time amoxicillin Allergy Intermediate RASH, Verified 11/04/24 10:44 ELEVATED PULSE clavulanic acid Allergy Intermediate RASH AND Verified 11/04/24 10:44 ELEVATED PULSE lisinopril Allergy Intermediate COUGH Verified 11/04/24 10:44 Home Medications Medication Instructions Recorded Confirmed Type aspirin 81 mg tablet,delayed 81 mg PO QAM 09/02/18 08/23/25 History release (Edwardo Low Dose Aspirin) docusate sodium 100 mg tablet 100 mg PO AMHS 09/02/18 08/23/25 History finasteride 5 mg tablet 5 mg PO QAM 09/02/18 08/23/25 History pantoprazole 40 mg tablet,delayed 40 mg PO DAILYBB 09/02/18 08/23/25 History release timolol maleate 0.25 % eye drops 1 drp OPB HS 09/02/18 08/23/25 History atorvastatin 40 mg tablet 40 mg PO QAM 06/24/21 08/23/25 History fluticasone 250 mcg-salmeterol 50 1 inh inhalation BID 06/24/21 08/23/25 History mcg/dose blistr powdr for inhalation (Wixela Inhub) gabapentin 300 mg capsule 300 mg PO HS 06/24/21 08/23/25 History melatonin 5 mg tablet 10 mg PO HS 06/24/21 08/23/25 History nitroglycerin 0.4 mg sublingual 0.4 mg sublingual UD PRN Chest Pain 06/24/21 08/23/25 History tablet isosorbide mononitrate 60 mg 60 mg PO QAM 08/14/21 08/23/25 History tablet,extended release 24 hr cetirizine 1 mg/mL oral solution 5 mg PO HS 06/20/23 08/23/25 History oxycodone 5 mg tablet 5 mg PO Q4H PRN pain #7 tabs 06/20/23 08/23/25 Rx torsemide 100 mg tablet 100 mg PO DAILY 06/20/23 08/23/25 History insulin glargine 100 unit/mL (3 12 unit subcut QAM 05/29/24 08/23/25 History mL) subcutaneous pen (Lantus Solostar U-100 Insulin) albuterol sulfate 90 mcg/actuation 2 inha inhalation QID PRN 11/04/24 08/23/25 Rx aerosol inhaler shortness of breath or wheezing #1 inhaler benzonatate 100 mg capsule 100 mg PO TID PRN cough #20 caps 11/04/24 08/23/25 Rx metoprolol succinate 25 mg 25 mg PO DAILY 11/04/24 08/23/25 History tablet,extended release 24 hr torsemide 20 mg tablet 20 mg PO DAILY 11/04/24 08/23/25 History cabozantinib 60 mg tablet 60 mg PO DAILY 08/23/25 08/23/25 History (Cabometyx) linagliptin 5 mg tablet (Tradjenta) 5 mg PO DAILY 08/23/25 08/23/25 History meclizine 25 mg tablet 25 mg PO BID 08/23/25 08/23/25 History sertraline 50 mg tablet 50 mg PO DAILY 08/23/25 08/23/25 History Past Med/Surg History Problem List NYHA class 2 congestive heart failure with preserved left ventricular function Failure to thrive in adult Left leg cellulitis COVID-19 (Acute) Sleep apnea CPAP Hypertension Diabetes mellitus, type 2 Chronic obstructive pulmonary disease inhaler daily/prn Atrial fibrillation Aortic valve disorder Jeremi Nova Lower extremity edema Hepatocellular carcinoma Diabetic peripheral neuropathy associated with type 2 diabetes mellitus Loss of protective sensation of skin of foot Coronary atherosclerosis of [place] coronary vessel Chronic kidney disease, stage III (moderate) Hyperlipidemia S/P CABG x 4 (Acute) 2008 @ [facility] [place] Medical History GERD (gastroesophageal reflux disease) Cancer of left kidney 2009--sx Glaucoma bilt eyes Surgical History Port-A-Cath in place (08/21/23) Access Port Placement with Fluoroscopy Left Subclavian(Left) - Mio Younger, DO History of carpal tunnel release bilt History of colonoscopy History of cholecystectomy History of nephrectomy 2009--L kidney @ [facility] [place] History of bilateral cataract extraction History of cardiac cath 2008 @ [facility], no stent---follows with Dr. Brock Family History Mother Family history of diabetes mellitus Other Heart disease Social History Smoking Status: Never smoker Tobacco Type: Smokeless Tobacco (Dip or Chew) Second Hand Exposure: No; Do You Dip or Chew Tobacco: No; Hx Alcohol Use: No Hx Substance Use: No Preferred Language: Spanish Communication Ability: Effective Mathematics Instructor Required: No Beliefs That Will Affect Care: None marital status: Current Living Situation: Spouse Current Living Situation Comment: home with current occupational status: retired How many Children do You have: 0 Feels Safe at Home: Yes Diet: diabetic during the past year weight has: decreased > 10 lbs Assistive Devices: Cane and CPAP Review of Systems Review of Systems: All systems reviewed and are unremarkable except as noted below Physical Exam Physical Exam: Lying in bed without any acute distress Constitutional: well developed, well nourished, + ill appearing and + obese Eyes: PERRL, conjunctivae normal, anicteric sclerae ENMT: external ear and nose normal, oropharynx normal Neck: trachea midline, no thyromegaly Respiratory: no respiratory distress Auscultation: + diminished lung sounds and + crackles ( minimal bibasilar crackles) Cardiovascular: Rate/Rhythm: regular rate and regular rhythm; not tachycardic Heart Sounds: normal S1 and normal S2; no murmur Extremities: + edema ( 2+ edema bilaterally. Left leg cellulitis involving the lower leg) Gastrointestinal (Abdomen): Inspection/Auscultation: + abdomen distended and normal bowel sounds Percussion/Palpation: abdomen soft; abdomen nontender Musculoskeletal: No acute arthritis involving any of the joint Neurologic: normal touch/pain/proprioception and moves all extremities ( General Very weak and lethargic); no focal motor deficits Lymphatic: no cervical or axillary lymphadenopathy Results & Data Results & Data Vital Signs (Past 12 Hours) Vital Signs Temp Pulse Pulse Resp BP BP Pulse Ox 08/23/25 12:45 93 H 18 176/96 H 99 08/23/25 11:49 75 18 159/95 H 94 08/23/25 11:11 91 H 08/23/25 11:00 99 08/23/25 10:59 36.3 C L 101 H 18 162/93 H 99 08/23/25 10:30 100 H 18 162/93 H 100 O2 Del Method 08/23/25 12:45 Room Air 08/23/25 11:49 Room Air 08/23/25 11:11 08/23/25 11:00 Room Air 08/23/25 10:59 Room Air 08/23/25 10:30 Room Air Laboratory Results Short CBC 08/23/25 Range/Units 10:40 WBC 7.51 (4.8-10.8) K/ul Hgb 12.3 L (14.0-18.0) g/dl Hct 37.5 L (42.0-52.0) % Plt Count 27 L* (130-400) K/uL BMP 08/23/25 10:40 Sodium 144 Potassium 3.4 L Chloride 107 Carbon Dioxide 24 BUN 68 H Creatinine 2.43 H Glucose 131 H Calcium 8.7 Liver Function 08/23/25 Range/Units 10:40 Total Bilirubin 2.7 H (0.2-1.0) mg/dl AST 185 H (13-39) U/L ALT 53 H (7-52) U/L Alkaline Phosphatase 395 H (34-104) U/L Albumin 2.4 L (3.4-5.0) gm/dl Urine 08/23/25 Range/Units 11:15 Urine Color Dark Yellow Urine Appearance Clear (Clear) Urine pH 6.0 (4.5-7.5) Ur Specific [place] 1.015 (1.000-1.030) Urine Protein 1+ H (Negative) Urine Glucose (UA) Negative (Negative) Medications Administered Current Inpatient Medications Furosemide (Furosemide 40 Mg/4 Ml Vial) 40 mg IV BID RICKI Stop: 09/22/25 20:59 Heparin Sodium (Porcine) (Heparin Sod 5,000 Unit/0.5 Ml Vial) 5,000 units SQ Q12 RICKI Stop: 09/22/25 20:59 Cefepime HCl (Maxipime 2000mg) 2,000 mg in 20 mls @ 5 mls/min IV Q12H RICKI; Protocol Stop: 08/30/25 13:29
[2025-08-23] MEDS: FUROSEMIDE 40 MG/4 ML VIAL IV ONE (13:42)
[2025-08-23] MEDS: MAGNESIUM SULFATE / D5W 1 GM/100 ML BAG IV SCH (13:47)
[2025-08-23] MEDS: POTASSIUM CHLORIDE CRTAB 20 MEQ TABCR PO STA (13:47)
[2025-08-23] MEDS: POTASSIUM CHLORIDE / WTR 10 MEQ/100 ML PLCT IV SCH (13:56)
[2025-08-23] MEDS ORDERED: NITROGLYCERIN SL 0.4 MG/TAB TAB SL PRN (14:57)
[2025-08-23] MEDS ORDERED: GLUCOSE 40% GEL 15 GM TUBE PO PRN (15:15)
[2025-08-23] MEDS ORDERED: GLUCAGON FOR INJ 1 MG VIAL SQ PRN (15:15)
[2025-08-23] MEDS ORDERED: GLUCOSE 10 TAB/TUBE PO PRN (15:15)
[2025-08-23] MEDS ORDERED: CARBOHYDRATES FOR HYPOGLYCEMIA PO PRN (15:15)
[2025-08-23] MEDS ORDERED: DEXTROSE 50% 50 ML SYRINGE IV PRN (15:15)
[2025-08-23] MEDS: ISOSORBIDE MONO EXTENDED REL 60 MG TABCR PO SCH (15:46)
[2025-08-23] MEDS: METOPROLOL SUCC 25MG EXT REL TAB PO SCH (15:46)
[2025-08-23] MEDS: SERTRALINE HCL 50 MG TABLET PO SCH (15:46)
[2025-08-23] MEDS: FUROSEMIDE 40 MG/4 ML VIAL IV SCH (16:29)
[2025-08-23] MEDS: INSULIN ASPART PER UNIT CHARGE SC SCH (17:18)
--- NOTE | 2025-08-23 19:27 | Electrocardiogram Report ---
Test Reason : Blood Pressure : */* mmHG Vent. Rate : 97 BPM Atrial Rate : 98 BPM P-R Int : 152 ms QRS Dur : 94 ms QT Int : 428 ms P-R-T Axes : * -16 120 degrees QTcB Int : 543 ms Sinus rhythm with Premature atrial complexes Nonspecific T wave abnormality Abnormal ECG When compared with ECG of 30-Jul-2025 11:17, Premature atrial complexes are now Present AL interval has decreased QT has lengthened Confirmed by Tomás Del Rio ([id number]) on 08/23/2025 7:27:02 PM Referred By: Confirmed By: Tomás Del Rio
[2025-08-23] MEDS: DOCUSATE SODIUM 100 MG CAP PO SCH (20:33)
[2025-08-23] MEDS ORDERED: HEPARIN SOD 5,000 UNIT/0.5 ML VIAL SQ SCH (21:00)
[2025-08-23] MEDS: TIMOLOL MALEATE 0.25% OP SOLN 5 ML BTL OP SCH (21:11)
[2025-08-23] MEDS: CETIRIZINE HCL 10 MG TABLET PO SCH (21:11)
[2025-08-23] MEDS: GABAPENTIN 300 MG CAP PO SCH (21:11)
[2025-08-23] MEDS: MELATONIN 3 MG TAB PO SCH (21:11)
[2025-08-24] MEDS ORDERED: CEFEPIME 2000MG 2,000 MG/20 ML SYR IV SCH
[2025-08-24] MEDS: CEFEPIME 1000MG 1,000 MG/10 ML SYR IV SCH (00:30)
[2025-08-24 08:14] LABS: Hematocrit (blood only) 32.2 % (42.0-52.0); Hemoglobin 10.8 g/dl (14.0-18.0); Mean Corpuscular Hemoglobin 29.8 pg (25.0-34.0); Mean Corpuscular Volume 89.0 fL (80.0-100.0); Platelet Count 22 K/uL (130-400); RDW Standard Deviation 55.0 fL (36.4-46.3); Red Blood Count 3.62 M/uL (4.70-6.10); White Blood Count 6.61 K/ul (4.8-10.8)
[2025-08-24] MEDS: ATORVASTATIN 40 MG TAB PO SCH (08:20)
[2025-08-24] MEDS: FLUTICASONE/VILANTEROL 200/25MCG 14 PUFFS/INHALER INH SCH (08:20)
[2025-08-24] MEDS: FINASTERIDE 5 MG TAB PO SCH (08:20)
[2025-08-24] MEDS: ASPIRIN 81 MG ECTAB PO SCH (08:20)
[2025-08-24 08:35] LABS: Immature Granulocytes # (auto) 0.02 K/uL (0.01-0.20); Immature Granulocytes % (auto) 0.3 %
[2025-08-24 08:36] LABS: Anion Gap 10.0 (3-11); Blood Urea Nitrogen 63.0 mg/dl (6-23); Calcium 8.1 mg/dl (8.6-10.3); Carbon Dioxide 24.0 mmol/L (21-32); Chloride 110.0 mmol/L (98-107); Creatinine Clr Calc Pharmacy 30.1 ml/min; Glucose 95.0 mg/dl (70-99(Fasting)); Magnesium 2.0 mg/dl (1.7-2.4); Potassium 3.6 mmol/L (3.5-5.1); Sodium 144.0 mmol/L (136-145)
[2025-08-24] MEDS: LANTUS PER UNIT CHARGE SQ SCH (08:42)
--- NOTE | 2025-08-24 09:42 | Nephrology Consultation ---
Date of Consultation August 24, 2025 Assessment & Plan (1) CKD (chronic kidney disease) stage 4, GFR 15-29 ml/min: CKD 4 w/ baseline creatinine as OP 2-2.4, minimal proteinuria historically at 156 mg/gm. on torsemide 120 mg daily. second urine specimen this admission is from a catheter and therefore difficult to interpret in terms of inflammation; no e/o obstruction (now that alcaraz placed) or of infection renal function remains at baseline w/ acceptable electrolytes and appropriately managed volume overload no indication for dedicated renal imaging or for dialysis discussion at this time. >>some lability in BP >> and some lower sbp today, as low as 90s >> continue to monitor >currently on lasix 40 mg IV bid >> continue >continue to hold torsemide -no indication for fluid limit for now but may need to reconsider this moving forward 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: on OP cabazotanib >> f/u oncology recommendations (3) Thrombocytopenia: bleeding precautions >daily bmp/cbc >further as per hematology/oncology; no evidence that thrombocytopenia is impacting renal function at this time History of Present Illness Reason for Consultation: CKD 4 Requesting Physician: Dr Kelly Attending Physician: Cheryl Araiza MD History of Present Illness 80 y/o M whom I'm asked to see for CKD 4 was admitted yesterday for mgt of LLE cellulitis after visitors noted lethargy, generalized weakness, and sitting for at least 3 days in the same chair w/o moving; also noted to have confusion on presentation. PMH includes CKD 4 w/ baseline creatinine 2-2.4 and 150 mg proteinuria. DM w/ neuropathy, HTN, CAD s/p 4V CABG, HFpEF, solitary R kidney since 2009 after nephrectomy for renal cell carcinoma, metastatic hepatocellular carcinoma dx'd 07/2023 on active CTX at [facility] per report (few details available), EMILE formerly on bipap currently untreated. COPD/restrictive lung dz; remote hx of EtOH use, HL. He lives alone and was noted not to be active, possibly unable to take care of self at home. Had poor po intake in these days prior to admission and not taking medications appropriately either same timeframe. Noted on arrival here to have large LLE leg ulcer w/ concern for spreading for which he was started on cefepime. blood cultures are NGTD. He had urinary retention in ED > straight cath'd for over 600 mL urine; then noted to have 750 mL retained urine on bladder scan and alcaraz placed. He denies any fever and or chills, has dyspnea w/ marked exertion only he tells me; tells me he feels markedly improved today compared to yesterday. no n/v/abd pain/diarrhea; denies has been making out urine and occasionally incontinent of bowel. feels his leg edema and ulcer are improving. He denies chest pain or palpitations; denies falls or leg trauma prior to admission. Allergies Allergy/AdvReac Type Severity Reaction Status Date / Time amoxicillin Allergy Intermediate RASH, Verified 11/04/24 10:44 ELEVATED PULSE clavulanic acid Allergy Intermediate RASH AND Verified 11/04/24 10:44 ELEVATED PULSE lisinopril Allergy Intermediate COUGH Verified 11/04/24 10:44 Home Medications Medication Instructions Recorded Confirmed Type aspirin 81 mg tablet,delayed 81 mg PO QAM 09/02/18 08/23/25 History release (Edwardo Low Dose Aspirin) docusate sodium 100 mg tablet 100 mg PO AMHS 09/02/18 08/23/25 History finasteride 5 mg tablet 5 mg PO QAM 09/02/18 08/23/25 History pantoprazole 40 mg tablet,delayed 40 mg PO DAILYBB 09/02/18 08/23/25 History release timolol maleate 0.25 % eye drops 1 drp OPB HS 09/02/18 08/23/25 History atorvastatin 40 mg tablet 40 mg PO QAM 06/24/21 08/23/25 History fluticasone 250 mcg-salmeterol 50 1 inh inhalation BID 06/24/21 08/23/25 History mcg/dose blistr powdr for inhalation (Wixela Inhub) gabapentin 300 mg capsule 300 mg PO HS 06/24/21 08/23/25 History melatonin 5 mg tablet 10 mg PO HS 06/24/21 08/23/25 History nitroglycerin 0.4 mg sublingual 0.4 mg sublingual UD PRN Chest Pain 06/24/21 08/23/25 History tablet isosorbide mononitrate 60 mg 60 mg PO QAM 08/14/21 08/23/25 History tablet,extended release 24 hr cetirizine 1 mg/mL oral solution 5 mg PO HS 06/20/23 08/23/25 History oxycodone 5 mg tablet 5 mg PO Q4H PRN pain #7 tabs 06/20/23 08/23/25 Rx torsemide 100 mg tablet 100 mg PO DAILY 06/20/23 08/23/25 History insulin glargine 100 unit/mL (3 12 unit subcut QAM 05/29/24 08/23/25 History mL) subcutaneous pen (Lantus Solostar U-100 Insulin) albuterol sulfate 90 mcg/actuation 2 inha inhalation QID PRN 11/04/24 08/23/25 Rx aerosol inhaler shortness of breath or wheezing #1 inhaler benzonatate 100 mg capsule 100 mg PO TID PRN cough #20 caps 11/04/24 08/23/25 Rx metoprolol succinate 25 mg 25 mg PO DAILY 11/04/24 08/23/25 History tablet,extended release 24 hr torsemide 20 mg tablet 20 mg PO DAILY 11/04/24 08/23/25 History cabozantinib 60 mg tablet 60 mg PO DAILY 08/23/25 08/23/25 History (Cabometyx) linagliptin 5 mg tablet (Tradjenta) 5 mg PO DAILY 08/23/25 08/23/25 History meclizine 25 mg tablet 25 mg PO BID 08/23/25 08/23/25 History sertraline 50 mg tablet 50 mg PO DAILY 08/23/25 08/23/25 History Patient History Medical History GERD (gastroesophageal reflux disease) Cancer of left kidney 2009--sx Glaucoma bilt eyes Surgical History Port-A-Cath in place (08/21/23) Access Port Placement with Fluoroscopy Left Subclavian(Left) - Mio Younger DO History of carpal tunnel release bilt History of colonoscopy History of cholecystectomy History of nephrectomy 2009--L kidney [place] [facility] [place] History of bilateral cataract extraction History of cardiac cath 2008 @ [facility], no stent---follows with Dr. Brock Family History Mother Family history of diabetes mellitus Other Heart disease Social History Smoking Status: Former smoker Tobacco Type: Smokeless Tobacco (Dip or Chew) Second Hand Exposure: No; Do You Dip or Chew Tobacco: No; Hx Alcohol Use: No Hx Substance Use: No Preferred Language: Syriac Communication Ability: Effective Track Superintendent Required: No Beliefs That Will Affect Care: None marital status: Current Living Situation: Alone Current Living Situation Comment: home alone with BR and bedroom on same floor current occupational status: retired How many Children do You have: 0 Feels Safe at Home: Yes Diet: diabetic during the past year weight has: decreased > 10 lbs Assistive Devices: None Review of Systems 2 Review of Systems: All systems reviewed & are unremarkable except as noted in HPI & below Physical Exam 2 Constitutional: well developed and well nourished Eyes: EOM intact bilaterally ENMT: Mouth: + muffled voice (hoarse), + dry oral mucous membranes and + poor dentition Respiratory: normal respiratory effort Auscultation: + diminished lung sounds Cardiovascular: Rate/Rhythm: regular rate and regular rhythm Extremities: + edema (2-3+ BLE) Gastrointestinal (Abdomen): Inspection/Auscultation: normal bowel sounds P ercussion/Palpation: abdomen soft; abdomen nontender Musculoskeletal: Extremities: strength 5/5 throughout Skin: L calf red; R patella bruised Neurologic: burkett, fluent speech, no tremor Results & Data Vital Signs (Past 12 Hours) Vital Signs Temp Pulse Resp BP Pulse Ox O2 Del Method 08/24/25 08:47 36.3 C L 69 18 115/58 L 95 Room Air 08/24/25 04:14 36.4 C L 66 20 114/67 95 Room Air 08/24/25 00:09 36.5 C 70 20 113/66 95 Room Air Laboratory Results 08/24/25 15:54 08/24/25 07:21 Diagnostic Findings LLE doppler No DVT Subcutaneous avascular cystic lesion measuring 40 x 20 x 47 mm within the proximal to mid left lateral calf. cxr 1. Cardiomegaly with no acute pulmonary abnormality identified. 2. Pulmonary metastases are again noted, and were better assessed on the recent chest CT. head CT no acute process, including no e/o acute ischemia
--- NOTE | 2025-08-24 10:32 | Hospitalist Progress Note ---
Date of Service August 24, 2025 Assessment & Plan (1) Left leg cellulitis: Plan 80-year-old male with significant past medical history of hepatocellular carcinoma with ongoing chemo, type 2 diabetes, CAD status post CABG x 4, hypertensive heart disease, history of unilateral nephrectomy, chronic heart failure with preserved EF, hyperlipidemia, chronic kidney disease stage IV, COPD and GERD apparently has been noted to be weak and lethargic and remaining in chair for the last 3 days without any movement which was noted by the family members on 3 separate visits. He was also noted to be pleasantly confused on the day of arrival and was brought into the emergency room for further evaluation. He is being managed for the following: Left leg cellulitis: RO DVT Generalized Weakness Likely metabolic encephalopathy Presented with deconditioning and noted to have left leg cellulitis with bilateral leg swelling. Pt apprently immobile x 3 days w/ mentation changes triggering hospital presentation. No sepsis at presentation. Lactate minimally high, downtrended. Due to prolonged immobility, ro ble dvt. Also has h/o HCC with mets and RCC x left. c/w cefepime 08/23, add probiotic f/u blood cultures 08/23 f/u venous doppler. Failure to thrive in adult: Pt has not been eating or drinking normally for the last 3 days travel pta. Has not been taking any medications for the same time He was noted to be at the same place on 3 consecutive days by the family members. Possible change in mental status and was brought in today to the emergency room PT and OT evaluation and will likely need placement Nutrition consult. Hepatocellular carcinoma: Thrombocytopenia: iso chemotherapy Transaminitis: Likely in the setting of metastatic disease. Will get hepatitis panel. Hepatocellular carcinoma diagnosed in July 2023 and has been getting chemotherapy through [facility] oncologist Recent CT of the chest and CT of the abdomen and pelvis showed spreading of the disease He has been on a new chemo medication for the last few days or so His platelets are dropping, repeat platelets 2 pm, transfuse if <10K or if w/ s/s of bleed w/ Plt < 50K. Will get oncology involved during this admission Trend LFT NYHA class 2 congestive heart failure with preserved left ventricular function: Has chronic heart failure with preserved EF Presented with increasing edema but no shortness of breath at rest c/w iv Lasix and monitor PRP. Chronic kidney disease, stage IV Electrolyte abnormality Has been under care of [facility] quantitative analyst developer Creatinine remains stable but shows significant edema involving the legs as he has not been taking his Demadex for the last 3 or 4 days Started on Lasix 40 mg twice daily, Nephrology consult c/w diuresis, monitor and replete electrolytes. Other chronic medical conditions: Continue with/resume home meds as when able. CAD, status post CABG x 4: Denied any chest pain. Continue home meds. COPD: Stable. Continue home meds. Left kidney cancer: Status post left nephrectomy DVT prophylaxis: SCDs, given thrombocytopenia. Aspirin on hold. CODE STATUS: DNR/DNI. Admission and Anticipated Discharge Date Admission Date: August 23, 2025 Subjective Patient was seen and examined at bedside. Patient was sitting up in bed, on room air, NAD, resting comfortably. Patient denies pain, he is oriented x 1, denies sore throat or cough. Denies chest pain or sob. Physical Exam Physical Exam: GENERAL: Alert and oriented x1. NAD, on RA. Appears chronically ill. Obese class I. HEENT: No pallor, no icterus. Pupils equal, round and reactive to light. Oral mucosa moist. NECK: No JVD, no neck masses. HEART: S1 and S2 heard. Regular rate and rhythm. No murmur, no gallop. RESPIRATORY SYSTEM: Normal AP diameter. No accessory muscle use. No wheezing, minimal bb crackles. ABDOMEN: Soft, bowel sounds present, nontender, no distention. CENTRAL NERVOUS SYSTEM: No facial droop. Speech is clear. Obeys simple commands. Moves extremities. EXTREMITIES: 2+ ble edema, LLE w/ erythema/warmth. Results & Data Results & Data Vital Signs (Past 12 Hours) Vital Signs Temp Pulse Resp BP Pulse Ox O2 Del Method 08/24/25 08:47 36.3 C L 69 18 115/58 L 95 Room Air 08/24/25 08:40 Room Air 08/24/25 04:14 36.4 C L 66 20 114/67 95 Room Air 08/24/25 00:09 36.5 C 70 20 113/66 95 Room Air
[2025-08-24] MEDS: ADVANCED PROBIOTIC 625 MG CAPSULE PO SCH (11:06)
[2025-08-24 11:32] LABS: Cdiff Toxin B Gene (2yr or >) Negative Cdiff Gene (Neg)
[2025-08-24 11:50] LABS: Hep B Surface Ag with confirm Negative (Negative)
[2025-08-24 11:54] LABS: Hep C Ab Rflx HepCQuant RNA Negative (Negative)
--- NOTE | 2025-08-24 13:40 | Ultrasound Report ---
BILATERAL LOWER EXTREMITY VENOUS DOPPLER CLINICAL HISTORY: Leg swelling COMPARISON STUDY: No previous studies for comparison. TECHNIQUE: Sonography of the deep venous system of the bilateral lower extremities was performed. Co mpression and augmentation were evaluated. FINDINGS: No intraluminal thrombus was visualized. The veins were well visualized and compressible fr om the groin to the proximal trifurcation veins. In the proximal to mid left lateral calf there was an avascular cystic lesion measuring 40 x 20 x 47 mm. This appeared to lie within the subcutaneous tissues and body the subjacent muscular fascia. IMPRESSION: 1. No evidence of lower extremity DVT 2. Subcutaneous avascular cystic lesion measuring 40 x 20 x 47 mm within the proximal to mid left lat eral calf. ACT 112: Negative or not required by law. Electronically signed by: Shiv Ramirez M.D. 08/24/2025 1:38 PM
[2025-08-24 16:28] LABS: Hematocrit (blood only) 35.5 % (42.0-52.0); Hemoglobin 11.7 g/dl (14.0-18.0); Mean Corpuscular Hemoglobin 29.9 pg (25.0-34.0); Mean Corpuscular Volume 90.8 fL (80.0-100.0); Platelet Count 24 K/uL (130-400); RDW Standard Deviation 56.5 fL (36.4-46.3); Red Blood Count 3.91 M/uL (4.70-6.10); White Blood Count 8.38 K/ul (4.8-10.8)
[2025-08-25 07:10] LABS: Hematocrit (blood only) 32.3 % (42.0-52.0); Hemoglobin 10.4 g/dl (14.0-18.0); Mean Corpuscular Hemoglobin 28.6 pg (25.0-34.0); Mean Corpuscular Volume 88.7 fL (80.0-100.0); Platelet Count 20 K/uL (130-400); RDW Standard Deviation 54.5 fL (36.4-46.3); Red Blood Count 3.64 M/uL (4.70-6.10); White Blood Count 7.33 K/ul (4.8-10.8)
[2025-08-25 07:14] LABS: Alanine Aminotransferase 42.0 U/L (7-52); Albumin Level 1.9 gm/dl (3.4-5.0); Alkaline Phosphatase 298.0 U/L (34-104); Anion Gap 7.0 (3-11); Bilirubin,Total 1.5 mg/dl (0.2-1.0); Blood Urea Nitrogen 65.0 mg/dl (6-23); Calcium 7.8 mg/dl (8.6-10.3); Carbon Dioxide 25.0 mmol/L (21-32); Chloride 108.0 mmol/L (98-107); Creatinine Clr Calc Pharmacy 25.4 ml/min; Glucose 133.0 mg/dl (70-99(Fasting)); Potassium 3.6 mmol/L (3.5-5.1); Sodium 140.0 mmol/L (136-145); Total Protein 5.7 gm/dl (6.0-8.3)
--- NOTE | 2025-08-25 09:43 | Nephrology Progress Note ---
Date of Service August 25, 2025 Assessment & Plan Admission and Anticipated Discharge Date Admission Date: August 23, 2025 Subjective Assessment & Plan (1) CKD (chronic kidney disease) stage 4, GFR 15-29 ml/min: CKD 4 w/ baseline creatinine as OP 2-2.4, minimal proteinuria historically at 156 mg/gm. on torsemide 120 mg daily outpt second urine specimen this admission is from a catheter and therefore difficult to interpret in terms of inflammation; no e/o obstruction (now that alcaraz placed) or of infection renal function remains at baseline w/ acceptable electrolytes and appropriately managed volume overload no indication for dedicated renal imaging or for dialysis discussion at this time. Creat up a bit from yesterday to 2.56 but still will regard this as within baseline. has e/o volume overload so will continue lasix iv bid. Only made 925 ml urine on current lasix so needs more lasix as he is already used to high dose diuretics as outpt. raise lasix 80 iv bid continue to hold torsemide no indication for fluid limit for now but may need to reconsider this moving forward 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: on OP cabazotanib >> f/u oncology recommendations (3) Thrombocytopenia: bleeding precautions daily bmp/cbc further as per hematology/oncology; no evidence that thrombocytopenia is imp acting renal function at this time S--has alcaraz. making urine but minimal at 925 even with iv lasix. on RA and BP is goal. No new issues Physical Exam Physical Exam: No acute distress Constitutional: well developed, well nourished, + ill appearing and + obese Eyes: PERRL, conjunctivae normal, anicteric sclerae ENMT: external ear and nose normal, oropharynx normal Neck: trachea midline, no JVD. neck Supple Respiratory: no respiratory distress b/l Clear Cardiovascular: regular rate and regular rhythm; Heart Sounds: normal S1 and normal S2; no murmur Extremities: + edema ( 2+ edema bilaterally. Left leg cellulitis involving the lower leg) Gastrointestinal (Abdomen): + abdomen distended and normal bowel sounds Percussion/Palpation: abdomen soft Musculoskeletal: No acute arthritis involving any of the joint Neurologic: normal touch/pain/proprioception and moves all extremities ( General Very weak and lethargic); no focal motor deficits Lymphatic: no cervical or axillary lymphadenopathy Results & Data Vital Signs (Past 12 Hours) Vital Signs Temp Pulse Pulse Resp BP Pulse Ox O2 Del Method 08/25/25 08:29 36.4 C L 69 18 117/64 93 Room Air 08/25/25 07:48 67 08/25/25 02:34 36.4 C L 74 18 112/64 97 Room Air 08/24/25 23:15 36.8 C 67 18 107/59 L 95 Room Air 08/24/25 22:13 65
[2025-08-25] MEDS: FUROSEMIDE 40 MG/4 ML VIAL IV ONE (11:00)
--- NOTE | 2025-08-25 11:27 | Orthopedic Consultation ---
Date of Service August 25, 2025 Assessment & Plan (1) Left leg cellulitis: * Case/imaging reviewed and discussed with Dr Lim * Fluid collection does not appear infectious in nature given chronicity or exam findings * Recommend continued conservative management of ?cellulitis * Consider IR aspiration, but does not appear acutely infected * Antibiotics per primary team * Weight bearing status: Activity as tolerated * Daily treatment: Physical Therapy/ Occupational Therapy per protocol * Pain control * Disposition: TBD * Remainder care per primary team * * Patient seen and examined, no specific treatment for fluid collection as it does not appear to be infected or an abscess. Recommendations as listed. History of Present Illness Reason for Consultation: . Left calf fluid collection Requesting Physician: . Attending Physician: Cheryl Araiza MD . Patient is a 80y/o male with left calf fluid collection. PMH including hepatocellular carcinoma with ongoing chemo, type 2 diabetes, CAD status post CABG x 4, hypertensive heart disease, history of unilateral nephrectomy, chronic heart failure with preserved EF, hyperlipidemia, chronic kidney disease stage IV, COPD and GERD. Presents to hospital with reported weakness and lethargy, per report was in chair for approximately 3 days reported by family. Per H&P, patient with 3 to 4 days worth of weakness and decreased activity. Denies recent fever or chills. Left lower leg wound with local cellulitis to the lower leg, Cefepime initiated by primary team. Noted to have superficial fluid collection of the left lateral calf. Current workup including US LLE demonstrating subcutaneous avascular cyst mid lateral calf. Orthopedics consulted for management recommendations. Afebrile, no leukocytosis. At time of exam patient sitting comfortably in chair, no acute distress. Patient reports that redness and swelling of the left leg has been present for several weeks to months. Denies known trauma or other injury. Uses a walker at baseline. Allergies Allergy/AdvReac Type Severity Reaction Status Date / Time amoxicillin Allergy Intermediate RASH, Verified 11/04/24 10:44 ELEVATED PULSE clavulanic acid Allergy Intermediate RASH AND Verified 11/04/24 10:44 ELEVATED PULSE lisinopril Allergy Intermediate COUGH Verified 11/04/24 10:44 Home Medications Medication Instructions Recorded Confirmed Type aspirin 81 mg tablet,delayed 81 mg PO QAM 09/02/18 08/23/25 History release (Edwardo Low Dose Aspirin) docusate sodium 100 mg tablet 100 mg PO AMHS 09/02/18 08/23/25 History finasteride 5 mg tablet 5 mg PO QAM 09/02/18 08/23/25 History pantoprazole 40 mg tablet,delayed 40 mg PO DAILYBB 09/02/18 08/23/25 History release timolol maleate 0.25 % eye drops 1 drp OPB HS 09/02/18 08/23/25 History atorvastatin 40 mg tablet 40 mg PO QAM 06/24/21 08/23/25 History fluticasone 250 mcg-salmeterol 50 1 inh inhalation BID 06/24/21 08/23/25 History mcg/dose blistr powdr for inhalation (Wixela Inhub) gabapentin 300 mg capsule 300 mg PO HS 06/24/21 08/23/25 History melatonin 5 mg tablet 10 mg PO HS 06/24/21 08/23/25 History nitroglycerin 0.4 mg sublingual 0.4 mg sublingual UD PRN Chest Pain 06/24/21 08/23/25 History tablet isosorbide mononitrate 60 mg 60 mg PO QAM 08/14/21 08/23/25 History tablet,extended release 24 hr cetirizine 1 mg/mL oral solution 5 mg PO HS 06/20/23 08/23/25 History oxycodone 5 mg tablet 5 mg PO Q4H PRN pain #7 tabs 06/20/23 08/23/25 Rx torsemide 100 mg tablet 100 mg PO DAILY 06/20/23 08/23/25 History insulin glargine 100 unit/mL (3 12 unit subcut QAM 05/29/24 08/23/25 History mL) subcutaneous pen (Lantus Solostar U-100 Insulin) albuterol sulfate 90 mcg/actuation 2 inha inhalation QID PRN 11/04/24 08/23/25 Rx aerosol inhaler shortness of breath or wheezing #1 inhaler benzonatate 100 mg capsule 100 mg PO TID PRN cough #20 caps 11/04/24 08/23/25 Rx metoprolol succinate 25 mg 25 mg PO DAILY 11/04/24 08/23/25 History tablet,extended release 24 hr torsemide 20 mg tablet 20 mg PO DAILY 11/04/24 08/23/25 History cabozantinib 60 mg tablet 60 mg PO DAILY 08/23/25 08/23/25 History (Cabometyx) linagliptin 5 mg tablet (Tradjenta) 5 mg PO DAILY 08/23/25 08/23/25 History meclizine 25 mg tablet 25 mg PO BID 08/23/25 08/23/25 History sertraline 50 mg tablet 50 mg PO DAILY 08/23/25 08/23/25 History Past Med/Surg History Problem List Thrombocytopenia Metastasis from hepatocellular carcinoma of liver CKD (chronic kidney disease) stage 4, GFR 15-29 ml/min NYHA class 2 congestive heart failure with preserved left ventricular function Failure to thrive in adult Left leg cellulitis COVID-19 (Acute) Sleep apnea CPAP Hypertension Diabetes mellitus, type 2 Chronic obstructive pulmonary disease inhaler daily/prn Atrial fibrillation Aortic valve disorder Dr Sellers, [facility] Lower extremity edema Hepatocellular carcinoma Diabetic peripheral neuropathy associated with type 2 diabetes mellitus Loss of protective sensation of skin of foot Coronary atherosclerosis of [place] coronary vessel Chronic kidney disease, stage III (moderate) Hyperlipidemia S/P CABG x 4 (Acute) 2008 @ [facility] [place] Medical History GERD (gastroesophageal reflux disease) Cancer of left kidney 2009--sx Glaucoma bilt eyes Surgical History Port-A-Cath in place (08/21/23) Access Port Placement with Fluoroscopy Left Subclavian(Left) - Mio Cervantes rt, DO History of carpal tunnel release bilt History of colonoscopy History of cholecystectomy History of nephrectomy 2009--L kidney @ [facility] [place] History of bilateral cataract extraction History of cardiac cath 2008 @ [facility], no stent---follows with Dr. Brock Family History Mother Family history of diabetes mellitus Other Heart disease Social History Smoking Status: Former smoker Tobacco Type: Smokeless Tobacco (Dip or Chew) Second Hand Exposure: No; Do You Dip or Chew Tobacco: No; Hx Alcohol Use: No Hx Substance Use: No Preferred Language: Cypriot Communication Ability: Effective Special Education Aide Required: No Beliefs That Will Affect Care: None marital status: Current Living Situation: Alone Current Living Situation Comment: home alone with BR and bedroom on same floor current occupational status: retired How many Children do You have: 0 Feels Safe at Home: Yes Diet: diabetic during the past year weight has: decreased > 10 lbs Assistive Devices: None Review of Systems All systems reviewed & are unremarkable except as noted in HPI & below. Physical Exam . * General: Alert and oriented, no acute distress * Constitutional: well-developed, well-nourished. * Respiratory: Normal respiratory effort, no distress * Gastrointestinal: No tenderness to palpation, no rigidity or guarding. * Skin: No rash or lesion. * Neurologic: Grossly normal * Musculoskeletal: Left lower extremity with scattered pinpoint abrasions, chronic appearing induration circumferentially to the left lower leg with associated skin thickening. Visible soft tissue collection to the left lateral calf without overlying or local wound, no drainage. Erythema/skin changes contiguous with the rest of the lower leg. Skin wrinkling present. Mild pain with palpation of the mid/proximal calf. AROM knee flex ion/extension and ankle dorsiflexion/plantarflexion with mild pain throughout the lower leg. Sensation intact plantar/dorsal foot. Brisk capillary refill. Results & Data Results & Data Laboratory Results . 08/23/25 12:22 Aerobic Blood Culture - Preliminary Blood No growth in Aerobic bottle after 24 hours. Anaerobic Blood Culture - Preliminary No growth in Anaerobic bottle after 24 hours. 08/23/25 10:40 Aerobic Blood Culture - Preliminary Blood No growth in Aerobic bottle after 24 hours. Anaerobic Blood Culture - Preliminary No growth in Anaerobic bottle after 24 hours. 08/25/25 08/25/25 08/24/25 08:21 06:11 20:14 WBC 7.33 RBC 3.64 L Hgb 10.4 L Hct 32.3 L MCV 88.7 MCH 28.6 MCHC 32.2 RDW Std Deviation 54.5 H RDW Coeff of Jewels 17.1 H Plt Count 20 L* MPV 10.9 Absolute Nucleated RBC Nucleated RBC % (auto) Platelet Estimate Sodium 140 Potassium 3.6 Chloride 108 H Carbon Dioxide 25 Anion Gap 7 BUN 65 H Creatinine 2.56 H D Est Cr Clr Drug Dosing 25.4 eGFR 24.94 BUN/Creatinine Ratio 25.4 H Glucose 133 H POC Glucose 118 H 144 H Calcium 7.8 L Total Bilirubin 1.5 H Direct Bilirubin 0.5 H AST 109 H ALT 42 Alkaline Phosphatase 298 H Total Protein 5.7 L Albumin 1.9 L Stl C. diff Tox B Gene Stl C. diff [id number] Hep Bs Antigen Hepatitis C Antibody 08/24/25 08/24/25 08/24/25 16:45 15:54 14:15 WBC 8.38 Cancelled RBC 3.91 L Cancelled Hgb 11.7 L Cancelled Hct 35.5 L Cancelled MCV 90.8 Cancelled MCH 29.9 Cancelled MCHC 33.0 Cancelled RDW Std Deviation 56.5 H Cancelled RDW Coeff of Jewels 17.3 H Cancelled Plt Count 24 L* Cancelled MPV 12.0 Cancelled Absolute Nucleated RBC Cancelled Nucleated RBC % (auto) Cancelled Platelet Estimate Cancelled Sodium Potassium Chloride Carbon Dioxide Anion Gap BUN Creatinine Est Cr Clr Drug Dosing eGFR BUN/Creatinine Ratio Glucose POC Glucose 152 H Calcium Total Bilirubin Direct Bilirubin AST ALT Alkaline Phosphatase Total Protein Albumin Stl C. diff Tox B Gene Stl C. diff [id number] Hep Bs Antigen Hepatitis C Antibody 08/24/25 08/24/25 08/24/25 12:07 10:41 10:39 WBC RBC Hgb Hct MCV MCH MCHC RDW Std Deviation RDW Coeff of Jewels Plt Count MPV Absolute Nucleated RBC Nucleated RBC % (auto) Platelet Estimate Sodium Potassium Chloride Carbon Dioxide Anion Gap BUN Creatinine Est Cr Clr Drug Dosing eGFR BUN/Creatinine Ratio Glucose POC Glucose 136 H Calcium Total Bilirubin Direct Bilirubin AST ALT Alkaline Phosphatase Total Protein Albumin Stl C. diff Tox B Gene Negative Cdiff Gene Stl C. diff [id number] NEGATIVE Hep Bs Antigen Negative Hepatitis C Antibody Negative Diagnostic Findings . Venous Doppler Study 08/24/25 10:14 BILATERAL LOWER EXTREMITY VENOUS DOPPLER CLINICAL HISTORY: Leg swelling COMPARISON STUDY: No previous studies for comparison. TECHNIQUE: Sonography of the deep venous system of the bilateral lower ext remities was performed. Compression and augmentation were evaluated. FINDINGS: No intraluminal thrombus was visualized. The veins were well visualized and compressible from the groin to the proximal trifurcation veins. In the proximal to mid left lateral calf there was an avascular cystic lesion measuring 40 x 20 x 47 mm. This appeared to lie within the subcutaneous tissues and body the subjacent muscular fascia. IMPRESSION: 1. No evidence of lower extremity DVT 2. Subcutaneous avascular cystic lesion measuring 40 x 20 x 47 mm within the proximal to mid left lateral calf. ACT 112: Negative or not required by law. Electronically signed by: Shiv Ramirez M.D. 08/24/2025 1:38 PM PG Care Time/CCT Total # of Minutes Spent Total Time Spent with Patient: Total time spent is greater than 50% in coordination of care (as documented) at patient's floor/unit and/or counseling patient: [place] [address] IN/OBS CONSULT LVL 3,45M Patient Type New Medical Decision Making Low Complexity Diagnoses Left leg cellulitis L03.116
[2025-08-25 12:38] LABS: Hepatitis A Antibody IgM BORDERLINE (NON-REACTIVE); Hepatitis B Core Antibody IgM NON-REACTIVE (NON-REACTIVE)
--- NOTE | 2025-08-25 14:43 | Hospitalist Progress Note ---
Date of Service August 25, 2025 Assessment & Plan (1) Left leg cellulitis: Plan 80-year-old male with significant past medical history of hepatocellular carcinoma with ongoing chemo, type 2 diabetes, CAD status post CABG x 4, hypertensive heart disease, history of unilateral nephrectomy, chronic heart failure with preserved EF, hyperlipidemia, chronic kidney disease stage IV, COPD and GERD apparently has been noted to be weak and lethargic and remaining in chair for the last 3 days without any movement which was noted by the family members on 3 separate visits. He was also noted to be pleasantly confused on the day of arrival and was brought into the emergency room for further evaluation. He is being managed for the following: Left leg cellulitis, left calf cyst. RO DVT Generalized Weakness Likely metabolic encephalopathy Presented with deconditioning and noted to have left leg cellulitis with bilateral leg swelling. Pt apprently immobile x 3 days w/ mentation changes triggering hospital presentation. No sepsis at presentation. Lactate minimally high, downtrended. Due to prolonged immobility, ruled out ble dvt. Also has h/o HCC with mets and RCC x left. Left calf cyst noted on venous doppler, ortho evaled, recs continuing w/ cellulitis Mx and possible ir drainage of the cyst. c/w cefepime 08/23, probiotic IR aspiration of cyst (doesn't appear infected) once local infection is controlled. 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 Has not been taking any medications for the same time He was noted to be at the same place on 3 consecutive days by the family members. Possible change in mental status and was brought in today to the emergency room PT and OT evaluation and will likely need placement Nutrition consult. Hepatocellular carcinoma: Thrombocytopenia: iso chemotherapy Transaminitis: Likely in the setting of metastatic disease. Will get hepatitis panel. Hepatocellular carcinoma diagnosed in July 2023 and has been getting chemotherapy through [facility] oncologist Recent CT of the chest and CT of the abdomen and pelvis showed spreading of the disease He has been on a new chemo medication for the last few days or so His platelets are dropping, repeat platelets 2 pm, transfuse if <10K or if w/ s/s of bleed w/ Plt < 50K. Will get oncology involved during this admission Trend LFT, trending down. NYHA class 2 congestive heart failure with preserved left ventricular function: Has chronic heart failure with preserved EF Presented with increasing edema but no shortness of breath at rest c/w iv Lasix and monitor PRP. Chronic kidney disease, stage IV Electrolyte abnormality Has been under care of [facility] manager of digital Creatinine remains stable but shows significant edema involving the legs as he has not been taking his Demadex for the last 3 or 4 days Nephro on board, being diuresed. c/w diuresis, monitor and replete electrolytes. Other chronic medical conditions: Continue with/resume home meds as when able. CAD, status post CABG x 4: Denied any chest pain. Continue home meds. COPD: Stable. Continue home meds. Left kidney cancer: Status post left nephrectomy DVT prophylaxis: SCDs, given thrombocytopenia. Aspirin on hold. CODE STATUS: DNR/DNI. pt/ot Admission and Anticipated Discharge Date Admission Date: August 23, 2025 Subjective Patient was seen and examined at bedside. Patient was sitting up in bed, on room air, NAD, resting comfortably. Patient denies pain, he is oriented x 1, denies sore throat or cough. Denies chest pain or sob. Physical Exam 2 Physical Exam: GENERAL: Alert and oriented x1. NAD, on RA. Appears chronically ill. Obese class I. HEENT: No pallor, no icterus. Pupils equal, round and reactive to light. Oral mucosa moist. NECK: No JVD, no neck masses. HEART: S1 and S2 heard. Regular rate and rhythm. No murmur, no gallop. RESPIRATORY SYSTEM: Normal AP diameter. No accessory muscle use. No wheezing, minimal bb crackles. ABDOMEN: Soft, bowel sounds present, nontender, no distention. CENTRAL NERVOUS SYSTEM: No facial droop. Speech is clear. Obeys simple commands. Moves extremities. EXTREMITIES: 1- 2+ ble edema, LLE w/ erythema/warmth improving, Lat left calf w/ cyst - non tender, no drainage. Results & Data Results & Data Vital Signs (Past 12 Hours) Vital Signs Temp Pulse Pulse Resp BP Pulse Ox O2 Del Method 08/25/25 12:32 67 18 106/63 95 Room Air 08/25/25 08:29 36.4 C L 69 18 117/64 93 Room Air 08/25/25 08:00 Room Air 08/25/25 07:48 67
[2025-08-25 15:11] LABS: Hematocrit (blood only) 38.8 % (42.0-52.0); Hemoglobin 12.1 g/dl (14.0-18.0); Mean Corpuscular Hemoglobin 28.5 pg (25.0-34.0); Mean Corpuscular Volume 91.5 fL (80.0-100.0); Platelet Count 28 K/uL (130-400); RDW Standard Deviation 56.1 fL (36.4-46.3); Red Blood Count 4.24 M/uL (4.70-6.10); White Blood Count 9.11 K/ul (4.8-10.8)
--- NOTE | 2025-08-25 16:20 | Oncology Consultation ---
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 Treat the cellulitis and encephalopathy once the patient is discharged and we will resume treatment. I have already held his cabozantinib outpatient when we noticed thrombocytopenia in the last visit. Continue to hold cabozantinib. Will resume once the patient is discharged. Plan Thank you for this interesting oncological consult. A total of 60 minutes were spent in counseling, coordination of care, review of prior records. History of Present Illness Reason for Consultation: Progressive hepatocellular cancer cellulitis. Total Attending Physician: Cheryl Araiza MD History of Present Illness See 06/20/2023 inpatient consultation Oncology diagnosis: Hepatocellular carcinoma Date of diagnosis: 07/12/2023 Stage at diagnosis: cT3 cN1 / ABIEL Child Wallis B7 (low albumin, elevated bili) Treatment: Category 1 treatment would be with durvalumab with tremelimumab-actl but with some concerns over the degree of toxicity in this gentleman with some functional compromise and especially with renal dysfunction that could not well tolerate major cytokine storm or other significant deterioration. Durvalumab started 08/22/2023 with cycle 2 on 09/19/2023 10/17/2023 to receive durvalumab with tremelimumab-actl History: Presented acutely 06/19/2023 to [facility] ED with abdominal pain, liver lesions Briefly admitted [facility] 06/19- for pain control 06/19/2023 CT abd/pelvis 1. There are multiple abnormal ovoid hypodense lesions scattered throughout both the left and right lobes of the liver. Detailed evaluation limited without contrast. However, the largest solitary lesion in segment 7 measures 4.1 x 4.7 x 3.5 cm. Favor hepatic metastatic disease. Suspect recurrent renal carcinoma given the left nephrectomy. Please correlate with clinical history. Recommend nonemergent dedicated contrast evaluation. 2. Abnormal lymphadenopathy noted, most prominent adjacent to the celiac axis and in the portacaval region. The lymph node in the portacaval region measures 3.3 cm in short axis diameter. The single largest presumed lymph node in the celiac region measures 3.2 cm. Findings are consistent with metastatic lymphadenopathy. 06/20/2023 CXR: Cardiomegaly without acute process Rising alk phos and bilirubin. 06/19/2023 at [facility] bilirubin 1.0, alk phos [address] Rainey's office 06/27/2023 bilirubin 3.7 with alk phos 622. AST 91, ALT 57. Note creatinine 2.4 that day 07/12/2023 US guided liver biopsy - A poorly differentiated carcinoma consistent with hepatocellular carcinoma is seen. . . . The cells are negative for Noemy colloidal iron which is positive in chromophobe renal cell carcinomas. . . . [additional] stains militate against a recurrence of this patient's chromophobe renal cell carcinoma. . . . immunohistochemical stains strongly support an interpretation of hepatocellular carcinoma in this patient with no documented history of hepatic cirrhosis. To reiterate, the benign hepatic parenchyma in this specimen has significant fibrous bands, but the histologic features are insufficient to establish a diagnosis of cirrhosis. 07/31/2023 MRCP 1. Hepatic metastases are seen in this patient with previous renal malignancy status post left nephrectomy. Redemonstration of retroperitoneal/russell hepatis lymphadenopathy. 2. Suggestion of portal vein thrombus versus tumor thrombus. 3. The bile ducts are unremarkable. 07/31/2023 CT chest 1. Right paratracheal, lower thoracic, lumbar abdominal lymphadenopathy consistent with metastatic disease. 2. Small right pleural effusion. 3. The right hepatic metastases are better present on the same day MRCP. 4. Partial thrombus within the right portal vein. 5. A 3 mm nodule within the lingula. This bears watching on future examinations. 08/07/2023 MR Brain 1. No acute intracranial abnormality. 2. Involutional changes with suggestion of chronic microvascular ischemic disease. 08/16/2023 Bone scan - No evidence for osseous metastatic disease. 12/05/2023, CT chest abdomen pelvis: 1. Overall decrease in disease burden from prior MRCP with decrease in size of hepatic metastases and retroperitoneal/russell hepatis lymphadenopathy. 2. Redemonstration of left nephrectomy. 1. Cardiomegaly and right pleural effusion. This is similar to previous 2. There is no evidence of progressive metastatic disease in the thorax. 3. A 2 mm right upper lobe pulmonary nodule was not clearly seen previously. Attention at follow-up is recommended. The lingular nodule seen on 07/31/2023 is no longer visualized. 4. Mediastinal lymphadenopathy has modestly decreased in size from previous. 5. Low-attenuation hepatic lesions have decreased in size and attenuation from previous, likely representing positive treatment response. 6. Splenomegaly. 7. Right cardiophrenic lymphadenopathy is similar to previous. 8. Segmental atelectasis in the right middle lobe is new from previous. 9. Additional findings as above. CT chest abdomen pelvis, 03/24/2024 IMPRESSION: 1. No significant change in the mediastinal and right anterior diaphragmatic lymphadenopathy. 2. Hepatic lesions and gastrohepatic lymphadenopathy will be better assessed on the same day abdomen and pelvis CT. 3. Small right pleural effusion, unchanged. 4. A 2 mm nodule within the right upper lobe seen in the prior study is no longer present. No new or suspicious pulmonary nodules identified. IMPRESSION: 1. No significant change in several hypodense right hepatic lobe lesions and subtle diffuse hypodensity within the lateral segment of the left hepatic lobe since CT of December 05, 2023. These may reflect treated hepatic metastases but can be assessed on follow-up exams to ensure continued stability. No new hepatic lesions. 2. Slight decrease in peripancreatic lymphadenopathy. No new sites of lymphadenopathy within the abdomen or pelvis. 3. Decrease in size of a small right pleural effusion. Current status: AFP 08/16/2023 9302.4 09/17/2023 1131.9 #Cardiac comorbidities. Atrial fibrillation/CAD/aortic valve disease. 2020 echocardiogram showed normal LV function with EF 55 to 60%, no significant aortic stenosis. [facility] # Renal dysfunction # Pain management. No active pain currerntly # Dizzy spells. MRI brain 08/07/2023 showed no acute abnormality, involutional changes suggestive of chronic microvascular ischemic dz. 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 Repeat duplex left lower extremity 07/27/2023 No DVT within the left lower extremity. 08/16/2023 bone scan negative Repeat bilateral LE US 09/25/2023 There is no sonographic evidence of deep venous thrombosis identified in the right or left lower extremity Edema has shifted [id number] to the left or right leg. Please see my message to Dr. Rainey 10/17/2023 asking for assistance with augmenting his diuresis # Long-term tobacco chewer # Poor dentition Comorbidities: CKD, , cholelithiasis, COPD, type 2 diabetes with peripheral neuropathy, GERD, glaucoma, hypertension/hyperlipidemia, sleep apnea on CPAP CT C/A/P; 03/09/2025: IMPRESSION: 1. No evidence of metastatic disease in the chest. Interval stable from prior study. 2. No acute intrathoracic pathology noted. 3. Interval stable pulmonary nodules and mediastinal lymph node likely benign. 4. Moderate degenerative changes thoracic spine and bones. 1. Interval stable right hepatic lobe lesions and upper abdominal lymph node suggestive of stable disease process. No new metastatic disease identified in the present study. 2. Post cholecystectomy and left nephrectomy status. 3. Stable splenomegaly. 4. Moderate fecal loading of large bowel. Correlate with history of constipation. 5. Moderate degenerative changes lumbar spine. patient with a longstanding history of hepatocellular cancer who was initially treated with immunotherapy, then subsequently progressed and was started on cabozantinib. He is now admitted to [facility] with metabolic encephalopathy as well as left leg cellulitis. Medical oncology has been consulted to assist with management of this patient with known hepatocellular cancer, left leg cellulitis. Allergies Allergy/AdvReac Type Severity Reaction Status Date / Time amoxicillin Allergy Intermediate RASH, Verified 11/04/24 10:44 ELEVATED PULSE clavulanic acid Allergy Intermediate RASH AND Verified 11/04/24 10:44 ELEVATED PULSE lisinopril Allergy Intermediate COUGH Verified 11/04/24 10:44 Home Medications Medication Instructions Recorded Confirmed Type aspirin 81 mg tablet,delayed 81 mg PO QAM 09/02/18 08/23/25 History release (Edwardo Low Dose Aspirin) docusate sodium 100 mg tablet 100 mg PO AMHS 09/02/18 08/23/25 History finasteride 5 mg tablet 5 mg PO QAM 09/02/18 08/23/25 History pantoprazole 40 mg tablet,delayed 40 mg PO DAILYBB 09/02/18 08/23/25 History release timolol maleate 0.25 % eye drops 1 drp OPB HS 09/02/18 08/23/25 History atorvastatin 40 mg tablet 40 mg PO QAM 06/24/21 08/23/25 History fluticasone 250 mcg-salmeterol 50 1 inh inhalation BID 06/24/21 08/23/25 History mcg/dose blistr powdr for inhalation (Wixela Inhub) gabapentin 300 mg capsule 300 mg PO HS 06/24/21 08/23/25 History melatonin 5 mg tablet 10 mg PO HS 06/24/21 08/23/25 History nitroglycerin 0.4 mg sublingual 0.4 mg sublingual UD PRN Chest Pain 06/24/21 08/23/25 History tablet isosorbide mononitrate 60 mg 60 mg PO QAM 08/14/21 08/23/25 History tablet,extended release 24 hr cetirizine 1 mg/mL oral solution 5 mg PO HS 06/20/23 08/23/25 History oxycodone 5 mg tablet 5 mg PO Q4H PRN pain #7 tabs 06/20/23 08/23/25 Rx torsemide 100 mg tablet 100 mg PO DAILY 06/20/23 08/23/25 History insulin glargine 100 unit/mL (3 12 unit subcut QAM 05/29/24 08/23/25 History mL) subcutaneous pen (Lantus Solostar U-100 Insulin) albuterol sulfate 90 mcg/actuation 2 inha inhalation QID PRN 11/04/24 08/23/25 Rx aerosol inhaler shortness of breath or wheezing #1 inhaler benzonatate 100 mg capsule 100 mg PO TID PRN cough #20 caps 11/04/24 08/23/25 Rx metoprolol succinate 25 mg 25 mg PO DAILY 11/04/24 08/23/25 History tablet,extended release 24 hr torsemide 20 mg tablet 20 mg PO DAILY 11/04/24 08/23/25 History cabozantinib 60 mg tablet 60 mg PO DAILY 08/23/25 08/23/25 History (Cabometyx) linagliptin 5 mg tablet (Tradjenta) 5 mg PO DAILY 08/23/25 08/23/25 History meclizine 25 mg tablet 25 mg PO BID 08/23/25 08/23/25 History sertraline 50 mg tablet 50 mg PO DAILY 08/23/25 08/23/25 History Patient History Medical History GERD (gastroesophageal reflux disease) Cancer of left kidney 2009--sx Glaucoma bilt eyes Surgical History Port-A-Cath in place (08/21/23) Access Port Placement with Fluoroscopy Left Subclavian(Left) - Mio Younger, History of carpal tunnel release bilt History of colonoscopy History of cholecystectomy History of nephrectomy 2009--[place] [facility] [place] History of bilateral cataract extraction History of cardiac cath 2008 @ [facility], no stent---follows with Dr. Brock Family History Mother Family history of diabetes mellitus Other Heart disease Social History Smoking Status: Former smoker Tobacco Type: Smokeless Tobacco (Dip or Chew) Second Hand Exposure: No; Do You Dip or Chew Tobacco: No; Hx Alcohol Use: No Hx Substance Use: No Preferred Language: Estonian Communication Ability: Effective Motion Study Technician Required: No Beliefs That Will Affect Care: None marital status: Current Living Situation: Alone Current Living Situation Comment: home alone with BR and bedroom on same floor current occupational status: retired How many Children do You have: 0 Feels Safe at Home: Yes Diet: diabetic during the past year weight has: decreased > 10 lbs Assistive Devices: None Review of Systems Review of Systems: All systems reviewed & are unremarkable except as noted in HPI & below Constitutional: as per Subjective / HPI Eyes: as per Subjective / HPI Ear, Nose, Mouth, Throat: as per Subjective / HPI Respiratory: as per Subjective / HPI Cardiovascular: as per Subjective / HPI Gastrointestinal: as per Subjective / HPI Genitourinary: + as per Subjective / HPI Musculoskeletal: as per Subjective / HPI Integumentary: as per Subjective / HPI Neurologic: as per Subjective / HPI Psychiatric: as per Subjective / HPI Endocrine: as per Subjective / HPI Hematologic / Lymphatic: as per Subjective / HPI Allergy / Immunological: as per Subjective / HPI Physical Exam Constitutional: WD/WN, vitals as above Eyes: PERRL, conjunctivae normal, anicteric sclerae ENMT: external ear and nose normal, oropharynx normal Neck: trachea midline, no thyromegaly Respiratory: normal respiratory effort, lungs clear to auscultation Cardiovascular: RRR, no murmur, no edema Gastrointestinal (Abdomen): normal bowel sounds, soft, nontender, no hepatosplenomegaly Musculoskeletal: no cyanosis or clubbing, extremities motor strength 5/5 Skin: no rashes, warm and dry Neurologic: patellar DTR's 2+ bilat, sensation intact Psychiatric: A+Ox3, euthymic affect Genitourinary: no testicular masses, no penis abnormality Lymphatic: no cervical or axillary lymphadenopathy Results & Data Vital Signs (Past 12 Hours) Vital Signs Temp Pulse Pulse Resp BP Pulse Ox O2 Del Method 08/25/25 15:22 36.4 C 68 17 116/67 96 Room Air 08/25/25 12:32 67 18 106/63 95 Room Air 08/25/25 08:29 36.4 C L 69 18 117/64 93 Room Air 08/25/25 08:00 Room Air 08/25/25 07:48 67
[2025-08-25] MEDS: FUROSEMIDE 40 MG/4 ML VIAL IV SCH (17:55)
--- NOTE | 2025-08-26 09:02 | Nephrology Progress Note ---
Date of Service August 26, 2025 Assessment & Plan (1) CKD (chronic kidney disease) stage 4, GFR 15-29 ml/min: Plan: CKD 4 w/ baseline creatinine as OP 2-2.4, minimal proteinuria historically at 156 mg/gm. on torsemide 120 mg daily as OP. second urine specimen this admission is from a catheter and therefore difficult to interpret in terms of inflammation; no e/o obstruction (now that alcaraz placed) or of infection renal function remains at baseline w/ acceptable electrolytes and appropriately managed volume overload no indication for dedicated renal imaging or for dialysis discussion at this time. 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: Plan: on OP cabazotanib >> f/u oncology recommendations (3) Thrombocytopenia: Plan: bleeding precautions >daily bmp/cbc >further as per hematology/oncology; no evidence that thrombocytopenia is impacting renal function at this time however w/ severe thrombocytopenia at 18K Admission and Anticipated Discharge Date Admission Date: August 23, 2025 Subjective Feels his leg is improving or uncontrolled pain or bleeding Review of Systems 2 Review of Systems: All systems reviewed & are unremarkable except as noted in Subjective Physical Exam 2 Constitutional: well developed and well nourished Eyes: EOM intact bilaterally ENMT: Mouth: + muffled voice (hoarse), + dry oral mucous membranes and + poor dentition Respiratory: normal respiratory effort Auscultation: + diminished lung sounds Cardiovascular: Rate/Rhythm: regular rate and regular rhythm Extremities: + edema (1-2+ BLE) Gastrointestinal (Abdomen): Inspection/Auscultation: normal bowel sounds P ercussion/Palpation: abdomen soft; abdomen nontender Musculoskeletal: Extremities: strength 5/5 throughout Results & Data Vital Signs (Past 12 Hours) Vital Signs Temp Pulse Pulse Resp BP BP Pulse Ox 08/26/25 07:55 36.4 C L 63 20 133/57 L 97 08/26/25 06:11 62 08/26/25 02:46 36.5 C 63 18 125/64 96 08/25/25 23:38 08/25/25 22:27 36.5 C 59 L 18 126/62 97 08/25/25 21:56 58 L O2 Del Method 08/26/25 07:55 Room Air 08/26/25 06:11 08/26/25 02:46 Room Air 08/25/25 23:38 Room Air 08/25/25 22:27 Room Air 08/25/25 21:56 Laboratory Results 08/26/25 09:46 08/26/25 09:46
--- NOTE | 2025-08-26 10:14 | Hospitalist Progress Note ---
Date of Service August 26, 2025 Assessment & Plan (1) Left leg cellulitis: Plan 80-year-old male with significant past medical history of hepatocellular carcinoma with ongoing chemo, type 2 diabetes, CAD status post CABG x 4, hypertensive heart disease, history of unilateral nephrectomy, chronic heart failure with preserved EF, hyperlipidemia, chronic kidney disease stage IV, COPD and GERD apparently has been noted to be weak and lethargic and remaining in chair for the last 3 days without any movement which was noted by the family members on 3 separate visits. He was also noted to be pleasantly confused on the day of arrival and was brought into the emergency room for further evaluation. He is being managed for the following: Left leg cellulitis Generalized Weakness Likely metabolic encephalopathy Presented with deconditioning and noted to have left leg cellulitis with bilateral leg swelling. Pt apprently immobile x 3 days w/ mentation changes triggering hospital presentation. No sepsis at presentation. Lactate elevated at 3.4, downtrended. Doppler LE was negative for DVT Left calf cyst noted on venous doppler. Ortho evaluated, recs continuing w/ cellulitis Mx and possible ir drainage of the cyst. Considering confusion noted on admission and clinical improvement, will deescal cefepime to ceftriaxone and monitor Hepatocellular carcinoma: Thrombocytopenia: Transaminitis: Hepatocellular carcinoma diagnosed in July 2023 and has been getting chemotherapy through [facility] oncologist Recent CT of the chest and CT of the abdomen and pelvis showed spreading of the disease He has been on a new chemo medication for the last few days or so Monitor LFT NYHA class 2 congestive heart failure with preserved left ventricular function: Has chronic heart failure with preserved EF Presented with increasing edema but no shortness of breath at rest Continue IV lasix being managed by Nephro Chronic kidney disease, stage IV Nephro on board c/w diuresis, monitor and replete electrolytes. Other chronic medical conditions: Continue with/resume home meds as when able. CAD, status post CABG x 4: Denied any chest pain. Continue home meds. COPD: Stable. Continue home meds. Left kidney cancer: Status post left nephrectomy DVT prophylaxis: SCDs, given thrombocytopenia. Aspirin on hold. CODE STATUS: DNR/DNI. PT/OT. May need placement once medically stable I spent a total of 50 minutes coordinating, documenting and providing care for this patient excluding time spent in performance of separately billed services Admission and Anticipated Discharge Date Admission Date: August 23, 2025 Subjective Patient seen and examined. Reports some left leg pain, LE swelling RN noted loose stool earlier No other complaints Physical Exam Constitutional: no acute distress Eyes: PERRL, conjunctivae normal, anicteric sclerae ENMT: external ear and nose normal, oropharynx normal Respiratory: Not in distress, on room air, diminished breath sounds Cardiovascular: Rate/Rhythm: regular rate and regular rhythm Gastrointestinal (Abdomen): normal bowel sounds, soft, nontender, no hepatosplenomegaly Musculoskeletal: B/l LE edema. +LLE cellulitis. Left calf cyst Neurologic: PERRL, EOMI, accommodation nl, no face palsy, no dysarthria Alert and oriented to person, place month and year Genitourinary: Hansen in situ Results & Data Results & Data Vital Signs (Past 12 Hours) Vital Signs Temp Pulse Pulse Resp BP BP Pulse Ox 08/26/25 07:55 36.4 C L 63 20 133/57 L 97 08/26/25 06:11 62 08/26/25 02:46 36.5 C 63 18 125/64 96 08/25/25 23:38 08/25/25 22:27 36.5 C 59 L 18 126/62 97 O2 Del Method 08/26/25 07:55 Room Air 08/26/25 06:11 08/26/25 02:46 Room Air 08/25/25 23:38 Room Air 08/25/25 22:27 Room Air Laboratory Results Abnormal lab results 08/25/25 08/25/25 08/26/25 Range/Units 17:03 20:19 09:46 RBC 3.99 L (4.70-6.10) M/uL Hgb 11.2 L (14.0-18.0) g/dl Hct 35.5 L (42.0-52.0) % MCHC 31.5 L (32.0-36.0) g/dL RDW Std Deviation 53.4 H (36.4-46.3) fL RDW Coeff of Jewels 17.0 H (11.5-14.5) % Plt Count 18 L* (130-400) K/uL Potassium 3.4 L (3.5-5.1) mmol/L Chloride 109 H (98-107) mmol/L BUN 71 H (6-23) mg/dl Creatinine 2.42 H (0.6-1.4) mg/dl BUN/Creatinine Ratio 29.3 H (10-20) Glucose 121 H (70-99(Fasting)) mg/dl POC Glucose 126 H 101 H (70-99) mg/dl Calcium 8.3 L (8.6-10.3) mg/dl 08/26/25 Range/Units 11:52 RBC (4.70-6.10) M/uL Hgb (14.0-18.0) g/dl Hct (42.0-52.0) % MCHC (32.0-36.0) g/dL RDW Std Deviation (36.4-46.3) fL RDW Coeff of Jewels (11.5-14.5) % Plt Count (130-400) K/uL Potassium (3.5-5.1) mmol/L Chloride (98-107) mmol/L BUN (6-23) mg/dl Creatinine (0.6-1.4) mg/dl BUN/Creatinine Ratio (10-20) Glucose (70-99(Fasting)) mg/dl POC Glucose 117 H (70-99) mg/dl Calcium (8.6-10.3) mg/dl
[2025-08-26 10:25] LABS: Hematocrit (blood only) 35.5 % (42.0-52.0); Hemoglobin 11.2 g/dl (14.0-18.0); Mean Corpuscular Hemoglobin 28.1 pg (25.0-34.0); Mean Corpuscular Volume 89.0 fL (80.0-100.0); Platelet Count 18 K/uL (130-400); RDW Standard Deviation 53.4 fL (36.4-46.3); Red Blood Count 3.99 M/uL (4.70-6.10); White Blood Count 5.82 K/ul (4.8-10.8)
[2025-08-26 10:39] LABS: Anion Gap 10.0 (3-11); Blood Urea Nitrogen 71.0 mg/dl (6-23); Calcium 8.3 mg/dl (8.6-10.3); Carbon Dioxide 22.0 mmol/L (21-32); Chloride 109.0 mmol/L (98-107); Creatinine Clr Calc Pharmacy 25.3 ml/min; Glucose 121.0 mg/dl (70-99(Fasting)); Potassium 3.4 mmol/L (3.5-5.1); Sodium 141.0 mmol/L (136-145)
[2025-08-26] MEDS: BENZONATATE 100 MG CAPSULE PO PRN (13:00)
[2025-08-26] MEDS ORDERED: cefTRIAXone SODIUM 1,000 MG/50 ML BAG IV SCH (20:00)
[2025-08-26] MEDS: cefTRIAXone SODIUM 2,000 MG/50 ML BAG IV SCH (21:59)
[2025-08-27 07:12] LABS: Alanine Aminotransferase 40.0 U/L (7-52); Albumin Globulin Ratio 0.5 (0.9-2); Albumin Level 2.1 gm/dl (3.4-5.0); Alkaline Phosphatase 306.0 U/L (34-104); Anion Gap 9.0 (3-11); Bilirubin,Total 1.6 mg/dl (0.2-1.0); Blood Urea Nitrogen 67.0 mg/dl (6-23); Calcium 8.1 mg/dl (8.6-10.3); Carbon Dioxide 24.0 mmol/L (21-32); Chloride 107.0 mmol/L (98-107); Creatinine Clr Calc Pharmacy 25.8 ml/min; Globulin 4.4 gm/dl (2.5-4.0); Glucose 108.0 mg/dl (70-99(Fasting)); Magnesium 1.9 mg/dl (1.7-2.4); Potassium 3.5 mmol/L (3.5-5.1); Sodium 140.0 mmol/L (136-145); Total Protein 6.5 gm/dl (6.0-8.3)
[2025-08-27 07:17] LABS: INR 1.2 (0.9-1.1); Prothrombin Time 12.9 Seconds (9.0-12.0)
[2025-08-27 07:46] LABS: Hematocrit (blood only) 33.3 % (42.0-52.0); Hemoglobin 11.0 g/dl (14.0-18.0); Mean Corpuscular Hemoglobin 29.1 pg (25.0-34.0); Mean Corpuscular Volume 88.1 fL (80.0-100.0); Platelet Count 18 K/uL (130-400); RDW Standard Deviation 52.8 fL (36.4-46.3); Red Blood Count 3.78 M/uL (4.70-6.10); White Blood Count 6.11 K/ul (4.8-10.8)
--- NOTE | 2025-08-27 10:02 | Hospitalist Progress Note ---
Date of Service August 27, 2025 Assessment & Plan (1) Left leg cellulitis: Plan 80-year-old male with significant past medical history of hepatocellular carcinoma with ongoing chemo, type 2 diabetes, CAD status post CABG x 4, hypertensive heart disease, history of unilateral nephrectomy, chronic heart failure with preserved EF, hyperlipidemia, chronic kidney disease stage IV, COPD and GERD apparently has been noted to be weak and lethargic and remaining in chair for the last 3 days without any movement which was noted by the family members on 3 separate visits. He was also noted to be pleasantly confused on the day of arrival and was brought into the emergency room for further evaluation. He is being managed for the following: Left leg cellulitis Generalized Weakness Likely metabolic encephalopathy Presented with deconditioning and noted to have left leg cellulitis with bilateral leg swelling. Pt apparently immobile x 3 days w/ mentation changes triggering hospital presentation. No sepsis at presentation. Lactate elevated at 3.4, downtrended. Doppler LE was negative for DVT Left calf cyst noted on venous doppler. Ortho evaluated, recs continuing w/ cellulitis Mx and possible ir drainage of the cyst. Encephalopathy resolved Currently on IV ceftriaxone Hepatocellular carcinoma: Thrombocytopenia: Transaminitis: Hepatocellular carcinoma diagnosed in July 2023 and has been getting chemotherapy through [facility] oncologist Recent CT of the chest and CT of the abdomen and pelvis showed spreading of the disease He has been on a new chemo medication for the last few days or so Monitor LFT NYHA class 2 congestive heart failure with preserved left ventricular function: Has chronic heart failure with preserved EF Presented with increasing edema but no shortness of breath at rest Continue IV lasix being managed by Nephro Chronic kidney disease, stage IV Nephro on board c/w diuresis, monitor and replete electrolytes. Other chronic medical conditions: Continue with/resume home meds as when able. CAD, status post CABG x 4: Denied any chest pain. Continue home meds. COPD: Stable. Continue home meds. Left kidney cancer: Status post left nephrectomy DVT prophylaxis: SCDs, given thrombocytopenia. Aspirin on hold. CODE STATUS: DNR/DNI. PT/OT. May need placement once medically stable I spent a total of 40 minutes coordinating, documenting and providing care for this patient excluding time spent in performance of separately billed services Admission and Anticipated Discharge Date Admission Date: August 23, 2025 Subjective Patient and examined Reports loose stool this AM Denied other complaints Physical Exam Constitutional: no acute distress Eyes: PERRL, conjunctivae normal, anicteric sclerae ENMT: external ear and nose normal, oropharynx normal Respiratory: Not in distress, on room air, diminished breath sounds Cardiovascular: Rate/Rhythm: regular rate and regular rhythm Gastrointestinal (Abdomen): normal bowel sounds, soft, nontender, no hepatosplenomegaly Musculoskeletal: B/l LE edema. Clean dressing over right foot wound. +LLE cellulitis. Left calf cyst Neurologic: PERRL, EOMI, accommodation nl, no face palsy, no dysarthria Psychiatric: Aox3 Results & Data Results & Data Vital Signs (Past 12 Hours) Vital Signs Temp Pulse Pulse Resp BP BP Pulse Ox 08/27/25 08:19 36.4 C L 65 20 130/80 97 08/27/25 07:29 67 08/27/25 04:07 36.5 C 61 16 118/67 95 08/26/25 23:38 36.4 C L 79 18 122/70 94 08/26/25 23:12 O2 Del Method 08/27/25 08:19 Room Air 08/27/25 07:29 08/27/25 04:07 Room Air 08/26/25 23:38 Room Air 08/26/25 23:12 Room Air Laboratory Results Abnormal lab results 08/26/25 08/26/25 08/27/25 Range/Units 16:52 20:20 06:21 RBC (4.70-6.10) M/uL Hgb (14.0-18.0) g/dl Hct (42.0-52.0) % RDW Std Deviation (36.4-46.3) fL RDW Coeff of Jewels (11.5-14.5) % Plt Count (130-400) K/uL PT 12.9 H (9.0-12.0) Seconds INR 1.2 H (0.9-1.1) BUN 67 H (6-23) mg/dl Creatinine 2.38 H (0.6-1.4) mg/dl BUN/Creatinine Ratio 28.2 H (10-20) Glucose 108 H (70-99(Fasting)) mg/dl POC Glucose 139 H 120 H (70-99) mg/dl Calcium 8.1 L (8.6-10.3) mg/dl Total Bilirubin 1.6 H (0.2-1.0) mg/dl AST 70 H (13-39) U/L Alkaline Phosphatase 306 H (34-104) U/L Albumin 2.1 L (3.4-5.0) gm/dl Globulin 4.4 H (2.5-4.0) gm/dl Albumin/Globulin Ratio 0.5 L (0.9-2) 08/27/25 08/27/25 08/27/25 Range/Units 07:26 07:47 11:45 RBC 3.78 L (4.70-6.10) M/uL Hgb 11.0 L (14.0-18.0) g/dl Hct 33.3 L (42.0-52.0) % RDW Std Deviation 52.8 H (36.4-46.3) fL RDW Coeff of Jewels 17.3 H (11.5-14.5) % Plt Count 18 L* (130-400) K/uL PT (9.0-12.0) Seconds INR (0.9-1.1) BUN (6-23) mg/dl Creatinine (0.6-1.4) mg/dl BUN/Creatinine Ratio (10-20) Glucose (70-99(Fasting)) mg/dl POC Glucose 125 H 158 H (70-99) mg/dl Calcium (8.6-10.3) mg/dl Total Bilirubin (0.2-1.0) mg/dl AST (13-39) U/L Alkaline Phosphatase (34-104) U/L Albumin (3.4-5.0) gm/dl Globulin (2.5-4.0) gm/dl Albumin/Globulin Ratio (0.9-2)
--- NOTE | 2025-08-27 16:52 | Nephrology Progress Note ---
Date of Service August 27, 2025 Assessment & Plan (1) CKD (chronic kidney disease) stage 4, GFR 15-29 ml/min: Plan: CKD 4 w/ baseline creatinine as OP 2-2.4, minimal proteinuria historically at 156 mg/gm. on torsemide 120 mg daily as OP. second urine specimen this admission is from a catheter and therefore difficult to interpret in terms of inflammation; no e/o obstruction (now that alcaraz placed) or of infection renal function again today remains at baseline w/ acceptable electrolytes and appropriately managed volume overload no indication for dedicated renal imaging or for dialysis discussion at this time. >BP lability appears to have resolved >currently on lasix 80 mg IV bid and tolerating >> continue -no indication for fluid limit for now but may need to reconsider this moving forward Care coordinated w/ Dr Ghotra via [employer] regarding holding cabozatinib and continuing current diuretic regimen, labs; we are in agreement. 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 Denies shortness of breath. Overall continues to feel improved he tells me Review of Systems 2 Review of Systems: All systems reviewed & are unremarkable except as noted in Subjective Physical Exam 2 Constitutional: well developed (Sitting up in chair on room air) and well nourished Eyes: EOM intact bilaterally ENMT: Mouth: + muffled voice (hoarse), + dry oral mucous membranes and + poor dentition Respiratory: normal respiratory effort Auscultation: + diminished lung sounds Cardiovascular: Rate/Rhythm: regular rate and regular rhythm Extremities: + edema (1-2+ BLE) Gastrointestinal (Abdomen): Inspection/Auscultation: normal bowel sounds P ercussion/Palpation: abdomen soft; abdomen nontender Musculoskeletal: Extremities: strength 5/5 throughout Results & Data Vital Signs (Past 12 Hours) Vital Signs Temp Pulse Pulse Resp BP Pulse Ox O2 Del Method 08/27/25 15:18 36.3 C L 68 20 135/80 99 Room Air 08/27/25 14:23 85 08/27/25 11:59 Room Air 08/27/25 11:19 36.4 C L 63 20 122/70 96 Room Air 08/27/25 08:19 36.4 C L 65 20 130/80 97 Room Air 08/27/25 07:29 67 Laboratory Results 08/27/25 07:26 08/27/25 06:21
[2025-08-28] MEDS ORDERED: CABOMETYX PO SCH (06:30)
[2025-08-28 07:51] LABS: Alanine Aminotransferase 42.0 U/L (7-52); Albumin Globulin Ratio 0.4 (0.9-2); Albumin Level 2.1 gm/dl (3.4-5.0); Alkaline Phosphatase 315.0 U/L (34-104); Anion Gap 11.0 (3-11); Bilirubin,Total 1.5 mg/dl (0.2-1.0); Blood Urea Nitrogen 76.0 mg/dl (6-23); Calcium 8.3 mg/dl (8.6-10.3); Carbon Dioxide 24.0 mmol/L (21-32); Chloride 103.0 mmol/L (98-107); Creatinine Clr Calc Pharmacy 22.9 ml/min; Globulin 4.9 gm/dl (2.5-4.0); Glucose 128.0 mg/dl (70-99(Fasting)); Potassium 3.1 mmol/L (3.5-5.1); Sodium 138.0 mmol/L (136-145); Total Protein 7.0 gm/dl (6.0-8.3)
[2025-08-28 07:54] LABS: Hematocrit (blood only) 33.7 % (42.0-52.0); Hemoglobin 11.1 g/dl (14.0-18.0); Mean Corpuscular Hemoglobin 29.1 pg (25.0-34.0); Mean Corpuscular Volume 88.5 fL (80.0-100.0); Platelet Count 27 K/uL (130-400); RDW Standard Deviation 53.5 fL (36.4-46.3); Red Blood Count 3.81 M/uL (4.70-6.10); White Blood Count 6.63 K/ul (4.8-10.8)
--- NOTE | 2025-08-28 09:24 | Nephrology Progress Note ---
Date of Service August 28, 2025 Assessment & Plan Admission and Anticipated Discharge Date Admission Date: August 23, 2025 Subjective Assessment & Plan (1) CKD (chronic kidney disease) stage 4, GFR 15-29 ml/min: Plan: CKD 4 w/ baseline creatinine as OP 2-2.4, minimal proteinuria historically at 156 mg/gm. on torsemide 120 mg daily as OP. second urine specimen this admission is from a catheter and therefore difficult to interpret in terms of inflammation; no e/o obstruction (now that alcaraz placed) or of infection renal function again today remains at baseline w/ acceptable electrolytes and appropriately managed volume overload no indication for dedicated renal imaging or for dialysis discussion at this time. BP lability appears to have resolved Will switch over to to torsemide 100 daily in AM. He may always have some edema going forward. 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 Denies shortness of breath. Overall continues to feel improved he tells me Review of Systems Review of Systems: All systems reviewed & are unremarkable except as noted in Subjective Physical Exam Constitutional: well developed (Sitting up in chair on room air) and well nourished Eyes: EOM intact bilaterally ENMT: Mouth: + muffled voice (hoarse), + dry oral mucous membranes and + poor dentition Respiratory: normal respiratory effort Auscultation: + diminished lung sounds Cardiovascular: Rate/Rhythm: regular rate and regular rhythm Extremities: + edema (1+ BLE) Gastrointestinal (Abdomen): Inspection/Auscultation: normal bowel sounds Percussion/Palpation: abdomen soft; abdomen nontender Musculoskeletal: Extremities: strength 5/5 throughout Results & Data Vital Signs (Past 12 Hours) Vital Signs Temp Pulse Pulse Resp BP Pulse Ox O2 Del Method 08/28/25 07:00 73 08/28/25 04:07 36.9 C 69 16 122/71 97 Room Air 08/28/25 01:19 Room Air 08/27/25 23:40 36.5 C 69 14 111/55 L 98 Room Air 08/27/25 22:01 68
--- NOTE | 2025-08-28 11:28 | Hospitalist Progress Note ---
Date of Service August 28, 2025 Assessment & Plan (1) Left leg cellulitis: Plan 80-year-old male with significant past medical history of hepatocellular carcinoma with ongoing chemo, type 2 diabetes, CAD status post CABG x 4, hypertensive heart disease, history of unilateral nephrectomy, chronic heart failure with preserved EF, hyperlipidemia, chronic kidney disease stage IV, COPD and GERD apparently has been noted to be weak and lethargic and remaining in chair for the last 3 days without any movement which was noted by the family members on 3 separate visits. He was also noted to be pleasantly confused on the day of arrival and was brought into the emergency room for further evaluation. He is being managed for the following: Left leg cellulitis Generalized Weakness Likely metabolic encephalopathy Presented with deconditioning and noted to have left leg cellulitis with bilateral leg swelling. Pt apparently immobile x 3 days w/ mentation changes triggering hospital presentation. No sepsis at presentation. Lactate elevated at 3.4, downtrended. Doppler LE was negative for DVT Left calf cyst noted on venous doppler. Ortho evaluated, recs continuing w/ cellulitis Mx and possible ir drainage of the cyst in the future Cyst does not appear infected. Encephalopathy resolved Currently on IV ceftriaxone Hepatocellular carcinoma: Thrombocytopenia: Transaminitis: Hepatocellular carcinoma diagnosed in July 2023 and has been getting chemotherapy through [facility] oncologist Recent CT of the chest and CT of the abdomen and pelvis showed spreading of the disease He has been on a new chemo medication for the last few days or so LFT improved NYHA class 2 congestive heart failure with preserved left ventricular function: Has chronic heart failure with preserved EF Presented with increasing edema but no shortness of breath at rest Was on IV lasix. Nephro transitioned to PO torsemide today Remove alcaraz Chronic kidney disease, stage IV Nephro on board Other chronic medical conditions: CAD, status post CABG x 4: Continue home meds. COPD: Stable. Continue home meds. Left kidney cancer: Status post left nephrectomy DVT prophylaxis: SCDs, given thrombocytopenia. Aspirin on hold. CODE STATUS: DNR/DNI. CM to start working on placement I spent a total of 45 minutes coordinating, documenting and providing care for this patient excluding time spent in performance of separately billed services Admission and Anticipated Discharge Date Admission Date: August 23, 2025 Subjective Patient and examined Reports diarrhea is improved Denied other complaints Physical Exam Constitutional: no acute distress Eyes: PERRL, conjunctivae normal, anicteric sclerae ENMT: external ear and nose normal, oropharynx normal Respiratory: normal respiratory effort, lungs clear to auscultation Cardiovascular: Rate/Rhythm: regular rate and regular rhythm Gastrointestinal (Abdomen): normal bowel sounds, soft, nontender, no hepatosplenomegaly Musculoskeletal: Clean dressing over right foot wound. +LLE erythema much improved. Left calf cyst Pedal edema improved Neurologic: PERRL, EOMI, accommodation nl, no face palsy, no dysarthria Psychiatric: AOx3 Results & Data Results & Data Vital Signs (Past 12 Hours) Vital Signs Temp Pulse Pulse Resp BP BP Pulse Ox 08/28/25 08:00 36.4 C L 76 16 108/56 L 98 08/28/25 07:00 73 08/28/25 04:07 36.9 C 69 16 122/71 97 08/28/25 01:19 08/27/25 23:40 36.5 C 69 14 111/55 L 98 O2 Del Method 08/28/25 08:00 Room Air 08/28/25 07:00 08/28/25 04:07 Room Air 08/28/25 01:19 Room Air 08/27/25 23:40 Room Air Laboratory Results Abnormal lab results 08/28/25 08/28/25 08/28/25 Range/Units 06:47 08:40 12:33 RBC 3.81 L (4.70-6.10) M/uL Hgb 11.1 L (14.0-18.0) g/dl Hct 33.7 L (42.0-52.0) % RDW Std Deviation 53.5 H (36.4-46.3) fL RDW Coeff of Jewels 17.4 H (11.5-14.5) % Plt Count 27 L* (130-400) K/uL Potassium 3.1 L (3.5-5.1) mmol/L BUN 76 H (6-23) mg/dl Creatinine 2.67 H (0.6-1.4) mg/dl BUN/Creatinine Ratio 28.5 H (10-20) Glucose 128 H (70-99(Fasting)) mg/dl POC Glucose 152 H 163 H (70-99) mg/dl Calcium 8.3 L (8.6-10.3) mg/dl Total Bilirubin 1.5 H (0.2-1.0) mg/dl AST 75 H (13-39) U/L Alkaline Phosphatase 315 H (34-104) U/L Albumin 2.1 L (3.4-5.0) gm/dl Globulin 4.9 H (2.5-4.0) gm/dl Albumin/Globulin Ratio 0.4 L (0.9-2)
[2025-08-29 07:24] LABS: Alanine Aminotransferase 34.0 U/L (7-52); Albumin Globulin Ratio 0.5 (0.9-2); Albumin Level 2.0 gm/dl (3.4-5.0); Alkaline Phosphatase 276.0 U/L (34-104); Anion Gap 9.0 (3-11); Bilirubin,Total 1.2 mg/dl (0.2-1.0); Blood Urea Nitrogen 83.0 mg/dl (6-23); Calcium 8.1 mg/dl (8.6-10.3); Carbon Dioxide 23.0 mmol/L (21-32); Chloride 104.0 mmol/L (98-107); Creatinine Clr Calc Pharmacy 24.4 ml/min; Globulin 4.4 gm/dl (2.5-4.0); Glucose 119.0 mg/dl (70-99(Fasting)); Potassium 3.0 mmol/L (3.5-5.1); Sodium 136.0 mmol/L (136-145); Total Protein 6.4 gm/dl (6.0-8.3)
[2025-08-29 07:27] LABS: Hematocrit (blood only) 32.0 % (42.0-52.0); Hemoglobin 10.7 g/dl (14.0-18.0); Mean Corpuscular Hemoglobin 29.0 pg (25.0-34.0); Mean Corpuscular Volume 86.7 fL (80.0-100.0); Platelet Count 24 K/uL (130-400); RDW Standard Deviation 52.0 fL (36.4-46.3); Red Blood Count 3.69 M/uL (4.70-6.10); White Blood Count 5.37 K/ul (4.8-10.8)
[2025-08-29] MEDS: POTASSIUM CHLORIDE CRTAB 20 MEQ TABCR PO STA ×2 (09:45→11:38)
[2025-08-29] MEDS: TORSEMIDE 100 MG TAB PO SCH (09:47)
--- NOTE | 2025-08-29 10:29 | Hospitalist Progress Note ---
Date of Service August 29, 2025 Assessment & Plan (1) Left leg cellulitis: Plan 80-year-old male with significant past medical history of hepatocellular carcinoma with ongoing chemo, type 2 diabetes, CAD status post CABG x 4, hypertensive heart disease, history of unilateral nephrectomy, chronic heart failure with preserved EF, hyperlipidemia, chronic kidney disease stage IV, COPD and GERD apparently has been noted to be weak and lethargic and remaining in chair for the last 3 days without any movement which was noted by the family members on 3 separate visits. He was also noted to be pleasantly confused on the day of arrival and was brought into the emergency room for further evaluation. He is being managed for the following: Left leg cellulitis Generalized Weakness Likely metabolic encephalopathy Presented with deconditioning and noted to have left leg cellulitis with bilateral leg swelling. Pt apparently immobile x 3 days w/ mentation changes triggering hospital presentation. No sepsis at presentation. Lactate elevated at 3.4, downtrended. Doppler LE was negative for DVT Left calf cyst noted on venous doppler. Ortho evaluated, recs continuing w/ cellulitis Mx and possible ir drainage of the cyst in the future Cyst does not appear infected. Encephalopathy resolved Currently on IV ceftriaxone. To complete today Hepatocellular carcinoma: Thrombocytopenia: Transaminitis: Hepatocellular carcinoma diagnosed in July 2023 and has been getting chemotherapy through [facility] oncologist Recent CT of the chest and CT of the abdomen and pelvis showed spreading of the disease He has been on a new chemo medication for the last few days or so LFT improved NYHA class 2 congestive heart failure with preserved left ventricular function: Chronic kidney disease, stage IV Has chronic heart failure with preserved EF Presented with increasing edema but no shortness of breath at rest Was on IV lasix, now transitioned to po torsemide Replete hypokalemia and monitor Other chronic medical conditions: CAD, status post CABG x 4: Continue home meds. COPD: Stable. Continue home meds. Left kidney cancer: Status post left nephrectomy DVT prophylaxis: SCDs, given thrombocytopenia. CODE STATUS: DNR/DNI. CM working on placement I spent a total of 35 minutes coordinating, documenting and providing care for this patient excluding time spent in performance of separately billed services Admission and Anticipated Discharge Date Admission Date: August 23, 2025 Subjective Patient seen and examined No new complaints today Physical Exam Constitutional: no acute distress Eyes: PERRL, conjunctivae normal, anicteric sclerae ENMT: external ear and nose normal, oropharynx normal Respiratory: normal respiratory effort, lungs clear to auscultation Cardiovascular: Rate/Rhythm: regular rate and regular rhythm Gastrointestinal (Abdomen): normal bowel sounds, soft, nontender, no hepatosplenomegaly Musculoskeletal: +pedal edema Neurologic: PERRL, EOMI, accommodation nl, no face palsy, no dysarthria Results & Data Results & Data Vital Signs (Past 12 Hours) Vital Signs Temp Pulse Pulse Resp BP Pulse Ox O2 Del Method 08/29/25 08:30 36.6 C 78 18 118/70 97 Room Air 08/29/25 07:23 78 08/29/25 04:26 36.6 C 76 18 108/56 L 96 Room Air 08/28/25 23:49 36.7 C 69 19 96/51 L 98 Room Air Laboratory Results Abnormal lab results 08/28/25 08/28/25 08/29/25 Range/Units 16:41 19:59 06:34 RBC 3.69 L (4.70-6.10) M/uL Hgb 10.7 L (14.0-18.0) g/dl Hct 32.0 L (42.0-52.0) % RDW Std Deviation 52.0 H (36.4-46.3) fL RDW Coeff of Jewels 17.2 H (11.5-14.5) % Plt Count 24 L* (130-400) K/uL Potassium 3.0 L (3.5-5.1) mmol/L BUN 83 H (6-23) mg/dl Creatinine 2.51 H (0.6-1.4) mg/dl BUN/Creatinine Ratio 33.1 H (10-20) Glucose 119 H (70-99(Fasting)) mg/dl POC Glucose 123 H 103 H (70-99) mg/dl Calcium 8.1 L (8.6-10.3) mg/dl Total Bilirubin 1.2 H (0.2-1.0) mg/dl AST 56 H (13-39) U/L Alkaline Phosphatase 276 H (34-104) U/L Albumin 2.0 L (3.4-5.0) gm/dl Globulin 4.4 H (2.5-4.0) gm/dl Albumin/Globulin Ratio 0.5 L (0.9-2) 10/25/25 10/25/25 Range/Units 08:10 12:27 RBC (4.70-6.10) M/uL Hgb (14.0-18.0) g/dl Hct (42.0-52.0) % RDW Std Deviation (36.4-46.3) fL RDW Coeff of Jewels (11.5-14.5) % Plt Count (130-400) K/uL Potassium (3.5-5.1) mmol/L BUN (6-23) mg/dl Creatinine (0.6-1.4) mg/dl BUN/Creatinine Ratio (10-20) Glucose (70-99(Fasting)) mg/dl POC Glucose 120 H 176 H (70-99) mg/dl Calcium (8.6-10.3) mg/dl Total Bilirubin (0.2-1.0) mg/dl AST (13-39) U/L Alkaline Phosphatase (34-104) U/L Albumin (3.4-5.0) gm/dl Globulin (2.5-4.0) gm/dl Albumin/Globulin Ratio (0.9-2)
[2025-08-29] MEDS: ACETAMINOPHEN 325 MG TAB PO PRN (13:40)
[2025-08-29] MEDS: POTASSIUM CHLORIDE / WTR 10 MEQ/100 ML PLCT IV SCH (13:41)
[2025-08-30 08:19] LABS: Anion Gap 9.0 (3-11); Blood Urea Nitrogen 89.0 mg/dl (6-23); Calcium 8.4 mg/dl (8.6-10.3); Carbon Dioxide 24.0 mmol/L (21-32); Chloride 106.0 mmol/L (98-107); Creatinine Clr Calc Pharmacy 22.6 ml/min; Glucose 158.0 mg/dl (70-99(Fasting)); Magnesium 1.8 mg/dl (1.7-2.4); Potassium 3.3 mmol/L (3.5-5.1); Sodium 139.0 mmol/L (136-145)
--- NOTE | 2025-08-30 10:59 | Hospitalist Progress Note ---
Date of Service August 30, 2025 Assessment & Plan (1) Left leg cellulitis: Plan 80-year-old male with significant past medical history of hepatocellular carcinoma with ongoing chemo, type 2 diabetes, CAD status post CABG x 4, hypertensive heart disease, history of unilateral nephrectomy, chronic heart failure with preserved EF, hyperlipidemia, chronic kidney disease stage IV, COPD and GERD apparently has been noted to be weak and lethargic and remaining in chair for the last 3 days without any movement which was noted by the family members on 3 separate visits. He was also noted to be pleasantly confused on the day of arrival and was brought into the emergency room for further evaluation. He is being managed for the following: Left leg cellulitis Generalized Weakness Likely metabolic encephalopathy Presented with deconditioning and noted to have left leg cellulitis with bilateral leg swelling. Pt apparently immobile x 3 days w/ mentation changes triggering hospital presentation. No sepsis at presentation. Lactate elevated at 3.4, downtrended. Doppler LE was negative for DVT Left calf cyst noted on venous doppler. Ortho evaluated, recs continuing w/ cellulitis Mx and possible ir drainage of the cyst in the future Cyst does not appear infected. Encephalopathy resolved Completed IV ceftriaxone Hepatocellular carcinoma: Thrombocytopenia: Transaminitis: Hepatocellular carcinoma diagnosed in July 2023 and has been getting chemotherapy through [facility] oncologist Recent CT of the chest and CT of the abdomen and pelvis showed spreading of the disease He has been on a new chemo medication for the last few days or so LFT improved NYHA class 2 congestive heart failure with preserved left ventricular function: Chronic kidney disease, stage IV Has chronic heart failure with preserved EF Presented with increasing edema but no shortness of breath at rest Was on IV lasix, now transitioned to po torsemide Replete hypokalemia and monitor Other chronic medical conditions: CAD, status post CABG x 4: Continue home meds. COPD: Stable. Continue home meds. Left kidney cancer: Status post left nephrectomy DVT prophylaxis: SCDs, given thrombocytopenia. CODE STATUS: DNR/DNI. CM working on placement I spent a total of 35 minutes coordinating, documenting and providing care for this patient excluding time spent in performance of separately billed services Admission and Anticipated Discharge Date Admission Date: August 23, 2025 Subjective Patient seen and examined No new complaints today Physical Exam Constitutional: no acute distress Eyes: PERRL, conjunctivae normal, anicteric sclerae ENMT: external ear and nose normal, oropharynx normal Respiratory: normal respiratory effort, lungs clear to auscultation Cardiovascular: Rate/Rhythm: regular rate and regular rhythm Gastrointestinal (Abdomen): normal bowel sounds, soft, nontender, no hepatosplenomegaly Musculoskeletal: +pedal edema Neurologic: PERRL, EOMI, accommodation nl, no face palsy, no dysarthria Results & Data Results & Data Vital Signs (Past 12 Hours) Vital Signs Temp Pulse Pulse Resp BP BP Pulse Ox 08/30/25 07:48 68 18 120/63 97 08/30/25 07:41 70 08/30/25 04:09 36.4 C L 71 18 116/65 96 08/30/25 00:18 36.8 C 69 18 105/62 98 O2 Del Method 08/30/25 07:48 Room Air 08/30/25 07:41 08/30/25 04:09 Room Air 08/30/25 00:18 Room Air Laboratory Results Abnormal lab results 08/29/25 08/29/25 08/29/25 Range/Units 15:19 16:42 20:54 Potassium 3.3 L (3.5-5.1) mmol/L BUN (6-23) mg/dl Creatinine (0.6-1.4) mg/dl BUN/Creatinine Ratio (10-20) Glucose (70-99(Fasting)) mg/dl POC Glucose 167 H 236 H (70-99) mg/dl Calcium (8.6-10.3) mg/dl 08/30/25 08/30/25 08/30/25 Range/Units 07:31 08:03 12:06 Potassium 3.3 L (3.5-5.1) mmol/L BUN 89 H (6-23) mg/dl Creatinine 2.74 H (0.6-1.4) mg/dl BUN/Creatinine Ratio 32.5 H (10-20) Glucose 158 H (70-99(Fasting)) mg/dl POC Glucose 148 H 156 H (70-99) mg/dl Calcium 8.4 L (8.6-10.3) mg/dl
[2025-08-30] MEDS: POTASSIUM CHLORIDE CRTAB 20 MEQ TABCR PO STA (13:09)
--- NOTE | 2025-08-30 13:10 | Nephrology Progress Note ---
Date of Service August 30, 2025 Assessment & Plan Admission and Anticipated Discharge Date Admission Date: August 23, 2025 Subjective Assessment & Plan (1) CKD (chronic kidney disease) stage 4, GFR 15-29 ml/min: Plan: CKD 4 w/ baseline creatinine as OP 2-2.4, minimal proteinuria historically at 156 mg/gm. on torsemide 120 mg daily as OP. second urine specimen this admission is from a catheter and therefore difficult to interpret in terms of inflammation; no e/o obstruction (now that alcaraz placed) or of infection renal function again today remains at baseline w/ acceptable electrolytes and appropriately managed volume overload no indication for dedicated renal imaging or for dialysis discussion at this time. renal function slightly worse today but will not change anything as such yet BP normal. conitnue torsemide 100 daily in AM. He may always have some edema going forward. No SOB and on RA though K remains low--continue kcl 40 tid. 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 Denies shortness of breath. Overall continues to feel improved. Low K persists Review of Systems Review of Systems: All systems reviewed & are unremarkable except as noted in Subjective Physical Exam Constitutional: well developed (Sitting up in chair on room air) and well nourished Eyes: EOM intact bilaterally ENMT: Mouth: + muffled voice (hoarse), + dry oral mucous membranes and + poor dentition Respiratory: normal respiratory effort Auscultation: + diminished lung sounds Cardiovascular: Rate/Rhythm: regular rate and regular rhythm Extremities: + edema (1+ BLE) Gastrointestinal (Abdomen): Inspection/Auscultation: normal bowel sounds Percussion/Palpation: abdomen soft; abdomen nontender Musculoskeletal: Extremities: strength 5/5 throughout Results & Data Vital Signs (Past 12 Hours) Vital Signs Temp Pulse Pulse Resp BP BP Pulse Ox 08/30/25 12:20 36.3 C L 64 18 110/68 98 10/26/25 09:00 08/30/25 07:48 68 18 120/63 97 08/30/25 07:41 70 08/30/25 04:09 36.4 C L 71 18 116/65 96 O2 Del Method 08/30/25 12:20 Room Air 08/30/25 09:00 Room Air 08/30/25 07:48 Room Air 08/30/25 07:41 08/30/25 04:09 Room Air
[2025-08-30] MEDS: POTASSIUM CHLORIDE CRTAB 20 MEQ TABCR PO SCH (13:57)
[2025-08-31 07:52] VITALS: RESP 18; TEMP 97.3
[2025-08-31 08:48] LABS: Anion Gap 8.0 (3-11); Blood Urea Nitrogen 89.0 mg/dl (6-23); Calcium 8.2 mg/dl (8.6-10.3); Carbon Dioxide 23.0 mmol/L (21-32); Chloride 107.0 mmol/L (98-107); Creatinine Clr Calc Pharmacy 23.8 ml/min; Glucose 105.0 mg/dl (70-99(Fasting)); Potassium 3.8 mmol/L (3.5-5.1); Sodium 138.0 mmol/L (136-145)
[2025-08-31 11:38] VITALS: O2SAT 100
--- NOTE | 2025-08-31 13:14 | Discharge Summary ---
Date of Service August 31, 2025 Admission HPI Per Admitting Provider he is a 80-year-old male with significant past medical history of hepatocellular carcinoma with ongoing chemo, type 2 diabetes, CAD status post CABG x 4, hypertensive heart disease, history of unilateral nephrectomy, chronic heart failure with preserved EF, hyperlipidemia, chronic kidney disease stage IV, COPD and GERD apparently has been noted to be weak and lethargic and remaining in chair for the last 3 days without any movement which was noted by the family members on 3 separate visits. He was also noted to be pleasantly confused today and was brought into the emergency room for further evaluation. He has multiple medical problems as mentioned above and so far has been taking care of himself and lives alone at home. For the last 3 or 4 days he has been weak and lethargic and has not been doing his usual activities, like come out of chair and eat and drink the way he used to do. He denies any fever and or chills, has been making out urine and occasionally incontinent of bowel. He has a leg ulcer on the left side which seems to be spreading with redness and tenderness and associated with increasing swelling of the legs but denies any shortness of breath or chest pain at rest. He was noted to have low platelet 27, significant leg swelling on both sides with left leg cellulitis and significant electrolyte imbalance with profound weakness. He was admitted to [facility] telemetry unit for continuation of care. Admission Exam Per Admitting Provider Physical Exam: Lying in bed without any acute distress Constitutional: well developed, well nourished, + ill appearing and + obese Eyes: PERRL, conjunctivae normal, anicteric sclerae ENMT: external ear and nose normal, oropharynx normal Neck: trachea midline, no thyromegaly Respiratory: no respiratory distress Auscultation: + diminished lung sounds and + crackles ( minimal bibasilar crackles) Cardiovascular: Rate/Rhythm: regular rate and regular rhythm; not tachycardic Heart Sounds: normal S1 and normal S2; no murmur Extremities: + edema ( 2+ edema bilaterally. Left leg cellulitis involving the lower leg) Gastrointestinal (Abdomen): Inspection/Auscultation: + abdomen distended and normal bowel sounds Percussion/Palpation: abdomen soft; abdomen nontender Musculoskeletal: No acute arthritis involving any of the joint Neurologic: normal touch/pain/proprioception and moves all extremities ( General Very weak and lethargic); no focal motor deficits Lymphatic: no cervical or axillary lymphadenopathy Principal Diagnosis Left leg cellulitis Metabolic encephalopathy Generalized weakness Chronic Kidney Disease stage 4 Discharge Exam Constitutional no acute distress Eyes PERRL, conjunctivae normal, anicteric sclerae ENMT external ear and nose normal, oropharynx normal Respiratory normal respiratory effort, lungs clear to auscultation Cardiovascular Rate/Rhythm: regular rate and regular rhythm Gastrointestinal (Abdomen) normal bowel sounds, soft, nontender, no hepatosplenomegaly Musculoskeletal Clean dressing over right foot wound. +LLE erythema much improved. Left calf cyst Pedal edema improved Neurologic PERRL, EOMI, accommodation nl, no face palsy, no dysarthria Psychiatric AOx3 Discharge Data Allergies Allergy/AdvReac Type Severity Reaction Status Date / Time amoxicillin Allergy Intermediate RASH, Verified 11/04/24 10:44 ELEVATED PULSE clavulanic acid Allergy Intermediate RASH AND Verified 11/04/24 10:44 ELEVATED PULSE lisinopril Allergy Intermediate COUGH Verified 11/04/24 10:44 Consultations 08/23/25 12:24 ED Decision to Admit Stat 08/23/25 13:30 Consult Nephrology Routine 08/23/25 14:31 Consult Oncology Routine 08/25/25 08:24 Consult Orthopedic Surgery Routine Ordered Studies 08/23/25 10:38 CT head/brain wo con Stat 08/24/25 10:14 US venous doppler LE BI Routine Hospital Course (1) Left leg cellulitis: Plan 80-year-old male with significant past medical history of hepatocellular carcinoma with ongoing chemo, type 2 diabetes, CAD status post CABG x 4, hypertensive heart disease, history of unilateral nephrectomy, chronic heart failure with preserved EF, hyperlipidemia, chronic kidney disease stage IV, COPD and GERD apparently has been noted to be weak and lethargic and remaining in chair for the last 3 days without any movement which was noted by the family members on 3 separate visits. He was also noted to be pleasantly confused on the day of arrival and was brought into the emergency room for further evaluation. He is being managed for the following: Left leg cellulitis Generalized Weakness Likely metabolic encephalopathy Presented with deconditioning and noted to have left leg cellulitis with bilateral leg swelling. Pt apparently immobile x 3 days w/ mentation changes triggering hospital presentation. No sepsis at presentation. Lactate elevated at 3.4, downtrended. Doppler LE was negative for DVT Left calf cyst noted on venous doppler. Ortho evaluated and recommends treating cellulitis. Cyst does not appear infected. May consider IR drainage Encephalopathy resolved Completed IV ceftriaxone Hepatocellular carcinoma: Thrombocytopenia: Transaminitis: Hepatocellular carcinoma diagnosed in July 2023 and has been getting chemotherapy through [facility] oncologist Recent CT of the chest and CT of the abdomen and pelvis showed spreading of the disease He was evaluated by Oncology who recommends holding off Cabometyx until advised to resume by Oncology NYHA class 2 congestive heart failure with preserved left ventricular function: Chronic kidney disease, stage IV Has chronic heart failure with preserved EF Presented with increasing edema but no shortness of breath at rest Was managed with IV diuretics by Nephrology Also had hypokalemia and was started on Po potassium Discussed with [employer] who recommends the following: -Torsemide was changed to 100mg daily -Started on Potassium Chloride 40mEq twice a day -Check Basic Metabolic Panel on Mondays and for next 3 weeks -Patient to follow up with Nephrology in 1-2 weeks [facility] Total Time Total Time Spent Total Time Spent (In Minutes): 45 Total Time Includes: Examination of the Patient, Discharge Planning, Medication Reconciliation and Communication With Other Providers Discharge Plan Discharge Items Patient Disposition: Transfer Inpatient Rehab Fac Reason For Visit: LEFT LEG CELLULITIS, GENERAL DEBILITY, HCC Discharge Diagnosis: Left leg cellulitis Metabolic encephalopathy Generalized weakness Chronic Kidney Disease stage 4 Condition on Discharge: Good Activity: As commented below Activity Comment: As recommended by PT Non-emergency contact: Primary Care Provider Call non-emergency contact if: you have any medication questions Follow-up/Referrals: Buzz Rainey MD [Primary Care Provider] - Diet: Carb Consistent or DM2 and Heart Healthy Addtl Attending Provider Instructions: Mr Ragland You were hospitalized and managed for the above listed diagnoses. You are being discharged to [facility] for Rehab. 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 for management of your cancer and abnormal blood counts It was a pleasure taking care of you Pending Studies at Discharge: No Stand-Alone Forms: [facility] Skilled Items Patient informed of condition?: Yes DNR: Yes Discharge Level of Care: Acute rehab Communicable Disease: No Discharge Prognosis: Stable Lines: None Urinary Catheter: No Medications and DC Order Prescriptions: New acetaminophen 325 mg Tablet 650 mg PO Q6H PRN (Reason: pain) Qty: 60 0RF potassium chloride 20 mEq Tablet,Er Particles/Crystals 40 meq PO BID Qty: 60 0RF Continued timolol maleate 0.25 % Drops 1 drp OPB HS aspirin [Edwardo Low Dose Aspirin] 81 mg Tablet,Delayed Release (Dr/Ec) 81 mg PO QAM pantoprazole 40 mg Tablet,Delayed Release (Dr/Ec) 40 mg PO DAILYBB docusate sodium 100 mg Tablet 100 mg PO AMHS finasteride 5 mg Tablet 5 mg PO QAM nitroglycerin 0.4 mg tablet, sublingual 0.4 mg sublingual UD PRN (Reason: Chest Pain) Rx Instructions: place 1 tab under tongue every 5 minutes as needed for chest pain up to 3 doses in 15 minutes melatonin 5 mg Tablet 10 mg PO HS atorvastatin 40 mg Tablet 40 mg PO QAM gabapentin 300 mg Capsule 300 mg PO HS fluticasone propion-salmeterol [Wixela Inhub] 250-50 mcg/dose Blister With Device 1 inh INHALATION BID insulin glargine [Lantus Solostar U-100 Insulin] 100 unit/mL (3 mL) insulin pen 12 unit SUBCUT QAM isosorbide mononitrate 60 mg tablet extended release 24 hr 60 mg PO QAM torsemide 100 mg Tablet 100 mg PO DAILY Rx Instructions: Take 100mg w/ 20mg to equal 120mg by mouth every morning. cetirizine 1 mg/mL solution 5 mg PO HS meclizine 25 mg tablet 25 mg PO BID sertraline 50 mg tablet 50 mg PO DAILY Tradjenta 5 mg tablet 5 mg PO DAILY metoprolol succinate 25 mg tablet extended release 24 hr 25 mg PO DAILY benzonatate 100 mg capsule 100 mg PO TID PRN (Reason: cough) Qty: 20 0RF albuterol sulfate 90 mcg/actuation HFA aerosol inhaler 2 inha INH QID PRN (Reason: shortness of breath or wheezing) Qty: 1 0RF Held Cabometyx 60 mg tablet 60 mg PO DAILY Hold Instructions: Resume on 09/07/25. Hold until resumed by Oncologist Discontinued oxycodone 5 mg Tablet 5 mg PO Q4H PRN (Reason: pain) Qty: 7 0RF torsemide 20 mg tablet 20 mg PO DAILY Rx Instructions: Take 20mg w/ 100mg to equal 120mg by mouth every morning. Discharge Orders: Discharge Order (Routine); Ordered 08/31/25 Ordered By: Tiffany Mcpherson/Other Patient Handouts: Nutrition for Wound Healing, Managing Type 2 Di abetes Admission Data Admit Date/Time: 08/23/25 13:26 Attending Provider: Tiffany Ghotra I. Admit Provider: Manda Kelly Primary Care Provider: Buzz Rainey Other Providers: Manda Kelly; Jaja Coe; Boubacar Cevallos; Nader Alvarenga; Kylah Bloom; Jenniffer Baxter; Jony Foster; Isaías Lim; Cheryl Araiza; [place]; [facility]; [facility], Other Interventions: Discharge Summary Assessment (RN) Last Done: 08/31/25 14:40
--- NOTE | 2025-08-31 13:36 | Nephrology Progress Note ---
Date of Service August 31, 2025 Assessment & Plan (1) CKD (chronic kidney disease) stage 4, GFR 15-29 ml/min: Plan: CKD 4 w/ baseline creatinine as OP 2-2.4, minimal proteinuria historically at 156 mg/gm. on torsemide 120 mg daily as OP. second urine specimen this admission is from a catheter and therefore difficult to interpret in terms of inflammation; no e/o obstruction (now that alcaraz placed) or of infection renal function a bit above baseline today at 2.6, where it has been for past 3 days, w/ mostly acceptable electrolytes and appropriately managed volume overload no indication for dedicated renal imaging or for dialysis discussion at this time. BP normal. continue torsemide 100 daily in AM He may always have some edema going forward. will lower K to 40 mEq bid. no indication for fluid limit for now but may need to reconsider this moving forward NEPH D/C RECS DX: -CKD 4, baseline creatinine 2-2.4 -at risk for LAMBERT -improving critical/severe thrombocytopenia off of cabazotanib -hypokalemia RX: -torsemide 100 mg daily -potassium chloride 40 mEq bid OTHER CARE: -STANDING weight MWF > record and bring to f/u appts -BMP q Sun, x 3 wks to be ordered by accepting facility, thereafter by PCP -contact Dr Cevallos or myself if concerns about electrolytes, renal function prior to hospital d/c appt -low sodium diet -continue compression hose F/U APPTS: -Hospital d/c appt w/ Dr Cevallos in 1-2 wks to titrate potassium, torsemide dosing Care coordinated w/ Dr Ghotra via [employer]Text regarding d/c torsemide, K dosing, f/u appts/ labs; we are in agreement. 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: Plan: oncology notes they had stopped OP cabazotanib and recommend continuing to hold but pt brought it in to start tomorrow > reviewed w/ pharmacy and stopped this home medication >f/u w/ oncology after d/c before resuming cabazotanib, if resumption even is indicated (3) Thrombocytopenia: Plan: bleeding precautions >daily bmp/cbc >further as per hematology/oncology; no evidence that thrombocytopenia is impacting renal function at this time however w/ severe thrombocytopenia at 18K again today Admission and Anticipated Discharge Date Admission Date: August 23, 2025 Subjective no c/o > feels edema well controlled; no uncontrolled pain, no breathing shortness Review of Systems 2 Review of Systems: All systems reviewed & are unremarkable except as noted in Subjective Physical Exam 2 Constitutional: well developed (Sitting up in bed on room air) and well nourished Eyes: EOM intact bilaterally ENMT: Mouth: + muffled voice (hoarse), + dry oral mucous membranes and + poor dentition Respiratory: normal respiratory effort Auscultation: + diminished lung sounds Cardiovascular: Rate/Rhythm: regular rate and regular rhythm Extremities: + edema (1+ BLE, 2+ pedal BL in TEDS) Gastrointestinal (Abdomen): Inspection/Auscultation: + abdomen distended and normal bowel sounds Percussion/Palpation: abdomen soft; abdomen nontender (slight TTP periumbilical) Musculoskeletal: Extremities: strength 5/5 throughout Skin: excoriations R thigh Results & Data Vital Signs (Past 12 Hours) Vital Signs Temp Pulse Resp BP BP Pulse Ox O2 Del Method 08/31/25 12:54 119/66 08/31/25 11:37 36.3 C L 70 18 93/55 L 100 Room Air 08/31/25 08:40 Room Air 08/31/25 07:51 36.3 C L 69 18 136/77 96 Room Air 08/31/25 04:23 36.2 C L 71 16 117/65 98 Room Air Laboratory Results 08/29/25 06:34 08/31/25 08:01
[2025-08-31] MEDS: ALBUTEROL HFA 8 GM INHALER INH PRN (13:43)
[2025-08-31 14:42] VITALS: BP 136/77; PULSE 70
[2025-08-31] MEDS: INFLUENZA VACC TS2025-26(65y+)/PF (IIV3) 0.5mL Syr IM ONE (15:57)
== END 2025-08-31 16:35 | DRG 602 ==
LOC: ED 10:25 → SUATTDRO 13:26 → 2W 13:26